=== PATIENT | male | born 1950 | race Caucasian/White ===

== ENCOUNTER 2018-04-11 18:41 | Observation (INO) | payer OTHER ==
[2018-04-11 20:47] LABS: Absolute Lymphocytes (CBC) 1.3 K/uL (0.7-4.9); Absolute Monocytes 0.5 K/uL (0.1-1.3); Absolute Neutrophil 2.6 K/uL (1.8-8.0); Basophils % 1.2 % (0-1.3); Hematocrit 31.6 % (39.6-49.0); Lymphocytes % 27.8 % (15.3-44.8); MCH 18.7 pg (27.0-35.0); MCV 63.8 fL (80-100); MPV 8.6 fL (7.6-11.3); Monocytes % 11.5 % (3.3-12.3); RBC Red Blood Cell Count 4.95 M/uL (4.33-5.43)
[2018-04-11] MEDS ORDERED: cloNIDine HCl 0.1 MG TAB ONE (20:48)
[2018-04-11 20:54] LABS: Protime INR 1.01
[2018-04-11 21:05] LABS: Potassium 4.3 mmol/L (3.5-5.1)
--- NOTE | 2018-04-11 21:12 | RAD REPORT ---
EXAM DESCRIPTION: CT - Ct Stroke Brain Wo Cont - 04/11/2018 8:43 pm CLINICAL HISTORY: Visual disturbance COMPARISON: None. TECHNIQUE: Computed axial tomography of the head was obtained. IV contrast was not requested. All CT scans are performed using dose optimization technique as appropriate and may include automated exposure control or mA/KV adjustment according to patient size. FINDINGS: 3 centimeter low-density area is present within the right occipital lobe consistent with a n infarct. The though 1.5 centimeter low-density area within the right frontal lobe has the appearanc e of an old infarct. Small patchy low-density areas within the cerebellum are noted. An intracranial bleed is not seen . The ventricles are normal in caliber. No extra-axial fluid collection is noted. Fluid within the sinuses/ mastoids is not seen. IMPRESSION: A 3 centimeter low-density area within the right occipital lobe and consistent with an i nfarct. It has more of the appearance of being subacute/old than acute. However, prior exams are not available for comparison. Small old right frontal lobe infarct. Small patchy low-density areas within the cerebellum probably representing small infarcts of indeterm inate age. If the patient continues have symptoms to suggest an acute infarction MRI would be recommended. The exam was discussed with 9 p.m. April 16, 2018
[2018-04-11 21:19] LABS: Urine White Blood Cell Casts OK
[2018-04-11 21:20] LABS: Anisocytosis 2+; Blood Morphology Comment NOTED (NOT SEEN); Elliptocytes 1+; Hypochromasia 2+; Platelet Estimate ADEQ; Polychromasia 1+
[2018-04-11 21:46] LABS: Urine Blood NEGATIVE (NEG); Urine Glucose NEGATIVE (NEG); Urine Protein NEGATIVE (NEG); Urine Specific Gravity 1.015 (1.005-1.030); Urine pH 5.5 (5.0-7.0)
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
[2018-04-11] MEDS ORDERED: MAGNESIUM HYDROXIDE 8% 30 ML PO PRN (22:52)
[2018-04-11] MEDS ORDERED: ACETAMINOPHEN 500 MG TAB PO PRN (22:52)
[2018-04-11] MEDS ORDERED: ONDANSETRON 4 MG/2 ML VIAL IV PRN (22:52)
[2018-04-12] MEDS: NA CHLORIDE 0.9% 1,000 ML IV SCH ×3 (00:28→17:25)
[2018-04-12] MEDS: ASPIRIN EC 81 MG TAB PO SCH ×2 (00:51→09:41)
[2018-04-12 04:16] LABS: Absolute Lymphocytes (CBC) 1.7 K/uL (0.7-4.9); Absolute Monocytes 0.7 K/uL (0.1-1.3); Absolute Neutrophil 2.6 K/uL (1.8-8.0); Eosinophils % 5.5 % (0-4.4); Hematocrit 30.9 % (39.6-49.0); Lymphocytes % 32.4 % (15.3-44.8); MCH 18.7 pg (27.0-35.0); MPV 8.7 fL (7.6-11.3); Monocytes % 12.4 % (3.3-12.3)
[2018-04-12 04:23] LABS: MCV 64.3 fL (80-100)
[2018-04-12 04:33] LABS: Albumin 3.4 g/dL (3.4-5.0); Bilirubin Total 0.2 mg/dL (0.2-1.0); Magnesium 2.3 mg/dL (1.8-2.4); Phosphorus 3.1 mg/dL (2.5-4.9); Potassium 4.2 mmol/L (3.5-5.1); Protein, Total 6.4 g/dL (6.4-8.2)
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
[2018-04-12] MEDS: ENOXAPARIN 40 MG/0.4 ML SQ SCH (09:41)
[2018-04-12] MEDS: CLOPIDOGREL 75 MG TABLET PO SCH (09:42)
--- NOTE | 2018-04-12 12:18 | RAD REPORT ---
EXAM DESCRIPTION: MRI - Stroke Protocol - 04/12/2018 11:52 am CLINICAL HISTORY: Loss of vision COMPARISON: April [address] TECHNIQUE: Axial, sagittal and coronal magnetic resonance images of the brain were obtained. 17 cc M ultiHance was administered. Magnetic resonance angiography of the head and neck was performed. Source images were reviewed and reconstructed at 360 degrees rotation. FINDINGS: Abnormal signal is present within the right occipital lobe, cerebellum bilaterally, left o ccipital lobe, right frontal lobe and posterior left frontal lobe having the appearance of old infarc ts. Diffusion weighted/ADC mapping does not reveal evidence of an acute infarction. No abnormal enhancement within the brain is seen. Fluid within the sinuses/mastoids is not noted. The common, internal and external carotid arteries do not demonstrate a significant stenosis. The basil tebral arteries are unremarkable. The visualized anterior cerebral, middle cerebral, posterior cerebral, basilar and distal internal c arotid arteries do not demonstrate a significant stenosis. 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 An acute infarction is not seen Unremarkable MRA head and neck
--- NOTE | 2018-04-12 12:23 | RAD REPORT ---
EXAM DESCRIPTION: Dwayne Pa And Lat (2 Views)04/12/2018 11:54 am CLINICAL HISTORY: Cough COMPARISON: December 2017 FINDINGS: The right lower lobe opacities have mostly resolved. The right pleural effusion has resolv ed. The left lung appears clear of acute infiltrate. The heart is normal size Several tiny radiopaque densities overlie the right lung
--- NOTE | 2018-04-12 12:30 | RAD REPORT ---
EXAM DESCRIPTION: VASCarotid Artery Bilateral04/12/2018 12:12 pm CLINICAL HISTORY: Vision loss FINDINGS: The velocity of the right internal carotid artery equals 97 cm/sec. The right ICA/CCA rati o 1.3 The velocity of the left internal carotid artery equals 113 cm/sec. The left ICA/CCA ratio 1.7 Minimal plaque is present within the carotid arteries. The vertebral arteries demonstrate antegrade flow IMPRESSION: Minimal plaque within the carotid arteries without evidence of a hemodynamically signifi cant stenosis
--- NOTE | 2018-04-12 15:31 | ECHO ---
HEIGHT: 5 ft 9 in WEIGHT: 178 lb 14.4 oz DATE OF STUDY: 04/12/[address]: Carson Carreno MD 2-DIMENSIONAL: YES M.MODE: YES DOPPLER: YES COLOR FLOW: YES TDS: PORTABLE: DEFINITY: BUBBLE STUDY: DIAGNOSIS: STROKE CARDIAC HISTORY: CATHERIZATION: NO SURGERY: NO PROSTHETIC VALVE: NO PACEMAKER: NO MEASUREMENTS (cm) DIASTOLIC (NORMALS) SYSTOLIC (NORMALS) IVSd 1.1 (0.6-1.2) LA Diam 4.0 (1.9-4.0) LVEF 54% LVIDd 5.5 (3.5-5.7) LVIDs 3.9 (2.0-3.5) %FS 28% LVPWd 1.1 (0.6-1.2) Ao Diam 3.9 (2.0-3.7) 2 DIMENSIONAL ASSESSMENT: RIGHT ATRIUM: NORMAL LEFT ATRIUM: NORMAL RIGHT VENTRICLE: NORMAL LEFT VENTRICLE: NORMAL TRICUSPID VALVE: NORMAL MITRAL VALVE: NORMAL PULMONIC VALVE: NORMAL AORTIC VALVE: NORMAL PERICARDIAL EFFUSION: NONE AORTIC ROOT: NORMAL LEFT VENTRICULAR WALL MOTION: NORMAL DOPPLER/COLOR FLOW: NORMAL COMMENTS: NORMAL TWO DIMENSIONAL ECHOCARDIOGRAM WITH DOPPLER. NO WALL MOTION ABNORMALITY. NO EFFUSION TECHNOLOGIST: CONNER KEMP
--- NOTE | 2018-04-12 15:36 | EKG ---
Test Date: 2018-04-12 Test Time: 07:23:33 [employer] Machine Worker: DAI MEASUREMENT RESULTS: Intervals: Rate: 59 ND: 164 QRSD: 94 QT: 444 QTc: 439 [place]: P: 49 ND: 164 QRS: 6 T: 24 INTERPRETIVE STATEMENTS: Sinus bradycardia Otherwise normal ECG No previous ECG available for comparison Electronically Signed On 04-12-18 15:33:59 CDT by Toño Segovia
[2018-04-12 18:20] LABS: Thyroid Stimulating Hormone 2.55 uIU/mL (0.36-3.74)
[2018-04-12 21:00] LABS: RPR Titer ND
[2018-04-12] MEDS ORDERED: ATORVASTATIN 20 MG TAB PO SCH (21:00)
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
[2018-04-13] MEDS: NA CHLORIDE 0.9% 1,000 ML IV SCH ×2 (01:40→05:54)
[2018-04-13] MEDS: CLOPIDOGREL 75 MG TABLET PO SCH (08:12)
[2018-04-13] MEDS: ENOXAPARIN 40 MG/0.4 ML SQ SCH (08:12)
[2018-04-13] MEDS: ASPIRIN EC 81 MG TAB PO SCH (08:12)
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
[2018-04-13] MEDS ORDERED: LISINOPRIL 10 MG TAB PO ONE (12:06)
[2018-04-13 22:34] LABS: RPR (Rapid Plasma Reagin) NON-REACT (NON-REACT)
== END 2018-04-13 14:45 | disposition home or self-care (01) ==
LOC: ER 18:41 → ERHOLD 22:34 → INTOOBSV 22:34 → 4TH 23:34
PROVIDERS: ADMIT Hospitalist; ATTEND Family Medicine
DX: H53.8 Other visual disturbances (principal); Q25.72 Congenital pulmonary arteriovenous malformation; H46.9 Unspecified optic neuritis; H33.311 Horseshoe tear of retina without detachment, right eye; Z86.73 Personal history of transient ischemic attack (TIA), and cerebral infarction without residual deficits; V89.2XXS Person injured in unspecified motor-vehicle accident, traffic, sequela; Z88.0 Allergy status to penicillin; Z79.82 Long term (current) use of aspirin; Z85.830 Personal history of malignant neoplasm of bone; H54.8 Legal blindness, as defined in USA; R00.1 Bradycardia, unspecified
CPT/HCPCS: 36415; 70450; 70544; 70549; 70553; 71046; 80048; 80053; 80061; 81003; 82607; 82962; 83540; 83735; 84100; 84443; 84466; 85025 ×2; 85610; 85652; 85730; 86140; 86592; 93005; 93306; 93880; 97163; 99285; A9577; G0378 ×2; J1650 ×2; J7030 ×3

== ENCOUNTER 2018-05-22 19:36 | Emergency (ER) | payer OTHER ==
[2018-05-22 21:56] LABS: Absolute Lymphocytes (CBC) 1.7 K/uL (0.7-4.9); Absolute Monocytes 0.7 K/uL (0.1-1.3); Absolute Neutrophil 2.7 K/uL (1.8-8.0); Basophils % 1.1 % (0-1.3); Eosinophils % 3.7 % (0-4.4); Hematocrit 37.1 % (39.6-49.0); Lymphocytes % 31.6 % (15.3-44.8); MCH 21.4 pg (27.0-35.0); MCV 69.4 fL (80-100); Monocytes % 12.6 % (3.3-12.3); RBC Red Blood Cell Count 5.35 M/uL (4.33-5.43)
[2018-05-22 22:11] LABS: Potassium 3.9 mmol/L (3.5-5.1)
[2018-05-22 22:17] LABS: Anisocytosis 1+; Blood Morphology Comment NOTED (NOT SEEN); Hypochromasia 1+; Platelet Estimate ADEQ; Urine White Blood Cell Casts OK
--- NOTE | 2018-05-22 23:39 | EDPHYS ---
Physician Documentation [facility] Name: Solis Argueta Age: 67 yrs Sex: Male : 1950 Arrival Date: 05/22/2018 Time: 19:41 Bed 25 Private MD: Bhanu Barth E ED Physician Edy Kolb HPI: 05/23 00:51 This 67 yrs old Male presents to ER via Ambulatory with complaints of High gs Blood Pressure, Weakness. 00:51 The patient has elevated blood pressure and discovered this at home. Onset: The gs symptoms/episode began/occurred 1 week(s) ago. Associated signs and symptoms: Pertinent negatives: chest pain, dizziness, dyspnea, lightheadedness, weakness. Severity of symptoms: At its worst the blood pressure was moderate, in the emergency department the blood pressure is unchanged. The patient has experienced similar episodes in the past, a few times. Historical: - Allergies: 05/22 20:22 PENICILLINS; aj1 - Home Meds: 20:22 lisinopril [Active]; Centrum Silver oral oral [Active]; Combigan ophthalmic ophthalmic aj1 [Active]; - PMHx: 20:22 CVA; Atrial Fib; bone cancer- in remission; aj1 - PSHx: 20:22 Appendectomy; Hernia repair; aj1 - Immunization history:: Flu vaccine is not up to date. - Social history:: Smoking status: Patient/guardian denies using tobacco. - Ebola Screening: : No symptoms or risks identified at this time. ROS: 05/23 00:51 All other systems are negative. gs Exam: 00:51 Head/Face: Normocephalic, atraumatic. Eyes: Pupils equal round and reactive to light, gs extra-ocular motions intact. Lids and lashes normal. Conjunctiva and sclera are non-icteric and not injected. Cornea within normal limits. Periorbital areas with no swelling, redness, or edema. ENT: Nares patent. No nasal discharge, no septal abnormalities noted. Tympanic membranes are normal and external auditory canals are clear. Oropharynx with no redness, swelling, or masses, exudates, or evidence of obstruction, uvula midline. Mucous membranes moist. Neck: Trachea midline, no thyromegaly or masses palpated, and no cervical lymphadenopathy. Supple, full range of motion without nuchal rigidity, or vertebral point tenderness. No Meningismus. Chest/axilla: Normal chest wall appearance and motion. Nontender with no deformity. No lesions are appreciated. Cardiovascular: Regular rate and rhythm with a normal S1 and S2. No gallops, murmurs, or rubs. Normal PMI, no JVD. No pulse deficits. Respiratory: Lungs have equal breath sounds bilaterally, clear to auscultation and percussion. No rales, rhonchi or wheezes noted. No increased work of breathing, no retractions or nasal flaring. Abdomen/GI: Soft, non-tender, with normal bowel sounds. No distension or tympany. No guarding or rebound. No evidence of tenderness throughout. Back: No spinal tenderness. No costovertebral tenderness. Full range of motion. Skin: Warm, dry with normal turgor. Normal color with no rashes, no lesions, and no evidence of cellulitis. MS/ Extremity: Pulses equal, no cyanosis. Neurovascular intact. Full, normal range of motion. 00:51 Constitutional: The patient appears alert, awake. 00:51 ECG was reviewed by the Attending Physician. 00:51 Neuro: Exam negative for acute changes, Motor: moves all fours, Sensation: no obvious gross deficits. Vital Signs: 05/22 20:22 BP 195 / 95; Pulse 69; Resp 18; Temp 98.4; Pulse Ox 95% on R/A; Weight 77.11 kg (R); aj1 Height 5 ft. 9 in. (175.26 cm) (R); Pain 0/10; 22:49 BP 183 / 83; Pulse 65; Resp 18; Pulse Ox 95% on R/A; kr2 23:59 BP 183 / 90; Pulse 67; Resp 17; Pulse Ox 96% on R/A; kr2 20:22 Body Mass Index 25.10 (77.11 kg, 175.26 cm) aj1 MDM: 21:52 Patient medically screened. 05/23 00:51 Differential diagnosis: hypertensive crisis, Malignant HTN, hypertensive heart disease. Data reviewed: vital signs, nurses notes. Response to treatment: the patient's symptoms have mildly improved after treatment, and as a result, I will discharge patient. ED course: understands needs to follow up for bp control. 05/22 21:29 Order name: Basic Metabolic Panel; Complete Time: 23:37 05/22 21:29 Order name: CBC with Diff; Complete Time: 23:37 05/22 21:29 Order name: Troponin (emerg Dept Use Only); Complete Time: 23:37 05/22 21:29 Order name: XRAY Chest (1 view) 05/22 21:58 Order name: CBC Smear Scan; Complete Time: 23:37 EDVT 08 21:29 Order name: EKG; Complete Time: 21:30 05/22 21:29 Order name: Cardiac monitoring; Complete Time: 21:53 05/22 21:29 Order name: EKG - Nurse/Tech; Complete Time: 22:48 05/22 21:29 Order name: IV Saline Lock; Complete Time: :53 05/22 21:29 Order name: Labs collected and sent; Complete Time: :53 05/22 21:29 Order name: O2 Per Protocol; Complete Time: :53 05/22 21:29 Order name: O2 Sat Monitoring; Complete Time: :53 EC:51 Rate is 63 beats/min. Rhythm is regular. NH interval is normal. QRS interval is normal. gs QT interval is normal. Q waves are Old. Clinical impression: NSR w/ Non-specific ST/T Changes. Interpreted by me. Administered Medications: 05/22 22:13 CANCELLED (wrong patient): GI Cocktail without - (Maalox Suspension 30 ml, kr2 Lidocaine Liquid 2 % 15 ml) PO once Disposition: 05/22/18 23:39 Discharged to Home. Impression: Essential (primary) hypertension, Weakness. - Condition is Stable. - Discharge Instructions: Hypertension, Weakness, Fatigue. - Medication Reconciliation Form, Thank You Letter, Antibiotic Education, Prescription Opioid Use form. - Follow up: Private Physician; When: 2 - 3 days; Reason: Re-evaluation by your physician. Follow up: Crispin Solis MD; When: 2 - 3 days; Reason: Recheck today's complaints, Re-evaluation by your physician. Signatures: Dispatcher [employer] EDSonya Saunders RN RN aj1 Edy Kolb MD MD gs Reaves, Karey, RN RN kr2 Corrections: (The following items were deleted from the chart) 22:13 22:13 GI Cocktail without - (Maalox 30 ml, Lidocaine 15 ml) PO once ordered. kr2 kr2 23:59 21:29 Urine Dipstick-Ancillary ordered. gs kr2 05/23 00:00 05/22 23:39 05/22/2018 23:39 Discharged to Home. Impression: Essential (primary) kr2 hypertension; Weakness. Condition is Stable. Forms are Medication Reconciliation Form, Thank You Letter, Antibiotic Education, Prescription Opioid Use. Follow up: Private Physician; When: 2 - 3 days; Reason: Re-evaluation by your physician. Follow up: Crispin Solis; When: 2 - 3 days; Reason: Recheck today's complaints, Re-evaluation by your physician.
--- NOTE | 2018-05-22 23:39 | ER ---
Nurse's Notes [facility] Name: Solis Argueta Age: 67 yrs Sex: Male : 1950 Arrival Date: 05/22/2018 Time: 19:41 Bed 25 Private MD: Bhanu Barth E Diagnosis: Essential (primary) hypertension;Weakness Presentation: 05/22 20:16 Presenting complaint: Child states: She checked his blood pressure at home and it was aj1 196/101. States that his blood pressure has been consistently elevated for the past couple of days. Reports that he had a stroke one month ago. Patient states that he feel fine at this time. Denies pain. Transition of care: patient was not received from another setting of care. 20:16 Method Of Arrival: Ambulatory aj1 20:19 Onset of symptoms was May 22, 2018. Risk Assessment: Do you want to hurt yourself or aj1 someone else? Patient reports no desire to harm self or others. Initial Sepsis Screen: Does the patient meet any 2 criteria? No. Patient's initial sepsis screen is negative. Does the patient have a suspected source of infection? No. Patient's initial sepsis screen is negative. Care prior to arrival: None. 20:19 Acuity: PEPITO 3 aj1 Triage Assessment: 20:22 General: Appears in no apparent distress. comfortable, Behavior is calm, cooperative, aj1 appropriate for age. Pain: Denies pain. Neuro: Level of Consciousness is awake, alert, obeys commands, Oriented to person, place, time, Moves all extremities. Full function Gait is steady, Speech is normal, Facial symmetry appears normal, Denies weakness numbness headache. Cardiovascular: Patient's skin is warm and dry. Respiratory: Airway is patent Respiratory effort is even, unlabored, Respiratory pattern is regular, symmetrical. Historical: - Allergies: 20:22 PENICILLINS; aj1 - Home Meds: 20:22 lisinopril [Active]; Centrum Silver oral oral [Active]; Combigan ophthalmic ophthalmic aj1 [Active]; - PMHx: 20:22 CVA; Atrial Fib; bone cancer- in remission; aj1 - PSHx: 20:22 Appendectomy; Hernia repair; aj1 - Immunization history:: Flu vaccine is not up to date. - Social history:: Smoking status: Patient/guardian denies using tobacco. - Ebola Screening: : No symptoms or risks identified at this time. Screenin:06 Abuse screen: Denies threats or abuse. Denies injuries from another. Nutritional kr2 screening: No deficits noted. Tuberculosis screening: No symptoms or risk factors identified. Fall Risk None identified. Assessment: 21:56 General: Appears in no apparent distress. comfortable, well groomed, well developed, kr2 well nourished, Behavior is calm, cooperative, appropriate for age. Pain: Denies pain. Neuro: Level of Consciousness is awake, alert, obeys commands, Oriented to person, place, time, situation, Door Serviceman are equal bilaterally Speech is normal, Facial symmetry appears normal. Cardiovascular: Capillary refill < 3 seconds in bilateral fingers Patient's skin is warm and dry. Respiratory: Airway is patent Respiratory effort is even, unlabored, Respiratory pattern is regular, symmetrical. GI: Abdomen is flat, non-distended. : Denies burning with urination. EENT: Oral mucosa is moist. Derm: Skin is intact, is healthy with good turgor, Skin is pink, warm \T\ dry. Musculoskeletal: Circulation, motion, and sensation intact. 22:49 Reassessment: Patient appears in no apparent distress at this time. Patient and/or kr2 family updated on plan of care and expected duration. Pain level reassessed. Patient is alert, oriented x 3, equal unlabored respirations, skin warm/dry/pink. Patient denies pain at this time. 23:59 Reassessment: Patient appears in no apparent distress at this time. Patient and/or kr2 family updated on plan of care and expected duration. Pain level reassessed. Patient is alert, oriented x 3, equal unlabored respirations, skin warm/dry/pink. Patient denies pain at this time. Vital Signs: 20:22 BP 195 / 95; Pulse 69; Resp 18; Temp 98.4; Pulse Ox 95% on R/A; Weight 77.11 kg (R); aj1 Height 5 ft. 9 in. (175.26 cm) (R); Pain 0/10; 22:49 BP 183 / 83; Pulse 65; Resp 18; Pulse Ox 95% on R/A; kr2 23:59 BP 183 / 90; Pulse 67; Resp 17; Pulse Ox 96% on R/A; kr2 20:22 Body Mass Index 25.10 (77.11 kg, 175.26 cm) aj1 ED Course: 19:41 Patient arrived in ED. al2 19:41 Bhanu Barth MD is Private Physician. al2 20:20 Triage completed. aj1 20:22 Arm band placed on Patient placed in waiting room, Patient notified of wait time. aj1 21:28 Edy Kolb MD is Attending Physician. gs 21:40 Inserted saline lock: 18 gauge in left antecubital area, using aseptic technique. Blood kr2 collected. 21:44 Rina Jones, RN is Primary Nurse. kr2 21:56 Patient has correct armband on for positive identification. Bed in low position. Call kr2 light in reach. Side rails up X 1. competitive intelligence analyst on. Pulse ox on. NIBP on. Door closed. Verbal reassurance given. Head of bed elevated. 22:27 XRAY Chest (1 view) In Process Unspecified. EDMS 22:32 X-ray completed. Portable x-ray completed in exam room. Patient tolerated procedure kp1 well. 23:38 Crispin Solis MD is Referral Physician. Administered Medications: 22:13 CANCELLED (wrong patient): GI Cocktail without - (Maalox Suspension 30 ml, kr2 Lidocaine Liquid 2 % 15 ml) PO once Outcome: 23:39 Discharge ordered by . 05/23 00:00 Patient left the ED. kr2 Signatures: Dispatcher [employer] EDMS Sonya Crabtree RN RN aj1 [facility] Edy Kolb MD MD Rina Jones RN RN kr2 Kendra Torres al2 Corrections: (The following items were deleted from the chart) 08 22:14 22:12 Reassessment: Patient appears in no apparent distress at this time. Patient kr2 and/or family updated on plan of care and expected duration. Pain level reassessed. Patient is alert, oriented x 3, equal unlabored respirations, skin warm/dry/pink. Medicated with GI cocktail as ordered for patient complaints of burning in stomach and chest kr2
--- NOTE | 2018-05-23 05:40 | EKG ---
Test Date: 2018-05-22 Test Time: 21:59:58 Store Mgr: LYNDA MEASUREMENT RESULTS: Intervals: Rate: 63 DE: 168 QRSD: 92 QT: 414 QTc: 423 [place]: P: 47 DE: 168 QRS: -23 T: 9 INTERPRETIVE STATEMENTS: Normal sinus rhythm Anterior infarct, age undetermined Abnormal ECG Compared to ECG 04/12/2018 07:23:33 Myocardial infarct finding now present Sinus bradycardia no longer present Electronically Signed On 05-23-18 05:40:07 CDT by Crispin Solis
--- NOTE | 2018-05-23 07:56 | RAD REPORT ---
EXAM DESCRIPTION: Dwayne Single View05/22/2018 10:32 pm CLINICAL HISTORY: Hypertension COMPARISON: April 2018 FINDINGS: The lungs appear clear of acute infiltrate. The heart is mildly enlarged IMPRESSION: No acute abnormalities displayed
== END 2018-05-23 | disposition home or self-care (01) ==
LOC: ER 19:36
DX: I10 Essential (primary) hypertension (principal); I48.91 Unspecified atrial fibrillation; Z88.0 Allergy status to penicillin; Z86.73 Personal history of transient ischemic attack (TIA), and cerebral infarction without residual deficits; Z85.830 Personal history of malignant neoplasm of bone
CPT/HCPCS: 36415; 71045; 80048; 84484; 85025; 93005; 99284

== ENCOUNTER 2020-07-30 22:59 | Emergency (ER) | payer OTHER ==
--- NOTE | 2020-07-31 01:40 | ER ---
Nurse's Notes [facility] Name: Solis Argueta Age: 69 yrs Sex: Male : 1950 Arrival Date: 07/30/2020 Time: 23:05 Bed 13 Private MD: Diagnosis: Edema, unspecified Presentation: 07/30 23:21 Chief complaint: Patient states: Reports he has been having left leg swelling and ea tenderness that comes and goes for the past few months. Family reports tonight pt's toes were "greyish". Coronavirus screen: At this time, the client does not indicate any symptoms associated with coronavirus-19. Ebola Screen: No symptoms or risks identified at this time. Initial Sepsis Screen: Does the patient meet any 2 criteria? No. Patient's initial sepsis screen is negative. Does the patient have a suspected source of infection? No. Patient's initial sepsis screen is negative. Risk Assessment: Do you want to hurt yourself or someone else? Patient reports no desire to harm self or others. Onset of symptoms was July 30, 2020. 23:21 Method Of Arrival: Ambulatory ea 23:21 Acuity: PEPITO 3 ea Triage Assessment: 23:26 General: Appears in no apparent distress. Behavior is appropriate for age. Pain: ea Complains of pain in left leg. Historical: - Allergies: 23:25 PENICILLINS; ea - Home Meds: 23:25 Combigan ophthalmic [Active]; Centrum Silver Oral [Active]; losartan 100 mg oral tab ea [Active]; amlodipine 10 mg tab 1 tab once daily [Active]; - PMHx: 23:25 CVA; bone cancer- in remission; Atrial Fib; ea - PSHx: 23:25 Hernia repair; Appendectomy; ea - Immunization history:: Adult Immunizations up to date. - Social history:: Smoking status: Patient denies any tobacco usage or history of. - Family history:: not pertinent. - Hospitalizations: : No recent hospitalization is reported. Screenin:23 Abuse screen: Denies threats or abuse. Nutritional screening: No deficits noted. ea Tuberculosis screening: No symptoms or risk factors identified. Fall Risk None identified. Assessment: 23:10 General: Appears in no apparent distress. Behavior is calm, cooperative, appropriate fu for age, Denies fever, feeling ill, fatigue, chills. Pain: Denies pain. Neuro: Level of Consciousness is awake, alert, obeys commands, Oriented to person, place, time, situation, Corporate Driver are equal bilaterally Moves all extremities. Gait is steady, Speech is normal, Facial symmetry appears normal. Cardiovascular: Denies chest pain, nausea, palpitations, syncope, vomiting, Capillary refill < 3 seconds. Respiratory: Respiratory effort is even, unlabored, Respiratory pattern is regular. GI: scar to abdomen. : No signs and/or symptoms were reported regarding the genitourinary system. Derm: swelling and discoloration to left leg. Musculoskeletal: Denies. 07/31 01:16 Reassessment: Patient and/or family updated on plan of care and expected duration. Pain ea level reassessed. Patient is alert, oriented x 3, equal unlabored respirations, skin warm/dry/pink. 01:50 Reassessment: Patient and/or family updated on plan of care and expected duration. Pain ea level reassessed. Patient is alert, oriented x 3, equal unlabored respirations, skin warm/dry/pink. Discharge instruction given to patient, verbalized the understanding of instruction. Pt left ED ambulatory tolerating well. Vital Signs: 07/30 23:21 BP 175 / 80; Pulse 62; Resp 18; Temp 98.5; Pulse Ox 95% on R/A; Weight 98.88 kg; Height ea 5 ft. 9 in. (175.26 cm); 07/31 00:00 BP 146 / 71; Pulse 57; Resp 16; Temp 98.3(T); Pulse Ox 91% on R/A; Pain 0/10; fu 01:30 BP 130 / 70; Pulse 60; Resp 18; Pulse Ox 98% ; ea 07/30 23:21 Body Mass Index 32.19 (98.88 kg, 175.26 cm) ea ED Course: 07/30 23:05 Patient arrived in ED. cl3 23:16 Vinay Koenig MD is Attending Physician. rn 23:23 Triage completed. ea 23:24 Patient has correct armband on for positive identification. Placed in gown. Bed in low ea position. Call light in reach. Side rails up X2. Adult w/ patient. Pulse ox on. NIBP on. 23:24 Arm band placed on right wrist. Patient placed in an exam room, on a stretcher, on ea pulse oximetry. 23:38 Quinton Camargo, RN is Primary Nurse. fu 07/31 00:12 No provider procedures requiring assistance completed. fu 01:49 Extremity Venous Uni Ltd US In Process Unspecified. EDMS 01:49 Lower Extremity Artery Uni Ltd US In Process Unspecified. EDMS 01:50 Patient did not have IV access during this emergency room visit. ea Administered Medications: No medications were administered Outcome: 01:39 Discharge ordered by . rn 01:49 Discharged to home ambulatory, with family. ea 01:49 Condition: stable 01:49 Discharge instructions given to patient, Instructed on discharge instructions, follow up and referral plans. Demonstrated understanding of instructions, follow-up care. 01:51 Patient left the ED. ea Signatures: Dispatcher [employer] EDVinay Ardon MD MD rn Antunez, Elena RN RN Quinton Antunez, RN RN Hedy Pardo cl3
--- NOTE | 2020-07-31 01:40 | EDPHYS ---
Physician Documentation [facility] Name: Solis Argueta Age: 69 yrs Sex: Male : 1950 Arrival Date: 07/30/2020 Time: 23:05 Bed 13 Private MD: ED Physician Vinay Koenig HPI: 07/30 23:44 This 69 yrs old Male presents to ER via Ambulatory with complaints of Foot rn and leg Swelling. 23:44 The patient presents with swelling. The complaints affect the left foot. Onset: The rn symptoms/episode began/occurred at an unknown time. Modifying factors: The symptoms are alleviated by nothing, the symptoms are aggravated by nothing. Severity of symptoms: At their worst the symptoms were mild, in the emergency department the symptoms have improved. The patient has experienced similar episodes in the past. family and patient reports months of intermittent left lower leg and foot swelling, no pain, no fever, no trauma. No hx of blood clots. Today daughter saw left foot looked dusky so brought him in for eval. Patient reports feels fine, had just walked the dogs prior to coming in.. Historical: - Allergies: 23:25 PENICILLINS; ea - Home Meds: 23:25 Combigan ophthalmic [Active]; Centrum Silver Oral [Active]; losartan 100 mg oral tab ea [Active]; amlodipine 10 mg tab 1 tab once daily [Active]; - PMHx: 23:25 CVA; bone cancer- in remission; Atrial Fib; ea - PSHx: 23:25 Hernia repair; Appendectomy; ea - Immunization history:: Adult Immunizations up to date. - Social history:: Smoking status: Patient denies any tobacco usage or history of. - Family history:: not pertinent. - Hospitalizations: : No recent hospitalization is reported. ROS: 23:44 Constitutional: Negative for fever, chills, and weight loss, Cardiovascular: Negative rn for chest pain, palpitations Respiratory: Negative for shortness of breath, cough, wheezing, and pleuritic chest pain, Abdomen/GI: Negative for abdominal pain, nausea, vomiting, diarrhea, and constipation, Back: Negative for injury and pain, MS/Extremity: + intermittent swelling LLE Skin: Negative for injury, rash, and discoloration, Neuro: Negative for headache, weakness, numbness, tingling, and seizure. Exam: 23:44 Constitutional: This is a well developed, well nourished patient who is awake, alert, rn and in no acute distress. Cardiovascular: Regular rate and rhythm. No pulse deficits. Respiratory: Speaking full sentences. No increased work of breathing, no retractions or nasal flaring. Skin: Warm, dry, no cyanosis, "dusky" color to foot appears to be dirt/substance and easily rubs off and onto my glove, shown to daughter. MS/ Extremity: Pulses equal, no cyanosis. Neurovascular intact. Full, normal range of motion. Neuro: Awake and alert, GCS 15 Vital Signs: 23:21 BP 175 / 80; Pulse 62; Resp 18; Temp 98.5; Pulse Ox 95% on R/A; Weight 98.88 kg; Height ea 5 ft. 9 in. (175.26 cm); 07/31 00:00 BP 146 / 71; Pulse 57; Resp 16; Temp 98.3(T); Pulse Ox 91% on R/A; Pain 0/10; fu 01:30 BP 130 / 70; Pulse 60; Resp 18; Pulse Ox 98% ; ea 07/30 23:21 Body Mass Index 32.19 (98.88 kg, 175.26 cm) ea MDM: 07/30 23:16 Patient medically screened. rn 23:48 ED course: equipment tech that was here states need to call on-call tech as she is rn going off shift. Called on-call tech, awaiting arrival. . 07/31 01:37 Differential diagnosis: venous insufficiency, claudication, chronic edema, dependent rn edema. Data reviewed: vital signs, nurses notes, radiologic studies, doppler, ultrasound, and as a result, I will discharge patient. Counseling: I had a detailed discussion with the patient and/or guardian regarding: the historical points, exam findings, and any diagnostic results supporting the discharge/admit diagnosis, radiology results, the need for outpatient follow up, to return to the emergency department if symptoms worsen or persist or if there are any questions or concerns that arise at home. Special discussion: I discussed with the patient/guardian in detail that at this point there is no indication for admission to the hospital. It is understood, however, that if the symptoms persist or worsen the patient needs to return immediately for re-evaluation. ED course: No acute findings on venous or arterial ultrasound. . 07/30 23:25 Order name: Extremity Venous Uni Ltd US rn 07/30 23:25 Order name: Lower Extremity Artery Uni Ltd US rn Administered Medications: No medications were administered Disposition: 07/31/20 01:39 Discharged to Home. Impression: Edema, unspecified. - Condition is Stable. - Discharge Instructions: Peripheral Edema. - Medication Reconciliation Form, Thank You Letter, Antibiotic Education, Prescription Opioid Use form. - Follow up: Private Physician; When: As needed; Reason: Recheck today's complaints, Re-evaluation by your physician. - Problem is an ongoing problem. - Symptoms have improved. Signatures: Dispatcher [employer] EDVinay Ardon MD MD rn Antunez, Elena, RN RN ea Corrections: (The following items were deleted from the chart) 01:51 01:39 07/31/2020 01:39 Discharged to Home. Impression: Edema, unspecified. Condition is ea Stable. Forms are Medication Reconciliation Form, Thank You Letter, Antibiotic Education, Prescription Opioid Use. Follow up: Private Physician; When: As needed; Reason: Recheck today's complaints, Re-evaluation by your physician. Problem is an ongoing problem. Symptoms have improved. rn
[2020-07-31 02:00] VITALS: TEMP 98.3
[2020-07-31 02:05] VITALS: BP 130/70; O2SAT 98
--- NOTE | 2020-07-31 06:57 | RAD REPORT ---
EXAM DESCRIPTION: US - Lower Extremity Artery Uni Ltd - 07/31/2020 1:49 am CLINICAL HISTORY: SWELLING COMPARISON: No comparisons TECHNIQUE: Doppler evaluation of the left arterial tree performed. Waveforms and velocity values wer e obtained along with visual inspection. FINDINGS: Triphasic waveform pattern was seen in the left lower extremity. Atherosclerotic changes a re evident in the coello. There is no significant luminal narrowing. No focal flow restricting lesion identified. No suspicious velocity or waveform finding. Preliminary findings were provided at the time of the study. IMPRESSION: Left lower extremity arterial study showing no significant or suspicious finding.
--- NOTE | 2020-07-31 06:58 | RAD REPORT ---
EXAM DESCRIPTION: US - Extremity Venous Uni Ltd - 07/31/2020 1:49 am CLINICAL HISTORY: SWELLING Preliminary findings provided at the time of the study. COMPARISON: None. TECHNIQUE: Real-time sonographic evaluation of the left lower extremity deep venous system was perfo rmed. FINDINGS: Normal compressibility, flow augmentation, phasic flow and spontaneous flow are identified in the left lower extremity common femoral, superficial femoral, popliteal and posterior tibial vein s. No intraluminal filling defects seen. IMPRESSION: No DVT in the left lower extremity.
== END 2020-07-31 01:51 | disposition home or self-care (01) ==
LOC: ER 22:59
DX: R60.9 Edema, unspecified (principal); I48.91 Unspecified atrial fibrillation; Z88.0 Allergy status to penicillin; Z85.830 Personal history of malignant neoplasm of bone; Z86.73 Personal history of transient ischemic attack (TIA), and cerebral infarction without residual deficits
CPT/HCPCS: 93926; 93971; 99283

== ENCOUNTER 2021-06-09 16:51 | Inpatient (IN) | payer OTHER ==
--- NOTE | 2021-06-09 18:42 | RAD REPORT ---
EXAM DESCRIPTION: Dwayne Single View06/09/2021 6:19 pm CLINICAL HISTORY: Chest pain COMPARISON: 2018 FINDINGS: Moderate to marked left and [id number] right pulmonary opacities. Heart mildly enlarged IMPRESSION: Moderate to marked left and [id number] right pulmonary opacities probably pneumon ia
[2021-06-09 19:02] LABS: Absolute Lymphocytes (CBC) 0.8 K/uL (0.7-4.9); Basophils % 0.6 % (0-1.3); Hematocrit 45.5 % (39.6-49.0); Lymphocytes % 14.3 % (15.3-44.8); MPV 8.9 fL (7.6-11.3); RBC Red Blood Cell Count 5.09 M/uL (4.33-5.43)
[2021-06-09 19:17] LABS: Albumin 3.4 g/dL (3.4-5.0); Bilirubin Direct 0.1 mg/dL (0-0.2); Bilirubin Total 0.4 mg/dL (0.2-1.0); Potassium 4.2 mmol/L (3.5-5.1); Protein, Total 7.8 g/dL (6.4-8.2); Troponin (Emerg Dept Use Only) 0.05 ng/mL (0.0-0.045)
[2021-06-09] MEDS ORDERED: METHYLPREDNISOLONE 125 MG INJ ONE (19:50)
[2021-06-09 20:00] LABS: Protime INR 1.11
--- NOTE | 2021-06-09 20:09 | EDPHYS ---
Physician Documentation [facility] Name: Solis Argueta Age: 70 yrs Sex: Male : 1950 Arrival Date: 06/09/2021 Time: 16:56 Bed 27 Private MD: Bhanu Barth E ED Physician Arnold Ignacio HPI: 06/09 18:21 This 70 yrs old Male presents to ER via Ambulatory with complaints of Cough, pm1 Decreased Appetite. 18:21 The patient has shortness of breath at rest. Onset: The symptoms/episode began/occurred pm1 3 day(s) ago. Duration: The symptoms are continuous, and are steadily getting worse. The patient's shortness of breath is alleviated by nothing. Associated signs and symptoms: Pertinent positives: productive cough, fever, Diarrhea, decreased appetite, loss in sense of taste, Pertinent negatives: chest pain, nausea, vomiting. Severity of symptoms: in the emergency department the symptoms are worse. The patient has not experienced similar symptoms in the past. Patient with onset of Covid symptoms 14 days ago. Started with cough, congestion, body aches, decreased appetite. Onset shortness of breath 3 days ago. Historical: - Allergies: 18:04 PENICILLINS; hb - PMHx: 18:04 Atrial Fib; bone cancer- in remission; CVA; hb - Immunization history:: Client reports having NOT received the Covid vaccine. - Social history:: Smoking status: Patient denies any tobacco usage or history of. ROS: 18:21 Eyes: Negative for injury, pain, redness, and discharge. Patient legally blind left pm1 eye, poor eyesight right eye ENT: Negative for injury, pain, and discharge, Cardiovascular: Negative for chest pain, palpitations, and edema. 18:21 Back: Negative for injury and pain, MS/Extremity: Negative for injury and deformity, Skin: Negative for injury, rash, and discoloration. 18:21 Neuro: Negative for headache, weakness, numbness, tingling, and seizure. 18:21 Constitutional: Positive for body aches, fever, poor PO intake. 18:21 Respiratory: Positive for cough, with white sputum, shortness of breath, at rest. 18:21 Abdomen/GI: Positive for diarrhea, Twice daily, Negative for abdominal pain, nausea and vomiting. Exam: 18:21 Constitutional: This is a well developed, well nourished patient who is awake, alert, pm1 and in no acute distress. Head/Face: Normocephalic, atraumatic. 18:21 Eyes: Exam is negative for acute changes, Extraocular movements: intact throughout. 18:21 ENT: Exam is negative for acute changes, Mouth: Lips: normal, moist, Oral mucosa: normal, pink and intact, moist. Vital Signs: 18:02 BP 131 / 60; Pulse 98; Resp 24; Temp 100.3(TE); Pulse Ox 86% on R/A; Weight 90.72 kg; hb Height 5 ft. 9 in. (175.26 cm); Pain 2/10; 19:00 BP 127 / 69; Pulse 102; Resp 20; Pulse Ox 97% on NC; aj2 20:39 BP 111 / 64; Pulse 106; Resp 29; Pulse Ox 95% ; ap3 09 00:31 BP 129 / 62; Pulse 72; Resp 18; Temp 97.9; Pulse Ox 94% on R/A; Pain 0/10; kc4 06/09 18:02 Body Mass Index 29.53 (90.72 kg, 175.26 cm) hb MDM: 06/09 18:20 Patient medically screened. pm1 18:25 Data reviewed: vital signs. pm1 20:06 Counseling: I had a detailed discussion with the patient and/or guardian regarding: the pm1 historical points, exam findings, and any diagnostic results supporting the discharge/admit diagnosis, lab results, radiology results, the need for further work-up and treatment in the hospital. 06/09 18:04 Order name: BMP; Complete Time: 19:20 pm1 06/09 18:04 Order name: Blood Culture Adult (2) pm1 06/09 18:04 Order name: C-Reactive Protein; Complete Time: 19:20 pm1 06/09 18:04 Order name: CBC with Diff; Complete Time: 19:17 pm1 06/09 18:04 Order name: D-Dimer; Complete Time: 20:24 pm1 06/09 18:04 Order name: Ferritin; Complete Time: 19:20 pm1 06/09 18:04 Order name: Flu; Complete Time: 20:02 pm1 06/09 18:04 Order name: LFT's; Complete Time: 19:20 pm1 30 18:04 Order name: Lactate; Complete Time: 19:01 pm06/09 18:04 Order name: Lipase; Complete Time: 19:20 pm06/09 18:04 Order name: PT-INR; Complete Time: 20:24 pm06/09 18:04 Order name: Procalcitonin; Complete Time: 20:02 pm06/09 18:04 Order name: Ptt, Activated; Complete Time: 20:24 pm06/09 18:04 Order name: Strep; Complete Time: 20:02 pm06/09 18:04 Order name: Troponin (emerg Dept Use Only); Complete Time: 19:20 pm06/09 18:04 Order name: Urine Microscopic Only pm 06/09 19:50 Order name: Throat Culture [facility] 06/09 20:52 Order name: SARS-COV-2 RT PCR; Complete Time: 20:54 EDAZ 06/10 03:29 Order name: CBC with Automated Diff EDAZ 06/10 03:33 Order name: D-Dimer [facility] 06/10 03:44 Order name: Comprehensive Metabolic Panel EDA[facility] 06/10 03:44 Order name: Troponin I [facility]DA[facility] 06/10 03:44 Order name: Lipid Profile EDAZ 06/10 03:44 Order name: C-Reactive Protein EDAZ 06/10 03:44 Order name: T4 Free EDAZ 06/10 03:44 Order name: Thyroid Stimulating Hormone [facility] 06/10 03:44 Order name: Ferritin EDAZ 06/10 12:09 Order name: Troponin I [facility] 06/10 17:14 Order name: Troponin I [facility] 06/09 18:04 Order name: CXR XRAY; Complete Time: 18:49 pm06/09 18:04 Order name: EKG; Complete Time: 18:05 pm06/09 18:04 Order name: Cardiac monitoring; Complete Time: 18:45 pm06/09 18:04 Order name: Droplet/Contact Precautions; Complete Time: 18:45 pm06/09 18:04 Order name: EKG - Nurse/Tech; Complete Time: 18:46 pm1 06/09 18:04 Order name: IV Start; Complete Time: 18:46 pm06/09 18:04 Order name: Labs collected and sent; Complete Time: 18:46 pm06/09 18:04 Order name: O2 Per Protocol; Complete Time: 18:46 pm1 06/09 18:04 Order name: O2 Sat Monitoring; Complete Time: 18:46 pm1 06/10 21:27 Order name: Gram Stain--Anaerobic Bottle EDMS 06/10 21:55 Order name: Gram Stain--Aerobic Bottle EDMS 06/10 22:47 Order name: Troponin I EDMS 06/11 02:42 Order name: CBC with Automated Diff EDMS 06/11 02:43 Order name: D-Dimer EDMS 06/11 02:58 Order name: Comprehensive Metabolic Panel EDMS 06/11 02:58 Order name: C-Reactive Protein EDMS 06/11 02:58 Order name: Ferritin EDMS 06/11 03:28 Order name: Manual Differential EDMS 06/11 08:45 Order name: Troponin I EDMS 06/11 15:18 Order name: Troponin I EDMS Administered Medications: 19:44 Drug: SOLU-Medrol (methylPrednisoLONE) 125 mg Route: IVP; Site: right antecubital; aj2 20:22 Follow up: Response: No adverse reaction ap3 Disposition: 06/12 07:19 Co-signature as Attending Physician, Arnold Ignacio MD I agree with the assessment and leobardo plan of care. Disposition Summary: 06/09/21 20:08 Hospitalization Ordered Hospitalization Status: Inpatient Admission pm1 Condition: Stable pm1 Problem: new pm1 Symptoms: have improved pm1 Bed/Room Type: Standard pm1 Provider: Abdi Koenig(06/09/21 20:25) la1 Location: [facility] ER HOLD(06/09/21 20:30) Room Assignment: ERHOLD-(06/09/21 20:30) Diagnosis - Pneumonia due to SARS-associated coronavirus pm1 - Hypoxia pm1 Forms: - Medication Reconciliation Form pm1 - SBAR form pm1 Signatures: Dispatcher [employer] EDAZ Vero Scherer RN RN mw Anderson, Corey, MD MD cha Attema, Lee, FUSION JUNCTURE GRINDER-C FUSION JUNCTURE GRINDER-Cla1 Bala Cunningham NP MASTER YACHT pm1 Elina Garcia RN RN hb Prokisch, Amanda, RN RN ap3 Lamar Viera aj2 Corrections: (The following items were deleted from the chart) 08/30 19:39 18:05 CORONAVIRUS+MR.LAB.BRZ ordered. EDMS EDMS 20:25 20:08 Tervin Moctezuma pm1 la1 20:30 20:08 Telemetry/MedSurg (Inpatient) pm1 mw 20:30 20:08 pm1 mw
--- NOTE | 2021-06-09 20:09 | ER ---
Nurse's Notes [facility] Name: Solis Argueta Age: 70 yrs Sex: Male : 1950 Arrival Date: 06/09/2021 Time: 16:56 Bed 27 Private MD: Bhanu Barth E Diagnosis: Pneumonia due to SARS-associated coronavirus;Hypoxia Presentation: 06/09 18:02 Chief complaint: Household has COVID, pt c/o SOB, N/V/D, difficulty swallowing, body hb aches, and fever x 2 weeks. Coronavirus screen: Client presents with at least one sign or symptom that may indicate coronavirus-19. Ebola Screen: No symptoms or risks identified at this time. Risk Assessment: Do you want to hurt yourself or someone else? Patient reports no desire to harm self or others. Onset of symptoms was May 25, 2021. 18:02 Method Of Arrival: Ambulatory hb 18:02 Acuity: PEPITO 2 hb 20:23 Initial Sepsis Screen: Does the patient meet any 2 criteria? RR > 20 per min. No. ap3 Patient's initial sepsis screen is negative. Does the patient have a suspected source of infection? Yes: Productive cough/pneumonia. Historical: - Allergies: 18:04 PENICILLINS; hb - PMHx: 18:04 Atrial Fib; bone cancer- in remission; CVA; hb - Immunization history:: Client reports having NOT received the Covid vaccine. - Social history:: Smoking status: Patient denies any tobacco usage or history of. Screenin:58 Abuse screen: Denies threats or abuse. Denies injuries from another. Nutritional aj2 screening: No deficits noted. Tuberculosis screening: No symptoms or risk factors identified. Fall Risk None identified. Assessment: 19:00 General: Appears in no apparent distress. comfortable, Behavior is calm, cooperative, aj2 appropriate for age. 20:38 Reassessment: Patient and/or family updated on plan of care and expected duration. Pain ap3 level reassessed. 23:13 Reassessment: patient admitted into [facility]. ap3 Vital Signs: 18:02 BP 131 / 60; Pulse 98; Resp 24; Temp 100.3(TE); Pulse Ox 86% on R/A; Weight 90.72 kg; hb Height 5 ft. 9 in. (175.26 cm); Pain 2/10; 19:00 BP 127 / 69; Pulse 102; Resp 20; Pulse Ox 97% on NC; aj2 20:39 BP 111 / 64; Pulse 106; Resp 29; Pulse Ox 95% ; ap3 09 00:31 BP 129 / 62; Pulse 72; Resp 18; Temp 97.9; Pulse Ox 94% on R/A; Pain 0/10; kc4 06/09 18:02 Body Mass Index 29.53 (90.72 kg, 175.26 cm) hb Vitals: 06/09 18:58 Cardiac Rhythm Assessment Sinus tach. aj2 ED Course: 16:56 Patient arrived in ED. am2 16:56 Bhanu Barth MD is Private Physician. am2 18:04 Triage completed. hb 18:04 Arm band placed on. hb 18:15 Bala Cunningham NP is PHCP. pm1 18:15 Arnold Ignacio MD is Attending Physician. pm1 18:19 CXR XRAY In Process Unspecified. EDMS 18:20 Lamar Viera is Primary Nurse. aj2 18:45 Initial lab(s) drawn, by ak, sent to lab. First set of blood cultures drawn Second set mh5 of blood cultures drawn EKG done, by ED staff, reviewed by Bala Cunningham NP COVID swab sent to lab. Flu and/or RSV swab sent to lab. Strep swab sent to lab. 18:46 BMP Sent. mh5 18:46 Blood Culture Adult (2) Sent. 5 18:46 C-Reactive Protein Sent. mh5 18:46 CBC with Diff Sent. mh5 18:46 D-Dimer Sent. 5 18:46 Ferritin Sent. 5 18:46 Flu Sent. 5 18:46 LFT's Sent. 5 18:46 Lactate Sent. mh5 18:46 Lipase Sent. mh5 18:46 PT-INR Sent. 5 18:46 Procalcitonin Sent. 5 18:47 Ptt, Activated Sent. 5 18:47 Troponin (emerg Dept Use Only) Sent. 5 18:47 Inserted saline lock: 20 gauge in right antecubital area, using aseptic technique. mh5 Blood collected. 18:48 Patient has correct armband on for positive identification. Placed in gown. Bed in low mh5 position. Call light in reach. Side rails up X 1. pvc monitor on. Pulse ox on. NIBP on. 18:58 No apparent distress. Awaiting lab results. aj2 18:58 No provider procedures requiring assistance completed. intact. aj2 19:36 Primary Nurse role handed off by Lamar Viera mw2 20:04 Pily Doherty, RN is Primary Nurse. ap3 20:07 Trevin Moctezuma FNP-C is Hospitalizing Provider. pm1 20:25 Abdi Koenig MD is Hospitalizing Provider. la1 22:12 Diet tray given. PO fluids given. ap3 Administered Medications: 19:44 Drug: SOLU-Medrol (methylPrednisoLONE) 125 mg Route: IVP; Site: right antecubital; aj2 20:22 Follow up: Response: No adverse reaction ap3 Outcome: 20:08 Decision to Hospitalize by Provider. pm1 09 18:53 Patient left the ED. Signatures: Dispatcher [employer] EDNY Rafaela Gutierres RN RN Trevin Moctezuma FNP-C FN[facility] Bala Cunningham, CLIENT OPERATIONS MANAGER CLIENT OPERATIONS MANAGER pm1 Elina Garcia, RN RN Kala Mata 5 Pily Shaw am2 Pily Doherty RN RN ap3 Tracie Ca mw2 Lamar Viera aj2 [address]ha [address] kc4 Corrections: (The following items were deleted from the chart) 06/09 19:39 18:45 CORONAVIRUS+MRDAISHA drawn and sent. 5 EDMS 19:42 19:39 SOLU-Medrol (methylPrednisoLONE) 125 mg IVP in right antecubital ap3 ap3
[2021-06-09] MEDS ORDERED: ONDANSETRON 4 MG/2 ML VIAL IV PRN (22:57)
[2021-06-09] MEDS ORDERED: ACETAMINOPHEN 500 MG TAB PO PRN (22:57)
[2021-06-09] MEDS ORDERED: BENZONATATE 100 MG CAP PO PRN (22:57)
[2021-06-09] MEDS: NA CHLORIDE 0.9% 1,000 ML IV SCH (23:00)
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
[2021-06-09 23:07] VITALS: BMI 29.5
[2021-06-09] MEDS ORDERED: NA CHLORIDE 0.9% 1,000 ML ONE (23:42)
[2021-06-10 03:28] LABS: Absolute Lymphocytes (CBC) 0.5 K/uL (0.7-4.9); Basophils % 0.3 % (0-1.3); Hematocrit 42.6 % (39.6-49.0); MPV 9.4 fL (7.6-11.3); RBC Red Blood Cell Count 4.73 M/uL (4.33-5.43)
[2021-06-10 03:43] LABS: Bilirubin Total 0.3 mg/dL (0.2-1.0); C-Reactive Protein 91.5 mg/L (<3.00); Ferritin 664.6 ng/mL (26-388); Potassium 5.1 mmol/L (3.5-5.1); Thyroid Stimulating Hormone 0.435 uIU/mL (0.360-3.740); Troponin I 0.25 ng/mL (0.0-0.045)
[2021-06-10] MEDS ORDERED: ASPIRIN EC 81 MG TAB PO SCH (09:00)
[2021-06-10] MEDS ORDERED: ZINC SULFATE 220 MG CAP PO SCH (09:00)
[2021-06-10] MEDS ORDERED: VITAMIN D 1000 UNIT TAB PO SCH (09:00)
[2021-06-10] MEDS ORDERED: THIAMINE HCL 100 MG TABLET PO SCH (09:00)
[2021-06-10] MEDS ORDERED: BARICITINIB 2 MG TABLET PO SCH (09:00)
[2021-06-10] MEDS ORDERED: ENOXAPARIN 40 MG/0.4 ML SQ SCH (09:00)
[2021-06-10] MEDS ORDERED: NA CHLORIDE 0.9% 1,000 ML ONE ×2 (11:43→23:24)
[2021-06-10] MEDS ORDERED: METHYLPREDNISOLONE 40 MG INJ ONE (11:46)
[2021-06-10] MEDS ORDERED: ASPIRIN EC 81 MG TAB PO ONE (11:46)
[2021-06-10] MEDS ORDERED: ASCORBIC ACID 500 MG TABLET ONE ×2 (11:46→23:24)
[2021-06-10] MEDS ORDERED: ENOXAPARIN 40 MG/0.4 ML SQ ONE (11:47)
[2021-06-10] MEDS ORDERED: ZINC SULFATE 220 MG CAP ONE (12:11)
[2021-06-10] MEDS ORDERED: VITAMIN D 1000 UNIT TAB ONE (12:12)
[2021-06-10] MEDS ORDERED: THIAMINE HCL 100 MG TABLET ONE (12:13)
--- NOTE | 2021-06-10 13:33 | P.PN ---
Subjective Date of Service: 06/10/21 Chief Complaint: COVID-19 pneumonia Subjective: Improving (feels slightly better today, still requiring O2 supplementation, no new complaints trop elevated, renal function slightly improved) Review of Systems 10-point ROS is otherwise unremarkable Physical Examination - Vital Signs Temperature: 98 F Blood Pressure: 98/61 Pulse: 55 Respirations: 22 Pulse Ox (%): 95 - Studies Laboratory Data (last 24 hrs) 06/09/21 18:30: PT 12.8 H, INR 1.11, APTT 25.4 06/09/21 18:30: WBC 5.50, Hgb 15.1, Hct 45.5, Plt Count 231 06/09/21 18:30: Sodium 132 L, Potassium 4.2, BUN 35 H, Creatinine 1.78 H, Glucose 103, Total Bilirubin 0.4, AST 26, ALT 36, Alkaline Phosphatase 49, Lipase 818 H Microbiology Data (last 24 hrs): 06/09/21 19:00 Throat Group A Streptococcus Rapid Screen - Final 06/09/21 19:00 Nasopharnyx Influenza Type A Antigen Screen - Final 06/09/21 19:00 Nasopharnyx Influenza Type B Antigen Screen - Final Assessment & Plan Physician Review Additional Text: Physical Exam General: AAOx3, NAD HEENT: normal conjunctiva, sclera anicteric Respiratory: mildly labored respirations on 7L NC Cardiovascular: Regular rate/rhythm, Normal S1 S2 Gastrointestinal: soft. nontender, nondistended Integumentary: No rashes Neurological: Normal speech, normal affect Problem List Acute hypoxic respiratory failure secondary to COVID-19 pneumonia Acute kidney injury Hypertension Continue with IV steroids, oral supplements, pulmonology consult, supplemental oxygen as needed, daily room air saturations, room air saturations for home oxygen. Pharmacy consulted for initiation of baricitinib therapy suspect BALA is pre-renal / dehydration, pt with poor PO intake over last few days, mild improvement overnight with IVF, will consult nephrology Pt reported slight chest discomfort, trop increasing, consult cardiology, likely more demand ischemia in setting of hypoxia wean O2 as tolerated continue lovenox Code: full Dispo: home in ~2-3 days Time Spent Managing Pts Care (In Minutes): 35
--- NOTE | 2021-06-10 16:13 | EKG ---
Test Date: 2021-06-09 Test Time: 18:38:14 Loom Stop Checker: MILAGRO MEASUREMENT RESULTS: Intervals: Rate: 99 NM: 158 QRSD: 96 QT: 332 QTc: 426 [place]: P: 50 NM: 158 QRS: -20 T: 17 INTERPRETIVE STATEMENTS: Sinus rhythm with premature atrial complexes Inferior infarct, age undetermined Cannot rule out Anterior infarct, age undetermined Abnormal ECG Compared to ECG 05/22/2018 21:59:58 Atrial premature complex(es) now present Myocardial infarct finding still present Electronically Signed On 06-10-21 16:11:43 CDT by Toño Segovia
[2021-06-10] MEDS: ASCORBIC ACID 500 MG TABLET PO SCH (23:24)
[2021-06-10] MEDS ORDERED: METHYLPREDNISOLONE 125 MG INJ ONE (23:24)
[2021-06-10] MEDS: METHYLPREDNISOLONE 40 MG INJ IV SCH (23:25)
[2021-06-11] MEDS: NA CHLORIDE 0.9% 1,000 ML IV SCH (01:40)
[2021-06-11 02:39] LABS: Absolute Lymphocytes (CBC) 0.5 K/uL (0.7-4.9); Basophils % 0.1 % (0-1.3); Hematocrit 39.7 % (39.6-49.0); Lymphocytes % 6.4 % (15.3-44.8); MPV 9.1 fL (7.6-11.3); RBC Red Blood Cell Count 4.45 M/uL (4.33-5.43)
[2021-06-11 02:57] LABS: Albumin 2.8 g/dL (3.4-5.0); Bilirubin Total 0.3 mg/dL (0.2-1.0); C-Reactive Protein 47.2 mg/L (<3.00); Ferritin 740.3 ng/mL (26-388); Potassium 4.4 mmol/L (3.5-5.1); Protein, Total 6.7 g/dL (6.4-8.2)
[2021-06-11 03:28] LABS: Blood Morphology Comment NOT SEEN (NOT SEEN); Platelet Estimate ADEQ
[2021-06-11] MEDS: ASCORBIC ACID 500 MG TABLET PO SCH ×2 (09:00→13:00)
[2021-06-11] MEDS: METHYLPREDNISOLONE 40 MG INJ IV SCH (09:00)
[2021-06-11 09:10] VITALS: BP 123/70; TEMP 97.1
[2021-06-11] MEDS ORDERED: ASPIRIN EC 81 MG TAB PO ONE (09:43)
[2021-06-11] MEDS ORDERED: THIAMINE HCL 100 MG TABLET ONE ×2 (09:43→10:10)
[2021-06-11] MEDS ORDERED: ASCORBIC ACID 500 MG TABLET ONE ×2 (09:43→14:33)
[2021-06-11] MEDS ORDERED: VITAMIN D 1000 UNIT TAB ONE ×2 (09:44→14:55)
[2021-06-11] MEDS ORDERED: ZINC SULFATE 220 MG CAP ONE (09:44)
[2021-06-11] MEDS ORDERED: ENOXAPARIN 40 MG/0.4 ML SQ ONE (09:44)
[2021-06-11] MEDS ORDERED: METHYLPREDNISOLONE 125 MG INJ ONE (09:49)
[2021-06-11 09:56] VITALS: O2SAT 91
--- NOTE | 2021-06-11 13:23 | ECHO ---
HEIGHT: 5 ft 9 in WEIGHT: 200 lb 0 oz DATE OF STUDY: 06/11/[address]: Abdi Koenig MD 2-DIMENSIONAL: YES M.MODE: YES DOPPLER: YES COLOR FLOW: YES TDS: PORTABLE: DEFINITY: BUBBLE STUDY: DIAGNOSIS: CHEST PAIN CARDIAC HISTORY: CATHERIZATION: SURGERY: PROSTHETIC VALVE: PACEMAKER: MEASUREMENTS (cm) DIASTOLIC (NORMALS) SYSTOLIC (NORMALS) IVSd 1.1 (0.6-1.2) LA Diam 3.4 (1.9-4.0) LVEF 76% LVIDd 5.6 (3.5-5.7) LVIDs 3.0 (2.0-3.5) %FS 46% LVPWd 1.0 (0.6-1.2) Ao Diam 3.4 (2.0-3.7) 2 DIMENSIONAL ASSESSMENT: RIGHT ATRIUM: LEFT ATRIUM: RIGHT VENTRICLE: LEFT VENTRICLE: TRICUSPID VALVE: MITRAL VALVE: PULMONIC VALVE: AORTIC VALVE: PERICARDIAL EFFUSION: AORTIC ROOT: LEFT VENTRICULAR WALL MOTION: DOPPLER/COLOR FLOW: COMMENTS: NORMAL 2-DIMENSIONAL ECHOCARDIOGRAM WITH DOPPLER. NO WALL MOTION ABNORMALITY. NO EFFUSION. TECHNOLOGIST: [employer]
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
[2021-06-11] MEDS ORDERED: METHYLPREDNISOLONE 125 MG INJ IV SCH (14:00)
[2021-06-11] MEDS ORDERED: METHYLPREDNISOLONE 40 MG INJ ONE (14:33)
--- NOTE | 2021-06-11 19:55 | P.DS ---
Admission Date: 06/09/21 Discharge Date: 06/11/21 Disposition: ROUTINE DISCHARGE Discharge Condition: GOOD Reason for Admission: COVID-19 pneumonia Consultations: Pulmonology - Dr. Grimaldo Cardiology - Dr. Segovia Nephrology - Dr. De Leon Procedures: CXR (06/09): IMPRESSION: Moderate to marked left and [id number] right pulmonary opacities probably pneumonia TTE (06/11): normal 2d echo with doppler, no wall motion abnormality. no effusion. EF: 76% Problem List Acute hypoxic respiratory failure secondary to COVID-19 pneumonia Acute kidney injury, pre-renal Hypertension Brief History of Present Illness: 70-year-old male with history of hypertension presents the emergency department for shortness of breath. Patient reports that he had family over his test positive for Covid approximately 2 weeks ago, has had mild symptoms over the course of last 1 week. Patient reports feeling weakness, shortness of breath, malaise, fatigue at home today and was brought in to the emergency department for evaluation. Patient found to be hypoxic on room air satting in the mid to high 60s. Patient was evaluated the emergency department labs were significant for D-dimer 865 sodium 132 creatinine 1.78 GFR 38 BUN 35 ferritin 621 troponin 0 0.05 C-reactive protein 102 procalcitonin 0.15 Covid swab positive chest x-ray with moderate to marked bilateral pneumonia. Patient tolerating nasal cannula at 5 L at this time with saturations in the low 90s, ED provider wishes to admit for further evaluation and management. Hospital Course: Patient improved with treatment using steroids, vitamin supplements, and oxygen supplementation. He was stable on 3L NC for 2 days and discharged home with oxygen. He did report 1 brief episode of chest pain and had mildly elevated troponin. No ekg changes. Cardiology was consulted, felt this was secondary to demand ischemia or possibly from COVID-19. An echocardiogram was obtained and WNL. BALA - secondary to dehydration, improved with IVF. Nephrology was consulted and recommended holding his ARB until follow up with them in 2-3 weeks. Follow up with Dr. Grimaldo in 1 week. Vital Signs/Physical Exam: Physical Exam General: AAOx3, NAD HEENT: normal conjunctiva, sclera anicteric Respiratory: non-labored respirations on 3L NC Cardiovascular: Regular rate/rhythm, Normal S1 S2 Gastrointestinal: soft. nontender, nondistended Integumentary: No rashes Neurological: Normal speech, normal affect Temp Pulse Resp BP Pulse Ox 97.1 F 56 20 123/70 93 06/11/21 11:44 06/11/21 04:00 06/11/21 04:00 06/11/21 08:00 06/11/21 11:44 Laboratory Data at Discharge: WBC 7.20 K/uL (4.3-10.9) D 06/11/21 02:03 Hgb 13.5 g/dL (13.6-17.9) L 06/11/21 02:03 Hct 39.7 % (39.6-49.0) 06/11/21 02:03 Plt Count 246 K/uL (152-406) 06/11/21 02:03 PT 12.8 SECONDS (9.5-12.5) H 06/09/21 18:30 INR 1.11 06/09/21 18:30 APTT 25.4 SECONDS (24.3-36.9) 06/09/21 18:30 Sodium 135 mmol/L (136-145) L 06/11/21 02:03 Potassium 4.4 mmol/L (3.5-5.1) 06/11/21 02:03 BUN 32 mg/dL (7-18) H 06/11/21 02:03 Creatinine 1.08 mg/dL (0.55-1.3) 06/11/21 02:03 Glucose 145 mg/dL (74-106) H 06/11/21 02:03 Total Bilirubin 0.3 mg/dL (0.2-1.0) 06/11/21 02:03 AST 22 U/L (15-37) 06/11/21 02:03 ALT 34 U/L (12-78) 06/11/21 02:03 Alkaline Phosphatase 41 U/L (45-117) L 06/11/21 02:03 Troponin I 0.37 ng/mL (0.0-0.045) H 06/11/21 14:45 Triglycerides 94 mg/dL (<150) 06/10/21 02:29 Cholesterol 112 mg/dL (<200) 06/10/21 02:29 HDL Cholesterol 22 mg/dL (40-60) L 06/10/21 02:29 Cholesterol/HDL Ratio 5.09 06/10/21 02:29 Lipase 818 U/L (73-393) H 06/09/21 18:30 Home Medications: Aspirin [Aspirin EC 81 MG] 81 mg PO DAILY #30 tablet. 04/13/18 Atorvastatin Calcium [Lipitor*] 40 mg PO BEDTIME #30 tab 04/13/18 predniSONE [Prednisone*] 20 mg PO SEECOM 14 Days #21 tab 06/11/21 New Medications: predniSONE [Prednisone*] 20 mg PO SEECOM 14 Days #21 tab Physician Discharge Instructions: You were found to have COVID-19 pneumonia. You had improvement with steroids, vitamin supplementation, and oxygen supplementation. You are discharged home to continue with this treatment. Recommend taking 81mg aspirin daily for 30 days. Follow up with Dr. Grimaldo (Software Development Coordinator) in ~1 week. Call his office to schedule the appointment. You were also found to be dehydrated. Your kidney function improved with IV fluids. You were evaluated by nephrology, they recommended holding your losartan on discharge. Follow-up with them in 2-3 weeks - Dr. De Leon. You are also noted to have a mild elevation in your cardiac enzyme, troponin. You were evaluated by EKG, echocardiogram, heart monitoring, and cardiology. There were no signs of heart ischemia / heart attack. This was felt likely due to COVID-19 infection. Recommend follow up with Cardiology in ~ 1 month. Ok to continue Vitamin D as previously taking. Diet: Regular Activity: Ad mary Followup: Roman Shetty PA [Primary Care Provider] - Time spent managing pt's care (in minutes): 40
--- NOTE | 2021-06-12 12:05 | CON ---
Date of Consultation: 06/11/2021 Reason For Consultation: Atypical chest pain, elevated troponin in the setting of COVID pneumonia. History Of Present Illness: Mr. Argueta is 70, who was admitted on 06/09/2021 with cough, decreased a ppetite. Has had a history of bone cancer in remission, CVA, atrial fibrillation in the past. He di d not have any chest pain when I saw him. Denied any nausea, vomiting, diaphoresis. Denied any PND, orthopnea, pedal edema. He has had a cough, fever, diarrhea, and decreased appetite. His troponin was positive of course as it always is just about in most of the maxwell cases and I was consulted for further evaluation and treatment. He came in with no cardiac complaint Per se, except for the short ness of breath from the COVID. Past Medical History: As stated above. Allergies: HE IS ALLERGIC TO PENICILLIN. Review of Systems: Negative. Social History: Negative. Family History: Noncontributory. Medications: At home include aspirin, Lipitor, and prednisone. Physical Examination: Vital Signs: Stable, afebrile, sinus rhythm. HEENT: Negative. Neck: Supple with no bruit. Chest: Clear to auscultation and percussion. Cardiac: Revealed a regular rhythm and rate. No murmurs, gallops, or rubs. Abdomen: Benign. Extremities: Revealed no clubbing, cyanosis, or edema. Diagnostic Data: Creatinine is 1.63. D-dimer is 817. Troponin was 0.25 and 0.69 and 0.37. His armen e T4 was 1.67 with a normal TSH. EKG showed possible old inferior and an anterior infarction. Chest x-ray showed what looks like COVID pneumonia. Echocardiogram which was ordered based on the symptom s revealed perfectly normal normal ejection fraction without any wall motion abnormalities . Impression And Plan: COVID pneumonia with elevated troponin secondary to COVID. EKG is fairly unrem arkable. Echocardiogram is normal without any wall motion abnormalities. No effusion. I think Mr. Argueta deserves a cardiac workup as an outpatient in about a month after he gets his COVID treated. He should have an MPI and we will see him later. No plan for catheterization right now. PRASHANT/ALEXIS Voice ID: [id number] Report ID: [id number]
== END 2021-06-11 18:45 | disposition home or self-care (01) | DRG 177 ==
LOC: ER 16:51 → ERHOLD 22:54
PROVIDERS: ADMIT Hospitalist; ATTEND Hospitalist
DX: U07.1 COVID-19 (principal); J12.82 Pneumonia due to coronavirus disease 2019; J96.01 Acute respiratory failure with hypoxia; N17.9 Acute kidney failure, unspecified; E87.1 Hypo-osmolality and hyponatremia; I10 Essential (primary) hypertension; E86.0 Dehydration; R77.8 Other specified abnormalities of plasma proteins; Z88.0 Allergy status to penicillin; Z85.830 Personal history of malignant neoplasm of bone; Z86.73 Personal history of transient ischemic attack (TIA), and cerebral infarction without residual deficits
CPT/HCPCS: 36415; 71045; 80048; 80053; 80061; 80076; 82728; 83605; 83690; 84145; 84439; 84443; 84484; 85025; 85379; 85610; 85730; 86140; 87040; 87070; 87081; 87205; 87804; 93005; 93306; 94760; 96374; 99284; J1650; J2920; J2930; J7030; U0003

== ENCOUNTER 2023-05-06 20:16 | Emergency (ER) | payer OTHER ==
--- OUTSIDE RECORDS SUMMARY | 2023-05-06 20:25 | XMS REPORT | Continuity of Care Document ---
:1950 Author Organization [facility] t Address [address] [place] [address] Care Team Providers Name Role Phone TAMELA SCHNEIDER Primary Care Physician Unavailable MIRTA KEENE Attending Clinician Unavailable SAMMY DUBOIS Attending Clinician Unavailable 2, Adc Lab Attending Clinician Unavailable Sammy Dubois MD Attending Clinician Doctor Unassigned, [place] Attending Clinician Unavailable Pob, Adc Lab Main Attending Clinician Unavailable Daylin Hatch MD Attending Clinician DAYLIN HATCH Attending Clinician Unavailable Stephany-Mbayo_A_AH Attending Clinician Unavailable Stephany-Mbayo_A_AH Admitting Clinician Unavailable Payers Payer Name Policy Type Policy Number Effective Date Expiration Date [employer] [id number] 2022spring 00:00:00 [facility] [id number] [facility] 00:[facility]:00 (MEDICARE REPLACEMENT/ADVANT AGE - HMO) Problems This patient has no known problems. Allergies, Adverse Reactions, Alerts Allergy Allergy Status Severity Reaction(s) Onset Inactive Treating Comm ents Source Name Type Date Date Clinician PENICILL Drug Active SOB Univers INS Class 4-26 ity of 00:00: [place] [address] Medical Branch Penicill Propensi Active Swelling Univ ers ins ty to 4-26 ity of adverse 00:00: [place] reaction Medical s [place] NO KNOWN Drug Active Univers ALLERGIE Class ity of S [facility] Social History Social Habit Start Date Stop Date Quantity Comments Source Exposure to 2023-01-24 2023-02-03 Not sure [facility] SARS-CoV-2 (event) 00:00:00 12:12:00 Lina De Sex Assigned At [birth year] [facility] 00:00:00 00:00:00 Medical Branch Smoking Status Start Date Stop Date Source Tobacco smoking consumption [facility] Medical unknown Branch Medications Ordered Filled Start Stop Current Ordering Indication Dosage Frequency Signature Comments Components Source Medication Medication Date Date Medication? Clinician (SIG) Name Name losartan 3-0 Yes 100mg Take 1 Univer s 100 mg 4-26 tablet by ity of tablet 12:26: mouth in [place] [address] the Medical morning. Branch amLODIPine 3-0 Yes 10mg Take 1 Unive rs 10 mg 4-26 tablet by ity of tablet 12:26: mouth in [place] [address] the Medical morning. Branch losartan 2023-0 Yes 100mg Take 1 Univer s 100 mg 4-26 tablet by ity of tablet 12:26: mouth in [place] [address] the Medical morning. Branch amLODIPine 2023-0 Yes 10mg Take 1 Unive rs 10 mg 4-26 tablet by ity of tablet 12:26: mouth in [place] [address] the Medical morning. Branch losartan 2023-0 Yes 100mg Take 1 Univer s 100 mg 4-26 tablet by ity of tablet 12:26: mouth in [place] [address] the Medical morning. Branch amLODIPine 3-0 Yes 10mg Take 1 Unive rs 10 mg 4-26 tablet by ity of tablet 12:26: mouth in [place] [address] the Medical morning. Branch losartan 2023-0 Yes 100mg Take 1 Univer s 100 mg 4-26 tablet by ity of tablet 12:26: mouth in [place] [address] the Medical morning. Branch amLODIPine 2023-0 Yes 10mg Take 1 Unive rs 10 mg 4-26 tablet by ity of tablet 12:26: mouth in [place] [address] the Medical morning. Branch losartan 2023-0 Yes 100mg Take 1 Univer s 100 mg 4-26 tablet by ity of tablet 12:26: mouth in [place] [address] the Medical morning. Branch amLODIPine 2023-0 Yes 10mg Take 1 Unive rs 10 mg 4-26 tablet by ity of tablet 12:26: mouth in [place] [address] the Medical morning. Branch tadalafiL 2023-0 Yes [id number] 20mg Take 1 U nivers (CIALIS) 20 4-26 tablet by ity of mg tablet 00:00: [place] needed for Medical Erectile Branch dysfunctio n (2 hrs prior to sexual activity, 2-3 times/ week). tadalafiL 2023-0 Yes [id number] 20mg Take 1 U nivers (CIALIS) 20 4-26 tablet by ity of mg tablet 00:00: [place] needed for Medical Erectile Branch dysfunctio n (2 hrs prior to sexual activity, 2-3 times/ week). tadalafiL 2023-0 Yes [id number] 20mg Take 1 U nivers (CIALIS) 20 4-26 tablet by ity of mg tablet 00:00: [place] needed for Medical Erectile Branch dysfunctio n (2 hrs prior to sexual activity, 2-3 times/ week). tadalafiL 2023-0 Yes [id number] 20mg Take 1 U nivers (CIALIS) 20 4-26 tablet by ity of mg tablet 00:00: [place] needed for Medical Erectile Branch dysfunctio n (2 hrs prior to sexual activity, 2-3 times/ week). tadalafiL 2023-0 Yes [id number] 20mg Take 1 U nivers (CIALIS) 20 4-26 tablet by ity of mg tablet 00:00: [place] needed for Medical Erectile Branch dysfunctio n (2 hrs prior to sexual activity, 2-3 times/ week). tamsulosin 3-0 2023- No [id number] .4mg Take 1 Univers (FLOMAX) 4- 07- capsule by ity of 0.4 mg 24 00:00: 04:59 mouth in [place] as hr capsule 00 :00 the Medical morning Branch for 90 days. tamsulosin 2023-0 2023- No [id number] .4mg Take 1 Univers (FLOMAX) 4-26 - capsule by ity of 0.4 mg 24 00:00: 04:59 mouth in [place] hr capsule 00 :00 the Medical morning Branch for 90 days. tamsulosin 3-0 3- No [id number] .4mg Take 1 Univers (FLOMAX) 4-05 05-26 capsule by ity of 0.4 mg 24 00:00: 04:59 mouth in [place] hr capsule 00 :00 the Medical morning Branch for 90 days. tamsulosin 2022- No [id number] .4mg Take 1 Univers (FLOMAX) 02-03 capsule by ity of 0.4 mg 24 00:00: 04:59 mouth in [place] hr capsule 00 :00 the Medical morning Branch for 90 days. tamsulosin 2022- No [id number] .4mg Take 1 Univers (FLOMAX) 02-03 capsule by ity of 0.4 mg 24 00:00: 04:59 mouth in [place] hr capsule 00 :00 the Medical morning Branch for 90 days. Vital Signs Vital Name Observation Time Observation Value Comments Source Systolic blood 2023-02-03 17:28:00 134 mm[Hg] Univer [facility] Diastolic blood 2023-02-03 17:28:00 85 mm[Hg] Unive [facility] Heart rate 2023-02-03 17:27:00 93 /min [facility] Respiratory rate 2023-02-03 17:27:00 18 /min [facility] Body height 2023-02-03 17:27:00 175.3 cm [facility] Body weight 2023-02-03 17:27:00 97.705 kg [facility] BMI 2023-02-03 17:27:00 31.81 kg/m2 [facility] Oxygen saturation in 2023-02-03 17:27:00 95 /min [facility] Arterial blood by [facility] Pulse oximetry Branch Procedures Procedure Date / Time Performed Performing Clinician Sourc e POCT URINALYSIS AUTO 2023-02-03 20:41:00 Sammy Dubois [facility] REFERRAL- 2023-01-29 05:01:00 Doctor Unassigned, No Univer [facility] REQUEST/RESPONSE Name [facility] Branch Encounters Start End Encounter Admission Attending Care Care Encounter Source Date/Time Date/Time Type Type Clinicians Facility Department ID 2023-08-09 2023-08-09 Outpatient Saad KEENE [facility] [id number] [facility] 09:15:00 09:15:00 MIRTA mcmahonjovani o f [facility] 2023-02-10 2023-02-10 Outpatient R MARIAN [facility] [id number] Univers 13:15:00 13:15:00 SAMMY ity [facility] 2023-02-04 2023-02-04 [id number] Univers 11:00:00 11:00:00 SAMMY ity [facility] 2023-02-03 2023-02-03 Commercial Driver'S License Driver 2, Adc Lab [facility] [id number] Univers 13:45:00 14:00:00 Visit Sammy Dubois [id number] ity of [place] [id number] Sd dical [facility] 2023-02-03 2023-02-03 [facility] [id number] Univers 11:30:00 13:40:24 [facility] 2023-02-03 2023-02-03 [facility] [id number] Univers 11:30:00 13:40:24 Visit Sammy EPSTEIN [id number] i ty [facility] 4[place] [phone] Sd dical NAL 204 [facility] 2023-01-29 2023-01-29 Orders Doctor [place] [id number] Univers 00:00:00 00:00:00 Only Unassigned, LD 350.1.13.10 ity of [place] [facility] 4.2.7.2.686 Mike as [id number] [address] 2023-01-01 2023-01-01 Commercial Driver'S License Driver Chas, Adc Lab Main [facility] 1.2.8 [id number] Univers 10:00:00 10:15:00 Visit Daylin Hatch [id number] [place]y of [place] [id number] Sd dical [address] 2023-01-01 2023-01-01 Outpatient Saad HATCH, [facility] [id number] Univers 10:00:00 10:00:00 DAYLIN hernández [facility] 2021-02-24 2021-02-24 Outpatient Stephany-Dareno [facility] [id number] [facility] 02:57:00 02:57:00 _A_AH [id number] Family Practic e 2019-12-21 2019-12-21 Outpatient Stephany-Dareno [facility] [id number] 06:49:00 06:49:00 _A_AH [id number] Family Practic e 2019-11-29 2019-11-29 Outpatient Stephany-Dareno [facility] [id number] 07:19:00 07:19:00 _A_AH [id number] Family Practic e Results Test Description Test Time Test Comments Results Result Comments Source POCT URINALYSIS, INSTRUMENT 2023-02-03 20:42:00 Test Item Value Reference Range Interpretation Comme nts POCT U SP GRAV (test code = 3255) 1.015 mg/dl 1.005-1.025 POCT PH U (test code = 3254) 7.0 mg/dl 5-8 POCT U LEUK EST (test code = 3263) Negative Negative - Negative POCT U NIT (test code = 3262) Negative Negative - Negative POCT U PROT (test code = 3259) Negative Negative - Negative POCT U GLU (test code = 3256) Negative Negative - Negative POCT U KETONE (test code = 3258) Negative Negative - Negative POCT U UROBILI (test code = 3260) 0.2 mg/dl 0.2-1 POCT U BILI (test code = 3261) Negative Negative - Negative POCT U BLD (test code = 3257) Negative Negative - Negative POCT U COLOR (test code = 3266) Yellow POCT U APPEAR (test code = 3267) [facility]
[2023-05-06] MEDS ORDERED: HYDROCODONE/APAP 5/325 MG TAB ONE (20:30)
--- NOTE | 2023-05-06 21:28 | ER ---
Nurse's Notes [facility] Name: Solis Argueta Age: 72 yrs Sex: Male : 1950 Arrival Date: 05/06/2023 Time: 20:16 Bed DIS3 Private MD: Diagnosis: Disorder of teeth and supporting structures, unspecified Presentation: 05/06 20:39 Chief complaint: Patient states: he was having pain to the last tooth on the top left cm10 side. Pt states that the pain has resolved but he is worried that he may have an abscess now. No fevers. Coronavirus screen: Vaccine status: Patient reports being unvaccinated. Ebola Screen: No symptoms or risks identified at this time. Initial Sepsis Screen: Does the patient meet any 2 criteria? No. Patient's initial sepsis screen is negative. Does the patient have a suspected source of infection? No. Patient's initial sepsis screen is negative. Risk Assessment: Do you want to hurt yourself or someone else? Patient reports no desire to harm self or others. Onset of symptoms was May 06, 2023. 20:39 Method Of Arrival: Ambulatory 10 20:39 Acuity: PEPITO 4 cm10 Triage Assessment: 21:39 General: Appears in no apparent distress. Behavior is calm, cooperative. Historical: - Allergies: 20:45 PENICILLINS; cm10 - PMHx: 20:45 Atrial Fib; bone cancer- in remission; CVA; cm10 - Immunization history:: Adult Immunizations unknown. - Social history:: Smoking status: Patient/guardian denies using tobacco. Screenin:38 [facility] ED Fall Risk Assessment (Adult) History of falling in the last 3 months, including since admission No falls in past 3 months (0 pts) Confusion or Disorientation No (0 pts). Abuse screen: Denies threats or abuse. Nutritional screening: No deficits noted. Tuberculosis screening: No symptoms or risk factors identified. Assessment: 21:37 Pain: Denies pain. EENT: Reports resolved tooth pain. Vital Signs: 20:39 BP 152 / 90; Pulse 77; Resp 16; Temp 98.9(O); Pulse Ox 96% on R/A; Weight 98.88 kg; cm10 Height 5 ft. 9 in. ; Pain 0/10; 20:39 Body Mass Index 32.19 (98.88 kg, 175.26 cm) cm10 20:39 Pain Scale: Adult cm10 ED Course: 20:23 Patient arrived in ED. es 20:45 Triage completed. cm10 20:45 Arm band placed on Patient placed in waiting room. cm10 21:14 Arnold Fung PA is PHCP. cp 21:14 Huang Main MD is Attending Physician. cp 21:38 No provider procedures requiring assistance completed. Patient did not have IV access kl during this emergency room visit. Administered Medications: 21:33 Drug: Clindamycin PO 300 mg Route: PO; kl 21:37 Follow up: Response: No adverse reaction kl 21:33 Drug: Acetaminophen PO 1000 mg Route: PO; kl 21:37 Follow up: Response: No adverse reaction Outcome: 21:28 Discharge ordered by . cp 21:38 Discharged to home ambulatory. kl 21:38 Condition: stable 21:38 Discharge instructions given to patient, Instructed on discharge instructions, follow up and referral plans. Demonstrated understanding of instructions, follow-up care, medications, Prescriptions given X 2. 21:40 Patient left the ED. kl Signatures: Thalia Florentino, RN RN Amelia Webb Corey, PA PA cp Martinez, Clarissa RN RN cm10
--- NOTE | 2023-05-06 21:28 | EDPHYS ---
Physician Documentation [facility] Name: Solis Argueta Age: 72 yrs Sex: Male : 1950 Arrival Date: 05/06/2023 Time: 20:16 Bed DIS3 Private MD: ED Physician Huang Main HPI: 05/06 21:26 This 72 yrs old Male presents to ER via Ambulatory with complaints of Toothache. cp 21:26 The patient presents with pain. The problem is located in the right upper jaw. Onset: cp The symptoms/episode began/occurred 2 day(s) ago. Duration: The symptoms are continuous. Associated signs and symptoms: Pertinent negatives: anorexia, dysphagia, fever. Historical: - Allergies: 20:45 PENICILLINS; cm10 - PMHx: 20:45 Atrial Fib; bone cancer- in remission; CVA; cm10 - Immunization history:: Adult Immunizations unknown. - Social history:: Smoking status: Patient/guardian denies using tobacco. ROS: 21:26 Constitutional: Negative for body aches, chills, fever, poor PO intake. cp 21:26 ENT: Positive for dental pain, Negative for sore throat, difficulty swallowing, cp difficulty handling secretions. 21:26 Neck: Negative for pain with movement, pain at rest, stiffness. 21:26 Respiratory: Negative for cough, shortness of breath, wheezing. 21:26 Abdomen/GI: Negative for abdominal pain, nausea, vomiting, and diarrhea. 21:26 Neuro: Negative for altered mental status, dizziness, headache, weakness. 21:26 All other systems are negative. Exam: 21:26 Constitutional: The patient appears in no acute distress, alert, awake, non-toxic, well cp developed, well nourished. 21:26 Head/Face: Normocephalic, atraumatic. cp 21:26 Eyes: Periorbital structures: appear normal, Conjunctiva: normal, no exudate, no injection, Sclera: no appreciated abnormality, Lids and lashes: appear normal, bilaterally. 21:26 ENT: External ear(s): are unremarkable, Ear canal(s): are normal, clear, TM's: are normal, no evidence of bulging, no erythema, Nose: is normal, Mouth: is normal, Posterior pharynx: is normal, airway is patent, no erythema, no exudate, Dental exam: abscess, is not appreciated, dental caries, diffusely, gum swelling, not appreciated, pain, left upper jaw. 21:26 Neck: ROM/movement: is normal, Lymph nodes: no appreciated lymphadenopathy. 21:26 Chest/axilla: Inspection: normal. 21:26 Cardiovascular: Rate: normal, Rhythm: regular. 21:26 Respiratory: the patient does not display signs of respiratory distress, Respirations: normal, no use of accessory muscles, no retractions, labored breathing, is not present, Breath sounds: are clear throughout, no decreased breath sounds, no stridor, no wheezing. 21:26 Abdomen/GI: Exam negative for discomfort, distension, guarding, Inspection: abdomen appears normal. 21:26 Skin: cellulitis, is not appreciated, no rash present. Vital Signs: 20:39 BP 152 / 90; Pulse 77; Resp 16; Temp 98.9(O); Pulse Ox 96% on R/A; Weight 98.88 kg; cm10 Height 5 ft. 9 in. ; Pain 0/10; 20:39 Body Mass Index 32.19 (98.88 kg, 175.26 cm) cm10 20:39 Pain Scale: Adult cm10 MDM: 21:14 Patient medically screened. cp 21:28 Data reviewed: vital signs, nurses notes. cp 21:28 I considered the following discharge prescriptions or medication management in the cp emergency department Medications were administered in the Emergency Department. See MAR. Counseling: I had a detailed discussion with the patient and/or guardian regarding: the historical points, exam findings, and any diagnostic results supporting the discharge/admit diagnosis, the need for outpatient follow up, a dentist, to return to the emergency department if symptoms worsen or persist or if there are any questions or concerns that arise at home. Administered Medications: 21:33 Drug: Clindamycin PO 300 mg Route: PO; kl 21:37 Follow up: Response: No adverse reaction kl 21:33 Drug: Acetaminophen PO 1000 mg Route: PO; kl 21:37 Follow up: Response: No adverse reaction kl Disposition: 05/07 03:57 Co-signature as Attending Physician, Huang Main MD I reviewed the patient's care rt provided by the Advanced Practice Provider and agree with the diagnosis and treatment plan. Disposition Summary: 05/06/23 21:28 Discharge Ordered Location: Home cp Problem: new cp Symptoms: have improved cp Condition: Stable cp Diagnosis - Disorder of teeth and supporting structures, unspecified cp Followup: cp - With: Private Physician - When: 1 week - Reason: Recheck today's complaints Discharge Instructions: - Discharge Summary Sheet cp Forms: - Medication Reconciliation Form cp - Thank You Letter cp - Antibiotic Education cp - Prescription Opioid Use cp - Patient Portal Instructions cp Prescriptions: - Clindamycin HCl 300 mg Oral Capsule - take 1 capsule by ORAL route every 6 hours for 10 days; 40 capsule; Refills: 0, cp Product Selection Permitted - Ibuprofen 800 mg Oral Tablet - take 1 tablet by ORAL route every 8 hours As needed take with food; 30 tablet; cp Refills: 0, Product Selection Permitted Signatures: Thalia Florentino, RN RN Arnold Paz PA PA cp Huang Main MD MD rt Sherly Mchugh RN RN cm10
[2023-05-06] MEDS ORDERED: ACETAMINOPHEN 500 MG TAB ONE (21:41)
[2023-05-06 22:11] VITALS: BP 152/90; TEMP 98.9; O2SAT 96
[2023-05-06] MEDS ORDERED: MORPHINE 4 MG/ML SYR ONE (23:02)
== END 2023-05-06 21:40 | disposition home or self-care (01) ==
LOC: ER 20:16
DX: K08.89 Other specified disorders of teeth and supporting structures (principal); Z88.0 Allergy status to penicillin; Z85.830 Personal history of malignant neoplasm of bone
CPT/HCPCS: 99283

== ENCOUNTER 2025-02-15 09:57 | Emergency (ER) | payer OTHER ==
--- OUTSIDE RECORDS SUMMARY | 2025-02-15 10:17 | XMS REPORT | Continuity of Care Document ---
Author Name Unknown Address [address] [place] [address] [facility] Address [address] [place] [address] Care Team Providers Care Casing Soaker Name Role Phone MARILYN PLEITEZ Primary Care Physician CHRISTEL Suresh Attending Clinician Unavailable CHRISTEL TORRES Attending Clinician Unavailable Teresa PATROL MOTHER, Christel Hua Attending Clinician [phone] ANURADHA JACQUES Attending Clinician Unavailable ANURADHA JACQUES Attending Clinician Unavailable Doctor Unassigned, Sedillo Attending Clinician U Elisa Moyer RN Attending Clinician [phone] Joya Casas RN Attending Clinician Unava Norma Parker MD Attending Clinician [phone] Andi Esposito DO Attending Clinician [phone] Americo Lai MD Attending Clinician [phone] NORMA DOTSON Attending Clinician Unavailable Cait Crabtree RN Attending Clinician Unavail able MELITON ALLRED Attending Clinician Unavailable Svitlana Baez DO Attending Clinician [phone] Kashif Stanton MD Attending Clinician [phone] Meliton Allred MD Attending Clinici an Guerita Solis RN Attending Clinician Unavailrobyn GRACE VIC MACIEL Attending Clinician Unavailab tamara Grace MD, Vic Maciel Attending Clinician [phone] Александр GRAY, Leonardo Attending Clinician [phone] Hector GRAY, Campos Attending Clinician [phone] Hyun Hanson DO Attending Clinician [phone] Neda GRAY, Jesús Attending Clinician [phone] Richard GRAY, Yusef Escobar Attending Clinician [phone] Radha GRAY, Dilan Attending Clinician [phone] Selena Campos CRNA Attending Clinician [phone] Shahzad GRAY, Meliton Attending Clinician [phone] Waylon DOCKERY, Courtney Attending Clinician [phone] Dylon GRAY, Zac Hua Attending Clinician + [phone] Ehsan GRAY, Brock Attending Clinician [phone] Nii GRAY, Chvaa Gutierrez Attending Clinician + CHAVA MAZARIEGOS Attending Clinician Unav kc Keenan MD, Jignesh Prado Attending Clinician [phone] Audi Cruz DO Attending Clinician [phone] Ayde Bragg CRNA Attending Clinician + [phone] Carola Stanton MD Attending Clinician [phone] MIRTA KEENE Attending Clinician Unavaila ARNOL Harden Attending Clinician Unavailable 2, [facility] Attending Clinician Unavailable Arnol Fonseca MD Attending Clinician [phone] Doctor Unassigned, Sedillo Attending Clinician U vicenta Doherty, [facility] Main Attending Clinician Unavailrobyn Alcantar MD, Daylin Attending Clinician + [phone] DAYLIN ALCANTAR Attending Clinician Unavailrboyn Armstrongay-Mbayo_A_AH Attending Clinician Unavailable CHRISTEL TORRES Admitting Clinician Unavailable ANURADHA JACQUES Admitting Clinician Unavailable Norma Dotson MD Admitting Clinician [phone] NILA NORMA Admitting Clinician Unavailable KASHIF STANTON Admitting Clinician Unavailable Kashif Stanton MD Admitting Clinician [phone] HYUN HANSON Admitting Clinician Unavailable Hyun Hanson DO Admitting Clinician [phone] Zac Osborne MD Admitting Clinician [phone] ZAC OSBORNE Admitting Clinician Unavailsophie Armstrongay-Mbayo_A_AH Admitting Clinician Unavailable Payers Payer Name Policy Type Policy Number Effective Date Expirati on Date Source [employer] HMO [id number] 2020 00:00:00 [employer] (MEDICARE REPLACEMENT/ADVANT AGE - HMO) [id number] 2019 00:00:00 Problems Condition Name Condition Details Condition Category Status Onset Date Resolution Date Last Treatment Date Treating Clinician Comments Source Hypotensio n Hypotensio n Disease Active 10-17 00:00: 00 [facility] 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 Disease Active 10-17 00:00: 00 [facility] Chronic atrial fibrillati on Chronic atrial fibrillati on Disease Active 10-17 00:00: 00 [facility] BALA (acute kidney injury) BALA (acute kidney injury) Disease Active 10-17 00:00: 00 [facility] PFO (patent foramen ovale) PFO (patent foramen ovale) Disease Active 10-17 00:00: 00 [facility] Pulmonary hypertensi on Pulmonary hypertensi on Disease Active 10-17 00:00: 00 [facility] Weakness Weakness Disease Active 2023-10 00:00: 00 [facility] Elevated troponin Elevated troponin Disease Active 2023-10 00:00: 00 [facility] Acute right MCA stroke Acute right MCA stroke Disease Active 2023-10 00:00: 00 [facility] Upper GI bleed Upper GI bleed Disease Active 2023-10 016 00:00: 00 [facility] Melena Melena Disease Active 2023-10 016 00:00: 00 [facility] Anemia, unspecifie d type Anemia, unspecifie d type Disease Active 2023-10 016 00:00: 00 [facility] Generalize d abdominal tenderness without rebound tenderness Generalize d abdominal tenderness without rebound tenderness Disease Active 2023-10 016 00:00: 00 [facility] Shortness of breath Shortness of breath Disease Active 2023-1016 00:00: 00 [facility] Anemia due to acute blood loss Anemia due to acute blood loss Disease Active 2023-10 00:00: 00 [facility] Allergies, Adverse Reactions, Alerts Allergy Name Allergy Type Status Severity Reaction(s) Onset Date Inactive Date Treating Clinician Comments Source Penicill ins Propensi ty to adverse reaction s Active Swelling 02-03 00:00: 00 [facility] PENICILL INS Drug Class Active SOB 02-03 00:00: 00 [facility] Penicill ins Propensi ty to adverse reaction s Active Swelling 02-03 00:00: 00 [facility] NO KNOWN ALLERGIE S Drug Class Active [facility] Social History Social Habit Start Date Stop Date Quantity Comments Source History of tobacco use Passive smoker [facility] use and exposure 2024-10-17 00:00:00 2024-10-17 00:00:00 Smokeless tobacco non-user [facility] Tobacco Comment 2024-09-25 00:00:00 2024-09-25 00:00:[address] [facility] History of Social function 2024-09-25 00:00:00 2024-09-25 00:00:00 [facility] Exposure to SARS-CoV-2 (event) 2023-01-24 00:00:00 2023-02-03 12:12:[address] [facility] Sex assigned at 1950 00:00:00 1950 00:00:00 [facility] Smoking Status Start Date Stop Date Source Ex-smoker 2024-10-17 00:00:00 2024-10-17 00:00:00 [facility] Never smoked tobacco [facility] Tobacco smoking consumption unknown [facility] Medications Ordered Medication Name Filled Medication Name Start Date Stop Date Current Medication? Ordering Clinician Indication Dosage Frequency Signature (SIG) Comments Components Source cloNIDine (CATAPRES) tablet 0.2 mg 02-08 06:00: 00 02-08 06:01 :00 No .2mg 0.2 mg, Oral, ONCE, 1 dose, On Wed02/08/25 at 0100, STAT [facility] aspirin 81 mg EC tablet 02-08 02:57: 40 Yes 81mg Take 1 tablet by mouth in the morning. [facility] losartan 50 mg tablet 02-08 02:57: 40 Yes 50mg Take 1 tablet by mouth in the morning. [facility] furosemide 20 mg tablet 12-26 00:00: 00 Yes [id number] 20mg Take 1 tablet by mouth every morning. [facility] ferrous sulfate 325 mg (65 mg iron) tablet 10-20 00:00: 00 11-20 05:59 :00 No [id number] 325mg Take 1 tablet by mouth in the morning and 1 tablet in the evening. Take with meals. Do all this for 30 days. [facility] metoprolol succinate XL (TOPROL XL) tablet 12.5 mg 10-19 15:00: 00 Yes 12.5mg 12.5 mg, Oral, DAILY, First dose on Wed10/19/24 at 0900, Until Discontinu ed, Routine [facility] atorvastati n (LIPITOR) tablet 40 mg 10-19 03:00: 00 10-19 20:00 :44 No 40mg 40 mg, Oral, QHS, First dose on Wed10/18/24 at 2100, Until Discontinu ed, Routine [facility] metoprolol succinate XL 25 mg 24 hr tablet 10-19 00:00: 00 11-19 05:59 :00 No [id number] 25mg Take 1 tablet by mouth in the morning and 1 tablet in the evening. Do all this for 30 days. [facility] NaCl 0.9% (NS) IV infusion 1,000 mL 10-18 04:45: 00 10-18 19:00 :00 No 1000mL at 100 mL/hr, IV Infusion, ONCE, 1 dose, On Wed10/17/24 at 2245, Routine [facility] midodrine (PROAMATINE ) tablet 5 mg 10-18 03:00: 00 10-18 18:08 :42 No 5mg 5 mg, Oral, Q8H ABX, First dose (after last modificati on) on Wed10/17/24 at 2100, Until Discontinu ed, Routine [facility] midodrine (PROAMATINE ) tablet 10 mg 10-17 19:00: 00 10-17 21:28 :55 No 10mg 10 mg, Oral, Q8H ABX, First dose (after last modificati on) on Wed10/17/24 at 1300, Until Discontinu ed, Routine [facility] apixaban (ELIQUIS) tablet 5 mg 10-17 14:00: 00 10-19 20:00 :44 No 5mg 5 mg, Oral, BID, First dose (after last reorder) on Wed10/17/24 at 0800, Until Discontinu ed, Routine, Indication s: Non-Valvul ar Atrial Fibrillati on [facility] NaCl 0.9% (NS) IV infusion 500 mL 10-17 12:00: 00 10-17 11:57 :14 No 500mL at 999 mL/hr, IV Infusion, ONCE, 1 dose, On Wed10/17/24 at 0600, Routine [facility] midodrine (PROAMATINE ) tablet 10 mg 10-17 11:00: 00 10-17 14:33 :11 No 10mg 10 mg, Oral, TID, First dose on Wed10/17/24 at 0500, Until Discontinu ed, Routine [facility] apixaban (ELIQUIS) tablet 5 mg 2023-10 02:00: 00 10-10 21:12 :44 No 5mg 5 mg, Oral, BID, First dose on Wed10/09/24 at 2000, Until Discontinu ed, Routine, Indication s: Non-Valvul ar Atrial Fibrillati on [facility] apixaban (ELIQUIS) 5 mg tablet apixaban (ELIQUIS) 5 mg tablet 2023-10 00:00: 00 Yes 5mg Take 1 tablet by mouth in the morning and 1 tablet in the evening. Indication s: Atrial Fibrillati on [facility] losartan 50 mg tablet 2023-10 00:00: 00 10-19 00:00 :00 No [id number] 50mg Take 1 tablet by mouth in the morning and 1 tablet in the evening. [facility] metoprolol succinate XL 100 mg 24 hr tablet 2023-10 00:00: 00 10-19 00:00 :00 No [id number] 100mg Take 1 tablet by mouth in the morning and 1 tablet in the evening. [facility] dapaglifloz in propanediol 10 mg tablet 2023-10 00:00: 00 10-19 00:00 :00 No [id number] 10mg Take 1 tablet by mouth in the morning. [facility] furosemide 40 mg tablet 2023-10 00:00: 00 10-19 00:00 :00 No [id number] 40mg Take 1 tablet by mouth every morning and evening. [facility] spironolact one 25 mg tablet 2023-10 00:00: 00 10-19 00:00 :00 No [id number] 25mg Take 1 tablet by mouth every morning. [facility] furosemide (LASIX) tablet 40 mg 2023-10 23:00: 00 Yes 40mg 40 mg, Oral, QAM+PM, First dose (after last modificati on) on Wed10/09/24 at 1700, Until Discontinu ed, Routine [facility] dapaglifloz in propanediol (FARXIGA) tablet 10 mg 2023-10 16:45: 00 Yes 10mg 10 mg, Oral, DAILY, First dose on Wed10/09/24 at 1045, Until Discontinu ed, Routine, Please provide rationale if you wish to continue with this order; if patient has diabetes, consult endocrinol ogy. [facility] spironolact one (ALDACTONE) tablet 25 mg 2023-10 15:00: 00 Yes 25mg 25 mg, Oral, QAM, First dose on Wed10/09/24 at 0900, Until Discontinu ed, Routine [facility] Potassium Bicarb-Citr ic Acid (EFFER-K) effervescen t tablet 40 mEq 2023-10 11:30: 00 10-09 10:52 :00 No 40meq 40 mEq, Oral, ONCE, 1 dose, On Wed10/09/24 at 0530, Routine [facility] losartan (COZAAR) tablet 50 mg 2023-10 02:00: 00 Yes 50mg 50 mg, Oral, BID, First dose (after last modificati on) on Wed10/08/24 at 2000, Until Discontinu ed, Routine [facility] losartan (COZAAR) tablet 50 mg 2023-10 15:00: 00 10-08 17:51 :14 No 50mg 50 mg, Oral, DAILY, First dose (after last modificati on) on Wed10/08/24 at 0900, Until Discontinu ed, Routine [facility] magnesium sulfate in water 2 gram/50 mL (4 %) infusion 2 g 2023-10 13:45: 00 10-08 15:58 :00 No 2g 2 g, IV Piggyback, Administer over 60 Minutes, ONCE, 1 dose, On Wed10/08/24 at 0745, Routine [facility] metoprolol succinate XL (TOPROL XL) tablet 100 mg 2023-10 02:00: 00 Yes 100mg 100 mg, Oral, BID, First dose (after last modificati on) on Wed10/07/24 at 2000, Until Discontinu ed, Routine [facility] losartan (COZAAR) tablet 25 mg 2023-10 18:35: 00 10-07 19:19 :00 No 25mg 25 mg, Oral, ONCE, 1 dose, On 10/07/24 at 1245, Routine [facility] metoprolol succinate XL (TOPROL XL) tablet 50 mg 2023-10 17:43: 00 10-07 19:19 :00 No 50mg 50 mg, Oral, ONCE, 1 dose, On 10/07/24 at 1145, Routine [facility] Potassium Bicarb-Citr ic Acid (EFFER-K) effervescen t tablet 40 mEq 2023-10 14:15: 00 10-07 14:43 :00 No 40meq 40 mEq, Oral, ONCE, 1 dose, On 10/07/24 at 0815, Routine [facility] iron dextran (INFED) 1,000 mg in NaCl 0.9% (NS) 500 mL IV infusion 2023-10 22:15: 00 10-06 23:54 :00 No 1000mg 1,000 mg, IV Infusion, ONCE, 1 dose, On Wed10/06/24 at 1615, Administer over 1 Hours, 500 mL [facility] iron dextran (INFED) 25 mg in NaCl 0.9% (NS) 100 mL IV piggyback 2023-10 22:15: 00 10-06 22:47 :00 No 25mg 25 mg, IV Piggyback, ONCE, 1 dose, On Wed10/06/24 at 1615, Administer over 15 Minutes, 100 mL [facility] heparin 25,000 Units/250 mL (Premixed Bag) in 0.45 % NS 2023-10 21:30: 00 10-09 22:16 :14 No 0U/h 0-2,400 Units/hr (0-24 mL/hr), IV Infusion, CONTINUOUS , Starting on Wed10/06/24 at 1530, Initiate infusion at 1,000 Units/hr (calculate d at 12 units/kg/h r, rounded to the closest 50 units) DO NOT Exceed the MAXIMUM 1,000 units/hr for initiation of heparin infusion. CAUTION - If LMWH given in ER, AVOID bolus and start next dose/drip 12 hrs after ER dosage. Must program rate using programmab le infusion pump. Check with the ordering provider first prior to any administra tion should the patient be on existing/a dditional anticoagul ant therapy. Range, Dosing and Testing - aPTT < 40: Bolus 3000 units, increase rate 100 units/hr. - aPTT 40-49: Increase rate 50 units/hr. - aPTT 50-70: NO CHANGE. - aPTT 71-85: Decrease rate 50 units/hr. - aPTT 86-100: Hold 30 minutes, decrease rate 100 units/hr. - aPTT 101-150: Hold 60 minutes, decrease rate 150 units/hr. - aPTT > 150: Hold 60 minutes, decrease rate 300 units/hr. Check aPTT 6 hours after initiation , then Q6H after every change, aPTT Q12H once therapeuti c levels are reached. DO NOT ADJUST INITIAL BOLUS OR INITIAL INFUSION RATE. [facility] HEPARIN SODIUM (PORCINE) 1,000 UNIT/ML BOLUS ACS ORDER SET 2023-10 21:30: 00 10-06 22:08 :00 No 4000U 4,000 Units, IV Push, ONCE, 1 dose, On Wed10/06/24 at 1530, PENG [facility] heparin (1,000 unit/mL, 10 mL vial) for Rebolusing 2023-10 21:22: 53 10-09 22:16 :23 No 3000U FOR REBOLUSING , Starting on Wed10/06/24 at 1522, Until Wed10/09/24 at 1616, Routine, Dosing based on aPTT testing parameters (refer to continuous heparin drip order). [facility] iopamidol (ISOVUE 370-500 mL) injection 100 mL 2023-10 19:27: 00 10-06 19:27 :00 No [id number] 100mL 100 mL, Intravenou s, ONCE, 1 dose, On Wed10/06/24 at 1345, Routine [facility] perflutren lipid microsphere s (DEFINITY) injection 2 mL 2023-10 17:00: 00 10-06 17:00 :00 No [id number] 2mL 2 mL, IV Push, ONCE, 1 dose, On Wed10/06/24 at 1100, Routine [facility] furosemide (LASIX) injection 40 mg 2023-10 15:30: 00 10-09 16:32 :14 No 40mg 40 mg, Slow IV Push, Q12H, First dose on Wed10/06/24 at 0930, Until Discontinu ed, Routine [facility] pantoprazol e (PROTONIX) EC tablet 40 mg 2023-10 15:00: 00 10-10 21:12 :44 No 40mg 40 mg, Oral, DAILY, First dose on Wed10/06/24 at 0900, Until Discontinu ed, Routine [facility] aspirin chewable tablet 81 mg 2023-10 15:00: 00 10-09 19:51 :39 No 81mg 81 mg, Oral, DAILY, First dose on Wed10/06/24 at 0900, Until Discontinu ed, Routine [facility] losartan (COZAAR) tablet 25 mg 2023-10 15:00: 00 10-07 18:35 :52 No 25mg 25 mg, Oral, DAILY, First dose on Wed10/06/24 at 0900, Until Discontinu ed, Routine [facility] nystatin (MYCOSTATIN ) ointment 2023-10 14:00: 00 10-10 21:12 :44 No Topical, BID, First dose on Wed10/06/24 at 0800, Until Discontinu ed, Routine [facility] magnesium sulfate in water 4 gram/50 mL (8 %) IV Piggyback 4 g 2023-10 14:00: 00 10-06 15:56 :00 No 4g 4 g, IV Piggyback, at 25 mL/hr Administer over 120 Minutes, ONCE, 1 dose, On Wed10/06/24 at 0800, Routine [facility] KCL (KLOR-CON M20) tablet 20 mEq 2023-10 13:15: 00 10-06 14:37 :00 No 20meq 20 mEq, Oral, Q2H, 2 doses, First dose on Wed10/06/24 at 0715, Last dose on Wed10/06/24 at 0800, Routine [facility] HYDROcodone -acetaminop hen (NORCO 5) tablet 1 tablet 2023-10 11:30: 00 10-06 10:42 :00 No 1{tbl} 1 tablet, Oral, ONCE, 1 dose, On Wed10/06/24 at 0530, Routine [facility] atorvastati n (LIPITOR) tablet 40 mg 2023-10 06:00: 00 10-10 21:12 :44 No 40mg 40 mg, Oral, QHS, First dose on Wed10/06/24 at 0000, Until Discontinu ed, Routine [facility] metoprolol succinate XL (TOPROL XL) tablet 50 mg 2023-10 06:00: 00 10-07 17:43 :54 No 50mg 50 mg, Oral, BID, First dose on Wed10/06/24 at 0000, Until Discontinu ed, Routine [facility] heparin 25,000 Units/250 mL (Premixed Bag) in D5W 2023-10 05:15: 00 10-06 12:55 :50 No 0U/h 0-2,400 Units/hr (0-24 mL/hr), IV Infusion, CONTINUOUS , Starting on Wed10/05/24 at 2315, Initiate infusion at 1,000 Units/hr (calculate d at 12 units/kg/h r, rounded to the closest 50 units) DO NOT Exceed the MAXIMUM 1,000 units/hr for initiation of heparin infusion. CAUTION - If LMWH given in ER, AVOID bolus and start next dose/drip 12 hrs after ER dosage. Must program rate using programmab le infusion pump. Check with the ordering provider first prior to any administra tion should the patient be on existing/a dditional anticoagul ant therapy. Range, Dosing and Testing - aPTT < 40: Bolus 3000 units, increase rate 100 units/hr. - aPTT 40-49: Increase rate 50 units/hr. - aPTT 50-70: NO CHANGE. - aPTT 71-85: Decrease rate 50 units/hr. - aPTT 86-100: Hold 30 minutes, decrease rate 100 units/hr. - aPTT 101-150: Hold 60 minutes, decrease rate 150 units/hr. - aPTT > 150: Hold 60 minutes, decrease rate 300 units/hr. Check aPTT 6 hours after initiation , then Q6H after every change, aPTT Q12H once therapeuti c levels are reached. DO NOT ADJUST INITIAL BOLUS OR INITIAL INFUSION RATE. [facility] HEPARIN SODIUM (PORCINE) 1,000 UNIT/ML BOLUS ACS ORDER SET 2023-10 05:15: 00 10-06 06:24 :00 No 4000U 4,000 Units, IV Push, ONCE, 1 dose, On Mera 10/05/24 at 2315, [facility] acetaminoph en (TYLENOL) tablet 650 mg 2023-10 04:33: 58 10-10 21:12 :44 No 650mg [facility] furosemide (LASIX) injection 40 mg 2023-10 01:00: 00 10-06 01:02 :00 No 40mg 40 mg, IV Push, ONCE, 1 dose, [facility] Wed10/05/24 at 1900[facility]-10 00:00: 00 10-19 00:00 :00 No [id number] 5mg Take 1 tablet by mouth in the morning and 1 tablet in the evening. Do all this for 90 days. Indication s: prevention of thromboemb olism in paroxysmal atrial fibrillati on [facility] metoprolol succinate XL (TOPROL XL) tablet 50 mg 2023-10 02:00: 00 Yes 50mg 50 mg, Oral, BID, First dose on Wed10/03/24 at 2000, Until Discontinu ed, Routine [facility] aspirin 81 mg chewable tablet 2023-10 00:00: 00 10-10 00:00 :00 No [id number] 81mg Take 1 tablet by mouth in the morning for 90 days. [facility] pantoprazol e (PROTONIX) EC tablet 40 mg 2023-10 15:00: 00 10-03 23:30 :40 No 40mg 40 mg, Oral, DAILY, First dose (after last modificati on) on Wed10/03/24 at 0900, Until Discontinu ed, Routine [facility] metoprolol tartrate (LOPRESSOR) tablet 50 mg 2023-10 02:00: 00 10-03 18:35 :47 No 50mg 50 mg, Oral, BID, First dose on Wed10/02/24 at 2000, Until Discontinu ed, Routine [facility] atorvastati n 40 mg tablet 2023-10 00:00: 00 01-02 04:59 :00 No [id number] 40mg Take 1 tablet by mouth at bedtime. [facility] metoprolol succinate XL 50 mg 24 hr tablet 2023-10 00:00: 00 10-10 00:00 :00 No [id number] 50mg Take 1 tablet by mouth in the morning and 1 tablet in the evening. Do all this for 90 days. [facility] metoprolol tartrate (LOPRESSOR) tablet 25 mg 2023-10 21:15: 00 10-02 22:24 :00 No 25mg 25 mg, Oral, ONCE NOW, 1 dose, On Wed10/02/24 at 1515, Routine [facility] losartan (COZAAR) tablet 25 mg 2023-10 16:45: 00 10-03 23:30 :40 No 25mg 25 mg, Oral, DAILY, First dose on Wed10/02/24 at 1045, Until Discontinu ed, Routine [facility] oxymetazoli ne (OXYMETAZOL INE HCL) 0.05 % nasal spray 1 Gail 2023-10 19:30: 11 10-03 23:30 :40 No 1{spray } 1 Gail, Nasal, Q5MIN PRN, Starting on Wed10/01/24 at 1330, Until 10/03/24 at 1730, Routine, Nosebleed [facility] multivitami n tablet 2023-10 16:30: 00 10-03 23:30 :40 No 1{tbl} 1 tablet, Oral, DAILY, First dose on 10/01/24 at 1030, Until Discontinu ed, Routine [facility] ketorolac (TORADOL) injection 15 mg 2023-10 12:15: 00 10-01 11:32 :00 No 15mg 15 mg, Slow IV Push, ONCE, 1 dose, On 10/01/24 at 0615, Routine [facility] Lidocaine (LIDOCARE) 4 % patch 1 Patch 2023-10 12:15: 00 10-01 23:31 :00 No 1{patch } 1 Patch, Topical, Administer over 12 Hours, ONCE, 1 dose, On 10/01/24 at 0615, Routine [facility] metoprolol tartrate (LOPRESSOR) tablet 25 mg 2023-10 02:00: 00 10-02 20:27 :41 No 25mg 25 mg, Oral, BID, First dose (after last modificati on) on 09/30/24 at 2000, Until Discontinu ed, Routine [facility] aspirin chewable tablet 81 mg 2023-10 15:00: 00 Yes 81mg 81 mg, Oral, DAILY, First dose on 09/30/24 at 0900, Until Discontinu ed, Routine [facility] sennosides- docusate sodium (SENOKOT-S) 8.6-50 mg per tablet 1 tablet 2023-10 15:00: 00 10-03 23:30 :40 No 1{tbl} 1 tablet, Oral, DAILY, First dose (after last modificati on) on 09/30/24 at 0900, Until Discontinu ed, Routine [facility] ketorolac (TORADOL) injection 15 mg 2023-10 07:45: 00 09-30 07:34 :00 No 15mg 15 mg, Slow IV Push, ONCE, 1 dose, On 09/30/24 at 0145, Routine [facility] atorvastati n (LIPITOR) tablet 40 mg 2023-10 03:00: 00 Yes 40mg 40 mg, Oral, QHS, First dose (after last modificati on) on Wed09/29/24 at 2100, Until Discontinu ed, Routine [facility] metoprolol tartrate (LOPRESSOR) tablet 12.5 mg 2023-10 02:00: 00 09-30 16:02 :30 No 12.5mg 12.5 mg, Oral, BID, First dose (after last modificati on) on Wed09/29/24 at 2000, Until Discontinu ed, Routine [facility] enoxaparin (LOVENOX) injection 40 mg 2023-10 23:30: 00 10-03 23:30 :40 No 40mg 40 mg, Subcutaneo us, QPM, First dose on Wed09/29/24 at 1730, Until Discontinu ed, Routine [facility] fentanyl PF (SUBLIMAZE (PF)) injection 12.5 mcg 2023-10 21:45: 00 09-29 21:46 :00 No 12.5ug 12.5 mcg, Slow IV Push, ONCE, 1 dose, On Wed09/29/24 at 1545, PENG [facility] gabapentin (NEURONTIN) capsule 300 mg 2023-10 20:00: 00 10-03 23:30 :40 No 300mg 300 mg, Oral, TID, First dose on Wed09/29/24 at 1400, Until Discontinu ed, Routine [facility] Saline Bubble Study 2023-10 17:55: 03 09-29 23:20 :01 No [id number] 6mL 6 mL, Injection, SEE-INSTRU CTIONS, Starting on Wed09/29/24 at 1155, Until Wed09/29/24 at 1720, Routine [facility] polyethylen e glycol 3350 powder 17 g 2023-10 16:46: 17 10-03 23:30 :40 No 17g 17 g, Oral, QDAILYPRN, Starting on Wed09/29/24 at 1046, Until Wed10/03/24 at 1730, Routine, Constipati on, if no BMs for more than 1 day [facility] glucagon HCL injection 1 mg 2023-10 16:43: 46 10-03 23:30 :40 No 1mg 1 mg, Intramuscu lar, PRN, Starting on Wed09/29/24 at 1043, Until Wed10/03/24 at 1730, PENG, Low blood sugar, Blood Glucose < or = 70 mg/dL and patient is NPO, unable to swallow or has mental changes. [facility] HYDROcodone -acetaminop hen (NORCO 5) tablet 1 tablet 2023-10 15:12: 49 09-29 16:56 :44 No 1{tbl} 1 tablet, Oral, Q6HPRN, Starting on Wed09/29/24 at 0912, Until Wed09/29/24 at 1056, Routine, Pain (scale 7-10) [facility] atorvastati n (LIPITOR) tablet 40 mg 2023-10 03:00: 00 09-29 13:53 :18 No 40mg 40 mg, Oral, QHS, First dose on Wed09/28/24 at 2100, Until Discontinu ed, Routine [facility] metoprolol tartrate (LOPRESSOR) tablet 25 mg 2023-10 02:00: 00 Yes 25mg 25 mg, Oral, BID, First dose (after last modificati on) on Wed09/28/24 at 2000, Until Discontinu ed, Routine [facility] pantoprazol e (PROTONIX) injection 40 mg 2023-10 02:00: 00 10-02 17:04 :19 No 40mg 40 mg, Slow IV Push, Q12H, First dose on Wed09/28/24 at 2000, Until Discontinu ed [facility] NaCl 0.9% (NS) bolus infusion 300 mL 2023-10 01:45: 00 09-29 02:18 :00 No 300mL at 999 mL/hr, 300 mL, IV Piggyback, ONCE, 1 dose, On Wed09/28/24 at 1945, STAT [facility] oxyCODONE CR (oxyCONTIN CR) 12 hr tablet 10 mg 2023-10 01:30: 00 09-29 02:04 :00 No 10mg 10 mg, Oral, ONCE, 1 dose, On Wed09/28/24 at 1930, Routine, restaurant 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 approving Restricted medication : CAMPOS YOUNG [facility] NaCl 0.9% (NS) IV infusion 1,000 mL 2023-10 01:00: 00 09-29 15:05 :11 No 1000mL at 100 mL/hr, IV Infusion, CONTINUOUS , Starting on Wed09/28/24 at 1900, Until Wed09/29/24 at 0905, Routine [facility] ketorolac (TORADOL) injection 15 mg 2023-10 00:15: 00 09-28 23:27 :00 No 15mg 15 mg, Slow IV Push, ONCE, 1 dose, On Wed09/28/24 at 1815, Routine [facility] NaCl 0.9% (NS) 1000 mL + KCL 20 mEq 2023-10 23:15: 00 09-29 02:10 :37 No IV Infusion, at 75 mL/hr, CONTINUOUS , Starting on Wed09/28/24 at 1715, Until Wed09/28/24 at 2010, Routine [facility] enoxaparin (LOVENOX) injection 40 mg 2023-10 23:15: 00 09-28 23:44 :39 No 40mg 40 mg, Subcutaneo us, DAILY, First dose on Wed09/28/24 at 1715, Until Discontinu ed, Routine [facility] acetaminoph en (TYLENOL) tablet 650 mg 2023-10 22:59: 22 10-03 23:30 :40 No 650mg 650 mg, Oral, Q6HPRN, Starting on Wed09/28/24 at 1659, Until Wed10/03/24 at 1730, Routine, Pain (scale 1-3), Pain (scale 4-6), Temp > 37.5 C [facility] iopamidol (ISOVUE 300-100 mL) injection 300 mL 2023-10 22:30: 00 09-28 22:30 :00 No [id number] 300mL 300 mL, Intravenou s, ONCE, 1 dose, On Wed09/28/24 at 1630, Routine [facility] NaCl 0.9% (NS) IV infusion 1,000 mL 2023-10 20:30: 00 09-29 00:59 :41 No 1000mL at 50 mL/hr, IV Infusion, CONTINUOUS , Starting on Wed09/28/24 at 1430, Until Wed09/28/24 at 1859, Routine [facility] iopamidol (ISOVUE 370-500 mL) injection 70 mL 2023-10 19:00: 00 09-28 18:09 :00 No [id number] 70mL 70 mL, Intravenou s, ONCE, 1 dose, On Wed09/28/24 at 1300, Routine [facility] NaCl 0.9% (NS) injection 5 mL 2023-10 17:41: 03 10-03 23:30 :40 No 5mL 5 mL, Slow IV Push, PRN - SEE INSTRUCTIO NS, Starting on Wed09/28/24 at 1141, Until Wed10/03/24 at 1730, 10 mL [facility] pantoprazol e (PROTONIX) EC tablet 40 mg 2023-10 15:00: 00 09-29 00:59 :41 No 40mg 40 mg, Oral, DAILY, First dose (after last modificati on) on Wed09/28/24 at 0900, Until Discontinu ed, Routine [facility] losartan (COZAAR) tablet 25 mg 2023-10 15:00: 00 09-28 23:02 :18 No 25mg 25 mg, Oral, DAILY, First dose on Wed09/28/24 at 0900, Until Discontinu ed, Routine [facility] apixaban (ELIQUIS) tablet 5 mg 2023-10 14:45: 00 09-28 17:40 :54 No 5mg 5 mg, Oral, BID, First dose on Wed09/28/24 at 0845, Until Discontinu ed, Routine, Indication s: Non-Valvul ar Atrial Fibrillati on [facility] simethicone (GAS RELIEF (SIMETHICON E)) 40 mg/0.6 mL drops 2023-10 20:23: 00 09-27 21:51 :45 No PRN, Starting on Wed09/27/24 at 1423, Until Wed09/27/24 at 1551, Routine, Intra-op [facility] bisacodyL (DULCOLAX) tablet 10 mg 2023-10 22:30: 00 09-26 23:32 :00 No 10mg 10 mg, Oral, PRE-PROCED URE ONCE, 1 dose, Starting on Wed09/26/24 at 1630, Until Wed09/26/24 at 1732, Routine, Bowel Prep, Colonoscop y [facility] ondansetron (ZOFRAN (PF)) injection 4 mg 2023-10 21:49: 34 10-03 23:30 :40 No 4mg 4 mg, Slow IV Push, Q6HPRN, Starting on Wed09/26/24 at 1549, Until Wed10/03/24 at 1730, Administer over 2-5 Minutes, 2 mL [facility] peg-electro lyte soln (GOLYTELY) 236-22.74-6 .74 -5.86 gram solution 4,000 mL 2023-10 21:49: 34 09-29 16:46 :28 No 4000mL 4,000 mL, Oral, PRN - SEE INSTRUCTIO NS, Starting on Wed09/26/24 at 1549, Until Wed09/29/24 at 1046, Routine, Bowel Prep, colonoscop y [facility] bisacodyL (DULCOLAX) tablet 10 mg 2023-10 21:49: 34 09-27 02:53 :00 No 10mg 10 mg, Oral, PRE-PROCED URE ONCE, 1 dose, Starting on Wed09/26/24 at 1549, Until Wed09/26/24 at 2053, Routine, Bowel Prep, Colonoscop y [facility] sennosides- docusate sodium (SENOKOT-S) 8.6-50 mg per tablet 1 tablet 2023-10 15:00: 00 09-29 13:53 :18 No 1{tbl} 1 tablet, Oral, DAILY, First dose on Wed09/26/24 at 0900, Until Discontinu ed, Routine [facility] metoprolol tartrate (LOPRESSOR) tablet 12.5 mg 2023-10 14:00: 00 09-28 18:17 :17 No 12.5mg 12.5 mg, Oral, BID, First dose on Wed09/26/24 at 0800, Until Discontinu ed, Routine [facility] pantoprazol e (PROTONIX) EC tablet 40 mg 2023-10 14:00: 00 09-27 21:56 :21 No 40mg 40 mg, Oral, BID, First dose on Wed09/26/24 at 0800, Until Discontinu ed, Routine [facility] acetaminoph en (TYLENOL) tablet 650 mg 2023-10 03:57: 34 09-29 12:55 :31 No 650mg 650 mg, Oral, Q6HPRN, Starting on Wed09/25/24 at 2157, Until Wed09/29/24 at 0655, Routine, Pain (scale 1-3) [facility] pantoprazol e (PROTONIX) injection 40 mg 2023-10 21:30: 00 09-25 21:48 :00 No 40mg 40 mg, Slow IV Push, ONCE, 1 dose, On Wed09/25/24 at 1530 [facility] metoprolol tartrate (LOPRESSOR) tablet 12.5 mg 2024-1 0-22 01:00: 00 Yes 12.5mg 12.5 mg, Oral, BID, First dose on Wed07/31/24 at 2000, Until Discontinu ed, Routine [facility] apixaban (ELIQUIS) tablet 5 mg 2023-10 01:00: 00 Yes 5mg 5 mg, Oral, BID, First dose on Wed07/31/24 at 2000, Until Discontinu ed, Routine, Indication s: Non-Valvul ar Atrial Fibrillati on [facility] losartan 25 mg tablet 2023-10 00:00: 00 10-10 00:00 :00 No [id number] 25mg Take 1 tablet by mouth in the morning. [facility] pantoprazol e 40 mg EC tablet 2023-10 00:00: 00 10-10 00:00 :00 No [id number] 40mg Take 1 tablet by mouth in the morning. [facility] metoprolol tartrate 25 mg tablet 2023-10 00:00: 00 10-03 00:00 :00 No [id number] 12.5mg Take 0.5 tablets by mouth in the morning and 0.5 tablets in the evening. [facility] apixaban 5 mg tablet 2023-10 00:00: 00 10-03 00:00 :00 No 5mg Take 1 tablet by mouth in the morning and 1 tablet in the evening. [facility] simethicone (GAS RELIEF (SIMETHICON E)) 40 mg/0.6 mL drops 2023-10 16:09: 00 07-31 17:09 :51 No PRN, Starting on Wed07/31/24 at 1109, Until Wed07/31/24 at 1209, Routine, Intra-op [facility] peg-electro lyte soln (GOLYTELY) 236-22.74-6 .74 -5.86 gram solution 2,000 mL 2023-10 09:00: 00 07-31 09:00 :00 No 2000mL 2,000 mL, Oral, ONCE, 1 dose, On Wed07/31/24 at 0400, Routine [facility] peg-electro lyte soln (GOLYTELY) 236-22.74-6 .74 -5.86 gram solution 2,000 mL 2023-10 23:30: 00 07-30 23:45 :00 No 2000mL 2,000 mL, Oral, ONCE, 1 dose, On Wed07/30/24 at 1845, Routine [facility] bisacodyL (DULCOLAX) tablet 10 mg 2023-10 21:30: 00 08-01 21:35 :48 No 10mg 10 mg, Oral, PRE-PROCED URE ONCE, 1 dose, Starting on Wed07/30/24 at 1630, Until Wed08/01/24 at 1635, Routine, Bowel Prep, Colonoscop y [facility] polyethylen e glycol 3350 powder 34 g 2023-10 18:30: 00 07-30 19:57 :00 No 34g 34 g, Oral, ONCE, 1 dose, On Wed07/30/24 at 1330, Routine [facility] bisacodyL (DULCOLAX) tablet 10 mg 2023-10 18:00: 00 08-01 21:35 :48 No 10mg 10 mg, Oral, PRE-PROCED URE ONCE, 1 dose, Starting on Wed07/30/24 at 1300, Until Wed08/01/24 at 1635, Routine, Bowel Prep, Colonoscop y [facility] peg-electro lyte soln (GOLYTELY) 236-22.74-6 .74 -5.86 gram solution 4,000 mL 2023-10 17:32: 10 Yes 4000mL 4,000 mL, Oral, PRN - SEE INSTRUCTIO NS, Starting on Wed07/30/24 at 1232, Until Discontinu ed, Routine, Bowel Prep, colonoscop y [facility] ondansetron (ZOFRAN (PF)) injection 4 mg 2023-10 17:32: 10 08-01 21:35 :48 No 4mg 4 mg, Slow IV Push, Q6HPRN, Starting on Wed07/30/24 at 1232, Until Tu08/01/24 at 1635, Routine, Nausea and Vomiting (N/V) [facility] pantoprazol e (PROTONIX) EC tablet 40 mg 2023-10 01:00: 00 Yes 40mg 40 mg, Oral, BID, First dose (after last modificati on) on 07/29/24 at 2000, Until Discontinu ed, Routine [facility] pantoprazol e (PROTONIX) EC tablet 40 mg 2023-10 14:00: 00 07-29 18:40 :46 No 40mg 40 mg, Oral, DAILY, First dose on 07/29/24 at 0900, Until Discontinu ed, Routine [facility] KCL (KLOR-CON M20) tablet 40 mEq 2023-10 13:45: 00 07-29 13:15 :00 No 40meq 40 mEq, Oral, ONCE, 1 dose, On 07/29/24 at 0845, Routine [facility] calcium gluconate 2 g in NaCl 100 mL (ISO-OSM) RTU IV infusion 2 g 2023-10 17:30: 00 07-27 17:53 :00 No 2g 2 g, IV Infusion, at 200 mL/hr Administer over 30 Minutes, ONCE, 1 dose, On Mera 07/27/24 at 1230, Routine [facility] perflutren protein-A microsphr (OPTISON) injection 3 mL 2023-10 14:45: 00 07-27 14:45 :00 No [id number] 3mL 3 mL, IV Push, ONCE, 1 dose, On Mera 07/27/24 at 0945, Routine [facility] pantoprazol e (PROTONIX) injection 40 mg 2023-10 13:00: 00 07-28 14:57 :44 No 40mg 40 mg, Slow IV Push, Q12H, First dose on Mera 07/27/24 at 0800, Until Discontinu ed, Routine [facility] NaCl 0.9% (NS) IV Line Priming and Flushing Fluid Only 250 mL 2023-10 12:15: 00 07-27 12:43 :00 No 250mL 250 mL, IV Infusion, ONCE, 1 dose, On Wed07/27/24 at 0715, 250 mL [facility] pantoprazol e (PROTONIX) 80 mg in NaCl 0.9%(NS) 500 mL IV infusion (CNR) 2023-10 05:30: 00 07-27 05:34 :24 No 8mg/h 8 mg/hr (50 mL/hr), IV Infusion, CONTINUOUS , Starting on Mera 07/27/24 at 0030, For 20 hours [facility] pantoprazol e (PROTONIX) injection 80 mg 2023-10 02:15: 00 07-27 01:30 :00 No 80mg 80 mg, Slow IV Push, ONCE, 1 dose, On Wed07/26/24 at 2115, Routine [facility] iopamidol (ISOVUE 370-500 mL) injection 89 mL 2023-10 00:52: 00 07-27 01:15 :00 No [id number] 89mL 89 mL, Intravenou s, ONCE, 1 dose, On Wed07/26/24 at 2015, Routine [facility] amLODIPine 10 mg tablet 2023-10 23:21: 57 10-05 00:00 :00 No 10mg Take 1 tablet by mouth in the morning. [facility] losartan 100 mg tablet 2023-10 23:21: 57 08-01 00:00 :00 No 100mg Take 1 tablet by mouth in the morning. [facility] metoprolol succinate XL 50 mg 24 hr tablet 06-01 00:00: 00 Yes 50mg Take 1 tablet by mouth in the morning. [facility] losartan 100 mg tablet 02-03 12:26: 49 Yes 100mg Take 1 tablet by mouth in the morning. [facility] amLODIPine 10 mg tablet 02-03 12:26: 49 Yes 10mg Take 1 tablet by mouth in the morning. [facility] tadalafiL (CIALIS) 20 mg tablet 02-03 00:00: 00 08-01 00:00 :00 No [id number] 20mg Take 1 tablet by mouth as needed for Erectile dysfunctio n (2 hrs prior to sexual activity, 2-3 times/ week). [facility] tamsulosin (FLOMAX) 0.4 mg 24 hr capsule 02-03 00:00: 00 05-05 04:59 :00 No [id number] .4mg Take 1 capsule by mouth in the morning for 90 days. [facility] Vital Signs Vital Name Observation Time Observation Value Comments S ource Systolic blood pressure 2025-02-08 07:00:00 146 mm[Hg] [facility] Diastolic blood pressure 2025-02-08 07:00:00 80 mm[Hg] [facility] Heart rate 2025-02-08 07:00:00 63 /min [facility] Body temperature 2025-02-08 07:00:[address] [facility] Respiratory rate 2025-02-08 07:00:00 16 /min [facility] Oxygen saturation in Arterial blood by Pulse oximetry 2025-02-08 07:00:00 94 /min [facility] Body height 2025-02-08 05:38:00 175.3 cm [facility] Body weight 2025-02-08 05:38:00 84.369 kg [facility] BMI 2025-02-08 05:38:00 27.47 kg/m2 [facility] Systolic blood pressure 2024-10-19 17:32:00 116 mm[Hg] [facility] Diastolic blood pressure 2024-10-19 17:32:00 76 mm[Hg] [facility] Heart rate 2024-10-19 17:32:00 96 /min [facility] Body temperature 2024-10-19 17:32:[address] [facility] Respiratory rate 2024-10-19 17:32:00 20 /min [facility] Oxygen saturation in Arterial blood by Pulse oximetry 2024-10-19 17:32:00 93 /min [facility] Body weight 2024-10-19 10:00:00 80.468 kg [facility] BMI 2024-10-19 10:00:00 26.20 kg/m2 [facility] Body height 2024-10-17 10:29:00 175.3 cm [facility] Systolic blood pressure 2024-10-10 17:56:00 111 mm[Hg] [facility] Diastolic blood pressure 2024-10-10 17:56:00 61 mm[Hg] [facility] Heart rate 2024-10-10 17:56:00 94 /min [facility] Body temperature 2024-10-10 17:56:[address] [facility] Respiratory rate 2024-10-10 17:56:00 17 /min [facility] Oxygen saturation in Arterial blood by Pulse oximetry 2024-10-10 17:56:00 94 /min [facility] Body weight 2024-10-10 10:00:00 79.334 kg [facility] BMI 2024-10-10 10:00:00 25.83 kg/m2 [facility] Body height 2024-10-05 22:08:00 175.3 cm [facility] Systolic blood pressure 2024-10-03 17:28:00 139 mm[Hg] [facility] Diastolic blood pressure 2024-10-03 17:28:00 86 mm[Hg] [facility] Heart rate 2024-10-03 17:28:00 101 /min [facility] Body temperature 2024-10-03 17:28:[address] [facility] Respiratory rate 2024-10-03 17:28:00 18 /min [facility] Oxygen saturation in Arterial blood by Pulse oximetry 2024-10-03 17:28:00 93 /min [facility] Body weight 2024-10-02 10:00:00 89.994 kg [facility] BMI 2024-10-02 10:00:00 29.30 kg/m2 [facility] Body height 2024-09-25 18:57:00 175.3 cm [facility] Systolic blood pressure 2024-09-27 19:25:00 135 mm[Hg] [facility] Diastolic blood pressure 2024-09-27 19:25:00 8 mm[Hg] [facility] Heart rate 2024-09-27 19:25:00 100 /min [facility] Body temperature 2024-09-27 19:25:[address] [facility] Respiratory rate 2024-09-27 19:25:00 15 /min [facility] Oxygen saturation in Arterial blood by Pulse oximetry 2024-09-27 19:25:00 95 /min [facility] Body height 2024-09-25 18:57:00 175.3 cm [facility] Body weight 2024-09-25 18:57:00 92.08 kg [facility] BMI 2024-09-25 18:57:00 29.98 kg/m2 [facility] Systolic blood pressure 2024-08-01 16:15:00 144 mm[Hg] [facility] Diastolic blood pressure 2024-08-01 16:15:00 79 mm[Hg] [facility] Heart rate 2024-08-01 16:15:00 88 /min [facility] Body temperature 2024-08-01 16:15:[address] [facility] Respiratory rate 2024-08-01 16:15:00 16 /min [facility] Oxygen saturation in Arterial blood by Pulse oximetry 2024-08-01 16:15:00 92 /min [facility] Body height 2024-07-27 21:55:00 175.3 cm [facility] Body weight 2024-07-27 21:55:00 88.451 kg [facility] BMI 2024-07-27 21:55:00 28.80 kg/m2 [facility] Systolic blood pressure 2024-07-31 09:46:00 142 mm[Hg] [facility] Diastolic blood pressure 2024-07-31 09:46:00 88 mm[Hg] [facility] Heart rate 2024-07-31 09:46:00 105 /min [facility] Body temperature 2024-07-31 09:46:[address] [facility] Respiratory rate 2024-07-31 09:46:00 18 /min [facility] Oxygen saturation in Arterial blood by Pulse oximetry 2024-07-31 09:46:00 93 /min [facility] Body height 2024-07-27 21:55:00 175.3 cm [facility] Body weight 2024-07-27 21:55:00 88.451 kg [facility] BMI 2024-07-27 21:55:00 28.80 kg/m2 [facility] Systolic blood pressure 2024-07-28 18:05:00 142 mm[Hg] [facility] Diastolic blood pressure 2024-07-28 18:05:00 90 mm[Hg] [facility] Heart rate 2024-07-28 18:05:00 101 /min [facility] Respiratory rate 2024-07-28 18:05:00 18 /min [facility] Oxygen saturation in Arterial blood by Pulse oximetry 2024-07-28 18:05:00 95 /min [facility] Body temperature 2024-07-28 17:00:[address] [facility] Body height 2024-07-27 21:55:00 175.3 cm [facility] Body weight 2024-07-27 21:55:00 88.451 kg [facility] BMI 2024-07-27 21:55:00 28.80 kg/m2 [facility] Heart rate 2024-07-27 21:00:00 96 /min [facility] Respiratory rate 2024-07-27 21:00:00 23 /min [facility] Oxygen saturation in Arterial blood by Pulse oximetry 2024-07-27 21:00:00 98 /min [facility] Systolic blood pressure 2024-07-27 21:00:00 118 mm[Hg] [facility] Diastolic blood pressure 2024-07-27 21:00:00 75 mm[Hg] [facility] Body temperature 2024-07-27 20:00:[address] [facility] Body height 2024-07-27 05:37:00 175.3 cm [facility] Body weight 2024-07-27 05:37:00 88.7 kg [facility] BMI 2024-07-27 05:37:00 28.80 kg/m2 [facility] Systolic blood pressure 2023-02-03 17:28:00 134 mm[Hg] [facility] Diastolic blood pressure 2023-02-03 17:28:00 85 mm[Hg] [facility] Heart rate 2023-02-03 17:27:00 93 /min [facility] Respiratory rate 2023-02-03 17:27:00 18 /min [facility] Body height 2023-02-03 17:27:00 175.3 cm [facility] Body weight 2023-02-03 17:27:00 97.705 kg [facility] BMI 2023-02-03 17:27:00 31.81 kg/m2 [facility] Oxygen saturation in Arterial blood by Pulse oximetry 2023-02-03 17:27:00 95 /min [facility] Systolic blood pressure 2024-09-30 16:00:00 112 mm[Hg] [facility] Diastolic blood pressure 2024-09-30 16:00:00 70 mm[Hg] [facility] Heart rate 2024-09-30 16:00:00 99 /min [facility] Respiratory rate 2024-09-30 16:00:00 22 /min [facility] Oxygen saturation in Arterial blood by Pulse oximetry 2024-09-30 16:00:00 94 /min [facility] Body temperature 2024-09-30 14:00:[address] [facility] Body height 2024-09-25 18:57:00 175.3 cm [facility] Body weight 2024-09-25 18:57:00 92.08 kg [facility] BMI 2024-09-25 18:57:00 29.98 kg/m2 [facility] Procedures Procedure Date / Time Performed Performing Clinician Source TROPONIN I 2025-02-08 06:07:[address] [facility] COMP. METABOLIC PANEL (05961) 2025-02-08 06:07:[address] [facility] CBC WITH DIFF 2025-02-08 06:07:[address] [facility] N-TERMINAL PRO-BNP 2025-02-08 06:07:[address] [facility] PHOSPHORUS 2024-10-19 10:40:00 Joelle [facility] MAGNESIUM 2024-10-19 10:40:00 Joelle [facility] BASIC METABOLIC PANEL (NA, K , CL, CO2, GLUCOSE, BUN, CREATININE, CA) 2024-10-19 10:40:00 Joelle [facility] CBC WITHOUT DIFF 2024-10-19 10:40:00 Joelle [facility] N-TERMINAL PRO-BNP 2024-10-19 10:40:00 Joelle [facility] URINALYSIS 2024-10-18 11:49:00 Nila [facility] BASIC METABOLIC PANEL (NA, K , CL, CO2, GLUCOSE, BUN, CREATININE, CA) 2024-10-18 10:16:00 Nila [facility] CBC WITH DIFF 2024-10-18 10:16:00 Nila [facility] THYROID STIMULATING HORMONE 2024-10-17 16:43:[address] [facility] MRSA / MSSA SCREEN BY PCRDEDE 2024-10 11:45:00 Nila [facility] MAGNESIUM 2024-10-10 09:51:[address] [facility] BASIC METABOLIC PANEL (NA, K , CL, CO2, GLUCOSE, BUN, CREATININE, CA) 2024-10-10 09:51:[facility] 2024-10-10 09:51[facility] [facility] 2024-10-09 21:16:32 [facility] VICTORINO 2024-09-12 0 17:29:00 Lynsey [facility] MAGNESIUM 2024-10-09 09:17:00 Meggan [facility] BASIC METABOLIC PANEL (NA, K , CL, CO2, GLUCOSE, BUN, CREATININE, CA) 2024-10-09 09:17:00 [facility]FF 2024-10-09 09:17:00 Meggan [facility] N-TERMINAL PRO-BNP 2024-10-09 09:17:[address] [facility] ACTIVATED PARTIAL THRMPLAS VICTORINO 2024-09-12 0 04:43:00 Lynsey [facility] DUPLEX VENOUS LEGS BILATERAL - BY VASCULAR LAB 2024-10-08 19:41:23 Meggan [facility] ACTIVATED PARTIAL THRMPLAS VICTORINO 2024-09-11 9 16:39:00 Lynsey [facility] MAGNESIUM 2024-10-08 11:33:00 Meggan [facility] BASIC METABOLIC PANEL (NA, K , CL, CO2, GLUCOSE, BUN, CREATININE, CA) 2024-10-08 11:33:00 [facility]FF 2024-10-08 11:33:[facility] THRMPLAS VICTORINO 2024-09-11 9 02:44:00 Lynsey [facility] ACTIVATED PARTIAL THRMPLAS VICTORINO 2024-09-11 8 19:22:00 Lynsey [facility] MAGNESIUM 2024-10-07 11:32:00 Meggan [facility] BASIC METABOLIC PANEL (NA, K , CL, CO2, GLUCOSE, BUN, CREATININE, [place]) 2024-10-07 11:32:[address] [facility] CBC WITHOUT DIFF 2024-10-07 11:32:00 Lynsey, [facility] ACTIVATED PARTIAL THRMPLAS VICTORINO 2024-09-11 8 11:32:00 Lynsey, [facility] CBC WITH DIFF 2024-10-07 04:56:00 Lynsey [facility] ACTIVATED PARTIAL THRMPLAS VICTORINO 2024-09-11 8 04:56:00 Lynsey, [facility] CBC WITHOUT DIFF 2024-10-06 22:25:00 Ravi [facility] PROTHROMBIN TIME / INR 2024-10-06 22:25:00 Ravi [facility] ACTIVATED PARTIAL THRMPLAS VICTORINO 2024-09-11 7 22:25:00 Ravi [facility] URINE DRUG (IMMUNOASSAY) - COMPREHENSIVE DRUG SCREEN 2024-10-06 20:27:00 Ravi [facility] CT ANGIOGRAM ABDOMEN/PELVIS 2024-10-06 19:36:44 Ravi [facility] TRANSTHORACIC ECHO (TTE) HICKS ITED W/ DOPPLER, COLOR AND CONTRAST 2024-10-06 16:49:[address] [facility] LACTIC ACID WHOLE BLOOD 2024-10-06 16:03:00 Ravi [facility] TROPONIN I 2024-10-06 16:02:00 Lynsey [facility] CBC WITHOUT DIFF 2024-10-06 14:04:00 Ravi [facility] US LOWER LEG RIGHT 2024-10-06 12:46:56 Lynsey [facility] MAGNESIUM 2024-10-06 10:35:00 Lynsey [facility] TROPONIN I 2024-10-06 10:35:00 Lynsey [facility] BASIC METABOLIC PANEL (NA, K , CL, CO2, GLUCOSE, BUN, CREATININE, CA) 2024-10-06 10:35:00 Lynsey [facility] CBC WITH DIFF 2024-10-06 10:35:00 Lynsey [facility] TROPONIN I 2024-10-06 06:34:00 Lynsey [facility] CBC WITHOUT DIFF 2024-10-06 06:34:00 Jeybaljit [facility] PROTHROMBIN TIME / INR 2024-10-06 06:34:00 Lynsey [facility] ACTIVATED PARTIAL THRMPLAS VICTORINO 2024-09-11 7 06:34:00 Lynsey [facility] MAGNESIUM 2024-10-05 22:41:[address] [facility] TROPONIN I 2024-10-05 22:41:[address] [facility] COMP. METABOLIC PANEL (87349) 2024-10-05 22:41:[address] [facility] CBC WITH DIFF 2024-10-05 22:41:[address] [facility] INFLUENZA A/B RSV COVID NAAT 2024-10-05 22:41:[address] [facility] N-TERMINAL PRO-BNP 2024-10-05 22:41:[address] [facility] LAB ONLY COVID INTERPRETATION 2024-10-05 22:41:[address] [facility] XR CHEST 1 VW 2024-10-05 22:35:[address] [facility] HB ECG ROUTINE & RHYTHM STRIP 2024-10-05 22:24:[address] [facility] MAGNESIUM 2024-10-03 11:43:[address] [facility] BASIC METABOLIC PANEL (NA, K , CL, CO2, GLUCOSE, BUN, CREATININE, CA) 2024-10-03 11:43:[address] [facility] CBC WITH DIFF 2024-10-03 11:43:00 [facility] MAGNESIUM 2024-10-02 11:37:[address] [facility] BASIC METABOLIC PANEL (NA, K , CL, CO2, GLUCOSE, BUN, CREATININE, CA) 2024-10-02 11:37:00 Alannah [facility] CBC WITH DIFF 2024-10-02 11:37:00 Alannah [facility] XR CHEST 1 VW 2024-10-01 10:21:00 Malcom [facility] MAGNESIUM 2024-10-01 10:09:00 Malcom [facility] BASIC METABOLIC PANEL (NA, K , CL, CO2, GLUCOSE, BUN, CREATININE, CA) 2024-10-01 10:09:00 Malcom [facility] CBC WITHOUT DIFF 2024-10-01 10:09:00 Malcom [facility] MR BRAIN WO CONTRAST 2024-09-30 17:04:[address] [facility] CBC WITH DIFF 2024-09-30 11:03:00 Homer Morrell [facility] BASIC METABOLIC PANEL (NA, K , CL, CO2, GLUCOSE, BUN, CREATININE, CA) 2024-09-30 11:03:00 Homer Morrell [facility] BASIC METABOLIC PANEL (NA, K , CL, CO2, GLUCOSE, BUN, CREATININE, CA) 2024-09-30 11:03:00 Homer Morrell [facility] CBC WITH DIFF 2024-09-30 11:03:00 Homer Morrell [facility] US LOWER EXTREMITY VEIN WITH COMPRESSION BILATERAL (ONLY FOR RULE OUT DVT) 2024-09-30 02:57:[address] [facility] US LOWER EXTREMITY VEIN WITH COMPRESSION BILATERAL (ONLY FOR RULE OUT DVT) 2024-09-30 02:57:[address] [facility] SODIUM 2024-09-29 20:10:00 Homer Morrell [facility] CBC WITH DIFF 2024-09-29 20:10:00 Homer Morrell [facility] SODIUM 2024-09-29 20:10:00 Homer Morrell [facility] CBC WITH DIFF 2024-09-29 20:10:00 Homer Morrell [facility] TRANSTHORACIC ECHO (TTE) COMPLETE 2023-10 17:36:[address] [facility] TRANSTHORACIC ECHO (TTE) COMPLETE 2023-10 17:36:[address] [facility] CT HEAD WO CONTRAST 2024-09-29 14:59:58 Homer Morrell [facility] CT HEAD WO CONTRAST 2024-09-29 14:59:58 Homer Morrell [facility] XR CHEST 1 VW 2024-09-29 14:34:00 Homer Morrell [facility] XR CHEST 1 VW 2024-09-29 14:34:00 Homer Morrell [facility] MAGNESIUM 2024-09-29 10:23:00 Irwin Arias [facility] CBC WITH DIFF 2024-09-29 10:23:00 Irwin Arias [facility] BASIC METABOLIC PANEL (NA, K , CL, CO2, GLUCOSE, BUN, CREATININE, CA) 2024-09-29 10:23:00 Irwin Arias [facility] PROTHROMBIN TIME / INR 2024-09-29 10:23:00 Homer Morrell [facility] MAGNESIUM 2024-09-29 10:23:00 Irwin Arias [facility] BASIC METABOLIC PANEL (NA, K , CL, CO2, GLUCOSE, BUN, CREATININE, CA) 2024-09-29 10:23:00 Irwin Arias [facility] CBC WITH DIFF 2024-09-29 10:23:00 Irwin Arias [facility] PROTHROMBIN TIME / INR 2024-09-29 10:23:00 Homer Morrell [facility] CBC WITH DIFF 2024-09-29 05:34:00 [facility] 2024-09-29 05:34:00 [facility] RBC 2024-09-29 02:45:00 Mal[facility] 2024-09-29 02:45:00 [facility] RBC 2024-09-29 02:32:28 Malinda Romero [facility] PREPARE PACKED RBC 2024-09-29 02:32:28 Malinda Romero [facility] XR ABDOMEN 2 2024-09-29 01:03:04 [address]ian Enciso [facility] XR ABDOMEN 2 2024-09-29 01:03:[address] [facility] HB ABO GROUPING 2024-09-29 00:53:00 [facility] HB ABO GROUPING 2024-09-29 00:53:00 [facility] CBC WITHOUT DIFF 2024-09-29 00:12:00 Coronel Petros [facility] CBC WITHOUT DIFF 2024-09-29 00:12:00 Homer Morrell [facility] MRSA / MSSA SCREEN BY PCR, [facility] 2024-09 23:42:00 Homer Morrell [facility] MRSA / MSSA SCREEN BY PCR, [facility] 2024-09 23:42:00 Homer Morrell [facility] XR STROKE CHEST 1 2024-09-28 23:13:38 Coronel Petros [facility] XR STROKE CHEST 1 2024-09-28 23:13:38 Homer Morrell [facility] CBC WITHOUT DIFF 2024-09-28 23:10:00 [facility] CBC WITHOUT DIFF 2024-09-28 23:10:[address] [facility] IR STROKE - MAIN 2024-09-28 21:38:[address] [facility] IR STROKE - MAIN 2024-09-28 21:38:[address] [facility] POCT ACT LOW RANGE 2024-09-28 21:04:00 Vic Grace [facility] POCT ACT LOW RANGE 2024-09-28 21:04:00 Vic Grace [facility] POCT ACT LOW RANGE 2024-09-28 21:04:00 Vic Grace [facility] ARTERIAL LINE 2024-09-28 20:32:[address] [facility] POCT ACT LOW RANGE 2024-09-28 20:22:00 Vic Grace [facility] POCT ACT LOW RANGE 2024-09-28 20:22:00 Vic Grace [facility] POCT ACT LOW RANGE 2024-09-28 20:22:00 Vic Grace [facility] INTUBATION 2024-09-28 20:13:[address] [facility] CT STROKE ANGIOGRAM HEAD 2024-09-28 18:12:17 Kirby [facility] CT STROKE ANGIOGRAM NECK 2024-09-28 18:12:17 Kirby [facility] CT STROKE ANGIOGRAM HEAD 2024-09-28 18:12:17 Kirby [facility] CT STROKE ANGIOGRAM NECK 2024-09-28 18:12:17 Kirby [facility] CT STROKE ANGIOGRAM HEAD 2024-09-28 18:12:17 Kirby [facility] CT STROKE ANGIOGRAM NECK 2024-09-28 18:12:17 Kirby [facility] CT STROKE HEAD WO CONTRAST 2024-09-28 18:05:52 Kirby [facility] CT STROKE HEAD WO CONTRAST 2024-09-28 18:05:52 Kirby [facility] CT STROKE HEAD WO CONTRAST 2024-09-28 18:05:52 Kirby [facility] TROPONIN I 2024-09-28 17:51:00 Kirby [facility] BASIC METABOLIC PANEL (NA, K , CL, CO2, GLUCOSE, BUN, CREATININE, CA) 2024-09-28 17:51:00 Kirby [facility] CBC WITHOUT DIFF 2024-09-28 17:51:00 Kirby, [facility] PROTHROMBIN TIME / INR 2024-09-28 17:51:00 Said, [facility] ACTIVATED PARTIAL THRMPLAS VICTORINO 2024-09-10 9 17:51:00 Said, [facility] PROTHROMBIN TIME / INR 2024-09-28 17:51:00 Said, [facility] ACTIVATED PARTIAL THRMPLAS VICTORINO 2024-09-10 9 17:51:00 Kirby, [facility] CBC WITHOUT DIFF 2024-09-28 17:51:00 Kirby [facility] TROPONIN I 2024-09-28 17:51:00 Kirby [facility] BASIC METABOLIC PANEL (NA, K , CL, CO2, GLUCOSE, BUN, CREATININE, CA) 2024-09-28 17:51:00 Kirby [facility] LIPID PANEL ([id number])(TOTAL CHOLESTEROL, TRIGLYCERIDES, HDL) 2024-09-28 17:51:00 Homer Morrell [facility] GLYCOSYLATED HEMOGLOBIN (A1C) 2024-09-28 17:51:00 Homer Morrell [facility] THYROID STIMULATING HORMONE 2024-09-28 17:51:00 Homer Morrell [facility] TROPONIN I 2024-09-28 17:51:00 Kirby [facility] THYROID STIMULATING HORMONE 2024-09-28 17:51:00 Homer Morrell [facility] BASIC METABOLIC PANEL (NA, K , CL, CO2, GLUCOSE, BUN, CREATININE, CA) 2024-09-28 17:51:00 Kirby [facility] LIPID PANEL ([id number])(TOTAL CHOLESTEROL, TRIGLYCERIDES, HDL) 2024-09-28 17:51:00 Homer Morrell [facility] CBC WITHOUT DIFF 2024-09-28 17:51:00 Kirby [facility] GLYCOSYLATED HEMOGLOBIN (A1C) 2024-09-28 17:51:[address] [facility] PROTHROMBIN TIME / INR 2024-09-28 17:51:00 Kirby [facility] ACTIVATED PARTIAL THRMPLAS VICTORINO 2024-09-10 9 17:51:00 Kirby [facility] AC PANEL 21 + LACTIC ACID 2024-09-28 17:50:00 Kirby, [facility] AC PANEL 21 + LACTIC ACID 2024-09-28 17:50:00 Said, [facility] AC PANEL 21 + LACTIC ACID 2024-09-28 17:50:00 Kirby [facility] POCT GLUCOSE (AUTOMATED) 2024-09-28 17:47:[address] [facility] POCT GLUCOSE (AUTOMATED) 2024-09-28 17:47:[address] [facility] POCT GLUCOSE (AUTOMATED) 2024-09-28 17:47:[address] [facility] MOTILITY REPORTS EPIC 2024-09-28 13:09:38 Doctor Unassigned, [place] [facility] MOTILITY REPORTS EPIC 2024-09-28 13:09:38 Doctor Unassigned, [place] [facility] MAGNESIUM 2024-09-28 12:45:[address] [facility] BASIC METABOLIC PANEL (NA, K , CL, CO2, GLUCOSE, BUN, CREATININE, CA) 2024-09-28 12:45:[address] [facility] CBC WITH DIFF 2024-09-28 12:45:[address] [facility] MAGNESIUM 2024-09-28 12:45:[address] [facility] CBC WITH DIFF 2024-09-28 12:45:[address] [facility] BASIC METABOLIC PANEL (NA, K , CL, CO2, GLUCOSE, BUN, CREATININE, CA) 2024-09-28 12:45:[address] [facility] MAGNESIUM 2024-09-28 12:45:[address] [facility] BASIC METABOLIC PANEL (NA, K , CL, CO2, GLUCOSE, BUN, CREATININE, CA) 2024-09-28 12:45:[address] [facility] CBC WITH DIFF 2024-09-28 12:45:[address] [facility] EGD (ENDO) 2024-09-27 21:03:[address] [facility] EGD (ENDO) 2024-09-27 21:03:[address] [facility] EGD (ENDO) 2024-09-27 21:03:[address] [facility] COLONOSCOPY (ENDO) 2024-09-27 21:01:[address] [facility] COLONOSCOPY (ENDO) 2024-09-27 21:01:[address] [facility] COLONOSCOPY (ENDO) 2024-09-27 21:01:[address] [facility] PUSH ENDOSCOPY 2024-09-27 19:38:00 Shahzad [facility] COLONOSCOPY 2024-09-27 19:38:00 Shahzad [facility] PUSH ENDOSCOPY 2024-09-27 19:38:00 Shahzad [facility] COLONOSCOPY 2024-09-27 19:38:00 Shhazad [facility] PUSH ENDOSCOPY 2024-09-27 19:38:00 Shahzad [facility] COLONOSCOPY 2024-09-27 19:38:00 Shahzad [facility] MAGNESIUM 2024-09-27 14:37:[address] [facility] BASIC METABOLIC PANEL (NA, K , CL, CO2, GLUCOSE, BUN, CREATININE, CA) 2024-09-27 14:37:[address] [facility] CBC WITH DIFF 2024-09-27 14:37:[address] [facility] MAGNESIUM 2024-09-27 14:37:[address] [facility] CBC WITH DIFF 2024-09-27 14:37:00 Irwin Arias [facility] BASIC METABOLIC PANEL (NA, K , CL, CO2, GLUCOSE, BUN, CREATININE, CA) 2024-09-27 14:37:00 Irwin Arias [facility] MAGNESIUM 2024-09-27 14:37:00 Irwin Arias [facility] BASIC METABOLIC PANEL (NA, K , CL, CO2, GLUCOSE, BUN, CREATININE, CA) 2024-09-27 14:37:00 Irwin Arias [facility] CBC WITH DIFF 2024-09-27 14:37:00 Juana Irwin [facility] CBC WITHOUT DIFF 2024-09-27 03:06:00 Irwin Arias [facility] CBC WITHOUT DIFF 2024-09-27 03:06:00 Irwin Arias [facility] CBC WITHOUT DIFF 2024-09-27 03:06:00 Irwin Arias [facility] TRANSFUSE PACKED RBC 2024-09-26 16:38:00 Irwin Arias [facility] TRANSFUSE PACKED RBC 2024-09-26 16:38:00 Irwin Arias [facility] PREPARE PACKED RBC 2024-09-26 16:21:50 Irwin Arias [facility] PREPARE PACKED RBC 2024-09-26 16:21:50 Irwin Arias [facility] PREPARE PACKED RBC 2024-09-26 16:21:50 Irwin Arias [facility] PHOSPHORUS 2024-09-26 11:56:00 Mando [facility] MAGNESIUM 2024-09-26 11:56:00 Mando [facility] CBC WITH DIFF 2024-09-26 11:56:00 Mando [facility] CBC WITH DIFF 2024-09-26 11:56:00 Mando [facility] MAGNESIUM 2024-09-26 11:56:00 Gilmore, [facility] PHOSPHORUS 2024-09-26 11:56:00 Gilmore, [facility] PHOSPHORUS 2024-09-26 11:56:00 Gilmore, [facility] MAGNESIUM 2024-09-26 11:56:00 Gilomre, [facility] CBC WITH DIFF 2024-09-26 11:56:00 Gilmore, [facility] LACTATE DEHYDROGENASE 2024-09-26 05:08:00 Gilmore, [facility] FERRITIN SERUM 2024-09-26 05:08:00 Gilmore, [facility] HAPTOGLOBIN, SERUM 2024-09-26 05:08:00 Gilmore, [facility] IRON PANEL 2024-09-26 05:08:00 Gilmore, [facility] CBC WITH DIFF 2024-09-26 05:08:00 Gilmore, [facility] HB ABO GROUPING 2024-09-26 05:08:00 Gilmore, [facility] RETICULOCYTES AUTOMATED 2024-09-26 05:08:00 Gilmore, [facility] CBC WITH DIFF 2024-09-26 05:08:00 Gilmore, [facility] LACTATE DEHYDROGENASE 2024-09-26 05:08:00 Gilmore, [facility] HAPTOGLOBIN, SERUM 2024-09-26 05:08:00 Gilmore, [facility] RETICULOCYTES AUTOMATED 2024-09-26 05:08:00 Gilmore, [facility] HB ABO GROUPING 2024-09-26 05:08:00 Gilmore, [facility] FERRITIN SERUM 2024-09-26 05:08:00 Gilmore, [facility] IRON PANEL 2024-09-26 05:08:00 Gilmore, [facility] LACTATE DEHYDROGENASE 2024-09-26 05:08:00 Gilmore, [facility] FERRITIN SERUM 2024-09-26 05:08:00 Gilmore, [facility] HAPTOGLOBIN, SERUM 2024-09-26 05:08:00 Gilmore, [facility] IRON PANEL 2024-09-26 05:08:00 Mando [facility] CBC WITH DIFF 2024-09-26 05:08:00 Mando [facility] HB ABO GROUPING 2024-09-26 05:08:00 Mando [facility] RETICULOCYTES AUTOMATED 2024-09-26 05:08:00 Mando [facility] HB ECG ROUTINE & RHYTHM STRIP 2024-09-26 04:57:28 Mando [facility] HB ECG ROUTINE & RHYTHM STRIP 2024-09-26 04:57:28 Mando [facility] HB ECG ROUTINE & RHYTHM STRIP 2024-09-26 04:57:28 Mando [facility] TRANSFUSE PACKED RBC 2024-09-25 23:31:[address] [facility] TRANSFUSE PACKED RBC 2024-09-25 23:31:[address] [facility] PREPARE PACKED RBC 2024-09-25 23:22:[address] [facility] PREPARE PACKED RBC 2024-09-25 23:22:[address] [facility] PREPARE PACKED RBC 2024-09-25 23:22:[address] [facility] TRANSFUSE PACKED RBC 2024-09-25 20:45:[address] [facility] TRANSFUSE PACKED RBC 2024-09-25 20:45:[address] [facility] TRANSFUSE PACKED RBC 2024-09-25 20:45:[address] [facility] HEPATIC FUNCTION PANEL (8007 [id number]) (ALB,T.PRO,BILI T,BU/BC,ALT,AST,ALK PHOS) 2024-09-25 19:16:00 Mando [facility] BASIC METABOLIC PANEL (NA, K , CL, CO2, GLUCOSE, BUN, CREATININE, CA) 2024-09-25 19:16:[address] [facility] CBC WITH DIFF 2024-09-25 19:16:[address] [facility] PROTHROMBIN TIME / INR 2024-09-25 19:16:[address] [facility] ACTIVATED PARTIAL THRMPLAS VICTORINO 2024-09-10 6 19:16:[address] [facility] HB ABO GROUPING 2024-09-25 19:16:[address] [facility] CBC WITH DIFF 2024-09-25 19:16:[address] [facility] BASIC METABOLIC PANEL (NA, K , CL, CO2, GLUCOSE, BUN, CREATININE, CA) 2024-09-25 19:16:[address] [facility] HB ABO GROUPING 2024-09-25 19:16:[address] [facility] PROTHROMBIN TIME / INR 2024-09-25 19:16:[address] [facility] ACTIVATED PARTIAL THRMPLAS VICTORINO 2024-09-10 6 19:16:[address] [facility] HEPATIC FUNCTION PANEL (8007 [id number]) (ALB,T.PRO,BILI T,BU/BC,ALT,AST,ALK PHOS) 2024-09-25 19:16:[address] [facility] HEPATIC FUNCTION PANEL (8007 [id number]) (ALB,T.PRO,BILI T,BU/BC,ALT,AST,ALK PHOS) 2024-09-25 19:16:[address] [facility] BASIC METABOLIC PANEL (NA, K , CL, CO2, GLUCOSE, BUN, CREATININE, CA) 2024-09-25 19:16:[address] [facility] CBC WITH DIFF 2024-09-25 19:16:[address] [facility] PROTHROMBIN TIME / INR 2024-09-25 19:16:[address] [facility] ACTIVATED PARTIAL THRMPLAS VICTORINO 2024-09-10 6 19:16:[address] [facility] HB ABO GROUPING 2024-09-25 19:16:[address] [facility] SMALL BOWEL ENDOSCOPY (ENDO) 2024-08-04 13:47:[address] [facility] ENDOSCOPY PROCEDURE DOCUMENTATION 2023-10 0- 14:09:38 Doctor Unassigned, [place] [facility] ENDOSCOPY PROCEDURE DOCUMENTATION 2023-10 14:09:38 Doctor Unassigned, [place] [facility] MAGNESIUM 2024-08-01 10:15:00 Oh, Jean Paul [facility]inas [facility] BASIC METABOLIC PANEL (NA, K , CL, CO2, GLUCOSE, BUN, CREATININE, CA) 2024-08-01 10:15:00 Oh, Jean Paul [facility]inas [facility] CBC WITH DIFF 2024-08-01 10:15:00 Oh, Jean Paul [facility] MAGNESIUM 2024-08-01 10:15:00 Oh, Jean Paul [facility]inas [facility] BASIC METABOLIC PANEL (NA, K , CL, CO2, GLUCOSE, BUN, CREATININE, CA) 2024-08-01 10:15:00 Oh, Jean Paul [facility] CBC WITH DIFF 2024-08-01 10:15:00 Oh, Jean Paul [facility] CBC WITH DIFF 2024-08-01 10:15:00 Oh, Jean Paul [facility]inas [facility] MAGNESIUM 2024-08-01 10:15:00 Oh, Jean Paul Salnias [facility] BASIC METABOLIC PANEL (NA, K , CL, CO2, GLUCOSE, BUN, CREATININE, CA) 2024-08-01 10:15:00 Oh, Jean Paul [facility]inas [facility] COLONOSCOPY (ENDO) 2024-07-31 21:22:[address] [facility] COLONOSCOPY (ENDO) 2024-07-31 21:22:[address] [facility] COLONOSCOPY (ENDO) 2024-07-31 21:22:[address] [facility] ENDOSCOPY PROCEDURE DOCUMENTATION 2023-10 16:19:10 Doctor Unassigned, [place] [facility] ENDOSCOPY PROCEDURE DOCUMENTATION 2023-10 16:19:10 Doctor Unassigned, [place] [facility] ENDOSCOPY PROCEDURE DOCUMENTATION 2023-10 16:18:26 Doctor Unassigned, [place] [facility] ENDOSCOPY PROCEDURE DOCUMENTATION 2023-10 16:18:26 Doctor Unassigned, [place] [facility] COLONOSCOPY 2024-07-31 15:29:[address] [facility] COLONOSCOPY 2024-07-31 15:29:[address] [facility] COLONOSCOPY 2024-07-31 15:29:[address] [facility] HB ECG ROUTINE & RHYTHM STRIP 2024-07-31 14:39:[address] [facility] HB ECG ROUTINE & RHYTHM STRIP 2024-07-31 14:39:[address] [facility] HB ECG ROUTINE & RHYTHM STRIP 2024-07-31 14:39:[address] [facility] MAGNESIUM 2024-07-31 09:43:00 Anshul, [facility] BASIC METABOLIC PANEL (NA, K , CL, CO2, GLUCOSE, BUN, CREATININE, CA) 2024-07-31 09:43:00 Anshul, [facility] CBC WITH DIFF 2024-07-31 09:43:00 Anshul, [facility] MAGNESIUM 2024-07-31 09:43:00 Anshul, [facility] BASIC METABOLIC PANEL (NA, K , CL, CO2, GLUCOSE, BUN, CREATININE, CA) 2024-07-31 09:43:00 Anshul, [facility] CBC WITH DIFF 2024-07-31 09:43:00 Anshul, [facility] MAGNESIUM 2024-07-31 09:43:00 Anshul [facility] BASIC METABOLIC PANEL (NA, K , CL, CO2, GLUCOSE, BUN, CREATININE, CA) 2024-07-31 09:43:00 Anshul [facility] CBC WITH DIFF 2024-07-31 09:43:00 Anshul, [facility] CBC WITH DIFF 2024-07-31 09:43:00 Anshul [facility] BASIC METABOLIC PANEL (NA, K , CL, CO2, GLUCOSE, BUN, CREATININE, CA) 2024-07-31 09:43:00 Anshul, [facility] MAGNESIUM 2024-07-31 09:43:00 Anshul [facility] PROTHROMBIN TIME / INR 2024-07-30 18:36:00 Ali, [facility] PROTHROMBIN TIME / INR 2024-07-30 18:36:00 Elvira [facility] PROTHROMBIN TIME / INR 2024-07-30 18:36:00 Elvira [facility] PROTHROMBIN TIME / INR 2024-07-30 18:36:00 Elvira [facility] POCT GLUCOSE (AUTOMATED) 2024-07-30 13:23:[facility] POCT GLUCOSE (AUTOMATED) 2024-07-30 13:23:[address] [facility] POCT GLUCOSE (AUTOMATED) 2024-07-30 13:23:[address] [facility] POCT GLUCOSE (AUTOMATED) 2024-07-30 13:23:[address] [facility] POCT GLUCOSE (AUTOMATED) 2024-07-30 13:23:[address] [facility] IRON PANEL 2024-07-30 10:44:00 Khoot, [facility] IRON PANEL 2024-07-30 10:44:00 Khoot, [facility] IRON PANEL 2024-07-30 10:44:00 Khoot, [facility] IRON PANEL 2024-07-30 10:44:00 Khoot, [facility] IRON PANEL 2024-07-30 10:44:00 Khoot, [facility] MAGNESIUM 2024-07-30 09:41:00 Anshul [facility] BASIC METABOLIC PANEL (NA, K , CL, CO2, GLUCOSE, BUN, CREATININE, CA) 2024-07-30 09:41:00 Anshul [facility] CBC WITH DIFF 2024-07-30 09:41:00 Anshul [facility] MAGNESIUM 2024-07-30 09:41:00 Anshul [facility] BASIC METABOLIC PANEL (NA, K , CL, CO2, GLUCOSE, BUN, CREATININE, CA) 2024-07-30 09:41:00 Anshul [facility] CBC WITH DIFF 2024-07-30 09:41:00 Anshul, [facility] MAGNESIUM 2024-07-30 09:41:00 Anshul, [facility] BASIC METABOLIC PANEL (NA, K , CL, CO2, GLUCOSE, BUN, CREATININE, CA) 2024-07-30 09:41:00 Anshul, [facility] CBC WITH DIFF 2024-07-30 09:41:00 Anshul, [facility] MAGNESIUM 2024-07-30 09:41:00 Anshul, [facility] BASIC METABOLIC PANEL (NA, K , CL, CO2, GLUCOSE, BUN, CREATININE, CA) 2024-07-30 09:41:00 Anshul, [facility] CBC WITH DIFF 2024-07-30 09:41:00 Anshul, [facility] CBC WITH DIFF 2024-07-30 09:41:00 Anshul, [facility] BASIC METABOLIC PANEL (NA, K , CL, CO2, GLUCOSE, BUN, CREATININE, CA) 2024-07-30 09:41:00 Anshul, [facility] MAGNESIUM 2024-07-30 09:41:00 Anshul, [facility] CBC WITHOUT DIFF 2024-07-29 21:07:00 Khoot, [facility] CBC WITHOUT DIFF 2024-07-29 21:07:00 Khoot, [facility] CBC WITHOUT DIFF 2024-07-29 21:07:00 Khoot, [facility] CBC WITHOUT DIFF 2024-07-29 21:07:00 Khoot, [facility] CBC WITHOUT DIFF 2024-07-29 21:07:00 Khoot, [facility] MAGNESIUM 2024-07-29 08:51:00 Khoot, [facility] FERRITIN SERUM 2024-07-29 08:51:00 Khoot [facility] BASIC METABOLIC PANEL (NA, K , CL, CO2, GLUCOSE, BUN, CREATININE, CA) 2024-07-29 08:51:00 Khoot, [facility] CBC WITHOUT DIFF 2024-07-29 08:51:00 Khoot, [facility] MAGNESIUM 2024-07-29 08:51:00 Khoot, [facility] FERRITIN SERUM 2024-07-29 08:51:00 Khoot, [facility] BASIC METABOLIC PANEL (NA, K , CL, CO2, GLUCOSE, BUN, CREATININE, CA) 2024-07-29 08:51:00 Khoot, [facility] CBC WITHOUT DIFF 2024-07-29 08:51:00 Khoot, [facility] MAGNESIUM 2024-07-29 08:51:00 Khoot, [facility] FERRITIN SERUM 2024-07-29 08:51:00 Khoot, [facility] BASIC METABOLIC PANEL (NA, K , CL, CO2, GLUCOSE, BUN, CREATININE, CA) 2024-07-29 08:51:00 Khoot, [facility] CBC WITHOUT DIFF 2024-07-29 08:51:00 Khoot, [facility] MAGNESIUM 2024-07-29 08:51:00 Khoot, [facility] FERRITIN SERUM 2024-07-29 08:51:00 Khoot, [facility] BASIC METABOLIC PANEL (NA, K , CL, CO2, GLUCOSE, BUN, CREATININE, CA) 2024-07-29 08:51:00 Khoot, [facility] CBC WITHOUT DIFF 2024-07-29 08:51:00 Khoot, [facility] CBC WITHOUT DIFF 2024-07-29 08:51:00 Khoot, [facility] MAGNESIUM 2024-07-29 08:51:00 Khoot, [facility] BASIC METABOLIC PANEL (NA, K , CL, CO2, GLUCOSE, BUN, CREATININE, CA) 2024-07-29 08:51:00 Khoot, [facility] FERRITIN SERUM 2024-07-29 08:51:00 Khoot, [facility] CBC WITHOUT DIFF 2024-07-28 21:12:00 Khoot, [facility] CBC WITHOUT DIFF 2024-07-28 21:12:00 Bridgetteoot, [facility] CBC WITHOUT DIFF 2024-07-28 21:12:00 Oliviat, [facility] CBC WITHOUT DIFF 2024-07-28 21:12:00 Khoot, [facility] CBC WITHOUT DIFF 2024-07-28 21:12:00 Em [facility] PUSH ENDOSCOPY 2024-07-28 18:15:00 Wai [facility] PUSH ENDOSCOPY 2024-07-28 18:15:00 Wai [facility] PUSH ENDOSCOPY 2024-07-28 18:15:00 Wai [facility] PREPARE PACKED RBC 2024-07-28 16:09:21 [facility] PREPARE PACKED RBC 2024-07-28 16:09:21 Rosana [facility] PREPARE PACKED RBC 2024-07-28 16:09:21 [facility] RBC 2024-07-28 16:09:[address] [facility] PREPARE PACKED RBC 2024-07-28 16:09:21 [facility] MAGNESIUM 2024-07-28 09:04:00 Em [facility] BASIC METABOLIC PANEL (NA, K , CL, CO2, GLUCOSE, BUN, CREATININE, CA) 2024-07-28 09:04:00 Em [facility] CBC WITH DIFF 2024-07-28 09:04:00 Oliviat [facility] MAGNESIUM 2024-07-28 09:04:00 Em [facility] BASIC METABOLIC PANEL (NA, K , CL, CO2, GLUCOSE, BUN, CREATININE, CA) 2024-07-28 09:04:00 Khoot, [facility] CBC WITH DIFF 2024-07-28 09:04:00 Oliviat [facility] MAGNESIUM 2024-07-28 09:04:00 Khoot, [facility] BASIC METABOLIC PANEL (NA, K , CL, CO2, GLUCOSE, BUN, CREATININE, CA) 2024-07-28 09:04:00 Khoot, [facility] CBC WITH DIFF 2024-07-28 09:04:00 Khoot, [facility] MAGNESIUM 2024-07-28 09:04:00 Khoot, [facility] BASIC METABOLIC PANEL (NA, K , CL, CO2, GLUCOSE, BUN, CREATININE, CA) 2024-07-28 09:04:00 Khoot, [facility] CBC WITH DIFF 2024-07-28 09:04:00 Khoot, [facility] CBC WITH DIFF 2024-07-28 09:04:00 Khoot, [facility] MAGNESIUM 2024-07-28 09:04:00 Khoot, [facility] BASIC METABOLIC PANEL (NA, K , CL, CO2, GLUCOSE, BUN, CREATININE, CA) 2024-07-28 09:04:00 Bridgetteoot, [facility] CBC WITHOUT DIFF 2024-07-28 05:21:00 [facility] CBC WITHOUT DIFF 2024-07-28 05:21:00 [facility] CBC WITHOUT DIFF 2024-07-28 05:21:00 [facility] CBC WITHOUT DIFF 2024-07-28 05:21:00 [facility] CBC WITHOUT DIFF 2024-07-28 05:21:00 [facility] CBC WITHOUT DIFF 2024-07-27 23:19:00 [facility] CBC WITHOUT DIFF 2024-07-27 23:19:00 [facility] CBC WITHOUT DIFF 2024-07-27 23:19:00 [facility] CBC WITHOUT DIFF 2024-07-27 23:19:[address] [facility] CBC WITHOUT DIFF 2024-07-27 23:19:[address] [facility] EGD (ENDO) 2024-07-27 22:48:[address] [facility] EGD (ENDO) 2024-07-27 22:48:[address] [facility] EGD (ENDO) 2024-07-27 22:48:[address] [facility] EGD (ENDO) 2024-07-27 22:48:[address] [facility] EGD (ENDO) 2024-07-27 22:48:[address] [facility] ESOPHAGOGASTRODUODENOSCOPY 2024-07-27 22:03:00 Wai [facility] ESOPHAGOGASTRODUODENOSCOPY 2024-07-27 22:03:00 Wai [facility] ESOPHAGOGASTRODUODENOSCOPY 2024-07-27 22:03:00 [facility]-07-27 17:25:00 [facility] CBC WITHOUT DIFF 2024-07-27 17:25:00 [facility] CBC WITHOUT DIFF 2024-07-27 17:25:00 [facility] CBC WITHOUT DIFF 2024-07-27 17:25:00 [facility]24-07-27 17:25:00 [facility] ALPHA FETOPROTEIN 2024-07-27 15:04:00 Em [facility] CBC WITHOUT DIFF 2024-07-27 15:04:00 Em [facility] ALPHA FETOPROTEIN 2024-07-27 15:04:00 Em [facility] CBC WITHOUT DIFF 2024-07-27 15:04:00 Khoot, [facility] ALPHA FETOPROTEIN 2024-07-27 15:04:00 Khoot, [facility] CBC WITHOUT DIFF 2024-07-27 15:04:00 Khoot, [facility] ALPHA FETOPROTEIN 2024-07-27 15:04:00 Khoot, [facility] CBC WITHOUT DIFF 2024-07-27 15:04:00 Khoot, [facility] CBC WITHOUT DIFF 2024-07-27 15:04:00 Khoot, [facility] ALPHA FETOPROTEIN 2024-07-27 15:04:00 Khoot, [facility] TRANSFUSE PACKED RBC 2024-07-27 14:55:00 Khoot, [facility] TRANSFUSE PACKED RBC 2024-07-27 14:55:00 Khoot, [facility] TRANSFUSE PACKED RBC 2024-07-27 14:55:00 Khoot, [facility] TRANSFUSE PACKED RBC 2024-07-27 14:55:00 Khoot, [facility] TRANSFUSE PACKED RBC 2024-07-27 14:55:00 Khoot, [facility] PREPARE PACKED RBC 2024-07-27 14:39:52 Khoot, [facility] PREPARE PACKED RBC 2024-07-27 14:39:52 Khoot, [facility] PREPARE PACKED RBC 2024-07-27 14:39:52 Khoot, [facility] PREPARE PACKED RBC 2024-07-27 14:39:52 Khoot, [facility] PREPARE PACKED RBC 2024-07-27 14:39:52 Bridgetteoot [facility] TRANSTHORACIC ECHO (TTE) COM PLETE W/ CONTRAST 2024-07-27 14:35:00 Khoot [facility] TRANSTHORACIC ECHO (TTE) COM PLETE W/ CONTRAST 2024-07-27 14:35:00 Khoot [facility] TRANSTHORACIC ECHO (TTE) COM PLETE W/ CONTRAST 2024-07-27 14:35:00 Khoot, [facility] TRANSTHORACIC ECHO (TTE) COM PLETE W/ CONTRAST 2024-07-27 14:35:00 Khoot, [facility] TRANSTHORACIC ECHO (TTE) COM PLETE W/ CONTRAST 2024-07-27 14:35:00 Khoot, [facility] TRANSFUSE PACKED RBC 2024-07-27 12:50:00 Khoot, [facility] TRANSFUSE PACKED RBC 2024-07-27 12:50:00 Khoot, [facility] TRANSFUSE PACKED RBC 2024-07-27 12:50:00 Khoot, [facility] TRANSFUSE PACKED RBC 2024-07-27 12:50:00 Khoot, [facility] TRANSFUSE PACKED RBC 2024-07-27 12:50:00 Khoot, [facility] BASIC METABOLIC PANEL (NA, K , CL, CO2, GLUCOSE, BUN, CREATININE, CA) 2024-07-27 10:43:[address] [facility] CBC WITHOUT DIFF 2024-07-27 10:43:[address] [facility] BASIC METABOLIC PANEL (NA, K , CL, CO2, GLUCOSE, BUN, CREATININE, CA) 2024-07-27 10:43:[address] [facility] CBC WITHOUT DIFF 2024-07-27 10:43:[address] [facility] BASIC METABOLIC PANEL (NA, K , CL, CO2, GLUCOSE, BUN, CREATININE, CA) 2024-07-27 10:43:[address] [facility] CBC WITHOUT DIFF 2024-07-27 10:43:[address] [facility] BASIC METABOLIC PANEL (NA, K , CL, CO2, GLUCOSE, BUN, CREATININE, CA) 2024-07-27 10:43:[address] [facility] CBC WITHOUT DIFF 2024-07-27 10:43:00 João [address] [place] [facility] CBC WITHOUT DIFF 2024-07-27 10:43:00 [facility] BASIC METABOLIC PANEL (NA, K , CL, CO2, GLUCOSE, BUN, CREATININE, CA) 2024-07-27 10:43:[address] [facility] TRANSFUSE PACKED RBC 2024-07-27 08:15:00 Rodrigues, [facility] TRANSFUSE PACKED RBC 2024-07-27 08:15:00 Rodrigues, [facility] TRANSFUSE PACKED RBC 2024-07-27 08:15:00 Rodrigues, [facility] TRANSFUSE PACKED RBC 2024-07-27 08:15:00 Rodrigues, [facility] TRANSFUSE PACKED RBC 2024-07-27 08:15:00 Ravi [facility] PREPARE PACKED RBC 2024-07-27 07:52:58 Rodrigues, [facility] PREPARE PACKED RBC 2024-07-27 07:52:58 Rodrigues, [facility] PREPARE PACKED RBC 2024-07-27 07:52:58 Ravi [facility] PREPARE PACKED RBC 2024-07-27 07:52:58 Rodrigues, [facility] PREPARE PACKED RBC 2024-07-27 07:52:58 Ravi [facility] TRANSFUSE PACKED RBC 2024-07-27 06:40:00 Rodrigues, [facility] TRANSFUSE PACKED RBC 2024-07-27 06:40:00 Rodrigues, [facility] TRANSFUSE PACKED RBC 2024-07-27 06:40:00 Rodrigues, [facility] TRANSFUSE PACKED RBC 2024-07-27 06:40:00 Rodrigues, [facility] TRANSFUSE PACKED RBC 2024-07-27 06:40:00 Rodrigues, [facility] AC PANEL 21 + LACTIC ACID 2024-07-27 05:28:00 Rodrigues, [facility] AC PANEL 21 + LACTIC ACID 2024-07-27 05:28:00 Rodrigues, [facility] AC PANEL 21 + LACTIC ACID 2024-07-27 05:28: Rodrigues, [facility] AC PANEL 21 + LACTIC ACID 2024-07-27 05:28: Rodrigues, [facility] AC PANEL 21 + LACTIC ACID 2024-07-27 05:28:00 Rodrigues, [facility] COMP. METABOLIC PANEL ([id number]) 2024-07-27 05:22:00 Rodrigues, [facility] CBC WITH DIFF 2024-07-27 05:22:00 Rodrigues, [facility] PROTHROMBIN TIME / INR 2024-07-27 05:22:00 Rodrigues, [facility] ACTIVATED PARTIAL THRMPLAS VICTORINO 2024-07-11 7 05:22: Rodrigues, [facility] FIBRINOGEN 2024-07-27 05:22:00 Rodrigues, [facility] HB ABO GROUPING 2024-07-27 05:22:00 Rodrigues [facility] COMP. METABOLIC PANEL ([id number]) 2024-07-27 05:22:00 Rodrigues, [facility] CBC WITH DIFF 2024-07-27 05:22: Rodrigues, [facility] PROTHROMBIN TIME / INR 2024-07-27 05:22:00 Rodrigues, [facility] ACTIVATED PARTIAL THRMPLAS VICTORINO 2024-07-11 7 05:22:00 Rodrigues, [facility] FIBRINOGEN 2024-07-27 05:22:00 Rodrigues, [facility] HB ABO GROUPING 2024-07-27 05:22:00 Rodrigues, [facility] COMP. METABOLIC PANEL ([id number]) 2024-07-27 05:22:00 Rodrigues, [facility] CBC WITH DIFF 2024-07-27 05:22:00 Rodrigues, [facility] PROTHROMBIN TIME / INR 2024-07-27 05:22:00 Rodrigues, [facility] ACTIVATED PARTIAL THRMPLAS VICTORINO 2024-07-11 7 05:22:00 Rodrigues, [facility] FIBRINOGEN 2024-07-27 05:22:00 Rodrigues, [facility] HB ABO GROUPING 2024-07-27 05:22:00 Rodrigues, [facility] COMP. METABOLIC PANEL ([id number]) 2024-07-27 05:22:00 Rodrigues, [facility] CBC WITH DIFF 2024-07-27 05:22:00 Rodrigues, [facility] PROTHROMBIN TIME / INR 2024-07-27 05:22:00 Rodrigues, [facility] ACTIVATED PARTIAL THRMPLAS VICTORINO 2024-07-11 7 05:22:00 Rodrigues, [facility] FIBRINOGEN 2024-07-27 05:22:00 Rodrigues, [facility] HB ABO GROUPING 2024-07-27 05:22:00 Rodrigues, [facility] CBC WITH DIFF 2024-07-27 05:22:00 Rodrigues, [facility] COMP. METABOLIC PANEL ([id number]) 2024-07-27 05:22:00 Rodrigues, [facility] PROTHROMBIN TIME / INR 2024-07-27 05:22:00 Rodrigues, [facility] ACTIVATED PARTIAL THRMPLAS VICTORINO 2024-07-11 7 05:22:00 Rodrigues, [facility] FIBRINOGEN 2024-07-27 05:22:00 Rodrigues, [facility] HB ABO GROUPING 2024-07-27 05:22:00 Rodrigues, [facility] MRSA / MSSA SCREEN BY PCR, DEDE 2024-07 05:21:00 Rodrigues, [facility] MRSA / MSSA SCREEN BY PCR, NARABEL 2024-07 05:21:00 Rodrigues, [facility] MRSA / MSSA SCREEN BY PCR, [facility] 2024-07 05:21:00 Ravi [facility] MRSA / MSSA SCREEN BY PCR, [facility] 2024-07 05:21:00 Ravi [facility] MRSA / MSSA SCREEN BY PCR, [facility] 2024-07 05:21:00 Ravi [facility] TRANSFUSE PACKED RBC 2024-07-27 01:25:00 [facility] TRANSFUSE PACKED RBC 2024-07-27 01:25:00 [facility] TRANSFUSE PACKED RBC 2024-07-27 01:25:00 [facility] TRANSFUSE PACKED RBC 2024-07-27 01:25:00 [facility] TRANSFUSE PACKED RBC 2024-07-27 01:25:[address] [facility] CT ABDOMEN PELVIS W CONTRAST 2024-07-27 01:01:25 [facility] [address] ABDOMEN PELVIS W CONTRAST 2024-07-27 01:01:25 [facility] CT ABDOMEN PELVIS W CONTRAST 2024-07-27 01:01:25 [facility] CT ABDOMEN PELVIS W CONTRAST 2024-07-27 01:01:25 [facility] CT ABDOMEN PELVIS W CONTRAST 2024-07-27 01:01:25 [facility] XR CHEST 1 2024-07-27 00:35:36 [facility] XR CHEST 1 2024-07-27 00:35:36 [facility] XR CHEST 1 2024-07-27 00:35:36 [facility] XR CHEST 1 VW 2024-07-27 00:35:36 [facility] 2024-07-27 00:35:36 [facility]24-07-27 00:12:00 [facility] 2024-07-27 00:12:00 [facility] 2024-07-27 00:12:00 [facility] CBC WITH DIFF 2024-07-27 00:12:00 [facility] CBC WITH DIFF 2024-07-27 00:12:00 [facility] ABORH CONFIRMATION (LAB ONLY) 2024-07-27 00:09:00 [facility] ABORH CONFIRMATION (LAB ONLY) 2024-07-27 00:09:00 [facility] ABORH CONFIRMATION (LAB ONLY) 2024-07-27 00:09:00 [facility] ABORH CONFIRMATION (LAB ONLY) 2024-07-27 00:09:00 [facility] ABORH CONFIRMATION (LAB ONLY) 2024-07-27 00:09:00 [facility] COVID NAAT 2024-07-26 22:52:00 [facility] LAB ONLY COVID INTERPRETATION 2024-07-26 22:52:00 [facility] INFLUENZA A/B RSV COVID NAAT 2024-07-26 22:52:00 [facility] LAB ONLY COVID INTERPRETATION 2024-07-26 22:52:00 [facility] INFLUENZA A/B RSV COVID NAAT 2024-07-26 22:52:00 [facility] 2024-07-26 22:52:00 [facility] INFLUENZA A/B RSV COVID NAAT 2024-07-26 22:52:00 [facility] LAB ONLY COVID INTERPRETATION 2024-07-26 22:52:00 [facility] INFLUENZA A/B RSV COVID NAAT 2024-07-26 22:52:00 [facility] LAB ONLY COVID INTERPRETATION 2024-07-26 22:52:00 [facility] HB ABO GROUPING 2024-07-26 22:50:00 [facility] HB ABO GROUPING 2024-07-26 22:50:00 [facility] HB ABO GROUPING 2024-07-26 22:50:00 [facility] HB ABO GROUPING 2024-07-26 22:50:00 [facility] HB ABO GROUPING 2024-07-26 22:50:00 [facility] TROPONIN I 2024-07-26 22:46:00 [facility] COMP. METABOLIC PANEL ([id number]) 2024-07-26 22:46:00 [facility] D-DIMER 2024-07-26 22:46:00 [facility] N-TERMINAL PRO-BNP 2024-07-26 22:46:00 [facility] ([id number]) 2024-07-26 22:46:00 [facility] D-DIMER 2024-07-26 22:46:00 [facility] N-TERMINAL PRO-BNP 2024-07-26 22:46:00 [facility] TROPONIN I 2024-07-26 22:46:00 [facility] COMP. METABOLIC PANEL ([id number]) 2024-07-26 22:46:00 [facility] D-DIMER 2024-07-26 22:46:00 [facility]AL [facility]-BNP 2024-07-26 22:46:00 [facility] TROPONIN I 2024-07-26 22:46:00 [facility] COMP. METABOLIC PANEL ([id number]) 2024-07-26 22:46:00 [facility] D-DIMER 2024-07-26 22:46:00 [facility] N-TERMINAL PRO-BNP 2024-07-26 22:46:00 [facility] COMP. METABOLIC PANEL ([id number]) 2024-07-26 22:46:00 [facility] 2024-07-26 22:46:00 [facility] N-TERMINAL PRO-BNP 2024-07-26 22:46:00 [facility] D-DIMER 2024-07-26 22:46:00 [facility] HB ECG ROUTINE & RHYTHM STRIP 2024-07-26 22:41:11 [facility] & RHYTHM STRIP 2024-07-26 22:41:11 [facility]OUTINE & RHYTHM STRIP 2024-07-26 22:41:11 [facility] HB ECG ROUTINE & RHYTHM STRIP 2024-07-26 22:41:[address] [facility] HB ECG ROUTINE & RHYTHM STRIP 2024-07-26 22:41:[address] [facility] POCT URINALYSIS AUTO 2023-02-03 20:41:[address] [facility] REFERRAL- REQUEST/RESPONSE 2023-01-29 05:01:00 Doctor Unassigned, Sedillo [facility] Encounters Start Date/Time End Date/Time Encounter Type Admission Type Attending [facility] Facility Care Department Encounter ID Source 2025-02-08 00:43:00 2025-02-08 02:40:00 Emergency X CHRISTEL TORRES PAMALA [facility] [id number] [facility] 2025-02-08 00:43:00 2025-02-08 02:40:00 Emergency Christel Torres [facility] 1.2840.114 350.1.13.10 4.2.7.2.686 [id number] [facility] 2024-12-26 00:07:00 2024-12-26 03:37:00 Emergency X ANURADHA JACQUES DONNELL [facility] [id number] [facility] 2024-07-31 00:00:00 2024-11-25 06:46:13 Orders Only Doctor Unassigned, Sedillo Doctor Unassigned, Sedillo [facility] [place] 1.2840.114 350.1.13.10 4.2.7.2.686 [id number] [facility] 2024-07-31 00:00:00 2024-11-25 06:46:12 Orders Only Doctor Unassigned, Sedillo Doctor Unassigned, Sedillo [facility] [place] [facility] 1.2840.114 350.1.13.10 4.2.7.2.686 [id number] [facility] 2024-08-02 00:00:00 2024-11-25 06:45:44 Orders Only Doctor Unassigned, Sedillo Doctor Unassigned, Sedillo [facility] [place] [facility] 1.2.840.114 350.1.13.10 4.2.7.2.686 [id number] [facility] 2024-09-28 00:00:00 2024-11-25 06:26:53 Orders Only Doctor Unassigned, Sedillo Doctor Unassigned, Sedillo [facility] [place] 1.2.840.114 350.1.13.10 4.2.7.2.686 [id number] [facility] 2024-11-01 00:00:00 2024-11-01 12:50:34 Patient Outreach Nevin, Elisabetty Rooney, Elisa [facility] 1.2.840.114 350.1.13.10 4.2.7.2.686 [id number] [facility] 2024-10-20 00:00:00 2024-10-20 15:46:58 Transition of Care Joya Casas Christine [facility] [place] 1.2.840.114 350.1.13.10 4.2.7.2.686 [id number] [facility] 2024-10-17 04:22:00 2024-10-19 14:00:00 Hospital Encounter Norma Dotson David [place]ville, Jelani [facility] 1.2.840.114 350.1.13.10 4.2.7.2.686 [id number] [facility] 2024-10-17 09:00:00 2024-10-17 09:00:00 Outpatient R NORMA [facility] [id number] [facility] 2024-10-12 00:00:00 2024-10-12 15:12:55 Transition of Care Cait Crabtree Miatha R SHEARN [facility]IN [facility] 1.20.114 350.1.13.10 4.2.7.2.686 [id number] [facility] 2024-10-05 16:15:00 2024-10-10 14:00:00 Inpatient X MELITON GALDAMEZ [facility] [id number] [facility] 2024-10-05 16:15:00 2024-10-10 14:00:00 Hospital Encounter Svitlana Baez Fatima A Iturrizaga- [place], Jose C [facility] ([place] 1.20.114 350.1.13.10 4.2.7.2.686 [id number] [facility] 2024-10-06 00:00:00 2024-10-06 13:47:15 Patient Outreach Elisa Rooney Stacy [facility] ([facility] 1.20.114 350.1.13.10 4.2.7.2.686 [id number] [facility] 2024-10-05 00:00:00 2024-10-05 14:56:38 Nurse Triage Guerita Solis Nina R [facility] ([place] 1.20.114 350.1.13.10 4.2.7.2.686 [id number] [facility] 2024-09-25 12:57:00 2024-10-03 17:00:00 Inpatient U [facility] [id number] [facility] 2024-09-25 12:57:00 2024-10-03 17:00:00 Hospital Encounter Svitlana Baez Erin Leigh Shaltoni, Leonardo Young, Hyun Aleman [facility] ([place] 1.20.114 350.1.13.10 4.2.7.2.686 [id number] [facility] 2024-09-29 00:00:00 2024-09-29 09:09:31 Telephone Jesús Red 1.2.840.1 93893.1.1 3.104.2.7 .3.732867 .8 [id number] [facility] 2024-09-28 13:57:00 2024-09-28 15:58:00 Anesthesia Event Yusef Ramos 1.2.840.1 81377.1.1 3.104.2.7 .3.688256 .8 [id number] [facility] 2024-09-28 00:00:00 2024-09-28 00:00:00 Travel 1.2.840.1 80210.1.1 3.104.2.7 .3.821740 .8 1.2.840.114 350.1.13.10 4.2.7.3.698 084.8 [id number] [facility] 2024-09-27 13:50:00 2024-09-27 14:54:00 Anesthesia Event Dilan Garcia Thuy 1.2.840.1 41619.1.1 3.104.2.7 .3.199058 .8 [id number] [facility] 2024-09-27 12:55:00 2024-09-27 14:21:00 Surgery Meliton Pike 1.2.840.1 04326.1.1 3.104.2.7 .3.653835 .8 [id number] [facility] 2024-09-25 00:00:00 2024-09-25 00:00:00 Travel 1.2.840.1 22106.1.1 3.104.2.7 .3.204993 .8 1.2.840.114 350.1.13.10 4.2.7.3.698 084.8 [id number] [facility] 2024-07-26 17:38:00 2024-08-01 16:10:00 Hospital Encounter Rosanajim, Courtney Osborne, Zac Hua Flormorales, Brock NiiChava 1.2.840.1 68171.1.1 3.104.2.7 .3.663521 .8 [id number] [facility] 2024-07-26 17:38:00 2024-08-01 16:10:00 Inpatient X CHAVA [facility]ZARIEGOS [facility] [id number] [facility] 2024-07-31 10:40:00 2024-07-31 11:10:00 Anesthesia Event Dilan Garcia Colton Michael 1.2.840.1 32800.1.1 3.104.2.7 .3.503500 .8 [id number] [facility] 2024-07-31 07:30:00 2024-07-31 08:17:00 Surgery Audi Cruz 1.2.840.1 20413.1.1 3.104.2.7 .3.394223 .8 [id number] [facility] 2024-07-28 13:25:00 2024-07-28 14:39:00 Anesthesia Event Dilan Garcia Lesley C 1.2.840.1 80082.1.1 3.104.2.7 .3.668935 .8 [id number] [facility] 2024-07-28 12:10:00 2024-07-28 13:44:00 Surgery Carola Stanton 1.2.840.1 98484.1.1 3.104.2.7 .3.280204 .8 [id number] [facility] 2024-07-27 17:16:00 2024-07-27 18:17:00 Anesthesia Event Dilan Garcia Lesley C 1.2.840.1 03993.1.1 3.104.2.7 .3.572002 .8 [id number] [facility] 2024-07-27 15:33:00 2024-07-27 16:14:00 Surgery Carola Stanton 1.2.840.1 92043.1.1 3.104.2.7 .3.916041 .8 [id number] [facility] 2024-07-26 00:00:00 2024-07-26 00:00:00 Travel 1.2.840.1 80505.1.1 3.104.2.7 .3.266060 .8 1.2.840.114 350.1.13.10 4.2.7.3.698 084.8 [id number] [facility] 2023-08-09 09:15:00 2023-08-09 09:15:00 Outpatient R [facility] [id number] [facility] 2023-02-10 13:15:00 2023-02-10 13:15:00 Outpatient R SHERLY [facility] [id number] [facility] 2023-02-04 11:00:00 2023-02-04 11:00:00 Outpatient R SHERLY [facility] [id number] [facility] 2023-02-03 13:45:00 2023-02-03 14:00:00 [employer] Commissioner Visit 2, [facility] 1.2.840.114 350.1.13.10 4.2.7.2.686 [id number] [facility] 2023-02-03 11:30:00 2023-02-03 13:40:24 Outpatient R SHERLY [facility] [id number] [facility] 2023-02-03 11:30:00 2023-02-03 13:40:24 [facility]zweri[facility] 1..840.114 350.1.13.10 4.2.7.2.686 [id number] [facility] 2023-01-29 00:00:00 2023-01-29 00:00:00 Orders Only Doctor Unassigned, Sedillo [facility] 1.840.114 350.1.13.10 4.2.7.2.686 [id number] [facility] 2023-01-01 10:00:00 2023-01-01 10:15:00 [employer] Commissioner Visit Chas, Briseida Lab Main KatharineDaylin [facility] 1..840.114 350.1.13.10 4.2.7.2.686 [id number] [facility] 2023-01-01 10:00:00 2023-01-01 10:00:00 Outpatient DAYLIN CHIANG [facility] [id number] [facility] 2021-02-24 02:57:00 2021-02-24 02:57:00 Outpatient Stephany-Mbayo _A_AH VFP VFP [id number] 2019-12-21 06:49:00 2019-12-21 06:49:00 Outpatient Stephany-Mbayo _A_AH VFP VFP [id number] [facility] 2019-11-29 07:19:00 2019-11-29 07:19:00 Outpatient Stephany-Mbayo _A_AH VFP VFP [phone] [id number] [facility] Results Test Description Test Time Test Comments Results Result Co mments Source [facility] [id number] 06:52:17* Test Item Value Reference Range Interpretation Comme nts NT-proBNP (test code = 23906-0) 1760 pg/mL <=125 H ARMIDA (test code = ARMIDA) Positive: Heart Failure Likely Lab Interpretation (test code = 16706-8) Abnormal [facility] (13539)2025-02-08 06:43:57* Test Item Value Reference Range Interpretation Comme nts NA (test code = 8855610273) 139 mmol/L 135-145 K (test code = 9787819844) 3.8 mmol/L 3.5-5.0 CL (test code = 0664675053) 106 mmol/L 98-108 CO2 TOTAL (test code = 3227952405) 27 mmol/L 23-31 AGAP (test code = 7652394976) 6 2-16 BUN (test code = 8756211772) 20 mg/dL 7-23 GLUCOSE (test code = 7119938452) 107 mg/dL 70-110 CREATININE (test code = 2160-0) 0.88 mg/dL 0.60-1.25 TOTAL BILI (test code = 2914931099) 0.4 mg/dL 0.1-1.1 CALCIUM (test code = 9012107497) 8.6 mg/dL 8.6-10.6 T PROTEIN (test code = 0935388546) 6.8 g/dL 6.3-8.2 ALBUMIN (test code = 1211472096) 4.1 g/dL 3.5-5.0 ALK PHOS (test code = 7262951039) 73 U/L 34-122 ALTv (test code = 1742-6) 18 U/L 5-50 AST(SGOT) (test code = 5872092814) 19 U/L 13-40 eGFR (test code = 94559-6) 91.4 mL/min/1.73m2 CKD-EPI eGFR (20 21). Assuming creatinine has been stable day-to-day for at least three months, the eGFR indicates Category G1 (>= 90 mL/min/1.73 m2) [facility] [id number] 06:31:56* Test Item Value Reference Range Interpretation Comme nts WBC (test code = 6690-2) 5.05 4.20-10.70 RBC (test code = 789-8) 4.3 4.26-5.52 HGB (test code = 718-7) 11.1 g/dL 12.2-16.4 L HCT (test code = 4544-3) 38 % 38.4-49.3 L MCV (test code = 787-2) 88.4 fL 81.7-95.6 MCH (test code = 785-6) 25.8 pg 26.1-32.7 L MCHC (test code = 786-4) 29.2 g/dL 31.2-35.0 L RDW-SD (test code = 43891-8) 57 fL 38.5-51.6 H RDW-CV (test code = 788-0) 17.6 % 12.1-15.4 H PLT (test code = 777-3) 247 150-328 MPV (test code = 49392-3) 10.3 fL 9.8-13.0 NRBC/100 WBC (test code = 6574140189) 0 0.0-10.0 NRBC x10^3 (test code = 4208094828) See_Comment [Automated messa ge] The system which generated this result transmitted reference range: 10*3/?L. The reference range was not used to interpret this result as normal/abnormal. GRAN MAT (NEUT) % (test code = 770-8) 62.3 % IMM GRAN % (test code = 3643981421) 0.2 % LYMPH % (test code = 736-9) 23.6 % MONO % (test code = 5905-5) 9.3 % EOS % (test code = 713-8) 3.8 % BASO % (test code = 706-2) 0.8 % GRAN MAT x10^3(ANC) (test code = 4774335903) 3.15 10*3/uL 1.99-6.95 IMM GRAN x10^3 (test code = 1734206221) 0.00-0.06 LYMPH x10^3 (test code = 731-0) 1.19 10*3/uL 1.09-3.23 MONO x10^3 (test code = 742-7) 0.47 10*3/uL 0.36-1.02 EOS x10^3 (test code = 711-2) 0.19 10*3/uL 0.06-0.53 BASO x10^3 (test code = 704-7) 0.04 10*3/uL 0.01-0.09 Lab Interpretation (test code = 80839-3) [facility]normal [facility] wo [id number] 21:45:09EXAM: CT HEAD WO CONTRAST HISTORY: 73 years-old Male; Provided indication: Transient ischemic attack(TIA) . TECHNIQUE: Axial CT of the head was performed and reconstructed at 5 mmintervals. Coronal and sagittal reformatted images were generated. 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 Smallintraparenchymal hematoma measuring approximately 1.1 x 0.4 cm in theregion of infarct at the right temporal lobe posteriorly, similar to priorMRI when considering differences in modality. Additional petechialhemorrhageson prior MRI has resolved. Effacement of sulci in the region ofinfarcts, however, no significant mass effect. No midline shift. No hydrocephalus. No pathological extra-axial fluid collection is present.The basal cisterns are unremarkable. Right middle frontal gyrus and right occipital lobe chronic infarcts areagain noted. Chronic lacunar infarct at the right basal ganglia, leftthalamus and bilateral cerebellar hemisphere are redemonstrated. No newloss of farmer-white differentiation. The mastoid air cells and paranasal air sinuses are clear. The calvariumand central skull base are unremarkable.[facility] Aej-[id number] 09:58:51* Test Item Value Reference Range Interpretation Comme nts NT-proBNP (test code = 37466-7) 993 pg/mL <=125 H ARMIDA (test code = ARMIDA) Positive: Heart Failure Likely Lab Interpretation (test code = 16790-7) [facility]normal [facility] (NA, K, CL, CO2, GLUCOSE, BUN, CREATININE, CA)2024-10-09 09:48:12* Test Item Value Reference Range Interpretation Comme nts NA (test code = 8551500728) 140 mmol/L 135-145 K (test code = 2037089574) 3.7 mmol/L 3.5-5.0 CL (test code = 5268794876) 102 mmol/L 98-108 CO2 TOTAL (test code = 2551425799) 30 mmol/L 23-31 AGAP (test code = 2455852407) 8 2-16 BUN (test code = 1971347250) 17 mg/dL 7-23 GLUCOSE (test code = 8726753447) 88 mg/dL 70-110 CREATININE (test code = 2160-0) 1.03 mg/dL 0.60-1.25 CALCIUM (test code = 7456764177) 8.4 mg/dL 8.6-10.6 L eGFR (test code = 45423-9) 77.7 mL/min/1.73m2 CKD-EPI eGFR (2020). Assuming creatinine has been stable day-to-day for at least three months, the eGFR indicates Category G2 (60 - 89 mL/min/1.73 m2) Lab Interpretation (test code = 23287-6) [facility]normal [facility] Hospital[facility]esium2024-12-30 09:48:12* Test Item Value Reference Range Interpretation Comme nts MAGNESIUM (test code = 6032451077) 2.2 mg/dL 1.7-2.4 Lab Interpretation (test cod e = 14869-4) Normal [facility] HospitalCb without [id number] 09:25:27* Test Item Value Reference Range Interpretation Comme nts WBC (test code = 6690-2) 6.22 4.20-10.70 RBC (test code = 789-8) 4.33 4.26-5.52 HGB (test code = 718-7) 9.3 g/dL 12.2-16.4 L HCT (test code = 4544-3) 32.9 % 38.4-49.3 L MCH (test code = 785-6) 21.5 pg 26.1-32.7 L MCV (test code = 787-2) 76.0 fL 81.7-95.6 L MCHC (test code = 786-4) 28.3 g/dL 31.2-35.0 L PLT (test code = 777-3) 422 150-328 H MPV (test code = 28772-1) 9.9 fL 9.8-13.0 RDW-CV (test code = 788-0) 22.4 % 12.1-15.4 H RDW-SD (test code = 21977-5) 60.7 fL 38.5-51.6 H NRBC x10^3 (test code = 3435100583) 0.06 See_Comment [Automated messa ge] The system which generated this result transmitted reference range: 10*3/?L. The reference range was not used to interpret this result as normal/abnormal. NRBC/100 WBC (test code = 5059683390) 1.0 0.0-10.0 IPF % (test code = 2646249718) Lab Interpretation (test code = 80456-6) Abnormal [facility]for use with Heparin Infusion)2024-10-09 04:57:56* Test Item Value Reference Range Interpretation Comme [facility] APTT Patient (test code = 3173-2) 64 26-36 H Lab Interpretation (test cod e = 15927-1) Abnormal [facility] use with Heparin Infusion)2024-10-08 17:09:00* Test Item Value Reference Range Interpretation Comme [facility] APTT Patient (test code = 3173-2) 56 26-36 H Lab Interpretation (test cod e = 84984-9) Abnormal [facility] Metabolic Panel (NA, K, CL, CO2, GLUCOSE, BUN, CREATININE, CA)2024-10-08 12:46:29* Test Item Value Reference Range Interpretation Comme [facility] NA (test code = 3602392182) 138 mmol/L 135-145 K (test code = 6973397158) 3.2 mmol/L 3.5-5.0 L CL (test code = 3556624608) 103 mmol/L 98-108 CO2 TOTAL (test code = 7859862687) 29 mmol/L 23-31 AGAP (test code = 2277760202) 6 2-16 BUN (test code = 2366709832) 14 mg/dL 7-23 GLUCOSE (test code = 1899139901) 81 mg/dL 70-110 CREATININE (test code = 2160-0) 0.84 mg/dL 0.60-1.25 CALCIUM (test code = 9329600087) 8.1 mg/dL 8.6-10.6 L eGFR (test code = 43484-1) 93.2 mL/min/1.73m2 CKD-EPI eGFR (2020). Assuming creatinine has been stable day-to-day for at least three months, the eGFR indicates Category G1 (>= 90 mL/min/1.73 m2) Lab Interpretation (test code = 51070-3) [facility]normal [facility]esium2024-12-29 12:46:29* Test Item Value Reference Range Interpretation Comme nts MAGNESIUM (test code = 5488773007) 1.9 mg/dL 1.7-2.4 Lab Interpretation (test cod e = 47641-0) Normal [facility] HospitalCbc without [id number] 12:25:43* Test Item Value Reference Range Interpretation Comme nts WBC (test code = 6690-2) 5.87 4.20-10.70 RBC (test code = 789-8) 4.10 4.26-5.52 L HGB (test code = 718-7) 9.1 g/dL 12.2-16.4 L HCT (test code = 4544-3) 31.5 % 38.4-49.3 L MCH (test code = 785-6) 22.2 pg 26.1-32.7 L MCV (test code = 787-2) 76.8 fL 81.7-95.6 L MCHC (test code = 786-4) 28.9 g/dL 31.2-35.0 L PLT (test code = 777-3) 358 150-328 H MPV (test code = 11949-9) 11.1 fL 9.8-13.0 RDW-CV (test code = 788-0) 21.8 % 12.1-15.4 H RDW-SD (test code = 42996-6) 60.8 fL 38.5-51.6 H NRBC x10^3 (test code = 6709663570) See_Comment [Automated [employer] ge] The system which generated this result transmitted reference range: 10*3/?L. The reference range was not used to interpret this result as normal/abnormal. NRBC/100 WBC (test code = 2449099795) 0.0 0.0-10.0 IPF % (test code = 2542959487) Lab Interpretation (test code = 79221-3) Abnormal [facility] use with [facility]arin Infusion)2024-10-08 03:01:53* Test Item Value Reference Range Interpretation Comme nts APTT Patient (test code = 3173-2) 52 26-36 H Lab Interpretation (test cod e = 16438-7) Abnormal [facility] use with [facility]arin Infusion)2024-10-07 20:08:33* Test Item Value Reference Range Interpretation Comme [facility] APTT Patient (test code = 3173-2) 42 26-36 H Lab Interpretation (test cod e = 12794-4) Abnormal [facility]2024-12-28 12:59:15* Test Item Value Reference Range Interpretation Comme nts MAGNESIUM (test code = 3128108065) 2.2 mg/dL 1.7-2.4 Lab Interpretation (test cod e = 61155-7) Normal [facility] (NA, K, CL, CO2, GLUCOSE, BUN, CREATININE, CA)2024-10-07 12:59:14* Test Item Value Reference Range Interpretation Comme nts NA (test code = 7306091509) 138 mmol/L 135-145 K (test code = 2793473781) 3.7 mmol/L 3.5-5.0 CL (test code = 9193865478) 104 mmol/L 98-108 CO2 TOTAL (test code = 5094308656) 26 mmol/L 23-31 AGAP (test code = 2493352379) 8 2-16 BUN (test code = 6848817770) 14 mg/dL 7-23 GLUCOSE (test code = 6838246829) 67 mg/dL 70-110 L CREATININE (test code = 2160-0) 0.80 mg/dL 0.60-1.25 CALCIUM (test code = 5132851083) 7.9 mg/dL 8.6-10.6 L eGFR (test code = 71770-1) 94.6 mL/min/1.73m2 CKD-EPI eGFR (2020). Assuming creatinine has been stable day-to-day for at least three months, the eGFR indicates Category G1 (>= 90 mL/min/1.73 m2) Lab Interpretation (test code = 00414-9) Abnormal [facility] use with Heparin Infusion)2024-10-07 12:26:52* Test Item Value Reference Range Interpretation Comme [facility] APTT Patient (test code = 3173-2) 40 26-36 H Lab Interpretation (test cod e = 63003-8) Abnormal [facility] Without [id number] 12:20:54* Test Item Value Reference Range Interpretation Comme nts WBC (test code = 6690-2) 5.75 4.20-10.70 RBC (test code = 789-8) 3.83 4.26-5.52 L HGB (test code = 718-7) 8.6 g/dL 12.2-16.4 L HCT (test code = 4544-3) 29.8 % 38.4-49.3 L MCH (test code = 785-6) 22.5 pg 26.1-32.7 L MCV (test code = 787-2) 77.8 fL 81.7-95.6 L MCHC (test code = 786-4) 28.9 g/dL 31.2-35.0 L PLT (test code = 777-3) 285 150-328 MPV (test code = 63284-2) 11.2 fL 9.8-13.0 RDW-CV (test code = 788-0) 22.0 % 12.1-15.4 H RDW-SD (test code = 67178-1) 61.5 fL 38.5-51.6 H NRBC x10^3 (test code = 9755261057) 0.02 See_Comment [Automated [employer] ge] The system which generated this result transmitted reference range: 10*3/?L. The reference range was not used to interpret this result as normal/abnormal. NRBC/100 WBC (test code = 6912476718) 0.3 0.0-10.0 IPF % (test code = 0297272296) Lab Interpretation (test code = 99006-0) Abnormal [facility] use with [facility]arin Infusion)2024-10-07 05:18:54* Test Item Value Reference Range Interpretation Comme nts APTT Patient (test code = 3173-2) 35 -36 Lab Interpretation (test cod e = 29286-0) Normal [facility] with Pnvu7802-93-00 05:12:36* Test Item Value Reference Range Interpretation Comme nts WBC (test code = 6690-2) 4.99 4.20-10.70 RBC (test code = 789-8) 4.07 4.26-5.52 L HGB (test code = 718-7) 9.0 g/dL 12.2-16.4 L HCT (test code = 4544-3) 31.1 % 38.4-49.3 L MCV (test code = 787-2) 76.4 fL 81.7-95.6 L MCH (test code = 785-6) 22.1 pg 26.1-32.7 L MCHC (test code = 786-4) 28.9 g/dL 31.2-35.0 L RDW-SD (test code = 20672-1) 60.7 fL 38.5-51.6 H RDW-CV (test code = 788-0) 22.2 % 12.1-15.4 H PLT (test code = 777-3) 318 150-328 MPV (test code = 34856-6) 10.9 fL 9.8-13.0 NRBC/100 WBC (test code = 5662959599) 0.0 0.0-10.0 NRBC x10^3 (test code = 0488731842) See_Comment [Automated messa ge] The system which generated this result transmitted reference range: 10*3/?L. The reference range was not used to interpret this result as normal/abnormal. GRAN MAT (NEUT) % (test code = 770-8) 70.6 % IMM GRAN % (test code = 6602371885) 0.40 % LYMPH % (test code = 736-9) 16.8 % MONO % (test code = 5905-5) 9.6 % EOS % (test code = 713-8) 1.8 % BASO % (test code = 706-2) 0.8 % GRAN MAT x10^3(ANC) (test code = 1193933996) 3.52 10*3/uL 1.99-6.95 IMM GRAN x10^3 (test code = 6256230119) 0.00-0.06 LYMPH x10^3 (test code = 731-0) 0.84 10*3/uL 1.09-3.23 L MONO x10^3 (test code = 742-7) 0.48 10*3/uL 0.36-1.02 EOS x10^3 (test code = 711-2) 0.09 10*3/uL 0.06-0.53 BASO x10^3 (test code = 704-7) 0.04 10*3/uL 0.01-0.09 Lab Interpretation (test code = 88463-7) [facility] [id number] 22:29:01EXAM: US LOWER LEG RIGHT HISTORY: 73 years-old Male; Provided indication: right inguinal hematomaand past procedure site . TECHNIQUE: Dedicated sonographic imaging and cine clips using grayscale andcolor Doppler of the right inguinal region was performed. COMPARISON: CT abdomen pelvis obtained on 07/26/2024 FINDINGS: Ultrasonography of the area of interest at the right frontal regiondemonstrate no solid mass or suspicious lymphadenopathy. A few prominentlymph nodes are probably reactive. The imaged common femoral artery ispatent.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 COMPARISON: 07/26/2024. TECHNIQUE AND FINDINGS: Contiguous axial imaging from the level of the lungbases to the iliac crests was performed before and after the uncomplicatedadministration of 150 mL of intravenous Omnipaque contrast. Coronal andsagittal reconstructions were obtained. Auto mA and/or iterativereconstruction were used to reduce radiation dose. FINDINGS: LOWER THORAX: Small right pleural effusion with adjacent lung atelectasis.Mild cardiomegaly. Coronary vascular calcifications. LIVER: Bilobar multifocal hypoattenuating fluid density foci representcysts and unchanged compared to CT from 07/26/2024. ?No biliary ductaldilation. GALLBLADDER AND BILIARY TREE: No biliary ductal dilation. ?No gallbladderwall thickening. Multiple radiopaque stones are visualized within thegallbladder. SPLEEN:No splenomegaly. PANCREAS: No ductal dilation or masses. ADRENAL GLANDS: No adrenal nodules. KIDNEYS: No hydronephrosis or stones. Bilateral atrophic kidneys withmultifocal scarring. Redemonstration of multiple right renal hypodensitieslikely represent cysts. PERITONEUM AND RETROPERITONEUM: No freeair or fluid. LYMPH NODES: No lymphadenopathy. GI TRACT: No dilation or wall thickening of the partially visualized bowel.A metallic clip is present in the junction of second/third segment ofduodenum. Colonic diverticulosis. VESSELS: There is minimal irregularity of the anterior aspect of the rightcommon femoral artery without contrast pooling, probably secondary torecent intervention (302:280). No active extravasation or pseudoaneurysm isvisualized in the region of the right groin hematoma. Mild aortobiiliacvascular calcifications are present. BONES AND SOFT TISSUES: There is a small complexfluid collectionvisualized in the right groin soft tissue adjacent to the right externaliliac artery which measures 3.7 x 2.9 x 3.9 cm, consistent with hematoma.No suspicious lytic or sclerotic bony l esions. Multiple small ventralabdominal wall hernias containing fat are unchanged from prior.[facility] Hospital[facility]ansthoracic echo (TTE) [id number] 19:59:06* Test Item Value Reference Range Interpretation Comme nts Height (test code = 9383685981) 69 in Weight (test code = 1740175655) 193 lbs Systolic BP (test code = 2764438057) 152 mmHg Diastolic BP (test code = 3461779347) 84 mmHg Heart Rate (test code = 7359958065) 95 bpm BSA (test code = 6499131404) 2.03 m2 MV Peak A Jaclyn (test code = 0787868646) 33.0 cm/s E wave decelartion time (test code = 1567753055) 0.16 s MV Peak E Jaclyn (test code = 0433283669) 115.8 cm/s E/A ratio (test code = 8893211200) 3.50 ratio MV Prop V (test code = 7613193662) 44.40 cm/s MV E/e' septal (test code = 4475161182) 10.1 cm/s Tapse (test code = 4614988658) 2.20 cm TASV (test code = 2223703449) 9.6 cm/s TR Peak Jaclyn (test code = 8819419894) 295.2 cm/s Triscuspid Valve Regurgitation Peak Gradient (test code = 3841288063) 34.8 mmHg LVIDD (test code = 4529138814) 5.80 cm Left Ventricular End Diastolic Volume by Teichholz Method (test code = 4757874) 165.2 mL IVS (test code = 0144797785) 1.30 cm Interventricular Septum Diastolic Thickness by 2D (test code = 6397253) 1.30 cm LVPWD (test code = 7915753443) 1.04 cm PW (test code = 5937700378) 1.04 cm 0.6-1.1 EF(Teich) (test code = 2821849794) 36.30 % LVIDS (test code = 9574347834) 4.80 cm Left Ventricular End Systolic Volume by Teichholz Method (test code = 6043723) 105.2 mL FS (test code = 1626244350) 18 % EF - 2D (test code = 97216089) 36.30 % LAV(MOD-sp4) (test code = 6375943696) 70.10 mL LA Volume Index (BP) (test code = 9582482691) 35.8 mL/m2 LA volume (BP) (test code = 8623168774) 72.9 mL LAV(MOD-sp2) (test code = 9129089215) 72.70 mL A4C EF (test code = 0244258213) 41.20 % EF(sp4-el) (test code = 6317186883) 41.20 % SV(MOD-sp4) (test code = 3840957854) 73.10 mL SV(sp4-el) (test code = 3226354593) 74.00 mL LV Diastolic Volume (BP) (test code = 6396372404) 221.0 mL A2C EF (test code = 5404508050) 32.30 % EF(MOD-bp) (test code = 2991303190) 38.20 % EF(sp2-el) (test code = 9277310055) 32.80 % LV Systolic Volume (BP) (test code = 1655581922) 136.6 mL SV(MOD-bp) (test code = 1618539264) 84.40 mL SV(MOD-sp2) (test code = 3541793680) 86.40 mL EF (test code = 6632430869) 38 Left Ventricular Stroke Volume by 2-D Biplane-MOD (test code = 8836972) 84.4 mL LV Diastolic Volume Index (BP) (test code = 3916567528) 106.9 mL/m2 LV Systolic Volume Index (BP) (test code = 2122796407) 63.0 mL/m2 Radiology Study observation (narrative) (test code = 83379-0) ARMIDA (test code = ARMIDA) ?Left?Ventricle: Left ventricle is mildly dilated. Dilated by LV volume index calculation. ?There is concentric hypertrophy. Mild global hypokinesis present. Moderately reduced systolic function with a visually estimated EF of 35 - 40%. EF by 2D Whiting biplane is 38%. Diastolic dysfunction. ?Right?Ventricle: Right ventricle is moderately dilated. Normal systolic function. ?Left?Atrium: Left atrium is mildly dilated. Left atrium volume index is 35.8 mL/m2. ?Tricuspid?Valve: Moderate transvalvular regurgitation. Right ventricular systolic pressure is 45-50 mmHg. ?IVC/SVC: IVC diameter is less than or equal to 21 mm and decreases less than 50% during inspiration; therefore the estimated right atrial pressure is intermediate (~8 mmHg). ?Pericardium: No pericardial effusion. Left VentricleLeft ventricle is mildly dilated. Dilated by LV volume index calculation. There is concentric hypertrophy. Mild global hypokinesis present. Moderately reduced systolic function with a visually estimated EF of 35 - 40%. EF by 2D Whiting biplane is 38%. Diastolic dysfunction.Right VentricleRight ventricle is moderately dilated. Normal systolic function.Left AtriumLeft atrium is mildly dilated. Left atrium volume index is 35.8 mL/m2.Right AtriumRight atrium is dilated.IVC/SVCIVC diameter is less than or equal to 21 mm and decreases less than 50% during inspiration; therefore the estimated right atrial pressure is intermediate (~8 mmHg).Mitral ValveMitral valve structure is normal. Mild transvalvular regurgitation. No stenosis.Tricuspid ValveTricuspid valve structure is normal. Moderate transvalvular regurgitation. Right ventricular systolic pressure is 45-50 mmHg.Aortic ValveTricuspid. Normal excursion of the aortic valve leaflets. No transvalvular regurgitation. No hemodynamically significant .Pulmonic ValveValve structure is normal.Ascending AortaNormal sized aortic root.PericardiumEvide nce of epicardial fat. No pericardial effusion.Study DetailsStudy quality was adequate. A limited echocardiogram was performed using 2D, color flow Doppler and spectral Doppler. 2 mL of Definity ultrasound enhancing agent used. Patient exhibited sinus rhythm. [facility] HospitalLactic Acid Whole [id number] 16:18:26* Test Item Value Reference Range Interpretation Comme nts LACTIC ACID (test code = 0934315430) 1.26 mmol/L 0.50-2.20 Lab Interpretation (test cod e = 41804-7) Normal [facility] HospitalTroponin [id number] 12:10:08* Test Item Value Reference Range Interpretation Comme nts TROPONIN I (test code = 0282342054) 0.233 ng/mL <=0.034 H ARMIDA (test code = ARMIDA) Reference (Normal) Range (defined by the 99th percentile reference limit): <= 0.034 ng/mL Note: Cardiac troponin begins to rise 3-4 hours after the onset of ischemia. Repeat in 4-6 hours if the sample was drawn within 3-4 hours of the onset of the symptom and found normal. Diagnosis of myocardial injury is made with acute changes in cTn concentrations with at least one serial sample above the 99th percentile upper reference limit (URL), taken together with the patient's clinical presentation. Biotin has been reported to cause a negative bias, interpret results relative to patient's use of biotin. Lab Interpretation (test code = 51431-0) Abnormal [facility] (NA, K, CL, CO2, GLUCOSE, BUN, CREATININE, CA)2024-10-06 12:03:04* Test Item Value Reference Range Interpretation Comme nts NA (test code = 4770057497) 138 mmol/L 135-145 K (test code = 8241827242) 3.6 mmol/L 3.5-5.0 CL (test code = 3838889304) 106 mmol/L 98-108 CO2 TOTAL (test code = 0059038007) 24 mmol/L 23-31 AGAP (test code = 8777151540) 8 2-16 BUN (test code = 2418990591) 15 mg/dL 7-23 GLUCOSE (test code = 2582172285) 87 mg/dL 70-110 CREATININE (test code = 2160-0) 0.77 mg/dL 0.60-1.25 CALCIUM (test code = 7675728231) 7.9 mg/dL 8.6-10.6 L eGFR (test code = 29928-0) 95.7 mL/min/1.73m2 CKD-EPI eGFR (2020). Assuming creatinine has been stable day-to-day for at least three months, the eGFR indicates Category G1 (>= 90 mL/min/1.73 m2) Lab Interpretation (test code = 48137-0) Abnormal [facility] HospitalMagnesium2024-12-27 12:03:04* Test Item Value Reference Range Interpretation Comme nts MAGNESIUM (test code = 6356444923) 1.7 mg/dL 1.7-2.4 Lab Interpretation (test cod e = 64133-6) Normal [facility] with [id number] 11:59:48* Test Item Value Reference Range Interpretation Comme nts WBC (test code = 6690-2) 5.69 4.20-10.70 RBC (test code = 789-8) 3.51 4.26-5.52 L HGB (test code = 718-7) 7.6 g/dL 12.2-16.4 L HCT (test code = 4544-3) 27.2 % 38.4-49.3 L MCV (test code = 787-2) 77.5 fL 81.7-95.6 L MCH (test code = 785-6) 21.7 pg 26.1-32.7 L MCHC (test code = 786-4) 27.9 g/dL 31.2-35.0 L RDW-SD (test code = 52809-1) 61.0 fL 38.5-51.6 H RDW-CV (test code = 788-0) 22.1 % 12.1-15.4 H PLT (test code = 777-3) 243 150-328 MPV (test code = 12175-6) 10.8 fL 9.8-13.0 NRBC/100 WBC (test code = 9486736842) 0.0 0.0-10.0 NRBC x10^3 (test code = 5047223071) See_Comment [Automated [employer] ge] The system which generated this result transmitted reference range: 10*3/?L. The reference range was not used to interpret this result as normal/abnormal. GRAN MAT (NEUT) % (test code = 770-8) 70.7 % IMM GRAN % (test code = 3365204348) 0.50 % LYMPH % (test code = 736-9) 17.4 % MONO % (test code = 5905-5) 7.9 % EOS % (test code = 713-8) 2.8 % BASO % (test code = 706-2) 0.7 % GRAN MAT x10^3(ANC) (test code = 7275463144) 4.02 10*3/uL 1.99-6.95 IMM GRAN x10^3 (test code = 9595060833) 0.03 10*3/uL 0.00-0.06 LYMPH x10^3 (test code = 731-0) 0.99 10*3/uL 1.09-3.23 L MONO x10^3 (test code = 742-7) 0.45 10*3/uL 0.36-1.02 EOS x10^3 (test code = 711-2) 0.16 10*3/uL 0.06-0.53 BASO x10^3 (test code = 704-7) 0.04 10*3/uL 0.01-0.09 Lab Interpretation (test code = 97885-0) Abnormal [facility] HospitalTrcici [id number] 08:03:28* Test Item Value Reference Range Interpretation Comme nts TROPONIN I (test code = 6269796235) 0.202 ng/mL <=0.034 H ARMIDA (test code = ARMIDA) Reference (Normal) Range (defined by the 99th percentile reference limit): <= 0.034 ng/mL Note: Cardiac troponin begins to rise 3-4 hours after the onset of ischemia. Repeat in 4-6 hours if the sample was drawn within 3-4 hours of the onset of the symptom and found normal. Diagnosis of myocardial injury is made with acute changes in cTn concentrations with at least one serial sample above the 99th percentile upper reference limit (URL), taken together with the patient's clinical presentation. Biotin has been reported to cause a negative bias, interpret results relative to patient's use of biotin. Lab Interpretation (test code = 61575-2) Abnormal [facility] HospitalProthrombin Time / [id number] 06:59:20* Test Item Value Reference Range Interpretation Comme [facility] PROTIME PATIENT (test code = 5964-2) 16.1 10.1-12.6 H INR (test code = 6301-6) 1.5 Normal INR <1.1; Warfarin Therapeutic range 2.0 to 3.0 or 2.5 to 3.5, depending upon the indications. Lab Interpretation (test code = 91505-7) Abnormal [facility] HospitalaPTT2024-12-27 06:59:20* Test Item Value Reference Range Interpretation Comme [facility] APTT Patient (test code = 3173-2) 31 -36 Lab Interpretation (test cod e = 20556-5) Normal [facility] HospitalCBC Without [id number] 06:50:44* Test Item Value Reference Range Interpretation Comme [facility] WBC (test code = 6690-2) 5.43 4.20-10.70 RBC (test code = 789-8) 3.61 4.26-5.52 L HGB (test code = 718-7) 7.9 g/dL 12.2-16.4 L HCT (test code = 4544-3) 27.9 % 38.4-49.3 L MCH (test code = 785-6) 21.9 pg 26.1-32.7 L MCV (test code = 787-2) 77.3 fL 81.7-95.6 L MCHC (test code = 786-4) 28.3 g/dL 31.2-35.0 L PLT (test code = 777-3) 246 150-328 MPV (test code = 42414-3) 10.2 fL 9.8-13.0 RDW-CV (test code = 788-0) 21.7 % 12.1-15.4 H RDW-SD (test code = 07882-6) 60.5 fL 38.5-51.6 H NRBC x10^3 (test code = 2775049812) 0.02 See_Comment [Automated messa ge] The system which generated this result transmitted reference range: 10*3/?L. The reference range was not used to interpret this result as normal/abnormal. NRBC/100 WBC (test code = 0347056580) 0.4 0.0-10.0 IPF % (test code = 5448097405) Lab Interpretation (test code = 72147-7) Abnormal [facility] HospitalXR CHEST 1 [id number] 22:56:07EXAM: XR CHEST 1 VW HISTORY: 73 years-old Male with cough . TECHNIQUE: Single frontal view of the chest. COMPARISON: Chest radiograph from October 01, 2024 FINDINGS: Lines, tubes and devices: Right lower lung zone pulmonary vascular stent. Lungs and pleura: The lungs are adequately expanded. Slight improvement ininterstitial prominence. Slight improvement in aeration of the right lowerlung zone.Trace pleural effusions also appear improved with probableminimal residual. Heart/Mediastinum: The cardiac silhouette appears normal accounting fortechnique and degree of inspiration. Bones and soft tissues: No acute fracture, aggressive osseous lesion, ordislocation. No soft tissue abnormality.[facility] HospitalMR Brain wo [id number] 15:35:00MR BRAIN WO CONTRAST HISTORY: Male 73 years Neuro deficit, acute, stroke suspected COMPARISON: CT he ad dated 09/29/2024 TECHNIQUE: Planar multi weighted imaging of the brain was obtained withoutIV contrast FINDINGS: The ventricles and cerebral sulci are normal in caliber and configuration.No hydrocephalus, midline shift or pathological extra-axial fluidcollection is present. The basal cisterns are unremarkable. Diffusion restriction is noted throughout the right posterior MCA territorycorresponding to the hypoattenuation noted on recent CT. Gyriformsusceptibility signal loss is noted within the infarcted territory withoutovert hematoma formation present. A small, remote right frontal cortical infarct is also noted. Numerousremote lacunar infarcts are seen within the cerebellar hemispheresas wellas within the left thalamus. A few scattered small foci of deep whitematter hyperintense T2/FLAIR signal are nonspecific and likely representischemic small vessel change. No additional focus of abnormal parenchymalsusceptibility signal loss is present. No abnormal fluid signal is present in the mastoid air cells and paranasalair sinuses.[facility] HospitalXR Chest 1 [id number] 14:30:35Indication: screening ? Comparison: Chest radiograph 09/30/2024 RL: [id number] ORDERING PHYSICIAN: ?CAMPOS?DABI TECHNIQUE: Single view of the chest. FINDINGS: Stable small bilateral pleural effusions and pulmonary edema.Cardiac silhouette is stable. ?No pneumothorax. Osseous structures arestable.[facility] Metabolic Panel (NA, K, CL, CO2, GLUCOSE, BUN, CREATININE, CA)2024-10-01 10:43:43* Test Item Value Reference Range Interpretation Comme nts NA (test code = 6704959624) 138 mmol/L 135-145 K (test code = 0339662333) 3.8 mmol/L 3.5-5.0 CL (test code = 4596926824) 110 mmol/L 98-108 H CO2 TOTAL (test code = 8141822261) 20 mmol/L 23-31 L AGAP (test code = 7084807422) 8 2-16 BUN (test code = 6171318482) 16 mg/dL 7-23 GLUCOSE (test code = 8448342515) 119 mg/dL 70-110 H CREATININE (test code = 2160-0) 0.76 mg/dL 0.60-1.25 CALCIUM (test code = 2411644146) 7.5 mg/dL 8.6-10.6 L eGFR (test code = 13640-8) 96.1 mL/min/1.73m2 CKD-EPI eGFR (2020). Assuming creatinine has been stable day-to-day for at least three months, the eGFR indicates Category G1 (>= 90 mL/min/1.73 m2) Lab Interpretation (test code = 18912-8) Abnormal [facility] HospitalMagnesium2024-12-22 10:43:43* Test Item Value Reference Range Interpretation Comme nts MAGNESIUM (test code = 6742509000) 1.9 mg/dL 1.7-2.4 Lab Interpretation (test cod e = 91846-3) Normal [facility] without [id number] 10:20:02* Test Item Value Reference Range Interpretation Comme nts WBC (test code = 6690-2) 6.80 4.20-10.70 RBC (test code = 789-8) 3.41 4.26-5.52 L HGB (test code = 718-7) 7.6 g/dL 12.2-16.4 L HCT (test code = 4544-3) 27.0 % 38.4-49.3 L MCH (test code = 785-6) 22.3 pg 26.1-32.7 L MCV (test code = 787-2) 79.2 fL 81.7-95.6 L MCHC (test code = 786-4) 28.1 g/dL 31.2-35.0 L PLT (test code = 777-3) 212 150-328 MPV (test code = 41676-0) 10.3 fL 9.8-13.0 RDW-CV (test code = 788-0) 21.7 % 12.1-15.4 H RDW-SD (test code = 87164-7) 62.9 fL 38.5-51.6 H NRBC x10^3 (test code = 5324854764) See_Comment [Automated messa ge] The system which generated this result transmitted reference range: 10*3/?L. The reference range was not used to interpret this result as normal/abnormal. NRBC/100 WBC (test code = 1250105178) 0.0 0.0-10.0 IPF % (test code = 6014639475) Lab Interpretation (test code = 41068-0) Abnormal [facility] Metabolic Panel (NA, K, CL, CO2, GLUCOSE, BUN, CREATININE, CA)2024-09-30 11:45:36* Test Item Value Reference Range Interpretation Comme nts NA (test code = 6592234089) 137 mmol/L 135-145 K (test code = 4201816693) 4.2 mmol/L 3.5-5.0 CL (test code = 8481762553) 110 mmol/L 98-108 H CO2 TOTAL (test code = 0769339892) 25 mmol/L 23-31 AGAP (test code = 5102604793) 2 2-16 BUN (test code = 2564146960) 17 mg/dL 7-23 GLUCOSE (test code = 8870374865) 93 mg/dL 70-110 CREATININE (test code = 2160-0) 0.80 mg/dL 0.60-1.25 CALCIUM (test code = 6604282125) 7.6 mg/dL 8.6-10.6 L eGFR (test code = 35779-5) 94.6 mL/min/1.73m2 CKD-EPI eGFR (2020). Assuming creatinine has been stable day-to-day for at least three months, the eGFR indicates Category G1 (>= 90 mL/min/1.73 m2) Lab Interpretation (test code = 57203-4) Abnormal [facility] with [id number] 11:35:50* Test Item Value Reference Range Interpretation Comme nts WBC (test code = 6690-2) 7.70 4.20-10.70 RBC (test code = 789-8) 3.22 4.26-5.52 L HGB (test code = 718-7) 7.2 g/dL 12.2-16.4 L HCT (test code = 4544-3) 25.5 % 38.4-49.3 L MCV (test code = 787-2) 79.2 fL 81.7-95.6 L MCH (test code = 785-6) 22.4 pg 26.1-32.7 L MCHC (test code = 786-4) 28.2 g/dL 31.2-35.0 L RDW-SD (test code = 80624-9) 62.0 fL 38.5-51.6 H RDW-CV (test code = 788-0) 21.7 % 12.1-15.4 H PLT (test code = 777-3) 203 150-328 MPV (test code = 74107-7) 10.0 fL 9.8-13.0 NRBC/100 WBC (test code = 5237280101) 0.0 0.0-10.0 NRBC x10^3 (test code = 6441419677) See_Comment [Automated [employer] ge] The system which generated this result transmitted reference range: 10*3/?L. The reference range was not used to interpret this result as normal/abnormal. GRAN MAT (NEUT) % (test code = 770-8) 78.6 % IMM GRAN % (test code = 6088786372) 0.50 % LYMPH % (test code = 736-9) 11.3 % MONO % (test code = 5905-5) 8.1 % EOS % (test code = 713-8) 1.0 % BASO % (test code = 706-2) 0.5 % GRAN MAT x10^3(ANC) (test code = 2788285318) 6.05 10*3/uL 1.99-6.95 IMM GRAN x10^3 (test code = 3445948350) 0.04 10*3/uL 0.00-0.06 LYMPH x10^3 (test code = 731-0) 0.87 10*3/uL 1.09-3.23 L MONO x10^3 (test code = 742-7) 0.62 10*3/uL 0.36-1.02 EOS x10^3 (test code = 711-2) 0.08 10*3/uL 0.06-0.53 BASO x10^3 (test code = 704-7) 0.04 10*3/uL 0.01-0.09 Lab Interpretation (test code = 82881-0) Abnormal [facility] HospitalUS Lower extremity vein with compression bilateral (only for rule out dvt)2024-09-30 04:00:09EXAM: US LOWER EXTREMITY VEIN WITH COMPRESSION BILATERAL (ONLY FOR RULE OUTDVT) HISTORY: 73 years -old Male with PFO and stroke TECHNIQUE: Survey ultrasound imaging of the deep venous system of bilaterallower extremities was performed including color and spectral Dopplerevaluation with asset protection representative images obtained. Segmental venouscompression and calf vein augmentation were performed. COMPARISON: None FINDINGS: Right Lower Extremity: Common femoral vein: Patent without thrombus. Normal phasicity is indirectevidence of central patency.Cephalad greater saphenous vein: Patent without thrombus.Cephalad profunda femoral vein: Patent without thrombus.Superficial femoral vein: Patent without thrombus.Popliteal vein: Patent without thrombus. Normal response to augmentation.The visualized tibialand peroneal veins are patent. Left Lower Extremity: Common femoral vein: Patent without thrombus. Normal phasicity is indirectevidence of central patency.Cephalad greater saphenous vein: Patent without thrombus.Cephalad profunda femoral vein: Patent without thrombus.Superficial femoral vein: Patent without thrombus.Popliteal vein: Patent without thrombus. Normal response to augmentation.The visualized tibial and peroneal veins are patent. Other: None. [facility] 1 [id number] 22:09:19EXAM: XR CHEST 1 09/29/2024 8:29 AM HISTORY: 73 years old Male with SOB TECHNIQUE: Single AP view of the chest. COMPARISON: None FINDINGS: Lines/tubes and devices: Vascular stent projects over the right hilum. Lungs and pleura: Redemonstration of diffuse prominent interstitialmarkings. Intervaldevelopment of hazy opacification of chan extends alongbronchovascular bundles which may represent p ulmonary edema. Nopneumothorax or pleural effusion is seen. Cardiomediastinal: The cardiomediastinal silhouette is moderately enlarged Musculoskeletal: No acute osseous abnormality.[facility] HospitalSodium2024-12-20 20:57:21* Test Item Value Reference Range Interpretation Comme nts NA (test code = 6754220476) 136 mmol/L 135-145 Lab Interpretation (test cod e = 38381-1) Normal [facility] HospitalIR Stroke - [id number] 20:29:43 EXAMINATION: Cerebral angiogram. CLINICAL HISTORY: ?73-year-old man with sudden onset right MCA syndrome,NIH stroke scale 9 with associated nonocclusive thrombus within the rightmiddle cerebral artery. Cerebral arteriogram with possible traumatic wasrequested. COMPARISON: ?CTA head and neck from the same day. LABORER WHARF: Dr. Александр M.D. OPERATOR ELECTRONIC WARFARE: ?Dr. Savannah Conway ACCESS SITE: ?Ultrasound-guided right common femoral artery/closuredevice/manual compression. ANESTHESIA: ?General anesthesia. ESTIMATED BLOOD LOSS: ?Total of 5- 8 cc. PROCEDURE: The procedure along with its indications, risks, benefits and alternativeswere discussed with the patient and his family. They were made aware of therisks including but not limited to worsening stroke, intracranialhemorrhage, systemic bleeding, renal failure, x-ray hazards, allergicreaction, arterial damage and . His daughter agreed to proceed withthe procedure and subsequently informed consent was obtained. In the angiographic suite, under general anesthesia and strict steriletechniques, utilizing a micropuncture set with ultrasound and fluoroscopicguidance, 8-F sheath was inserted into the right common femoral artery.Through the sheath, following procedure was performed: 1. Selective right common carotid arteriogram with biplane filming over thecommon carotid bifurcation. 2. Selective right internal carotid arteriogram with biplane filming andoblique views over the intracranial carotid circulation. 3. Selective right internal carotid arteriogram with three-dimensionalrotational views. The three-dimensional images were obtained to betterdelineate the underlying vascular abnormality. The rotational images werereconstructed on a dedicated workstation. 4. Selective left common carotid arteriogram with biplane filming over thecommon carotid bifurcation. 5. Selective left internal carotid arteriogram with biplanefilming andoblique views over the intracranial carotid circulation. 6. Selective left vertebral arteriogram with biplane filming over thevertebrobasilar circulation. 7. ?Selective right common femoral arteriogram with single plane filming. 8. ?Technically successful achievement of hemostasis at theright commonfemoral arteriotomy site using MynxGrip closure device and manualcompression. FINDINGS:? The selective right common carotid arteriogram, obtained with biplanefilming over the cervical region, demonstrates none significantextracranial atherosclerotic disease. The selective right internal carotid arteriogram, obtained with biplanefilming and three-dimensional rotational views, demonstra aaliyah intervalresolution of the none occlusive thrombus noted on CTA study withinproximal inferior trunk of the right middle cerebral artery. There areocclusive changes within distal cortical branches of the inferior trunktrunk. Otherwise, there is no major branch occlusion, severe arterialstenosis, arterial aneurysm or arteriovenous malformation within the rightintracranial carotid circulation. Deep cerebral veins and major venoussinuses are patent. The selective left common carotid arteriogram,obtained with biplanefilming over the cervical region, demonstrates no significant extracranialatherosclerotic disease. The selective left internal carotid arteriogram, obtained with biplanefilming over the intracranial carotid circulation, demonstrates mildatherosclerotic changes involving carotidsiphon, left anterior cerebraland middle cerebral arteries without major branch occlusion, severearterial stenosis, arterial aneurysm or arteriovenous malformation. Thedeep cerebral veins and major venous sinuses are patent. The selective left vertebral arteriogram, obtained with biplane filmingover the vertebrobasilar circulation, demonstrates no major branchocclusion, severe arterial stenosis, arterial aneurysm or arteriovenousmalformation within the posterior fossa. The selective right common femoral arteriogram, obtained in single planeview, shows suitable artery for closure device. Hemostasis of the right femoral puncture site was achieved using Angio-Sealclosure device. Patient tolerated the procedure well which was brief anduneventful. The attending physician was informed of the res ults at the end ofprocedure.[facility] with Diff 2024-09-29 20:29:15* Test Item Value Reference Range Interpretation Comme nts WBC (test code = 6690-2) 7.00 4.20-10.70 RBC (test code = 789-8) 3.49 4.26-5.52 L HGB (test code = 718-7) 8.0 g/dL 12.2-16.4 L HCT (test code = 4544-3) 27.4 % 38.4-49.3 L MCV (test code = 787-2) 78.5 fL 81.7-95.6 L MCH (test code = 785-6) 22.9 pg 26.1-32.7 L MCHC (test code = 786-4) 29.2 g/dL 31.2-35.0 L RDW-SD (test code = 05595-5) 60.2 fL 38.5-51.6 H RDW-CV (test code = 788-0) 21.4 % 12.1-15.4 H PLT (test code = 777-3) 205 150-328 MPV (test code = 18765-5) 10.5 fL 9.8-13.0 NRBC/100 WBC (test code = 0704248724) 0.4 0.0-10.0 NRBC x10^3 (test code = 2022563312) 0.03 See_Comment [Automated messa ge] The system which generated this result transmitted reference range: 10*3/?L. The reference range was not used to interpret this result as normal/abnormal. GRAN MAT (NEUT) % (test code = 770-8) 80.1 % IMM GRAN % (test code = 7000258563) 0.30 % LYMPH % (test code = 736-9) 10.1 % MONO % (test code = 5905-5) 7.4 % EOS % (test code = 713-8) 1.7 % BASO % (test code = 706-2) 0.4 % GRAN MAT x10^3(ANC) (test code = 9921030794) 5.60 10*3/uL 1.99-6.95 IMM GRAN x10^3 (test code = 5422523262) 0.00-0.06 LYMPH x10^3 (test code = 731-0) 0.71 10*3/uL 1.09-3.23 L MONO x10^3 (test code = 742-7) 0.52 10*3/uL 0.36-1.02 EOS x10^3 (test code = 711-2) 0.12 10*3/uL 0.06-0.53 BASO x10^3 (test code = 704-7) 0.03 10*3/uL 0.01-0.09 Lab Interpretation (test code = 78293-7) Abnormal [facility] 1 [id number] 20:21:29EXAM: XR STROKE CHEST 1 09/28/2024 5:07 PM HISTORY: 73 years old Male with stroke TECHNIQUE: Single AP view of the chest. COMPARISON: None FINDINGS: Lines/tubes and devices: Vascular embolization device projects over theright hilum, probably secondary to prior embolization, given history ofpulmonary AVM. Lungs and pleura: Vascular congestion and diffuse prominent interstitialmarkings may represent pulmonary edema, exaggerated secondary to techniqueand moderately expanded lungs. No focal consolidation, pneumothorax, orpleural effusion is seen. Cardiomediastinal: The cardiomediastinal silhouette is enlarged. Musculoskeletal: No acute osseous abnormality.[facility] Transthoracic echo (TTE) [id number] 18:58:05* Test Item Value Reference Range Interpretation Comme nts Height (test code = 7595840504) 69 in Weight (test code = 3893227864) 203 lbs Systolic BP (test code = 0510234984) 151 mmHg Diastolic BP (test code = 9686738232) 81 mmHg Heart Rate (test code = 9323063059) 112 bpm BSA (test code = 5969062055) 2.08 m2 LVIDD (test code = 3703361317) 5.40 cm Left Ventricular End Diastolic Volume by Teichholz Method (test code = 0155535) 139.9 mL IVS (test code = 1565137000) 1.24 cm Interventricular Septum Diastolic Thickness by 2D (test code = 9549553) 1.24 cm LVPWD (test code = 6136774434) 1.16 cm PW (test code = 3641903589) 1.16 cm 0.6-1.1 EF(Teich) (test code = 9528663959) 45.90 % LVIDS (test code = 3915890511) 4.10 cm Left Ventricular End Systolic Volume by Teichholz Method (test code = 8609776) 75.7 mL FS (test code = 4626551709) 23 % EF - 2D (test code = 03145025) 45.90 % LVOT diameter (test code = 9192303181) 2.6 cm LVOT area (test code = 6953218174) 5.50 cm2 Ao root diam (test code = 2166022697) 3.80 cm Aortic root (test code = 8580972981) 3.8 cm Ao root annulus (test code = 4159585006) 3.8 cm LA size (test code = 1629134174) 4.5 cm TR Peak Jaclyn (test code = 1221248410) 263.3 cm/s Triscuspid Valve Regurgitation Peak Gradient (test code = 6996141153) 28.2 mmHg LAV(MOD-sp4) (test code = 8828158605) 73.80 mL MV Prop V (test code = 2155951712) 23.20 cm/s MV Peak E Jaclyn (test code = 9250498782) 131.8 cm/s E wave decelartion time (test code = 3620205078) 0.17 s MV valve area p 1/2 method (test code = 5482861121) 4.70 cm2 MV dec slope (test code = 5690110693) 828.30 cm/s2 MV P1/2t max jaclyn (test code = 1116659905) 133.10 cm/s MV E/e' septal (test code = 5256042506) 14.5 cm/s TASV (test code = 8302891363) 9.5 cm/s Tapse (test code = 7387498211) 2.34 cm LVOT stroke volume (test code = 5783604220) 100.90 cm3 LVOT peak jaclyn (test code = 0340977275) 91.2 cm/s LVOT mn grad (test code = 5322950211) 1.5 mmHg AV LVOT peak gradient (test code = 0301557913) 3.3 mmHg LVOT peak VTI (test code = 2531845879) 18.3 cm LV V1 mean (test code = 5158763212) 55.10 cm/s Aortic valve mean velocity (test code = 9824385562) 97.3 cm/s Ao peak jaclyn (test code = 6014264590) 145.4 cm/s Ao VTI (test code = 5455188441) 29.3 cm AV area by cont VTI (test code = 6720918659) 3.4 cm2 AV area peak jaclyn (test code = 9438935409) 3.5 cm2 Ao max PG (test code = 1270831395) 8.50 mm[Hg] AV peak gradient (test code = 4959331395) 8.5 mmHg AV valve area (test code = 0794019473) 3.40 cm2 AV mean gradient (test code = 1783268240) 4.4 mmHg LA Volume Index (BP) (test code = 8055774524) 48.1 mL/m2 LA volume (BP) (test code = 4163435809) 99.9 mL LAV(MOD-sp2) (test code = 5313974102) 137.20 mL A2C EF (test code = 3372104825) 39.20 % EF(sp2-el) (test code = 8465090336) 40.30 % SV(MOD-sp2) (test code = 2748956053) 63.40 mL LV Diastolic Volume (BP) (test code = 6051499480) 172.9 mL A4C EF (test code = 4895575711) 42.00 % EF(MOD-bp) (test code = 2386139281) 40.90 % EF(sp4-el) (test code = 1870957259) 44.00 % LV Systolic Volume (BP) (test code = 1443118607) 102.2 mL SV(MOD-bp) (test code = 8971187720) 70.70 mL SV(MOD-sp4) (test code = 7458214152) 75.40 mL SV(sp4-el) (test code = 1736016613) 83.30 mL EF (test code = 8039361780) 41 Left Ventricular Stroke Volume by 2-D Biplane-MOD (test code = 3409491) 70.7 mL LV Diastolic Volume Index (BP) (test code = 4673007330) 76.9 mL/m2 LV Systolic Volume Index (BP) (test code = 9196408806) 44.2 mL/m2 Radiology Study observation (narrative) (test code = 66681-9) ARMIDA (test code = ARMIDA) ?Left?Ventricle: Left ventricle is mildly dilated. Dilated by LV volume index calculation. ?Mildly increased wall thickness. Mildly increased ventricular mass. There is mild concentric hypertrophy. Moderate global hypokinesis present. Mildly reduced systolic function with a visually estimated EF of 40 - 45%. EF by 2D Whiting biplane is 41%. Diastolic dysfunction. Unable to grade due to atrial fibrillation. ?Right?Ventricle: Right ventricle size is normal. Normal systolic function. ?Left?Atrium: Left atrium is severely dilated. Left atrium volume index is 48.1 mL/m2. Evidence of large intracardiac shunt (significant amount of bubbles seen in the left-sided chambers). ?Tricuspid?Valve: Moderate transvalvular regurgitation. Right ventricular systolic pressure is 40-45 mmHg. ?IVC/SVC: IVC diameter is greater than 21 mm and decreases less than 50% during inspiration; therefore the estimated right atrial pressure is elevated (~15 mmHg). ?Pericardium: No pericardial effusion. Left VentricleLeft ventricle is mildly dilated. Dilated by LV volume index calculation. Mildly increased wall thickness. Mildly increased ventricular mass. There is mild concentric hypertrophy. Moderate global hypokinesis present. Mildly reduced systolic function with a visually estimated EF of 40 - 45%. EF by 2D Whiting biplane is 41%. Diastolic dysfunction. Unable to grade due to atrial fibrillation.Right VentricleRight ventricle size is normal. Normal systolic function.Left AtriumLeft atrium is severely dilated. Left atrium volume index is 48.1 mL/m2. Evidence of large intracardiac shunt (significant amount of bubbles seen in the left-sided chambers).Right AtriumRight atrium size is normal.IVC/SVCIVC diameter is greater than 21 mm and decreases less than 50% during inspiration; therefore the estimated right atrial pressure is elevated (~15 mmHg).Mitral ValveMitral valve structure is normal. Mild transvalvular regurgitation. No stenosis.Tricuspid ValveTricuspid valve structure is normal. Moderate transvalvular regurgitation. Right ventricular systolic pressure is 40-45 mmHg. No stenosis.Aortic ValveTricuspid. Normal excursion of the aortic valve leaflets. No transvalvular regurgitation. No hemodynamically significant .Pulmonic ValveValve structure is normal. No transvalvular regurgitation. No stenosis.Ascending AortaNormal sized aortic root.PericardiumNo pericardial effusion.Study DetailsA complete echocardiogram was performed using 2D, color flow Doppler and spectral Doppler. 6 mL of Saline contrast was performed. [facility] 2 [id number] 17:40:13EXAM: XR ABDOMEN 2 VW HISTORY: 73 years-old Male; Provided indication: mri encounter Need abdomen1 view from above diaphragm to symphysis pubis looking for clip for MRIclearance. TECHNIQUE: Frontal view of the abdomen and pelvis COMPARISON: CT abdomen pelvis dated 07/26/2024 FINDINGS: A linear opacity compatible with a surgical clip is seen projecting overthe right lower abdomen. Additional linear opacity at the level of thecostochondral junction at left lower thorax is likely a costochondralcalcification. Moderate to large colonic stool burden without obstructive bowel gaspattern. Remote bilateral lower rib deformities.[facility] wo [id number] 16:18:55CT HEAD WO CONTRAST HISTORY:73 years old Male with Stroke, follow up COMPARISON: CT stroke head without contrast 09/28/2024 TECHNIQUE: Noncontrast axial images of the head, with coronal and sagittalreformats. FINDINGS: Transcortical hypoattenuation in the right posterior MCA territoryincreased in conspicuity since comparison exam in keeping with evolvinginfarct. Mass effect in the form of regional sulcal effacement andnarrowing of the posterior horn right lateral ventricle. No hemorrhagewithin the infarct bed. The ventricles are otherwise normal in caliber and configuration. Nohydrocephalus, midline shift or pathological extra-axial fluid collectionis present. The basal cisterns are unremarkable. Multiple prior chronic infarcts are again noted in the right frontal lobe,occipitotemporal shay ction, as well as right cerebellar hemisphere,unchanged. The mastoid air cells and paranasal air sinuses are clear. The calvariumand central skull base are unremarkable.[facility] Packed RBC (in units), 1 [id number] 02:32:28* Test Item Value Reference Range Interpretation Comme nts Cross Match Result (test code = 4409) Compatible ISBT Blood Type Code (test code = 549145) 600 Unit Blood Type (test code = 4410) A Neg Unit Number (test code = 4411) [id number] Blood Expiration Date & Time (test code = 109222) [id number] Status Information (test code = 4412) Issued Product Identification (test code = 4413) Red Blood Cells Product Code (test code = 4414) [id number] Performed at [facility] Laboratory Services [facility] Blood [address] [address]Hpaq Free: [phone] No. [id number] [facility] ACT Low [id number] 21:41:06* Test Item Value Reference Range Interpretation Comme nts ACTLR (test code = 0655600307) 152 89-169 Lab Interpretation (test cod e = 73886-2) Normal [facility] ACT Low [id number] 21:41:06* Test Item Value Reference Range Interpretation Comme nts ACTLR (test code = 7737170087) 152 89-169 Lab Interpretation (test cod e = 01929-8) Normal [facility] ACT Low [id number] 21:41:06* Test Item Value Reference Range Interpretation Comme nts ACTLR (test code = 5799828045) 169 89-169 Lab Interpretation (test cod e = 87559-6) Normal [facility] ACT Low [id number] 21:41:06* Test Item Value Reference Range Interpretation Comme nts ACTLR (test code = 2663282202) 169 89-169 Lab Interpretation (test cod e = 38182-5) Normal [facility]ial [id number] 20:32:00SuYusef salter MD ? ? 09/28/2024 ?4:29 PM Arterial Line Date/Time: 09/28/2024 2:32 PM Performed by: Yusef Ramos MDArterial Line Placement: ?Ultrasound- Guided: ultrasound guided ? ?Patient location: IR. ?Indication: continuous blood pressure monitoring and blood sampling needed ?Staff: ?Supervising Anesthesiologist: ?Yusef Ramos MD ?Anesthesiologist: ?Yusef Ramos MDProcedure Detail: ?Catheter Size: ?4 Swedish ?Other:: ?Micropuncture catheter, 4F ?Seldinger Technique?: Yes ? ?Laterality: ?Left ?Site: ?Radial artery ?Line Secured: ?Tegaderm and tape ?Preparation: ?Guidewire removed intactEvents: ?Events: ?All wires accounted for and patient tolerated procedure well with no complications [facility]Intubation2024-12-19 20:13:00SuYusef salter MD ? ? 09/28/2024 ?2:51 PMIntubationDate/Time: 09/28/2024 2:13 PMUrgency: elective Airway not difficult General Information and Staff Patient location during procedure: ORPerformed: resident/DAT INSTRUCTOR Performed by: Yusef Ramos MDAuthorized by: Yusef Ramos MD ? Indications and Patient ConditionIndications for airway management: anesthesiaSpontaneous ventilation: presentSedation level: deepPreoxygenated: yesPatient position: sniffingMILS maintained throughoutMaskdifficulty assessment: 0 - not attempted Final Airway DetailsFinal airway type: endotracheal airwaySuccessful airway: ETTCuffed: yes Successful intubation technique: direct laryngoscopyFacilitating d evices/methods: intubating styletEndotracheal tube insertion site: oralBlade: MacintoshBlade size: #3ETT size (mm): 7.5Cormack-Lehane Classification: grade I - full view of glottisPlacement verified by: chest auscultation and capnometry Measured from: gumsETT to gums (cm): 23Number of attempts at approach: 1Ventilation between attempts: noneNumber of other approaches attempted: 0 Additional CommentsSmooth, atraumatic, dentition and lips unchanged from pre-op. [facility] [id number] 18:36:00CT STROKE ANGIOGRAM HEAD, CT STROKE ANGIOGRAM NECK HISTORY: Male 73 years Neuro deficit, acute, stroke suspected COMPARISON: None TECHNIQUE: Routine CTA head and neck were obtained following administrationof IV Isovue FINDINGS: CTA head: The PICA origin is visualized bilaterally. A prominent left AICA- PICAvariant is also present. The basilar artery is normal in caliber. Thesuperior cerebellar arteries are patent. The posterior cerebral arteriesare patent. No sizable posterior communicating arteries are present. The distal cervical, petrous, cavernous and supraclinoid internal carotidartery segments are widely patent. There is a filling defect in the proximal aspect of a right M2 branchresulting in severe stenosis (series 3 endocervix, image 114; series 603,image 51). The anterior and middle cerebral arteries are otherwise patent. The dural venous sinuses are patent. CTA NECK: Classic 3 vessel aortic arch branching anatomy is noted. The arch and archvessel origins are patent. Mild calcified and noncalcified plaque is seenin the origin of the left subclavian artery. The innominate andsubclavianarteries are widely patent. The common carotid arteries, carotid bulbs and cervical internal carotidarteries are widely patent. Minimal atherosclerotic plaque is seen in theleft carotid bulb. The vertebral arteries are patent from their subclavian origins through thevertebrobasilar junction. Incidentally noted lobular ground glass opacity in the posterior aspect ofthe right upper lung.[facility] [id number] 18:36:00CT STROKE ANGIOGRAM HEAD, CT STROKE ANGIOGRAM NECK HISTORY: Male 73 years Neuro deficit, acute, stroke suspected COMPARISON: None TECHNIQUE: Routine CTA head and neck were obtained following administrationof IV Isovue FINDINGS: CTA head: The PICA origin is visualized bilaterally. A prominent left AICA-PICAvariant is also present. The basilar artery is normal in caliber. Thesuperior cerebellar arteries are patent. The posterior cerebral arteriesare patent. No sizable posterior communicating arteries are present. The distal cervical, petrous, cavernous and supraclinoid internal carotidartery segments are widely patent. There is a filling defect in the proximal aspect of a right M2 branchresulting in severe stenosis (series 3 endocervix, image 114; series 603,image 51). The anterior and middle cerebral arteries are otherwise patent. The dural venous sinuses are patent. CTA NECK: Classic 3 vessel aortic arch branching anatomy is noted. The arch and archvessel origins are patent. Mild calcified and noncalcified plaque is seenin the origin of the left subclavian artery. The innominate andsubclavianarteries are widely patent. The common carotid arteries, carotid bulbs and cervical internal carotidarteries are widely patent. Minimal atherosclerotic plaque is seen in theleft carotid bulb. The vertebral arteries are patent from their subclavian origins through thevertebrobasilar junction. Incidentally noted lobular ground glass opacity in the posterior aspect ofthe right upper lung.[facility] ACUTE STROKE ANGIOGRAM [id number] 18:36:00CT STROKE ANGIOGRAM HEAD, CT STROKE ANGIOGRAM NECK HISTORY: Male 73 years Neuro deficit, acute, stroke suspected COMPARISON: None TECHNIQUE: Routine CTA head and neck were obtained following administrationof IV Isovue FINDINGS: CTA head: The PICA origin is visualized bilaterally. A prominent left AICA-PICAvariant is also present. The basilar artery is normal in caliber. Thesuperior cerebellar maude holly are patent. The posterior cerebral arteriesare patent. No sizable posterior communicating arteries are present. The distal cervical, petrous, cavernous and supraclinoid internal carotidartery segments are widely patent. There is a filling defect in the proximal aspect of a right M2 branchresulting in severe stenosis (series 3 endocervix, image 114; series 603,image 51). The anterior and middle cerebral arteries are otherwise patent. The dural venous sinuses are patent. CTA NECK: Classic 3 vessel aortic arch branching anatomy is noted. The arch and archvessel origins are patent. Mild calcified and noncalcified plaque is seenin the origin of the left subclavian artery. The innominate and subclavianarteries are widely patent. The common carotid arteries, carotid bulbs and cervical internal carotidarteries are widely patent. Minimal atherosclerotic plaque is seen in theleft carotid bulb. The vertebral arteries are patent from their subclavian origins through thevertebrobasilar junction. Incidentally noted lobular ground glass opacity in the posterior aspect ofthe right upper lung.[facility] ACUTE STROKE ANGIOGRAM [id number] 18:36:00CT STROKE ANGIOGRAM HEAD, CT STROKE ANGIOGRAM NECK HISTORY: Male 73 years Neuro deficit, acute, stroke suspected COMPARISON: None TECHNIQUE: Routine CTA head and neck were obtained following administrationof IV Isovue FINDINGS: CTA head: The PICA origin is visualized bilaterally. A prominent left AICA-PICAvariant is also present. The basilar artery is normal in caliber. Thesuperior cerebellar arteries are patent. The posterior cerebral arteriesare patent. No sizable posterior communicating arteries are present. The distal cervical, petrous, cavernous and supraclinoid internal carotidartery seg ments are widely patent. There is a filling defect in the proximal aspect of a right M2 branchresulting in severe stenosis (series 3 endocervix, image 114; series 603,image 51). The anterior and middle cerebral arteries are otherwise patent. The dural venous sinuses are patent. CTA NECK: Classic 3 vessel aortic arch branching anatomy is noted. The arch and archvessel origins are patent. Mild calcified and noncalcified plaque is seenin the origin of the left subclavian artery. The innominate andsubclavianarteries are widely patent. The common carotid arteries, carotid bulbs and cervical internal carotidarteries are widely patent. Minimal atherosclerotic plaque is seen in theleft carotid bulb. The vertebral arteries are patent from their subclavian origins through thevertebrobasilar junction. Incidentally noted lobular ground glass opacity in the posterior aspect ofthe right upper lung.[facility] ACUTE STROKE HEAD WO [id number] 18:21:14CT STROKE HEAD WO CONTRAST HISTORY: Neuro deficit, acute, stroke suspected TECHNIQUE: Axial CT of the head was performed and reconstructed at 5 mmintervals. Coronal and sagittal reformatted images were generated. COMPARISON: ?None. FINDINGS: No intracranial abnormality such as hemorrhage, edema, mass-effect, midlineshift, or extra axial fluid collection is appreciated. The farmer-whitematter differentiation is preserved. Right frontal lobe, parietotemporal region and posterior temporal lobesmall chronic infarcts. Right occipital lobe moderate size chronic infarct.Additional chronic lacunar infarcts at the bilateral cerebellar hemisphereand left thalamus. No hydrocephalus. The basal cisterns are patent. The calvarium and skull base are intact. ?The paranasal sinuses and mastoidair cells are clear.[facility] ACUTE STROKE HEAD WO [id number] 18:21:14CT STROKE HEAD WO CONTRAST HISTORY: Neuro deficit, acute, stroke suspected TECHNIQUE: Axial CT of the head was performed and reconstructed at 5 mmintervals. Coronal and sagittal reformatted images were generated. COMPARISON: ?None. FINDINGS: No intracranial abnormality such as hemorrhage, edema, mass-effect, midlineshift, or extra axial fluid collection is appreciated. The farmer-whitematter differentiation is preserved. Right frontal lobe, parietotemporal region and posterior temporal lobesmall chronic infarcts. Right occipital lobe moderate size chronic infarct.Additional chronic lacunar infarcts at the bilateral cerebellar hemisphereand left thalamus. No hydrocephalus. The basal cisterns are patent. The calvarium and skull base are intact. ?The paranasal sinuses and mastoidair cells are clear.[facility] 21 + Lactic [id number] 18:03:06* Test Item Value Reference Range Interpretation Comme nts PH (test code = 4398383876) 7.41 7.32-7.42 PCO2 LASHAWN (test code = 4936666314) 37 41-51 L PO2 LASHAWN (test code = 4666820740) 40 25-40 HCO3 LASHAWN (test code = 3909987347) 23 24-28 L AC VBE(BEAKER) (test code = 0410730065) -1.2 mEq/L THB LASHAWN (test code = 1995345849) 8.5 g/dL 13.5-18.0 L %O2HB LASHAWN (test code = 3506007483) 70.8 % 52.0-63.0 H %COHB LASHAWN (test code = 5485346844) 0.6 % 0.0-1.5 %METHB LASHAWN (test code = 0323585105) 0.2 % 0.4-1.5 L VOL%O2 LASHAWN (test code = 7089900443) 8.5 % 6.0-12.0 NA (test code = 3418906039) 139 mmol/L 135-145 K+ (test code = 3246641997) 4.1 mmol/L 3.5-5.0 AC CA IONZ (test code = 6893040419) 4.50 mg/dL 4.50-5.30 GLUCOSE (test code = 4721469350) 125 mg/dL 70-110 H LACTIC ACID (test code = 1684943779) 1.70 mmol/L 0.50-2.20 QUES Lab Interpretation (test cod e = 63958-0) Abnormal [facility] 21 + Lactic [id number] 18:03:06* Test Item Value Reference Range Interpretation Comme nts PH (test code = 4612036627) 7.41 7.32-7.42 PCO2 LASHAWN (test code = 2714691577) 37 41-51 L PO2 LASHAWN (test code = 1046282359) 40 25-40 HCO3 LASHAWN (test code = 1378047537) 23 24-28 L AC VBE(BEAKER) (test code = 4966263035) -1.2 mEq/L THB LASHAWN (test code = 3499394933) 8.5 g/dL 13.5-18.0 L %O2HB LASHAWN (test code = 3951572417) 70.8 % 52.0-63.0 H %COHB LASHAWN (test code = 1505415914) 0.6 % 0.0-1.5 %METHB LASHAWN (test code = 9074524503) 0.2 % 0.4-1.5 L VOL%O2 LASHAWN (test code = 6311757986) 8.5 % 6.0-12.0 NA (test code = 4989167724) 139 mmol/L 135-145 K+ (test code = 7529248117) 4.1 mmol/L 3.5-5.0 AC CA IONZ (test code = 4021016158) 4.50 mg/dL 4.50-5.30 GLUCOSE (test code = 1377126343) 125 mg/dL 70-110 H LACTIC ACID (test code = 7695761644) 1.70 mmol/L 0.50-2.20 QUES Lab Interpretation (test cod e = 65784-4) Abnormal [facility] GLUCOSE (AUTOMATED)2024-09-28 17:47:42* Test Item Value Reference Range Interpretation Comme nts POCT GLU (test code = 0926928232) 156 mg/dL 70-110 H Lab Interpretation (test cod e = 13838-5) Abnormal [facility] GLUCOSE (AUTOMATED)2024-09-28 17:47:42* Test Item Value Reference Range Interpretation Comme nts POCT GLU (test code = 7246424785) 156 mg/dL 70-110 H Lab Interpretation (test cod e = 65231-9) [facility]normal [facility] [id number] 13:09:38 Ordered by an unspecified provider[facility] 2024-09-27 15:06:17* Test Item Value Reference Range Interpretation Comme nts MAGNESIUM (test code = 4393658502) 2.0 mg/dL 1.7-2.4 Lab Interpretation (test cod e = 99313-9) Normal [facility] Metabolic Panel (NA, K, CL, CO2, GLUCOSE, BUN, CREATININE, CA)2024-09-27 15:06:17* Test Item Value Reference Range Interpretation Comme nts NA (test code = 2928496109) 136 mmol/L 135-145 K (test code = 2240530509) 4.2 mmol/L 3.5-5.0 CL (test code = 5371985746) 108 mmol/L 98-108 CO2 TOTAL (test code = 1843098014) 25 mmol/L 23-31 AGAP (test code = 2298038949) 3 2-16 BUN (test code = 5940653583) 10 mg/dL 7-23 GLUCOSE (test code = 2067698334) 94 mg/dL 70-110 CREATININE (test code = 2160-0) 0.87 mg/dL 0.60-1.25 CALCIUM (test code = 9800355623) 8.3 mg/dL 8.6-10.6 L eGFR (test code = 57525-2) 92.2 mL/min/1.73m2 CKD-EPI eGFR (2020). Assuming creatinine has been stable day-to-day for at least three months, the eGFR indicates Category G1 (>= 90 mL/min/1.73 m2) Lab Interpretation (test code = 93331-5) [facility]* Test Item Value Reference Range Interpretation Comme nts MAGNESIUM (test code = 8018996394) 2.0 mg/dL 1.7-2.4 Lab Interpretation (test cod e = 89383-7) Normal [facility] Metabolic Panel (NA, K, CL, CO2, GLUCOSE, BUN, CREATININE, CA)2024-09-27 15:06:17* Test Item Value Reference Range Interpretation Comme nts NA (test code = 3636467621) 136 mmol/L 135-145 K (test code = 7657690933) 4.2 mmol/L 3.5-5.0 CL (test code = 0413915499) 108 mmol/L 98-108 CO2 TOTAL (test code = 0465654672) 25 mmol/L 23-31 AGAP (test code = 7369009722) 3 2-16 BUN (test code = 1067205367) 10 mg/dL 7-23 GLUCOSE (test code = 1280688895) 94 mg/dL 70-110 CREATININE (test code = 2160-0) 0.87 mg/dL 0.60-1.25 CALCIUM (test code = 4676994919) 8.3 mg/dL 8.6-10.6 L eGFR (test code = 31882-0) 92.2 mL/min/1.73m2 CKD-EPI eGFR (2020). Assuming creatinine has been stable day-to-day for at least three months, the eGFR indicates Category G1 (>= 90 mL/min/1.73 m2) Lab Interpretation (test code = 70117-5) [facility]normal [facility] with Ofox8764-10-03 14:55:36* Test Item Value Reference Range Interpretation Comme nts WBC (test code = 6690-2) 5.34 4.20-10.70 RBC (test code = 789-8) 3.26 4.26-5.52 L HGB (test code = 718-7) 7.1 g/dL 12.2-16.4 L HCT (test code = 4544-3) 24.3 % 38.4-49.3 L MCV (test code = 787-2) 74.5 fL 81.7-95.6 L MCH (test code = 785-6) 21.8 pg 26.1-32.7 L MCHC (test code = 786-4) 29.2 g/dL 31.2-35.0 L RDW-SD (test code = 00035-7) 57.3 fL 38.5-51.6 H RDW-CV (test code = 788-0) 21.2 % 12.1-15.4 H PLT (test code = 777-3) 225 150-328 MPV (test code = 73104-7) 9.9 fL 9.8-13.0 NRBC/100 WBC (test code = 3879849910) 0.6 0.0-10.0 NRBC x10^3 (test code = 3253960974) 0.03 See_Comment [Automated messa ge] The system which generated this result transmitted reference range: 10*3/?L. The reference range was not used to interpret this result as normal/abnormal. GRAN MAT (NEUT) % (test code = 770-8) 73.1 % IMM GRAN % (test code = 6693845860) 0.60 % LYMPH % (test code = 736-9) 14.4 % MONO % (test code = 5905-5) 8.8 % EOS % (test code = 713-8) 2.4 % BASO % (test code = 706-2) 0.7 % GRAN MAT x10^3(ANC) (test code = 5504977146) 3.90 10*3/uL 1.99-6.95 IMM GRAN x10^3 (test code = 5162570372) 0.03 10*3/uL 0.00-0.06 LYMPH x10^3 (test code = 731-0) 0.77 10*3/uL 1.09-3.23 L MONO x10^3 (test code = 742-7) 0.47 10*3/uL 0.36-1.02 EOS x10^3 (test code = 711-2) 0.13 10*3/uL 0.06-0.53 BASO x10^3 (test code = 704-7) 0.04 10*3/uL 0.01-0.09 Lab Interpretation (test code = 52912-6) Abnormal [facility] with [id number] 14:55:36* Test Item Value Reference Range Interpretation Comme nts WBC (test code = 6690-2) 5.34 4.20-10.70 RBC (test code = 789-8) 3.26 4.26-5.52 L HGB (test code = 718-7) 7.1 g/dL 12.2-16.4 L HCT (test code = 4544-3) 24.3 % 38.4-49.3 L MCV (test code = 787-2) 74.5 fL 81.7-95.6 L MCH (test code = 785-6) 21.8 pg 26.1-32.7 L MCHC (test code = 786-4) 29.2 g/dL 31.2-35.0 L RDW-SD (test code = 10868-4) 57.3 fL 38.5-51.6 H RDW-CV (test code = 788-0) 21.2 % 12.1-15.4 H PLT (test code = 777-3) 225 150-328 MPV (test code = 99656-2) 9.9 fL 9.8-13.0 NRBC/100 WBC (test code = 8601359757) 0.6 0.0-10.0 NRBC x10^3 (test code = 2636080985) 0.03 See_Comment [Automated messa ge] The system which generated this result transmitted reference range: 10*3/?L. The reference range was not used to interpret this result as normal/abnormal. GRAN MAT (NEUT) % (test code = 770-8) 73.1 % IMM GRAN % (test code = 7177172653) 0.60 % LYMPH % (test code = 736-9) 14.4 % MONO % (test code = 5905-5) 8.8 % EOS % (test code = 713-8) 2.4 % BASO % (test code = 706-2) 0.7 % GRAN MAT x10^3(ANC) (test code = 1895959245) 3.90 10*3/uL 1.99-6.95 IMM GRAN x10^3 (test code = 2308148688) 0.03 10*3/uL 0.00-0.06 LYMPH x10^3 (test code = 731-0) 0.77 10*3/uL 1.09-3.23 L MONO x10^3 (test code = 742-7) 0.47 10*3/uL 0.36-1.02 EOS x10^3 (test code = 711-2) 0.13 10*3/uL 0.06-0.53 BASO x10^3 (test code = 704-7) 0.04 10*3/uL 0.01-0.09 Lab Interpretation (test code = 93615-9) Abnormal [facility] Packed RBC (in units), 1 Units 2024-09-26 16:21:50* Test Item Value Reference Range Interpretation Comme nts Cross Match Result (test code = 4409) Compatible ISBT Blood Type Code (test code = 696632) 6200 Unit Blood Type (test code = 4410) A Pos Unit Number (test code = 4411) [id number] Blood Expiration Date & Time (test code = 817289) [id number] Status Information (test code = 4412) Issued Product Identification (test code = 4413) Red Blood Cells Product Code (test code = 4414) [id number] Performed at [facility] Laboratory [facility] Blood [address] [address]Fegq Free: [phone] No. [id number] [facility] Packed RBC (in units), 1 Units 2024-09-26 16:21:50* Test Item Value Reference Range Interpretation Comme nts Cross Match Result (test code = 4409) Compatible ISBT Blood Type Code (test code = 215289) 6200 Unit Blood Type (test code = 4410) A Pos Unit Number (test code = 4411) [id number] Blood Expiration Date & Time (test code = 004801) 562934630196 Status Information (test code = 4412) Issued Product Identification (test code = 4413) Red Blood Cells Product Code (test code = 4414) [id number] Performed at [facility] Blood [address] [address]Gkqc Free: [phone] No. [id number] [facility] Packed RBC (in units), 2 Units 2024-09-25 23:22:34* Test Item Value Reference Range Interpretation Comme nts Cross Match Result (test code = 4409) Compatible ISBT Blood Type Code (test code = 944680) 6200 Unit Blood Type (test code = 4410) A Pos Unit Number (test code = 4411) [id number] Blood Expiration Date & Time (test code = 646515) 206487965869 Status Information (test code = 4412) Issued Product Identification (test code = 4413) Red Blood Cells Product Code (test code = 4414) [id number] Performed at [facility] Blood [address] [place] [address] Free: [phone] No. [id number] [facility] Packed RBC (in units), 2 Units 2024-09-25 23:22:34* Test Item Value Reference Range Interpretation Comme nts Cross Match Result (test code = 4409) Compatible ISBT Blood Type Code (test code = 282659) 6200 Unit Blood Type (test code = 4410) A Pos Unit Number (test code = 4411) [id number] Blood Expiration Date & Time (test code = 503902) 017623430927 Status Information (test code = 4412) Issued Product Identification (test code = 4413) Red Blood Cells Product Code (test code = 4414) [id number] Performed at [facility] Blood [place] [address]Toll Free: [phone] No. [id number] [facility] PROCEDURE QCSSOWCWQKWYC2359-92-42 14:09:38Ordered by an unspecified provider.[facility] ENDOSCOPY PROCEDURE [id number] 16:19:10Ordered by an unspecified provider.[facility] PROCEDURE DOCUMENTATION 2024-07-31 16:18:26Ordered by an unspecified provider.[facility] (NA, K, CL, CO2, GLUCOSE, BUN, CREATININE, CA)2024-07-31 11:18:43* Test Item Value Reference Range Interpretation Comme nts NA (test code = 8443303371) 140 mmol/L 135-145 K (test code = 5995139761) 4.0 mmol/L 3.5-5.0 CL (test code = 2265773472) 109 mmol/L 98-108 H CO2 TOTAL (test code = 1918704850) 23 mmol/L 23-31 AGAP (test code = 3817487383) 8 2-16 BUN (test code = 3062704128) 9 mg/dL 7-23 GLUCOSE (test code = 2028613264) 84 mg/dL 70-110 CREATININE (test code = 2160-0) 0.90 mg/dL 0.60-1.25 CALCIUM (test code = 1181508732) 7.8 mg/dL 8.6-10.6 L eGFR (test code = 68945-0) 91.3 mL/min/1.73m2 CKD-EPI eGFR (2020). Assuming creatinine has been stable day-to-day for at least three months, the eGFR indicates Category G1 (>= 90 mL/min/1.73 m2) Lab Interpretation (test code = 95855-3) [facility]normal [facility]2024-10-21 11:18:43* Test Item Value Reference Range Interpretation Comme nts MAGNESIUM (test code = 9309713734) 2.2 mg/dL 1.7-2.4 Lab Interpretation (test cod e = 74014-2) Normal [facility] (NA, K, CL, CO2, GLUCOSE, BUN, CREATININE, CA)2024-07-31 11:18:43* Test Item Value Reference Range Interpretation Comme nts NA (test code = 5863389958) 140 mmol/L 135-145 K (test code = 7351956546) 4.0 mmol/L 3.5-5.0 CL (test code = 5422747721) 109 mmol/L 98-108 H CO2 TOTAL (test code = 3819910435) 23 mmol/L 23-31 AGAP (test code = 0270972919) 8 2-16 BUN (test code = 2630990097) 9 mg/dL 7-23 GLUCOSE (test code = 2378417708) 84 mg/dL 70-110 CREATININE (test code = 2160-0) 0.90 mg/dL 0.60-1.25 CALCIUM (test code = 6557758615) 7.8 mg/dL 8.6-10.6 L eGFR (test code = 65167-3) 91.3 mL/min/1.73m2 CKD-EPI eGFR (2020). Assuming creatinine has been stable day-to-day for at least three months, the eGFR indicates Category G1 (>= 90 mL/min/1.73 m2) Lab Interpretation (test code = 57421-8) [facility] 11:18:43* Test Item Value Reference Range Interpretation Comme nts MAGNESIUM (test code = 5121365557) 2.2 mg/dL 1.7-2.4 Lab Interpretation (test cod e = 51128-7) Normal [facility] Metabolic Panel (NA, K, CL, CO2, GLUCOSE, BUN, CREATININE, CA)2024-07-31 11:18:43* Test Item Value Reference Range Interpretation Comme nts NA (test code = 3978701503) 140 mmol/L 135-145 K (test code = 1919193636) 4.0 mmol/L 3.5-5.0 CL (test code = 3393060227) 109 mmol/L 98-108 H CO2 TOTAL (test code = 6562484587) 23 mmol/L 23-31 AGAP (test code = 6754186058) 8 2-16 BUN (test code = 2149653391) 9 mg/dL 7-23 GLUCOSE (test code = 8855006720) 84 mg/dL 70-110 CREATININE (test code = 2160-0) 0.90 mg/dL 0.60-1.25 CALCIUM (test code = 5253733829) 7.8 mg/dL 8.6-10.6 L eGFR (test code = 96689-3) 91.3 mL/min/1.73m2 CKD-EPI eGFR (2020). Assuming creatinine has been stable day-to-day for at least three months, the eGFR indicates Category G1 (>= 90 mL/min/1.73 m2) Lab Interpretation (test code = 26703-5) [facility] 11:18:43* Test Item Value Reference Range Interpretation Comme nts MAGNESIUM (test code = 9268438167) 2.2 mg/dL 1.7-2.4 Lab Interpretation (test cod e = 06789-8) Normal [facility] with Grqb8830-17-88 10:49:39* Test Item Value Reference Range Interpretation Comme nts WBC (test code = 6690-2) 3.99 4.20-10.70 L RBC (test code = 789-8) 3.27 4.26-5.52 L HGB (test code = 718-7) 8.1 g/dL 12.2-16.4 L HCT (test code = 4544-3) 26.6 % 38.4-49.3 L MCV (test code = 787-2) 81.3 fL 81.7-95.6 L MCH (test code = 785-6) 24.8 pg 26.1-32.7 L MCHC (test code = 786-4) 30.5 g/dL 31.2-35.0 L RDW-SD (test code = 52140-0) 62.9 fL 38.5-51.6 H RDW-CV (test code = 788-0) 21.6 % 12.1-15.4 H PLT (test code = 777-3) 258 150-328 MPV (test code = 91305-8) 10.5 fL 9.8-13.0 NRBC/100 WBC (test code = 2325663088) 1.0 0.0-10.0 NRBC x10^3 (test code = 8099651596) 0.04 See_Comment [Automated messa ge] The system which generated this result transmitted reference range: 10*3/?L. The reference range was not used to interpret this result as normal/abnormal. GRAN MAT (NEUT) % (test code = 770-8) 64.8 % IMM GRAN % (test code = 7458603500) 0.50 % LYMPH % (test code = 736-9) 22.1 % MONO % (test code = 5905-5) 8.3 % EOS % (test code = 713-8) 3.8 % BASO % (test code = 706-2) 0.5 % GRAN MAT x10^3(ANC) (test code = 0063292356) 2.59 10*3/uL 1.99-6.95 IMM GRAN x10^3 (test code = 3111402306) 0.00-0.06 LYMPH x10^3 (test code = 731-0) 0.88 10*3/uL 1.09-3.23 L MONO x10^3 (test code = 742-7) 0.33 10*3/uL 0.36-1.02 L EOS x10^3 (test code = 711-2) 0.15 10*3/uL 0.06-0.53 BASO x10^3 (test code = 704-7) 0.01-0.09 Lab Interpretation (test code = 43024-4) Abnormal [facility] with Cbhp4359-56-55 10:49:39* Test Item Value Reference Range Interpretation Comme nts WBC (test code = 6690-2) 3.99 4.20-10.70 L RBC (test code = 789-8) 3.27 4.26-5.52 L HGB (test code = 718-7) 8.1 g/dL 12.2-16.4 L HCT (test code = 4544-3) 26.6 % 38.4-49.3 L MCV (test code = 787-2) 81.3 fL 81.7-95.6 L MCH (test code = 785-6) 24.8 pg 26.1-32.7 L MCHC (test code = 786-4) 30.5 g/dL 31.2-35.0 L RDW-SD (test code = 12603-6) 62.9 fL 38.5-51.6 H RDW-CV (test code = 788-0) 21.6 % 12.1-15.4 H PLT (test code = 777-3) 258 150-328 MPV (test code = 41940-1) 10.5 fL 9.8-13.0 NRBC/100 WBC (test code = 9834419404) 1.0 0.0-10.0 NRBC x10^3 (test code = 0571884020) 0.04 See_Comment [Automated messa ge] The system which generated this result transmitted reference range: 10*3/?L. The reference range was not used to interpret this result as normal/abnormal. GRAN MAT (NEUT) % (test code = 770-8) 64.8 % IMM GRAN % (test code = 9160603989) 0.50 % LYMPH % (test code = 736-9) 22.1 % MONO % (test code = 5905-5) 8.3 % EOS % (test code = 713-8) 3.8 % BASO % (test code = 706-2) 0.5 % GRAN MAT x10^3(ANC) (test code = 1946169706) 2.59 10*3/uL 1.99-6.95 IMM GRAN x10^3 (test code = 7878361650) 0.00-0.06 LYMPH x10^3 (test code = 731-0) 0.88 10*3/uL 1.09-3.23 L MONO x10^3 (test code = 742-7) 0.33 10*3/uL 0.36-1.02 L EOS x10^3 (test code = 711-2) 0.15 10*3/uL 0.06-0.53 BASO x10^3 (test code = 704-7) 0.01-0.09 Lab Interpretation (test code = 00919-3) Abnormal [facility] with [id number] 10:49:39* Test Item Value Reference Range Interpretation Comme nts WBC (test code = 6690-2) 3.99 4.20-10.70 L RBC (test code = 789-8) 3.27 4.26-5.52 L HGB (test code = 718-7) 8.1 g/dL 12.2-16.4 L HCT (test code = 4544-3) 26.6 % 38.4-49.3 L MCV (test code = 787-2) 81.3 fL 81.7-95.6 L MCH (test code = 785-6) 24.8 pg 26.1-32.7 L MCHC (test code = 786-4) 30.5 g/dL 31.2-35.0 L RDW-SD (test code = 45214-7) 62.9 fL 38.5-51.6 H RDW-CV (test code = 788-0) 21.6 % 12.1-15.4 H PLT (test code = 777-3) 258 150-328 MPV (test code = 31466-5) 10.5 fL 9.8-13.0 NRBC/100 WBC (test code = 1651186740) 1.0 0.0-10.0 NRBC x10^3 (test code = 5010266965) 0.04 See_Comment [Automated messa ge] The system which generated this result transmitted reference range: 10*3/?L. The reference range was not used to interpret this result as normal/abnormal. GRAN MAT (NEUT) % (test code = 770-8) 64.8 % IMM GRAN % (test code = 7798293101) 0.50 % LYMPH % (test code = 736-9) 22.1 % MONO % (test code = 5905-5) 8.3 % EOS % (test code = 713-8) 3.8 % BASO % (test code = 706-2) 0.5 % GRAN MAT x10^3(ANC) (test code = 9746728201) 2.59 10*3/uL 1.99-6.95 IMM GRAN x10^3 (test code = 7817022388) 0.00-0.06 LYMPH x10^3 (test code = 731-0) 0.88 10*3/uL 1.09-3.23 L MONO x10^3 (test code = 742-7) 0.33 10*3/uL 0.36-1.02 L EOS x10^3 (test code = 711-2) 0.15 10*3/uL 0.06-0.53 BASO x10^3 (test code = 704-7) 0.01-0.09 Lab Interpretation (test code = 22491-0) [facility]normal [facility] / [id number] 19:00:08* Test Item Value Reference Range Interpretation Comme nts PROTIME PATIENT (test code = 5964-2) 13.5 10.1-12.6 H INR (test code = 6301-6) 1.2 Normal INR <1.1; Warfarin Therapeutic range 2.0 to 3.0 or 2.5 to 3.5, depending upon the indications. Lab Interpretation (test code = 10129-2) Abnormal [facility] / [id number] 19:00:08* Test Item Value Reference Range Interpretation Comme nts PROTIME PATIENT (test code = 5964-2) 13.5 10.1-12.6 H INR (test code = 6301-6) 1.2 Normal INR <1.1; Warfarin Therapeutic range 2.0 to 3.0 or 2.5 to 3.5, depending upon the indications. Lab Interpretation (test code = 14809-6) [facility]normal [facility] / [id number] 19:00:08* Test Item Value Reference Range Interpretation Comme nts PROTIME PATIENT (test code = 5964-2) 13.5 10.1-12.6 H INR (test code = 6301-6) 1.2 Normal INR <1.1; Warfarin Therapeutic range 2.0 to 3.0 or 2.5 to 3.5, depending upon the indications. Lab Interpretation (test code = 55431-6) Abnormal [facility] GLUCOSE (AUTOMATED)2024-07-30 13:25:25* Test Item Value Reference Range Interpretation Comme nts POCT GLU (test code = 9874194418) 99 mg/dL 70-110 Lab Interpretation (test cod e = 16162-2) Normal [facility] GLUCOSE (AUTOMATED)2024-07-30 13:25:25* Test Item Value Reference Range Interpretation Comme nts POCT GLU (test code = 4178779431) 99 mg/dL 70-110 Lab Interpretation (test cod e = 87935-4) Normal [facility] GLUCOSE (AUTOMATED)2024-07-30 13:25:25* Test Item Value Reference Range Interpretation Comme nts POCT GLU (test code = 5287253572) 99 mg/dL 70-110 Lab Interpretation (test cod e = 13234-0) Normal [facility] GLUCOSE (AUTOMATED)2024-07-30 13:25:25* Test Item Value Reference Range Interpretation Comme nts POCT GLU (test code = 6156013923) 99 mg/dL 70-110 Lab Interpretation (test cod e = 25192-8) Normal [facility] Serun8322-47-08 06:11:23* Test Item Value Reference Range Interpretation Comme nts FERRITIN (test code = 7664759170) 12.8 ng/mL 18.0-464.0 L ARMIDA (test code = ARMIDA) Biotin has been reported to cause a negative bias, interpret results relative to patient's use of biotin. Lab Interpretation (test code = 44619-0) Abnormal [facility] Hospital[facility] Bwjcf8146-47-57 06:11:23* Test Item Value Reference Range Interpretation Comme nts FERRITIN (test code = 4627933633) 12.8 ng/mL 18.0-464.0 L ARMIDA (test code = ARMIDA) Biotin has been reported to cause a negative bias, interpret results relative to patient's use of biotin. Lab Interpretation (test code = 35814-1) Abnormal [facility] [id number] 06:11:23* Test Item Value Reference Range Interpretation Comme nts FERRITIN (test code = 8839465413) 12.8 ng/mL 18.0-464.0 L ARMIDA (test code = ARMIDA) Biotin has been reported to cause a negative bias, interpret results relative to patient's use of biotin. Lab Interpretation (test code = 10640-0) Abnormal [facility] [id number] 06:11:23* Test Item Value Reference Range Interpretation Comme nts FERRITIN (test code = 0226455665) 12.8 ng/mL 18.0-464.0 L ARMIDA (test code = ARMIDA) Biotin has been reported to cause a negative bias, interpret results relative to patient's use of biotin. Lab Interpretation (test code = 93780-5) [facility]normal [facility]esium2024-10-19 09:42:37* Test Item Value Reference Range Interpretation Comme nts MAGNESIUM (test code = 7999273242) 2.4 mg/dL 1.7-2.4 Lab Interpretation (test cod e = 01691-2) Normal [facility] Met[facility] Panel (NA, K, CL, CO2, GLUCOSE, BUN, CREATININE, CA)2024-07-29 09:42:37* Test Item Value Reference Range Interpretation Comme nts NA (test code = 1819617200) 140 mmol/L 135-145 K (test code = 6830833015) 3.7 mmol/L 3.5-5.0 CL (test code = 5396308189) 108 mmol/L 98-108 CO2 TOTAL (test code = 4853251607) 20 mmol/L 23-31 L AGAP (test code = 0404336067) 12 2-16 BUN (test code = 3712177886) 19 mg/dL 7-23 GLUCOSE (test code = 1156022123) 78 mg/dL 70-110 CREATININE (test code = 2160-0) 0.86 mg/dL 0.60-1.25 CALCIUM (test code = 3290938126) 7.5 mg/dL 8.6-10.6 L eGFR (test code = 97575-9) 92.6 mL/min/1.73m2 CKD-EPI eGFR (2020). Assuming creatinine has been stable day-to-day for at least three months, the eGFR indicates Category G1 (>= 90 mL/min/1.73 m2) Lab Interpretation (test code = 27688-7) [facility] Test Item Value Reference Range Interpretation Comme nts MAGNESIUM (test code = 5335435080) 2.4 mg/dL 1.7-2.4 Lab Interpretation (test cod e = 82286-6) Normal [facility] Metabolic Panel (NA, K, CL, CO2, GLUCOSE, BUN, CREATININE, CA)2024-07-29 09:42:37* Test Item Value Reference Range Interpretation Comme nts NA (test code = 1298387631) 140 mmol/L 135-145 K (test code = 9660117786) 3.7 mmol/L 3.5-5.0 CL (test code = 2830419465) 108 mmol/L 98-108 CO2 TOTAL (test code = 0361835499) 20 mmol/L 23-31 L AGAP (test code = 5519617244) 12 2-16 BUN (test code = 6447071020) 19 mg/dL 7-23 GLUCOSE (test code = 0825204965) 78 mg/dL 70-110 CREATININE (test code = 2160-0) 0.86 mg/dL 0.60-1.25 CALCIUM (test code = 2731386271) 7.5 mg/dL 8.6-10.6 L eGFR (test code = 95685-9) 92.6 mL/min/1.73m2 CKD-EPI eGFR (2020). Assuming creatinine has been stable day-to-day for at least three months, the eGFR indicates Category G1 (>= 90 mL/min/1.73 m2) Lab Interpretation (test code = 48065-8) [facility] Test Item Value Reference Range Interpretation Comme nts MAGNESIUM (test code = 1751345665) 2.4 mg/dL 1.7-2.4 Lab Interpretation (test cod e = 94453-1) Normal [facility] Metabolic Panel (NA, K, CL, CO2, GLUCOSE, BUN, CREATININE, CA)2024-07-29 09:42:37* Test Item Value Reference Range Interpretation Comme nts NA (test code = 2843450865) 140 mmol/L 135-145 K (test code = 5293755843) 3.7 mmol/L 3.5-5.0 CL (test code = 1481513533) 108 mmol/L 98-108 CO2 TOTAL (test code = 3920764723) 20 mmol/L 23-31 L AGAP (test code = 9640795951) 12 2-16 BUN (test code = 7142525580) 19 mg/dL 7-23 GLUCOSE (test code = 4497466987) 78 mg/dL 70-110 CREATININE (test code = 2160-0) 0.86 mg/dL 0.60-1.25 CALCIUM (test code = 4583022884) 7.5 mg/dL 8.6-10.6 L eGFR (test code = 81505-1) 92.6 mL/min/1.73m2 CKD-EPI eGFR (2020). Assuming creatinine has been stable day-to-day for at least three months, the eGFR indicates Category G1 (>= 90 mL/min/1.73 m2) Lab Interpretation (test code = 52778-2) [facility] Test Item Value Reference Range Interpretation Comme nts MAGNESIUM (test code = 4145057770) 2.4 mg/dL 1.7-2.4 Lab Interpretation (test cod e = 12237-4) Normal [facility] Metabolic Panel (NA, K, CL, CO2, GLUCOSE, BUN, CREATININE, CA)2024-07-29 09:42:37* Test Item Value Reference Range Interpretation Comme nts NA (test code = 9934161464) 140 mmol/L 135-145 K (test code = 3463826073) 3.7 mmol/L 3.5-5.0 CL (test code = 4454159028) 108 mmol/L 98-108 CO2 TOTAL (test code = 5598796263) 20 mmol/L 23-31 L AGAP (test code = 0436605397) 12 2-16 BUN (test code = 8082566813) 19 mg/dL 7-23 GLUCOSE (test code = 7167902369) 78 mg/dL 70-110 CREATININE (test code = 2160-0) 0.86 mg/dL 0.60-1.25 CALCIUM (test code = 6075266846) 7.5 mg/dL 8.6-10.6 L eGFR (test code = 23471-3) 92.6 mL/min/1.73m2 CKD-EPI eGFR (2020). Assuming creatinine has been stable day-to-day for at least three months, the eGFR indicates Category G1 (>= 90 mL/min/1.73 m2) Lab Interpretation (test code = 85847-5) [facility] [id number]:10:53* Test Item Value Reference Range Interpretation Comme nts WBC (test code = 6690-2) 5.90 4.20-10.70 RBC (test code = 789-8) 2.89 4.26-5.52 L HGB (test code = 718-7) 7.3 g/dL 12.2-16.4 L HCT (test code = 4544-3) 23.6 % 38.4-49.3 L MCH (test code = 785-6) 25.3 pg 26.1-32.7 L MCV (test code = 787-2) 81.7 fL 81.7-95.6 MCHC (test code = 786-4) 30.9 g/dL 31.2-35.0 L PLT (test code = 777-3) 242 150-328 MPV (test code = 26915-7) 10.3 fL 9.8-13.0 RDW-CV (test code = 788-0) 20.6 % 12.1-15.4 H RDW-SD (test code = 16985-1) 61.1 fL 38.5-51.6 H NRBC x10^3 (test code = 5667808560) 0.06 See_Comment [[employer] ge] The system which generated this result transmitted reference range: 10*3/?L. The reference range was not used to interpret this result as normal/abnormal. NRBC/100 WBC (test code = 8811820705) 1.0 0.0-10.0 IPF % (test code = 1171160703) Lab Interpretation (test code = 46842-6) Abnormal [facility] without [id number] 09:10:53* Test Item Value Reference Range Interpretation Comme nts WBC (test code = 6690-2) 5.90 4.20-10.70 RBC (test code = 789-8) 2.89 4.26-5.52 L HGB (test code = 718-7) 7.3 g/dL 12.2-16.4 L HCT (test code = 4544-3) 23.6 % 38.4-49.3 L MCH (test code = 785-6) 25.3 pg 26.1-32.7 L MCV (test code = 787-2) 81.7 fL 81.7-95.6 MCHC (test code = 786-4) 30.9 g/dL 31.2-35.0 L PLT (test code = 777-3) 242 150-328 MPV (test code = 66125-9) 10.3 fL 9.8-13.0 RDW-CV (test code = 788-0) 20.6 % 12.1-15.4 H RDW-SD (test code = 26726-6) 61.1 fL 38.5-51.6 H NRBC x10^3 (test code = 1591728490) 0.06 See_Comment [[employer] ge] The system which generated this result transmitted reference range: 10*3/?L. The reference range was not used to interpret this result as normal/abnormal. NRBC/100 WBC (test code = 3719301391) 1.0 0.0-10.0 IPF % (test code = 1912276538) Lab Interpretation (test code = 40751-8) Abnormal [facility] without [id number] 09:10:53* Test Item Value Reference Range Interpretation Comme nts WBC (test code = 6690-2) 5.90 4.20-10.70 RBC (test code = 789-8) 2.89 4.26-5.52 L HGB (test code = 718-7) 7.3 g/dL 12.2-16.4 L HCT (test code = 4544-3) 23.6 % 38.4-49.3 L MCH (test code = 785-6) 25.3 pg 26.1-32.7 L MCV (test code = 787-2) 81.7 fL 81.7-95.6 MCHC (test code = 786-4) 30.9 g/dL 31.2-35.0 L PLT (test code = 777-3) 242 150-328 MPV (test code = 84501-5) 10.3 fL 9.8-13.0 RDW-CV (test code = 788-0) 20.6 % 12.1-15.4 H RDW-SD (test code = 72222-2) 61.1 fL 38.5-51.6 H NRBC x10^3 (test code = 4349995269) 0.06 See_Comment [Automated messa ge] The system which generated this result transmitted reference range: 10*3/?L. The reference range was not used to interpret this result as normal/abnormal. NRBC/100 WBC (test code = 9867230278) 1.0 0.0-10.0 IPF % (test code = 1418481068) Lab Interpretation (test code = 63740-5) Abnormal [facility] without Otxz5379-64-24 09:10:53* Test Item Value Reference Range Interpretation Comme nts WBC (test code = 6690-2) 5.90 4.20-10.70 RBC (test code = 789-8) 2.89 4.26-5.52 L HGB (test code = 718-7) 7.3 g/dL 12.2-16.4 L HCT (test code = 4544-3) 23.6 % 38.4-49.3 L MCH (test code = 785-6) 25.3 pg 26.1-32.7 L MCV (test code = 787-2) 81.7 fL 81.7-95.6 MCHC (test code = 786-4) 30.9 g/dL 31.2-35.0 L PLT (test code = 777-3) 242 150-328 MPV (test code = 52703-0) 10.3 fL 9.8-13.0 RDW-CV (test code = 788-0) 20.6 % 12.1-15.4 H RDW-SD (test code = 47637-3) 61.1 fL 38.5-51.6 H NRBC x10^3 (test code = 7060684167) 0.06 See_Comment [[employer] ge] The system which generated this result transmitted reference range: 10*3/?L. The reference range was not used to interpret this result as normal/abnormal. NRBC/100 WBC (test code = 3386611644) 1.0 0.0-10.0 IPF % (test code = 4497541258) Lab Interpretation (test code = 76728-7) Abnormal [facility] without [id number] 21:23:05* Test Item Value Reference Range Interpretation Comme nts WBC (test code = 6690-2) 5.64 4.20-10.70 RBC (test code = 789-8) 2.97 4.26-5.52 L HGB (test code = 718-7) 7.5 g/dL 12.2-16.4 L HCT (test code = 4544-3) 24.0 % 38.4-49.3 L MCH (test code = 785-6) 25.3 pg 26.1-32.7 L MCV (test code = 787-2) 80.8 fL 81.7-95.6 L MCHC (test code = 786-4) 31.3 g/dL 31.2-35.0 PLT (test code = 777-3) 254 150-328 MPV (test code = 98655-4) 9.8 fL 9.8-13.0 RDW-CV (test code = 788-0) 20.0 % 12.1-15.4 H RDW-SD (test code = 94282-4) 59.4 fL 38.5-51.6 H NRBC x10^3 (test code = 9949114831) 0.09 See_Comment [[employer] ge] The system which generated this result transmitted reference range: 10*3/?L. The reference range was not used to interpret this result as normal/abnormal. NRBC/100 WBC (test code = 5948685282) 1.6 0.0-10.0 IPF % (test code = 1824237640) Lab Interpretation (test code = 63250-6) Abnormal [facility] without [id number] 21:23:05* Test Item Value Reference Range Interpretation Comme nts WBC (test code = 6690-2) 5.64 4.20-10.70 RBC (test code = 789-8) 2.97 4.26-5.52 L HGB (test code = 718-7) 7.5 g/dL 12.2-16.4 L HCT (test code = 4544-3) 24.0 % 38.4-49.3 L MCH (test code = 785-6) 25.3 pg 26.1-32.7 L MCV (test code = 787-2) 80.8 fL 81.7-95.6 L MCHC (test code = 786-4) 31.3 g/dL 31.2-35.0 PLT (test code = 777-3) 254 150-328 MPV (test code = 75088-3) 9.8 fL 9.8-13.0 RDW-CV (test code = 788-0) 20.0 % 12.1-15.4 H RDW-SD (test code = 35838-5) 59.4 fL 38.5-51.6 H NRBC x10^3 (test code = 8974391991) 0.09 See_Comment [[employer] ge] The system which generated this result transmitted reference range: 10*3/?L. The reference range was not used to interpret this result as normal/abnormal. NRBC/100 WBC (test code = 7977592830) 1.6 0.0-10.0 IPF % (test code = 9391577857) Lab Interpretation (test code = 38096-6) Abnormal [facility] without [id number] 21:23:05* Test Item Value Reference Range Interpretation Comme nts WBC (test code = 6690-2) 5.64 4.20-10.70 RBC (test code = 789-8) 2.97 4.26-5.52 L HGB (test code = 718-7) 7.5 g/dL 12.2-16.4 L HCT (test code = 4544-3) 24.0 % 38.4-49.3 L MCH (test code = 785-6) 25.3 pg 26.1-32.7 L MCV (test code = 787-2) 80.8 fL 81.7-95.6 L MCHC (test code = 786-4) 31.3 g/dL 31.2-35.0 PLT (test code = 777-3) 254 150-328 MPV (test code = 08146-7) 9.8 fL 9.8-13.0 RDW-CV (test code = 788-0) 20.0 % 12.1-15.4 H RDW-SD (test code = 77622-1) 59.4 fL 38.5-51.6 H NRBC x10^3 (test code = 0388324460) 0.09 See_Comment [Automated messa ge] The system which generated this result transmitted reference range: 10*3/?L. The reference range was not used to interpret this result as normal/abnormal. NRBC/100 WBC (test code = 8820979853) 1.6 0.0-10.0 IPF % (test code = 8312695283) Lab Interpretation (test code = 83338-8) Abnormal [facility] without [id number] 21:23:05* Test Item Value Reference Range Interpretation Comme nts WBC (test code = 6690-2) 5.64 4.20-10.70 RBC (test code = 789-8) 2.97 4.26-5.52 L HGB (test code = 718-7) 7.5 g/dL 12.2-16.4 L HCT (test code = 4544-3) 24.0 % 38.4-49.3 L MCH (test code = 785-6) 25.3 pg 26.1-32.7 L MCV (test code = 787-2) 80.8 fL 81.7-95.6 L MCHC (test code = 786-4) 31.3 g/dL 31.2-35.0 PLT (test code = 777-3) 254 150-328 MPV (test code = 68658-2) 9.8 fL 9.8-13.0 RDW-CV (test code = 788-0) 20.0 % 12.1-15.4 H RDW-SD (test code = 16052-7) 59.4 fL 38.5-51.6 H NRBC x10^3 (test code = 2956424168) 0.09 See_Comment [Automated messa ge] The system which generated this result transmitted reference range: 10*3/?L. The reference range was not used to interpret this result as normal/abnormal. NRBC/100 WBC (test code = 9404982572) 1.6 0.0-10.0 IPF % (test code = 1239799119) Lab Interpretation (test code = 23945-2) Abnormal [facility] Packed RBC (in units)2024-07-28 16:09:21* Test Item Value Reference Range Interpretation Comme nts Cross Match Result (test code = 4409) Compatible ISBT Blood Type Code (test code = 347611) 6200 Unit Blood Type (test code = 4410) A Pos Unit Number (test code = 4411) [id number] Blood Expiration Date & Time (test code = 936671) 465877646574 Status Information (test code = 4412) Issued Product Identification (test code = 4413) Red Blood Cells Product Code (test code = 4414) [id number] Performed at [facility] B Laboratory Services - [facility] Blood [address] [place] [id number] Free: [phone] No. [id number] [facility] Packed RBC (in units)2024-07-28 16:09:21* Test Item Value Reference Range Interpretation Comme nts Cross Match Result (test code = 4409) Compatible ISBT Blood Type Code (test code = 168700) 6200 Unit Blood Type (test code = 4410) A Pos Unit Number (test code = 4411) [id number] Blood Expiration Date & Time (test code = 540627) 284001065014 Status Information (test code = 4412) Issued Product Identification (test code = 4413) Red Blood Cells Product Code (test code = 4414) [id number] Performed at [facility] Blood [address] Free: [phone] No. [id number] [facility] Packed RBC (in units)2024-07-28 16:09:21* Test Item Value Reference Range Interpretation Comme nts Cross Match Result (test code = 4409) Compatible ISBT Blood Type Code (test code = 381356) 6200 Unit Blood Type (test code = 4410) A Pos Unit Number (test code = 4411) [id number] Blood Expiration Date & Time (test code = 374039) 656461834471 Status Information (test code = 4412) Issued Product Identification (test code = 4413) Red Blood Cells Product Code (test code = 4414) [id number] Performed at [facility] [address] Free: [phone] No. [id number] [facility] Packed RBC (in units)2024-07-28 16:09:21* Test Item Value Reference Range Interpretation Comme nts Cross Match Result (test code = 4409) Compatible ISBT Blood Type Code (test code = 836986) 6200 Unit Blood Type (test code = 4410) A Pos Unit Number (test code = 4411) [id number] Blood Expiration Date & Time (test code = 445420) 186954720478 Status Information (test code = 4412) Issued Product Identification (test code = 4413) Red Blood Cells Product Code (test code = 4414) [id number] Performed at [facility] Blood [place] [address]Toll Free: [phone] No. [id number] [facility] without Puxj8580-58-15 23:38:19* Test Item Value Reference Range Interpretation Comme nts WBC (test code = 6690-2) 5.68 4.20-10.70 RBC (test code = 789-8) 3.04 4.26-5.52 L HGB (test code = 718-7) 7.6 g/dL 12.2-16.4 L HCT (test code = 4544-3) 24.1 % 38.4-49.3 L MCH (test code = 785-6) 25.0 pg 26.1-32.7 L MCV (test code = 787-2) 79.3 fL 81.7-95.6 L MCHC (test code = 786-4) 31.5 g/dL 31.2-35.0 PLT (test code = 777-3) 282 150-328 MPV (test code = 59923-2) 10.1 fL 9.8-13.0 RDW-CV (test code = 788-0) 19.2 % 12.1-15.4 H RDW-SD (test code = 32209-6) 55.3 fL 38.5-51.6 H NRBC x10^3 (test code = 9153098492) 0.15 See_Comment [[employer] ge] The system which generated this result transmitted reference range: 10*3/?L. The reference range was not used to interpret this result as normal/abnormal. NRBC/100 WBC (test code = 5840611021) 2.6 0.0-10.0 IPF % (test code = 1297906635) Lab Interpretation (test code = 14557-3) Abnormal [facility] without Khpk7743-98-61 23:38:19* Test Item Value Reference Range Interpretation Comme nts WBC (test code = 6690-2) 5.68 4.20-10.70 RBC (test code = 789-8) 3.04 4.26-5.52 L HGB (test code = 718-7) 7.6 g/dL 12.2-16.4 L HCT (test code = 4544-3) 24.1 % 38.4-49.3 L MCH (test code = 785-6) 25.0 pg 26.1-32.7 L MCV (test code = 787-2) 79.3 fL 81.7-95.6 L MCHC (test code = 786-4) 31.5 g/dL 31.2-35.0 PLT (test code = 777-3) 282 150-328 MPV (test code = 97072-8) 10.1 fL 9.8-13.0 RDW-CV (test code = 788-0) 19.2 % 12.1-15.4 H RDW-SD (test code = 15852-5) 55.3 fL 38.5-51.6 H NRBC x10^3 (test code = 3475235985) 0.15 See_Comment [[employer] ge] The system which generated this result transmitted reference range: 10*3/?L. The reference range was not used to interpret this result as normal/abnormal. NRBC/100 WBC (test code = 5909363750) 2.6 0.0-10.0 IPF % (test code = 8633038139) Lab Interpretation (test code = 27117-0) Abnormal [facility] without [id number] 23:38:19* Test Item Value Reference Range Interpretation Comme nts WBC (test code = 6690-2) 5.68 4.20-10.70 RBC (test code = 789-8) 3.04 4.26-5.52 L HGB (test code = 718-7) 7.6 g/dL 12.2-16.4 L HCT (test code = 4544-3) 24.1 % 38.4-49.3 L MCH (test code = 785-6) 25.0 pg 26.1-32.7 L MCV (test code = 787-2) 79.3 fL 81.7-95.6 L MCHC (test code = 786-4) 31.5 g/dL 31.2-35.0 PLT (test code = 777-3) 282 150-328 MPV (test code = 48051-1) 10.1 fL 9.8-13.0 RDW-CV (test code = 788-0) 19.2 % 12.1-15.4 H RDW-SD (test code = 70311-8) 55.3 fL 38.5-51.6 H NRBC x10^3 (test code = 3164650124) 0.15 See_Comment [[employer]ounce] The system which generated this result transmitted reference range: 10*3/?L. The reference range was not used to interpret this result as normal/abnormal. NRBC/100 WBC (test code = 7682006815) 2.6 0.0-10.0 IPF % (test code = 4898010928) Lab Interpretation (test code = 50437-5) Abnormal [facility] without [id number] 23:38:19* Test Item Value Reference Range Interpretation Comme nts WBC (test code = 6690-2) 5.68 4.20-10.70 RBC (test code = 789-8) 3.04 4.26-5.52 L HGB (test code = 718-7) 7.6 g/dL 12.2-16.4 L HCT (test code = 4544-3) 24.1 % 38.4-49.3 L MCH (test code = 785-6) 25.0 pg 26.1-32.7 L MCV (test code = 787-2) 79.3 fL 81.7-95.6 L MCHC (test code = 786-4) 31.5 g/dL 31.2-35.0 PLT (test code = 777-3) 282 150-328 MPV (test code = 01241-5) 10.1 fL 9.8-13.0 RDW-CV (test code = 788-0) 19.2 % 12.1-15.4 H RDW-SD (test code = 37067-9) 55.3 fL 38.5-51.6 H NRBC x10^3 (test code = 8345652487) 0.15 See_Comment [[employer]ounce] The system which generated this result transmitted reference range: 10*3/?L. The reference range was not used to interpret this result as normal/abnormal. NRBC/100 WBC (test code = 8192068484) 2.6 0.0-10.0 IPF % (test code = 6053571343) Lab Interpretation (test code = 78653-3) Abnormal [facility] without Hgky1708-18-27 17:42:37* Test Item Value Reference Range Interpretation Comme nts WBC (test code = 6690-2) 5.18 4.20-10.70 RBC (test code = 789-8) 2.93 4.26-5.52 L HGB (test code = 718-7) 7.5 g/dL 12.2-16.4 L HCT (test code = 4544-3) 23.1 % 38.4-49.3 L MCH (test code = 785-6) 25.6 pg 26.1-32.7 L MCV (test code = 787-2) 78.8 fL 81.7-95.6 L MCHC (test code = 786-4) 32.5 g/dL 31.2-35.0 PLT (test code = 777-3) 256 150-328 MPV (test code = 72921-6) 9.8 fL 9.8-13.0 RDW-CV (test code = 788-0) 19.2 % 12.1-15.4 H RDW-SD (test code = 09404-1) 54.8 fL 38.5-51.6 H NRBC x10^3 (test code = 0940303479) 0.14 See_Comment [[employer] ge] The system which generated this result transmitted reference range: 10*3/?L. The reference range was not used to interpret this result as normal/abnormal. NRBC/100 WBC (test code = 3531649480) 2.7 0.0-10.0 IPF % (test code = 8790940178) Lab Interpretation (test code = 46227-6) Abnormal [facility] without Bhzz0233-61-12 17:42:37* Test Item Value Reference Range Interpretation Comme nts WBC (test code = 6690-2) 5.18 4.20-10.70 RBC (test code = 789-8) 2.93 4.26-5.52 L HGB (test code = 718-7) 7.5 g/dL 12.2-16.4 L HCT (test code = 4544-3) 23.1 % 38.4-49.3 L MCH (test code = 785-6) 25.6 pg 26.1-32.7 L MCV (test code = 787-2) 78.8 fL 81.7-95.6 L MCHC (test code = 786-4) 32.5 g/dL 31.2-35.0 PLT (test code = 777-3) 256 150-328 MPV (test code = 19453-3) 9.8 fL 9.8-13.0 RDW-CV (test code = 788-0) 19.2 % 12.1-15.4 H RDW-SD (test code = 36322-2) 54.8 fL 38.5-51.6 H NRBC x10^3 (test code = 4166719071) 0.14 See_Comment [[employer]] The system which generated this result transmitted reference range: 10*3/?L. The reference range was not used to interpret this result as normal/abnormal. NRBC/100 WBC (test code = 5495985172) 2.7 0.0-10.0 IPF % (test code = 9544404600) Lab Interpretation (test code = 32470-7) Abnormal [facility] without Jeds7311-71-22 17:42:37* Test Item Value Reference Range Interpretation Comme nts WBC (test code = 6690-2) 5.18 4.20-10.70 RBC (test code = 789-8) 2.93 4.26-5.52 L HGB (test code = 718-7) 7.5 g/dL 12.2-16.4 L HCT (test code = 4544-3) 23.1 % 38.4-49.3 L MCH (test code = 785-6) 25.6 pg 26.1-32.7 L MCV (test code = 787-2) 78.8 fL 81.7-95.6 L MCHC (test code = 786-4) 32.5 g/dL 31.2-35.0 PLT (test code = 777-3) 256 150-328 MPV (test code = 89480-3) 9.8 fL 9.8-13.0 RDW-CV (test code = 788-0) 19.2 % 12.1-15.4 H RDW-SD (test code = 54727-7) 54.8 fL 38.5-51.6 H NRBC x10^3 (test code = 0541416092) 0.14 See_Comment [[employer] Pounce] The system which generated this result transmitted reference range: 10*3/?L. The reference range was not used to interpret this result as normal/abnormal. NRBC/100 WBC (test code = 0629570649) 2.7 0.0-10.0 IPF % (test code = 8018161832) Lab Interpretation (test code = 57875-9) Abnormal [facility] without Syzp9042-06-53 17:42:37* Test Item Value Reference Range Interpretation Comme nts WBC (test code = 6690-2) 5.18 4.20-10.70 RBC (test code = 789-8) 2.93 4.26-5.52 L HGB (test code = 718-7) 7.5 g/dL 12.2-16.4 L HCT (test code = 4544-3) 23.1 % 38.4-49.3 L MCH (test code = 785-6) 25.6 pg 26.1-32.7 L MCV (test code = 787-2) 78.8 fL 81.7-95.6 L MCHC (test code = 786-4) 32.5 g/dL 31.2-35.0 PLT (test code = 777-3) 256 150-328 MPV (test code = 87692-8) 9.8 fL 9.8-13.0 RDW-CV (test code = 788-0) 19.2 % 12.1-15.4 H RDW-SD (test code = 16208-9) 54.8 fL 38.5-51.6 H NRBC x10^3 (test code = 0803654369) 0.14 See_Comment [[employer] Pounce] The system which generated this result transmitted reference range: 10*3/?L. The reference range was not used to interpret this result as normal/abnormal. NRBC/100 WBC (test code = 1011275094) 2.7 0.0-10.0 IPF % (test code = 9575731704) Lab Interpretation (test code = 53526-7) [facility] Hpfgmio9152-91-67 17:26:19* Test Item Value Reference Range Interpretation Comme nts Height (test code = 9992997323) 69 in Weight (test code = 6511751045) 195 lbs Systolic BP (test code = 9495038921) 115 mmHg Diastolic BP (test code = 0724318379) 65 mmHg Heart Rate (test code = 2114234660) 89 bpm BSA (test code = 1862153323) 2.04 m2 LVIDD (test code = 3418812670) 5.00 cm Left Ventricular End Diastolic Volume by Teichholz Method (test code = 3097881) 120.1 mL IVS (test code = 1402118578) 1.21 cm Interventricular Septum Diastolic Thickness by 2D (test code = 0809955) 1.21 cm LVPWD (test code = 7345182060) 1.60 cm PW (test code = 6912910945) 1.60 cm 0.6-1.1 EF(Teich) (test code = 1113116989) 43.00 % LVIDS (test code = 9546254757) 4.00 cm Left Ventricular End Systolic Volume by Teichholz Method (test code = 4574502) 68.4 mL FS (test code = 7222620339) 21 % EF - 2D (test code = 96474393) 43.00 % LVOT diameter (test code = 5507154502) 2.30 cm LVOT area (test code = 0313206597) 4.10 cm2 Ao root diam (test code = 4932129932) 3.30 cm Aortic root (test code = 8052472594) 3.3 cm Ao root annulus (test code = 2696759726) 3.3 cm LA size (test code = 5824290343) 4.0 cm TR Peak Jaclyn (test code = 1063196617) 274.2 cm/s Triscuspid Valve Regurgitation Peak Gradient (test code = 1163989062) 31.3 mmHg MV Prop V (test code = 7667091398) 56.10 cm/s MV Peak E Jaclyn (test code = 7629674586) 118.1 cm/s E wave decelartion time (test code = 6725883754) 0.18 s MV Peak A Jaclyn (test code = 0335121049) 34.7 cm/s E/A ratio (test code = 9282022354) 3.40 ratio MR max PG (test code = 9987667908) 89.80 mm[Hg] MR max jaclyn (test code = 5344279555) 473.80 cm/s Mr max jaclyn (test code = 5478989577) 473.8 m/s MV E/e' septal (test code = 3863729887) 11.0 cm/s TASV (test code = 1038679975) 13.9 cm/s Tapse (test code = 5130815791) 1.78 cm LVOT stroke volume (test code = 7115482827) 69.10 cm3 LVOT peak jaclyn (test code = 2923835919) 87.1 cm/s LVOT mn grad (test code = 2032609276) 1.4 mmHg AV LVOT peak gradient (test code = 0092271648) 3.1 mmHg LVOT peak VTI (test code = 0259089076) 16.7 cm LV V1 mean (test code = 6389060621) 52.20 cm/s Aortic valve mean velocity (test code = 2716794320) 82.6 cm/s Ao peak jaclyn (test code = 2442836663) 114.0 cm/s Ao VTI (test code = 3468979793) 22.4 cm AV area by cont VTI (test code = 0445087105) 3.1 cm2 AV area peak jaclyn (test code = 6322821383) 3.2 cm2 Ao max PG (test code = 5789688020) 5.20 mm[Hg] AV peak gradient (test code = 6627675768) 5.2 mmHg AV valve area (test code = 4349283408) 3.10 cm2 AV mean gradient (test code = 4640757331) 3.0 mmHg LAV(MOD-sp4) (test code = 5056272523) 120.40 mL LA Volume Index (BP) (test code = 6486006276) 63.1 mL/m2 LA volume (BP) (test code = 5221054950) 128.9 mL LAV(MOD-sp2) (test code = 9448984523) 127.60 mL IVC Diam Exp(MM) (test code = 6013452240) 2.34 cm IVC Diam Ins(MM) (test code = 2670211051) 3.20 cm A2C EF (test code = 8747022916) 44.30 % EF(sp2-el) (test code = 6953123493) 44.00 % SV(MOD-sp2) (test code = 0805626220) 68.80 mL LV Systolic Volume (BP) (test code = 4424305041) 97.5 mL A4C EF (test code = 0732951230) 38.60 % EF(MOD-bp) (test code = 4964259768) 39.90 % EF(sp4-el) (test code = 4205890096) 36.40 % LV Diastolic Volume (BP) (test code = 5683398954) 162.2 mL SV(MOD-bp) (test code = 7924113398) 64.80 mL SV(MOD-sp4) (test code = 2264910321) 62.80 mL SV(sp4-el) (test code = 0548354914) 60.80 mL EF (test code = 5592424999) 40 Left Ventricular Stroke Volume by 2-D Biplane-MOD (test code = 1145253) 64.8 mL LV Diastolic Volume Index (BP) (test code = 6933634155) 79.5 mL/m2 LV Systolic Volume Index (BP) (test code = 3234876829) 50.1 mL/m2 Radiology Study observation (narrative) (test code = 88103-2) ARMIDA (test code = ARMIDA) ?Left?Ventricle: Left ventricle size is normal. Moderately increased wall thickness. Moderately increased ventricular mass, LVMI 143 g/m2, RWT 0.64 Global hypokinesis present. Mildly reduced systolic function with a visually estimated EF of 40 - 45%. EF by 2D [place] biplane is 40%. There is grade 2 diastolic dysfunction. Elevated left ventricular filling pressure. ?Left?Atrium: Left atrium is severely dilated. Left atrium volume index is 63.1 mL/m2. ?Right?Ventricle: Right ventricle size is normal. Normal systolic function. TAPSE is 1.78 cm. TDI-derived tricuspid annular systolic velocity (TDI S') is 13.9 cm/s. ?Aortic?Valve: Aortic valve opens well. Trace transvalvular regurgitation. No hemodynamically significant . ?Tricuspid?Valve: Not well visualized. Moderate transvalvular regurgitation with an eccentrically directed jet. Right ventricular systolic pressure is 45-50 mmHg. ?No systolic flow reversal seen in the hepatic veins. ?Mitral?Valve: Mild transvalvular regurgitation with an eccentrically directed jet, no Pulmonary veins Systolic flow reversal observed, no availabe Vena Contracta to appropriatly estimate MR Jet. ?IVC/SVC: IVC diameter is greater than 21 mm and decreases less than 50% during inspiration; therefore the estimated right atrial pressure is elevated (~15 mmHg). ?Pericardium: Small pericardial effusion present. No indication of cardiac tamponade. Left VentricleLeft ventricle size is normal. Moderately increased wall thickness. Moderately increased ventricular mass, LVMI 143 g/m2, RWT 0.64 Global hypokinesis present. Mildly reduced systolic function with a visually estimated EF of 40 - 45%. EF by 2D Whiting biplane is 40%. There is grade 2 diastolic dysfunction. Elevated left ventricular filling pressure.Right VentricleRight ventricle size is normal. Normal systolic function. TAPSE is 1.78 cm. TDI-derived tricuspid annular systolic velocity (TDI S') is 13.9 cm/s.Left AtriumLeft atrium is severely dilated. Left atrium volume index is 63.1 mL/m2.Right AtriumRight atrium is dilated.IVC/SVCIVC diameter is greater than 21 mm and decreases less than 50% during inspiration; therefore the estimated right atrial pressure is elevated (~15 mmHg).Mitral ValveMild transvalvular regurgitation with an eccentrically directed jet, no Pulmonary veins Systolic flow reversal observed, no availabe Vena Contracta to appropriatly estimate MR Jet.Tricuspid ValveNot well visualized. Moderate transvalvular regurgitation with an eccentrically directed jet. Right ventricular systolic pressure is 45-50 mmHg. No systolic flow reversal seen in the hepatic veins. No stenosis.Aortic ValveAortic valve opens well. Trace transvalvular regurgitation. No hemodynamically significant .Pulmonic ValveNot well visualized. Trace transvalvular regurgitation.Ascendin g AortaNormal sized sinus of Valsalva and aortic root.PericardiumSmall pericardial effusion present. No indication of cardiac tamponade.Study DetailsStudy quality was adequate. A complete echocardiogram was performed using 2D, color flow Doppler and spectral Doppler. 2 mL of Definity ultrasound enhancing agent used.Wall Scoring BaselineScore Index: 2.00The left ventricular wall motion is globally hypokinetic. [facility] [id number] 17:26:19* Test Item Value Reference Range Interpretation Comme nts Height (test code = 5769743612) 69 in Weight (test code = 1108270375) 195 lbs Systolic BP (test code = 9457737505) 115 mmHg Diastolic BP (test code = 6986985965) 65 mmHg Heart Rate (test code = 2956470910) 89 bpm BSA (test code = 0508646368) 2.04 m2 LVIDD (test code = 5629228685) 5.00 cm Left Ventricular End Diastolic Volume by Teichholz Method (test code = 9494046) 120.1 mL IVS (test code = 1317564581) 1.21 cm Interventricular Septum Diastolic Thickness by 2D (test code = 4602939) 1.21 cm LVPWD (test code = 4032338437) 1.60 cm PW (test code = 6945680814) 1.60 cm 0.6-1.1 EF(Teich) (test code = 5664461686) 43.00 % LVIDS (test code = 1788775496) 4.00 cm Left Ventricular End Systolic Volume by Teichholz Method (test code = 6457536) 68.4 mL FS (test code = 6258852010) 21 % EF - 2D (test code = 17871534) 43.00 % LVOT diameter (test code = 4078471317) 2.30 cm LVOT area (test code = 2871791795) 4.10 cm2 Ao root diam (test code = 0914185268) 3.30 cm Aortic root (test code = 7849888432) 3.3 cm Ao root annulus (test code = 2867268955) 3.3 cm LA size (test code = 8080348606) 4.0 cm TR Peak Jaclyn (test code = 6703868312) 274.2 cm/s Triscuspid Valve Regurgitation Peak Gradient (test code = 5218482779) 31.3 mmHg MV Prop V (test code = 3932220615) 56.10 cm/s MV Peak E Jaclyn (test code = 9151872907) 118.1 cm/s E wave decelartion time (test code = 1931724916) 0.18 s MV Peak A Jaclyn (test code = 4749661180) 34.7 cm/s E/A ratio (test code = 5404066126) 3.40 ratio MR max PG (test code = 9738138777) 89.80 mm[Hg] MR max jaclyn (test code = 2651985829) 473.80 cm/s Mr max jaclyn (test code = 7966668553) 473.8 m/s MV E/e' septal (test code = 0662922169) 11.0 cm/s TASV (test code = 2801026524) 13.9 cm/s Tapse (test code = 1965416337) 1.78 cm LVOT stroke volume (test code = 4084130058) 69.10 cm3 LVOT peak jaclyn (test code = 6206168281) 87.1 cm/s LVOT mn grad (test code = 9887300107) 1.4 mmHg AV LVOT peak gradient (test code = 2790404118) 3.1 mmHg LVOT peak VTI (test code = 6923504743) 16.7 cm LV V1 mean (test code = 8447400629) 52.20 cm/s Aortic valve mean velocity (test code = 0932252280) 82.6 cm/s Ao peak jaclyn (test code = 8582567623) 114.0 cm/s Ao VTI (test code = 2691407875) 22.4 cm AV area by cont VTI (test code = 8433231134) 3.1 cm2 AV area peak jaclyn (test code = 7507246672) 3.2 cm2 Ao max PG (test code = 7512697666) 5.20 mm[Hg] AV peak gradient (test code = 9635825540) 5.2 mmHg AV valve area (test code = 9117470654) 3.10 cm2 AV mean gradient (test code = 1470782732) 3.0 mmHg LAV(MOD-sp4) (test code = 1036709451) 120.40 mL LA Volume Index (BP) (test code = 4103721627) 63.1 mL/m2 LA volume (BP) (test code = 1485289219) 128.9 mL LAV(MOD-sp2) (test code = 1375353450) 127.60 mL IVC Diam Exp(MM) (test code = 8080533743) 2.34 cm IVC Diam Ins(MM) (test code = 7933126414) 3.20 cm A2C EF (test code = 5609754866) 44.30 % EF(sp2-el) (test code = 0018350434) 44.00 % SV(MOD-sp2) (test code = 3968623119) 68.80 mL LV Systolic Volume (BP) (test code = 4137654229) 97.5 mL A4C EF (test code = 3929583858) 38.60 % EF(MOD-bp) (test code = 5428287688) 39.90 % EF(sp4-el) (test code = 5340229482) 36.40 % LV Diastolic Volume (BP) (test code = 6084595822) 162.2 mL SV(MOD-bp) (test code = 1616896051) 64.80 mL SV(MOD-sp4) (test code = 2376993048) 62.80 mL SV(sp4-el) (test code = 0788227639) 60.80 mL EF (test code = 6121670489) 40 Left Ventricular Stroke Volume by 2-D Biplane-MOD (test code = 2876253) 64.8 mL LV Diastolic Volume Index (BP) (test code = 8724079076) 79.5 mL/m2 LV Systolic Volume Index (BP) (test code = 8840476034) 50.1 mL/m2 Radiology Study observation (narrative) (test code = 96205-3) ARMIDA (test code = ARMIDA) ?Left?Ventricle: Left ventricle size is normal. Moderately increased wall thickness. Moderately increased ventricular mass, LVMI 143 g/m2, RWT 0.64 Global hypokinesis present. Mildly reduced systolic function with a visually estimated EF of 40 - 45%. EF by 2D Whiting biplane is 40%. There is grade 2 diastolic dysfunction. Elevated left ventricular filling pressure. ?Left?Atrium: Left atrium is severely dilated. Left atrium volume index is 63.1 mL/m2. ?Right?Ventricle: Right ventricle size is normal. Normal systolic function. TAPSE is 1.78 cm. TDI-derived tricuspid annular systolic velocity (TDI S') is 13.9 cm/s. ?Aortic?Valve: Aortic valve opens well. Trace transvalvular regurgitation. No hemodynamically significant . ?Tricuspid?Valve: Not well visualized. Moderate transvalvular regurgitation with an eccentrically directed jet. Right ventricular systolic pressure is 45-50 mmHg. ?No systolic flow reversal seen in the hepatic veins. ?Mitral?Valve: Mild transvalvular regurgitation with an eccentrically directed jet, no Pulmonary veins Systolic flow reversal observed, no availabe Vena Contracta to appropriatly estimate MR Jet. ?IVC/SVC: IVC diameter is greater than 21 mm and decreases less than 50% during inspiration; therefore the estimated right atrial pressure is elevated (~15 mmHg). ?Pericardium: Small pericardial effusion present. No indication of cardiac tamponade. Left VentricleLeft ventricle size is normal. Moderately increased wall thickness. Moderately increased ventricular mass, LVMI 143 g/m2, RWT 0.64 Global hypokinesis present. Mildly reduced systolic function with a visually estimated EF of 40 - 45%. EF by 2D Whiting biplane is 40%. There is grade 2 diastolic dysfunction. Elevated left ventricular filling pressure.Right VentricleRight ventricle size is normal. Normal systolic function. TAPSE is 1.78 cm. TDI-derived tricuspid annular systolic velocity (TDI S') is 13.9 cm/s.Left AtriumLeft atrium is severely dilated. Left atrium volume index is 63.1 mL/m2.Right AtriumRight atrium is dilated.IVC/SVCIVC diameter is greater than 21 mm and decreases less than 50% during inspiration; therefore the estimated right atrial pressure is elevated (~15 mmHg).Mitral ValveMild transvalvular regurgitation with an eccentrically directed jet, no Pulmonary veins Systolic flow reversal observed, no availabe Vena Contracta to appropriatly estimate MR Jet.Tricuspid ValveNot well visualized. Moderate transvalvular regurgitation with an eccentrically directed jet. Right ventricular systolic pressure is 45-50 mmHg. No systolic flow reversal seen in the hepatic veins. No stenosis.Aortic ValveAortic valve opens well. Trace transvalvular regurgitation. No hemodynamically significant .Pulmonic ValveNot well visualized. Trace transvalvular regurgitation.Ascendin g AortaNormal sized sinus of Valsalva and aortic root.PericardiumSmall pericardial effusion present. No indication of cardiac tamponade.Study DetailsStudy quality was adequate. A complete echocardiogram was performed using 2D, color flow Doppler and spectral Doppler. 2 mL of Definity ultrasound enhancing agent used.Wall Scoring BaselineScore Index: 2.00The left ventricular wall motion is globally hypokinetic. [facility] [id number] 17:26:19* Test Item Value Reference Range Interpretation Comme nts Height (test code = 6555725999) 69 in Weight (test code = 7951219598) 195 lbs Systolic BP (test code = 1040005143) 115 mmHg Diastolic BP (test code = 5144310062) 65 mmHg Heart Rate (test code = 3778140162) 89 bpm BSA (test code = 3032312352) 2.04 m2 LVIDD (test code = 4369772108) 5.00 cm Left Ventricular End Diastolic Volume by Teichholz Method (test code = 5168919) 120.1 mL IVS (test code = 2489950948) 1.21 cm Interventricular Septum Diastolic Thickness by 2D (test code = 3391683) 1.21 cm LVPWD (test code = 3355821509) 1.60 cm PW (test code = 5537221036) 1.60 cm 0.6-1.1 EF(Teich) (test code = 0824248922) 43.00 % LVIDS (test code = 5436696607) 4.00 cm Left Ventricular End Systolic Volume by Teichholz Method (test code = 9058648) 68.4 mL FS (test code = 8245465046) 21 % EF - 2D (test code = 28891987) 43.00 % LVOT diameter (test code = 1080543186) 2.30 cm LVOT area (test code = 1507380770) 4.10 cm2 Ao root diam (test code = 3940619212) 3.30 cm Aortic root (test code = 4711091654) 3.3 cm Ao root annulus (test code = 3027867891) 3.3 cm LA size (test code = 4745082244) 4.0 cm TR Peak Jaclyn (test code = 4284824659) 274.2 cm/s Triscuspid Valve Regurgitation Peak Gradient (test code = 1940367648) 31.3 mmHg MV Prop V (test code = 9257947614) 56.10 cm/s MV Peak E Jaclyn (test code = 3802834620) 118.1 cm/s E wave decelartion time (test code = 3799710204) 0.18 s MV Peak A Jaclyn (test code = 8370653504) 34.7 cm/s E/A ratio (test code = 9073057172) 3.40 ratio MR max PG (test code = 3108945808) 89.80 mm[Hg] MR max jaclyn (test code = 5134660464) 473.80 cm/s Mr max jaclyn (test code = 8953609913) 473.8 m/s MV E/e' septal (test code = 0113700398) 11.0 cm/s TASV (test code = 6526267615) 13.9 cm/s Tapse (test code = 3492799367) 1.78 cm LVOT stroke volume (test code = 7653692035) 69.10 cm3 LVOT peak jaclyn (test code = 9313065680) 87.1 cm/s LVOT mn grad (test code = 0332395658) 1.4 mmHg AV LVOT peak gradient (test code = 4762781676) 3.1 mmHg LVOT peak VTI (test code = 0640450858) 16.7 cm LV V1 mean (test code = 7207900275) 52.20 cm/s Aortic valve mean velocity (test code = 7822679833) 82.6 cm/s Ao peak jaclyn (test code = 1276342777) 114.0 cm/s Ao VTI (test code = 6327705349) 22.4 cm AV area by cont VTI (test code = 0380480222) 3.1 cm2 AV area peak jaclyn (test code = 5700586197) 3.2 cm2 Ao max PG (test code = 1784929267) 5.20 mm[Hg] AV peak gradient (test code = 4693484416) 5.2 mmHg AV valve area (test code = 7352527505) 3.10 cm2 AV mean gradient (test code = 0763160467) 3.0 mmHg LAV(MOD-sp4) (test code = 2800335962) 120.40 mL LA Volume Index (BP) (test code = 2801518762) 63.1 mL/m2 LA volume (BP) (test code = 5862479320) 128.9 mL LAV(MOD-sp2) (test code = 9991402999) 127.60 mL IVC Diam Exp(MM) (test code = 3070720529) 2.34 cm IVC Diam Ins(MM) (test code = 1809376552) 3.20 cm A2C EF (test code = 2431597107) 44.30 % EF(sp2-el) (test code = 2101043492) 44.00 % SV(MOD-sp2) (test code = 6471558981) 68.80 mL LV Systolic Volume (BP) (test code = 5001778285) 97.5 mL A4C EF (test code = 2211723700) 38.60 % EF(MOD-bp) (test code = 9636142740) 39.90 % EF(sp4-el) (test code = 2205733621) 36.40 % LV Diastolic Volume (BP) (test code = 5845999100) 162.2 mL SV(MOD-bp) (test code = 0065282477) 64.80 mL SV(MOD-sp4) (test code = 0967862186) 62.80 mL SV(sp4-el) (test code = 5405329591) 60.80 mL EF (test code = 7118758958) 40 Left Ventricular Stroke Volume by 2-D Biplane-MOD (test code = 3877149) 64.8 mL LV Diastolic Volume Index (BP) (test code = 9931987752) 79.5 mL/m2 LV Systolic Volume Index (BP) (test code = 9330970080) 50.1 mL/m2 Radiology Study observation (narrative) (test code = 12301-7) ARMIDA (test code = ARMIDA) ?Left?Ventricle: Left ventricle size is normal. Moderately increased wall thickness. Moderately increased ventricular mass, LVMI 143 g/m2, RWT 0.64 Global hypokinesis present. Mildly reduced systolic function with a visually estimated EF of 40 - 45%. EF by 2D Whiting biplane is 40%. There is grade 2 diastolic dysfunction. Elevated left ventricular filling pressure. ?Left?Atrium: Left atrium is severely dilated. Left atrium volume index is 63.1 mL/m2. ?Right?Ventricle: Right ventricle size is normal. Normal systolic function. TAPSE is 1.78 cm. TDI-derived tricuspid annular systolic velocity (TDI S') is 13.9 cm/s. ?Aortic?Valve: Aortic valve opens well. Trace transvalvular regurgitation. No hemodynamically significant . ?Tricuspid?Valve: Not well visualized. Moderate transvalvular regurgitation with an eccentrically directed jet. Right ventricular systolic pressure is 45-50 mmHg. ?No systolic flow reversal seen in the hepatic veins. ?Mitral?Valve: Mild transvalvular regurgitation with an eccentrically directed jet, no Pulmonary veins Systolic flow reversal observed, no availabe Vena Contracta to appropriatly estimate MR Jet. ?IVC/SVC: IVC diameter is greater than 21 mm and decreases less than 50% during inspiration; therefore the estimated right atrial pressure is elevated (~15 mmHg). ?Pericardium: Small pericardial effusion present. No indication of cardiac tamponade. Left VentricleLeft ventricle size is normal. Moderately increased wall thickness. Moderately increased ventricular mass, LVMI 143 g/m2, RWT 0.64 Global hypokinesis present. Mildly reduced systolic function with a visually estimated EF of 40 - 45%. EF by 2D Whiting biplane is 40%. There is grade 2 diastolic dysfunction. Elevated left ventricular filling pressure.Right VentricleRight ventricle size is normal. Normal systolic function. TAPSE is 1.78 cm. TDI-derived tricuspid annular systolic velocity (TDI S') is 13.9 cm/s.Left AtriumLeft atrium is severely dilated. Left atrium volume index is 63.1 mL/m2.Right AtriumRight atrium is dilated.IVC/SVCIVC diameter is greater than 21 mm and decreases less than 50% during inspiration; therefore the estimated right atrial pressure is elevated (~15 mmHg).Mitral ValveMild transvalvular regurgitation with an eccentrically directed jet, no Pulmonary veins Systolic flow reversal observed, no availabe Vena Contracta to appropriatly estimate MR Jet.Tricuspid ValveNot well visualized. Moderate transvalvular regurgitation with an eccentrically directed jet. Right ventricular systolic pressure is 45-50 mmHg. No systolic flow reversal seen in the hepatic veins. No stenosis.Aortic ValveAortic valve opens well. Trace transvalvular regurgitation. No hemodynamically significant .Pulmonic ValveNot well visualized. Trace transvalvular regurgitation.Ascendin g AortaNormal sized sinus of Valsalva and aortic root.PericardiumSmall pericardial effusion present. No indication of cardiac tamponade.Study DetailsStudy quality was adequate. A complete echocardiogram was performed using 2D, color flow Doppler and spectral Doppler. 2 mL of Definity ultrasound enhancing agent used.Wall Scoring BaselineScore Index: 2.00The left ventricular wall motion is globally hypokinetic. [facility] [id number] 17:26:19* Test Item Value Reference Range Interpretation Comme nts Height (test code = 3953113711) 69 in Weight (test code = 7860593925) 195 lbs Systolic BP (test code = 1520471596) 115 mmHg Diastolic BP (test code = 0929800924) 65 mmHg Heart Rate (test code = 3882187701) 89 bpm BSA (test code = 0710825999) 2.04 m2 LVIDD (test code = 8043996652) 5.00 cm Left Ventricular End Diastolic Volume by Teichholz Method (test code = 6350659) 120.1 mL IVS (test code = 5708127111) 1.21 cm Interventricular Septum Diastolic Thickness by 2D (test code = 5946233) 1.21 cm LVPWD (test code = 2727475591) 1.60 cm PW (test code = 0783706872) 1.60 cm 0.6-1.1 EF(Teich) (test code = 6743125113) 43.00 % LVIDS (test code = 7374993563) 4.00 cm Left Ventricular End Systolic Volume by Teichholz Method (test code = 0808294) 68.4 mL FS (test code = 2433634615) 21 % EF - 2D (test code = 38127828) 43.00 % LVOT diameter (test code = 6084483314) 2.30 cm LVOT area (test code = 7820319996) 4.10 cm2 Ao root diam (test code = 2639469329) 3.30 cm Aortic root (test code = 2356446215) 3.3 cm Ao root annulus (test code = 9221134650) 3.3 cm LA size (test code = 8485371761) 4.0 cm TR Peak Jaclyn (test code = 4032742540) 274.2 cm/s Triscuspid Valve Regurgitation Peak Gradient (test code = 0297691371) 31.3 mmHg MV Prop V (test code = 2703607634) 56.10 cm/s MV Peak E Jaclyn (test code = 0038934831) 118.1 cm/s E wave decelartion time (test code = 1376301015) 0.18 s MV Peak A Jaclyn (test code = 3457729715) 34.7 cm/s E/A ratio (test code = 0014273996) 3.40 ratio MR max PG (test code = 4897598149) 89.80 mm[Hg] MR max jaclyn (test code = 2973309036) 473.80 cm/s Mr max jaclyn (test code = 6122528697) 473.8 m/s MV E/e' septal (test code = 5384713268) 11.0 cm/s TASV (test code = 4491109928) 13.9 cm/s Tapse (test code = 7355645583) 1.78 cm LVOT stroke volume (test code = 5094452459) 69.10 cm3 LVOT peak jaclyn (test code = 6562558805) 87.1 cm/s LVOT mn grad (test code = 8799160995) 1.4 mmHg AV LVOT peak gradient (test code = 0956742233) 3.1 mmHg LVOT peak VTI (test code = 7306909740) 16.7 cm LV V1 mean (test code = 1072177513) 52.20 cm/s Aortic valve mean velocity (test code = 9669538347) 82.6 cm/s Ao peak jaclyn (test code = 3521064395) 114.0 cm/s Ao VTI (test code = 9782080529) 22.4 cm AV area by cont VTI (test code = 0463825516) 3.1 cm2 AV area peak jaclyn (test code = 5260126451) 3.2 cm2 Ao max PG (test code = 5058562024) 5.20 mm[Hg] AV peak gradient (test code = 1057341497) 5.2 mmHg AV valve area (test code = 3686329988) 3.10 cm2 AV mean gradient (test code = 8876096294) 3.0 mmHg LAV(MOD-sp4) (test code = 7879547291) 120.40 mL LA Volume Index (BP) (test code = 2885397804) 63.1 mL/m2 LA volume (BP) (test code = 2477637094) 128.9 mL LAV(MOD-sp2) (test code = 9731377210) 127.60 mL IVC Diam Exp(MM) (test code = 5609304638) 2.34 cm IVC Diam Ins(MM) (test code = 1774596384) 3.20 cm A2C EF (test code = 1921237878) 44.30 % EF(sp2-el) (test code = 1959149023) 44.00 % SV(MOD-sp2) (test code = 6693399371) 68.80 mL LV Systolic Volume (BP) (test code = 3375398818) 97.5 mL A4C EF (test code = 4902022040) 38.60 % EF(MOD-bp) (test code = 1093595846) 39.90 % EF(sp4-el) (test code = 0047327622) 36.40 % LV Diastolic Volume (BP) (test code = 4344727000) 162.2 mL SV(MOD-bp) (test code = 2871634076) 64.80 mL SV(MOD-sp4) (test code = 2908068276) 62.80 mL SV(sp4-el) (test code = 5888171338) 60.80 mL EF (test code = 6557612325) 40 Left Ventricular Stroke Volume by 2-D Biplane-MOD (test code = 0900013) 64.8 mL LV Diastolic Volume Index (BP) (test code = 3504785854) 79.5 mL/m2 LV Systolic Volume Index (BP) (test code = 1824189902) 50.1 mL/m2 Radiology Study observation (narrative) (test code = 14859-1) ARMIDA (test code = ARMIDA) ?Left?Ventricle: Left ventricle size is normal. Moderately increased wall thickness. Moderately increased ventricular mass, LVMI 143 g/m2, RWT 0.64 Global hypokinesis present. Mildly reduced systolic function with a visually estimated EF of 40 - 45%. EF by 2D Whiting biplane is 40%. There is grade 2 diastolic dysfunction. Elevated left ventricular filling pressure. ?Left?Atrium: Left atrium is severely dilated. Left atrium volume index is 63.1 mL/m2. ?Right?Ventricle: Right ventricle size is normal. Normal systolic function. TAPSE is 1.78 cm. TDI-derived tricuspid annular systolic velocity (TDI S') is 13.9 cm/s. ?Aortic?Valve: Aortic valve opens well. Trace transvalvular regurgitation. No hemodynamically significant . ?Tricuspid?Valve: Not well visualized. Moderate transvalvular regurgitation with an eccentrically directed jet. Right ventricular systolic pressure is 45-50 mmHg. ?No systolic flow reversal seen in the hepatic veins. ?Mitral?Valve: Mild transvalvular regurgitation with an eccentrically directed jet, no Pulmonary veins Systolic flow reversal observed, no availabe Vena Contracta to appropriatly estimate MR Jet. ?IVC/SVC: IVC diameter is greater than 21 mm and decreases less than 50% during inspiration; therefore the estimated right atrial pressure is elevated (~15 mmHg). ?Pericardium: Small pericardial effusion present. No indication of cardiac tamponade. Left VentricleLeft ventricle size is normal. Moderately increased wall thickness. Moderately increased ventricular mass, LVMI 143 g/m2, RWT 0.64 Global hypokinesis present. Mildly reduced systolic function with a visually estimated EF of 40 - 45%. EF by 2D Whiting biplane is 40%. There is grade 2 diastolic dysfunction. Elevated left ventricular filling pressure.Right VentricleRight ventricle size is normal. Normal systolic function. TAPSE is 1.78 cm. TDI-derived tricuspid annular systolic velocity (TDI S') is 13.9 cm/s.Left AtriumLeft atrium is severely dilated. Left atrium volume index is 63.1 mL/m2.Right AtriumRight atrium is dilated.IVC/SVCIVC diameter is greater than 21 mm and decreases less than 50% during inspiration; therefore the estimated right atrial pressure is elevated (~15 mmHg).Mitral ValveMild transvalvular regurgitation with an eccentrically directed jet, no Pulmonary veins Systolic flow reversal observed, no availabe Vena Contracta to appropriatly estimate MR Jet.Tricuspid ValveNot well visualized. Moderate transvalvular regurgitation with an eccentrically directed jet. Right ventricular systolic pressure is 45-50 mmHg. No systolic flow reversal seen in the hepatic veins. No stenosis.Aortic ValveAortic valve opens well. Trace transvalvular regurgitation. No hemodynamically significant .Pulmonic ValveNot well visualized. Trace transvalvular regurgitation.Ascendin g AortaNormal sized sinus of Valsalva and aortic root.PericardiumSmall pericardial effusion present. No indication of cardiac tamponade.Study DetailsStudy quality was adequate. A complete echocardiogram was performed using 2D, color flow Doppler and spectral Doppler. 2 mL of Definity ultrasound enhancing agent used.Wall Scoring BaselineScore Index: 2.00The left ventricular wall motion is globally hypokinetic. [facility] [id number] 16:43:51* Test Item Value Reference Range Interpretation Comme nts AFP (test code = 2226862016) 1.3 ng/mL <=7.5 ARMIDA (test code = ARMIDA) Biotin has been reported to cause a negative bias, interpret results relative to patient's use of biotin.The [employer] AFP assay was used. ?Results obtained with different test methods or kits may be different and cannot be used interchangeably. Lab Interpretation (test code = 49393-6) Normal [facility] [id number] 16:43:51* Test Item Value Reference Range Interpretation Comme nts AFP (test code = 4960180151) 1.3 ng/mL <=7.5 ARMIDA (test code = ARMIDA) Biotin has been reported to cause a negative bias, interpret results relative to patient's use of biotin.[employer] AFP assay was used. ?Results obtained with different test methods or kits may be different and cannot be used interchangeably. Lab Interpretation (test code = 80165-1) Normal [facility] [id number] 16:43:51* Test Item Value Reference Range Interpretation Comme nts AFP (test code = 0119481977) 1.3 ng/mL <=7.5 ARMIDA (test code = ARMIDA) Biotin has been reported to cause a negative bias, interpret results relative to patient's use of biotin.[employer] AFP assay was used. ?Results obtained with different test methods or kits may be different and cannot be used interchangeably. Lab Interpretation (test code = 54249-7) Normal [facility] [id number] 16:43:51* Test Item Value Reference Range Interpretation Comme nts AFP (test code = 5361830631) 1.3 ng/mL <=7.5 ARMIDA (test code = ARMIDA) Biotin has been reported to cause a negative bias, interpret results relative to patient's use of biotin.[employer] AFP assay was used. ?Results obtained with different test methods or kits may be different and cannot be used interchangeably. Lab Interpretation (test code = 03232-8) [facility] 30 minutes after transfusion of each [id number] 15:17:38* Test Item Value Reference Range Interpretation Comme nts WBC (test code = 6690-2) 5.13 4.20-10.70 RBC (test code = 789-8) 2.67 4.26-5.52 L HGB (test code = 718-7) 6.4 g/dL 12.2-16.4 L HCT (test code = 4544-3) 20.7 % 38.4-49.3 L MCH (test code = 785-6) 24.0 pg 26.1-32.7 L MCV (test code = 787-2) 77.5 fL 81.7-95.6 L MCHC (test code = 786-4) 30.9 g/dL 31.2-35.0 L PLT (test code = 777-3) 278 150-328 MPV (test code = 33740-8) 9.9 fL 9.8-13.0 RDW-CV (test code = 788-0) 19.3 % 12.1-15.4 H RDW-SD (test code = 36758-1) 54.3 fL 38.5-51.6 H NRBC x10^3 (test code = 3898934143) 0.12 See_Comment [Automated [employer]] The system which generated this result transmitted reference range: 10*3/?L. The reference range was not used to interpret this result as normal/abnormal. NRBC/100 WBC (test code = 6622004670) 2.3 0.0-10.0 IPF % (test code = 2431003512) Lab Interpretation (test code = 94474-2) [facility] 30 minutes after transfusion of each [id number] 15:17:38* Test Item Value Reference Range Interpretation Comme nts WBC (test code = 6690-2) 5.13 4.20-10.70 RBC (test code = 789-8) 2.67 4.26-5.52 L HGB (test code = 718-7) 6.4 g/dL 12.2-16.4 L HCT (test code = 4544-3) 20.7 % 38.4-49.3 L MCH (test code = 785-6) 24.0 pg 26.1-32.7 L MCV (test code = 787-2) 77.5 fL 81.7-95.6 L MCHC (test code = 786-4) 30.9 g/dL 31.2-35.0 L PLT (test code = 777-3) 278 150-328 MPV (test code = 37874-3) 9.9 fL 9.8-13.0 RDW-CV (test code = 788-0) 19.3 % 12.1-15.4 H RDW-SD (test code = 91067-5) 54.3 fL 38.5-51.6 H NRBC x10^3 (test code = 2066696678) 0.12 See_Comment [[employer]ated [employer]] The system which generated this result transmitted reference range: 10*3/?L. The reference range was not used to interpret this result as normal/abnormal. NRBC/100 WBC (test code = 4640669190) 2.3 0.0-10.0 IPF % (test code = 3355036546) Lab Interpretation (test code = 90056-0) [facility]normal [facility] 30 minutes after transfusion of each [id number] 15:17:38* Test Item Value Reference Range Interpretation Comme nts WBC (test code = 6690-2) 5.13 4.20-10.70 RBC (test code = 789-8) 2.67 4.26-5.52 L HGB (test code = 718-7) 6.4 g/dL 12.2-16.4 L HCT (test code = 4544-3) 20.7 % 38.4-49.3 L MCH (test code = 785-6) 24.0 pg 26.1-32.7 L MCV (test code = 787-2) 77.5 fL 81.7-95.6 L MCHC (test code = 786-4) 30.9 g/dL 31.2-35.0 L PLT (test code = 777-3) 278 150-328 MPV (test code = 50273-3) 9.9 fL 9.8-13.0 RDW-CV (test code = 788-0) 19.3 % 12.1-15.4 H RDW-SD (test code = 92059-4) 54.3 fL 38.5-51.6 H NRBC x10^3 (test code = 7479506853) 0.12 See_Comment [Automated [employer] The system which generated this result transmitted reference range: 10*3/?L. The reference range was not used to interpret this result as normal/abnormal. NRBC/100 WBC (test code = 6889316456) 2.3 0.0-10.0 IPF % (test code = 7341724978) Lab Interpretation (test code = 42776-5) [facility]normal [facility] 30 minutes after transfusion of each [id number] 15:17:38* Test Item Value Reference Range Interpretation Comme nts WBC (test code = 6690-2) 5.13 4.20-10.70 RBC (test code = 789-8) 2.67 4.26-5.52 L HGB (test code = 718-7) 6.4 g/dL 12.2-16.4 L HCT (test code = 4544-3) 20.7 % 38.4-49.3 L MCH (test code = 785-6) 24.0 pg 26.1-32.7 L MCV (test code = 787-2) 77.5 fL 81.7-95.6 L MCHC (test code = 786-4) 30.9 g/dL 31.2-35.0 L PLT (test code = 777-3) 278 150-328 MPV (test code = 67892-5) 9.9 fL 9.8-13.0 RDW-CV (test code = 788-0) 19.3 % 12.1-15.4 H RDW-SD (test code = 15471-9) 54.3 fL 38.5-51.6 H NRBC x10^3 (test code = 4628285258) 0.12 See_Comment [Automated [employer] The system which generated this result transmitted reference range: 10*3/?L. The reference range was not used to interpret this result as normal/abnormal. NRBC/100 WBC (test code = 8069395836) 2.3 0.0-10.0 IPF % (test code = 2420204017) Lab Interpretation (test code = 76385-3) Abnormal [facility] Packed RBC (in units), 2 Units 2024-07-27 14:39:52* Test Item Value Reference Range Interpretation Comme nts Cross Match Result (test code = 4409) Compatible ISBT Blood Type Code (test code = 484344) 6200 Unit Blood Type (test code = 4410) A Pos Unit Number (test code = 4411) [id number] Blood Expiration Date & Time (test code = 651437) 895630635228 Status Information (test code = 4412) Issued Product Identification (test code = 4413) Red Blood Cells Product Code (test code = 4414) [id number] Performed at [facility] Laboratory [facility] Blood [address] Free: [phone] No. [id number] [facility] Packed RBC (in units), 2 Units 2024-07-27 14:39:52* Test Item Value Reference Range Interpretation Comme nts Cross Match Result (test code = 4409) Compatible ISBT Blood Type Code (test code = 411296) 6200 Unit Blood Type (test code = 4410) A Pos Unit Number (test code = 4411) [id number] Blood Expiration Date & Time (test code = 587657) 671777381588 Status Information (test code = 4412) Issued Product Identification (test code = 4413) Red Blood Cells Product Code (test code = 4414) [id number] Performed at [facility] Blood [address] Free: [phone] No. [id number] [facility] Packed RBC (in units), 2 Units 2024-07-27 14:39:52* Test Item Value Reference Range Interpretation Comme nts Cross Match Result (test code = 4409) Compatible ISBT Blood Type Code (test code = 314968) 6200 Unit Blood Type (test code = 4410) A Pos Unit Number (test code = 4411) [id number] Blood Expiration Date & Time (test code = 010740) 203139525614 Status Information (test code = 4412) Issued Product Identification (test code = 4413) Red Blood Cells Product Code (test code = 4414) [id number] Performed at [facility] Blood [address] Free: [phone] No. [id number] [facility] P[facility] RBC (in units), 2 Units 2024-07-27 14:39:52* Test Item Value Reference Range Interpretation Comme nts Cross Match Result (test code = 4409) Compatible ISBT Blood Type Code (test code = 241997) 6200 Unit Blood Type (test code = 4410) A Pos Unit Number (test code = 4411) [id number] Blood Expiration Date & Time (test code = 637548) 984741344376 Status Information (test code = 4412) Issued Product Identification (test code = 4413) Red Blood Cells Product Code (test code = 4414) [id number] Performed at [address] Free: [phone] No. [id number] [facility] [id number] 12:27:42EXAM: CT ABDOMEN PELVIS W CONTRAST HISTORY: 73 years-old Male; Provided indication: ABDOMINAL TENDERNESS. TECHNIQUE: Contiguous axial imaging from the level of the lung basesthrough the proximal thighs was performed with intravenous contrast.Coronal and sagittal reconstructions were obtained. COMPAR UANG: None FINDINGS: LOWER THORAX: The lung bases are clear.Mild cardiomegaly. LIVER: The liver is normal in size and contour. Innumerable hypodenselesions are noted throughout the liver; some of these exhibit simple fluidattenuation while others are small to characterize. GALLBLADDER AND BILIARY TREE: The gallbladder appears unremarkable.Cholelithiasis is seen. No intra or extrahepatic biliary du ctal dilation. SPLEEN: Spleen is normal in size. PANCREAS: Fatty atrophy of the pancreas. No ductaldilation or masses. ADRENAL GLANDS: No adrenal masses. KIDNEYS: Bilateral subcentimeter hypodensities too small to further likelyrepresent renal cysts. No hydronephrosis or stones. PELVIS/BLADDER: The bladder is partially collapsed, which limitsevaluation. Normal prostate. GI TRACT: No dilation or bowel wall thickening is seen. Distal colonicdiverticulosis. The appendix is not definitively visualized, however, nosecondary signs of appendicitis are seen. PERITONEUM AND RETROPERITONEUM: No intra-abdominal free air or fluidcollection is visualized. LYMPH NODES: No lymphadenopathy. VESSELS: Mild atherosclerosis is seen. BONES AND SOFT TISSUES: No suspicious lytic or sclerotic bony lesions arepresent.[facility] ABDOMEN PELVIS W [id number] 12:27:42EXAM: CT ABDOMEN PELVIS W CONTRAST HISTORY: 73 years-old Male; Provided indication: ABDOMINAL TENDERNESS. TECHNIQUE: Contiguous axial imaging from the level of the lung basesthrough the proximal thighs was performed with intravenous contrast.Coronal and sagittal reconstructions were obtained. COMPARISON: None FINDINGS: LOWER THORAX: The lung bases are clear.Mild cardiomegaly. LIVER: The liver is normal in size and contour. Innumerable hypodenselesions are noted throughout the liver; some of these exhibit simple fluidattenuation while others are small to characterize. GALLBLADDER AND BILIARY TREE: The gallbladder appears unremarkable.Cholelithiasis is seen. No intra or extrahepatic biliary ductal dilation. SPLEEN: Spleen is normal in size. PANCREAS: Fatty atrophy of the pancreas. No ductaldilation or masses. ADRENAL GLANDS: No adrenal masses. KIDNEYS: Bilateral subcentimeter hypodensities too small to further likelyrepresent renal cysts. No hydronephrosis or stones. PELVIS/BLADDER: The bladder is partially collapsed, which limitsevaluation. Normal prostate. GI TRACT: No dilation or bowel wall thickening is seen. Distal colonicdiverticulosis. The appendix is not definitively visualized, however, nosecondary signs of appendicitis are seen. PERITONEUM AND RETROPERITONEUM: No intra-abdominal free air or fluidcollection is visualized. LYMPH NODES: No lymphadenopathy. VESSELS: Mild atherosclerosis is seen. BONES AND SOFT TISSUES: No suspicious lytic or sclerotic bony lesions arepresent.[facility] ABDOMEN PELVIS W [id number] 12:27:42EXAM: CT ABDOMEN PELVIS W CONTRAST HISTORY: 73 years-old Male; Provided indication: ABDOMINAL TENDERNESS. TECHNIQUE: Contiguous axial imaging from the level of the lung basesthrough the proximal thighs was performed with intravenous contrast.Coronal and sagittal reconstructions were obtained. COMPARISON: None FINDINGS: LOWER THORAX: The lung bases are clear.Mild cardiomegaly. LIVER: The liver is normal in size and contour. Innumerable hypodenselesions are noted throughout the liver; some of these exhibit simple fluidattenuation while others are small to characterize. GALLBLADDER AND BILIARY TREE: The gallbladder appears unremarkable.Cholelithiasis is seen. No intra or extrahepatic biliary ductal dilation. SPLEEN: Spleen is normal in size. PANCREAS: Fatty atrophy of the pancreas. No ductaldilation or masses. ADRENAL GLANDS: No adrenal masses. KIDNEYS: Bilateral subcentimeter hypodensities too small to further likelyrepresent renal cysts. No hydronephrosis or stones. PELVIS/BLADDER: The bladder is partially collapsed, which limitsevaluation. Normal prostate. GI TRACT: No dilation or bowel wall thickening is seen. Distal colonicdiverticulosis. The appendix is not definitively visualized, however, nosecondary signs of appendicitis are seen. PERITONEUM AND RETROPERITONEUM: No intra-abdominal free air or fluidcollection is visualized. LYMPH NODES: No lymphadenopathy. VESSELS: Mild atherosclerosis is seen. BONES AND SOFT TISSUES: No suspicious lytic or sclerotic bony lesions arepresent.[facility] [id number] 12:27:42EXAM: CT ABDOMEN PELVIS W CONTRAST HISTORY: 73 years-old Male; Provided indication: ABDOMINAL TENDERNESS. TECHNIQUE: Contiguous axial imaging from the level of the lung basesthrough the proximal thighs was performed with intravenous contrast.Coronal and sagittal reconstructions were obtained. COMPARISON: None FINDINGS: LOWER THORAX: The lung bases are clear.Mild cardiomegaly. LIVER: The liver is normal in size and contour. Innumerable hypodenselesions are noted throughout the liver; some of these exhibit simple fluidattenuation while others are small to characterize. GALLBLADDER AND BILIARY TREE: The gallbladder appears unremarkable.Cholelithiasis is seen. No intra or extrahepatic biliary ductal dilation. SPLEEN: Spleen is normal in size. PANCREAS: Fatty atrophy of the pancreas. No ductaldilation or masses. ADRENAL GLANDS: No adrenal masses. KIDNEYS: Bilateral subcentimeter hypodensities too small to further likelyrepresent renal cysts. No hydronephrosis or stones. PELVIS/BLADDER: The bladder is partially collapsed, which limitsevaluation. Normal prostate. GI TRACT: No dilation or bowel wall thickening is seen. Distal colonicdiverticulosis. The appendix is not definitively visualized, however, nosecondary signs of appendicitis are seen. PERITONEUM AND RETROPERITONEUM: No intra-abdominal free air or fluidcollection is visualized. LYMPH NODES: No lymphadenopathy. VESSELS: Mild atherosclerosis is seen. BONES AND SOFT TISSUES: No suspicious lytic or sclerotic bony lesions arepresent.[facility] Metabolic Panel (NA, K, CL, CO2, GLUCOSE, BUN, CREATININE, CA)2024-07-27 11:02:29* Test Item Value Reference Range Interpretation Comme nts NA (test code = 5764447798) 141 mmol/L 135-145 K (test code = 7597599894) 4.2 mmol/L 3.5-5.0 CL (test code = 7950591112) 109 mmol/L 98-108 H CO2 TOTAL (test code = 2605627796) 22 mmol/L 23-31 L AGAP (test code = 7834941565) 10 2-16 BUN (test code = 1967864431) 27 mg/dL 7-23 H GLUCOSE (test code = 1946822701) 95 mg/dL 70-110 CREATININE (test code = 2160-0) 1.02 mg/dL 0.60-1.25 CALCIUM (test code = 4723436797) 7.6 mg/dL 8.6-10.6 L eGFR (test code = 50517-9) 78.6 mL/min/1.73m2 CKD-EPI eGFR (2020). Assuming creatinine has been stable day-to-day for at least three months, the eGFR indicates Category G2 (60 - 89 mL/min/1.73 m2) Lab Interpretation (test code = 95291-1) Abnormal [facility] Metabolic Panel (NA, K, CL, CO2, GLUCOSE, BUN, CREATININE, CA)2024-07-27 11:02:29* Test Item Value Reference Range Interpretation Comme nts NA (test code = 6443493601) 141 mmol/L 135-145 K (test code = 1536265102) 4.2 mmol/L 3.5-5.0 CL (test code = 2912472684) 109 mmol/L 98-108 H CO2 TOTAL (test code = 1315190532) 22 mmol/L 23-31 L AGAP (test code = 8548608594) 10 2-16 BUN (test code = 8070246036) 27 mg/dL 7-23 H GLUCOSE (test code = 5285532279) 95 mg/dL 70-110 CREATININE (test code = 2160-0) 1.02 mg/dL 0.60-1.25 CALCIUM (test code = 7177254980) 7.6 mg/dL 8.6-10.6 L eGFR (test code = 52984-7) 78.6 mL/min/1.73m2 CKD-EPI eGFR (2020). Assuming creatinine has been stable day-to-day for at least three months, the eGFR indicates Category G2 (60 - 89 mL/min/1.73 m2) Lab Interpretation (test code = 11471-5) Abnormal [facility] Metabolic Panel (NA, K, CL, CO2, GLUCOSE, BUN, CREATININE, CA)2024-07-27 11:02:29* Test Item Value Reference Range Interpretation Comme nts NA (test code = 0810259299) 141 mmol/L 135-145 K (test code = 3004729430) 4.2 mmol/L 3.5-5.0 CL (test code = 5161548040) 109 mmol/L 98-108 H CO2 TOTAL (test code = 3141332381) 22 mmol/L 23-31 L AGAP (test code = 0163607154) 10 2-16 BUN (test code = 0344366238) 27 mg/dL 7-23 H GLUCOSE (test code = 8447334621) 95 mg/dL 70-110 CREATININE (test code = 2160-0) 1.02 mg/dL 0.60-1.25 CALCIUM (test code = 4830643188) 7.6 mg/dL 8.6-10.6 L eGFR (test code = 29129-4) 78.6 mL/min/1.73m2 CKD-EPI eGFR (2020). Assuming creatinine has been stable day-to-day for at least three months, the eGFR indicates Category G2 (60 - 89 mL/min/1.73 m2) Lab Interpretation (test code = 91487-2) Abnormal [facility] Metabolic Panel (NA, K, CL, CO2, GLUCOSE, BUN, CREATININE, CA)2024-07-27 11:02:29* Test Item Value Reference Range Interpretation Comme nts NA (test code = 7493253794) 141 mmol/L 135-145 K (test code = 0472306420) 4.2 mmol/L 3.5-5.0 CL (test code = 7093522885) 109 mmol/L 98-108 H CO2 TOTAL (test code = 2272058501) 22 mmol/L 23-31 L AGAP (test code = 5729321155) 10 2-16 BUN (test code = 2091197126) 27 mg/dL 7-23 H GLUCOSE (test code = 8139526136) 95 mg/dL 70-110 CREATININE (test code = 2160-0) 1.02 mg/dL 0.60-1.25 CALCIUM (test code = 5879741730) 7.6 mg/dL 8.6-10.6 L eGFR (test code = 40691-0) 78.6 mL/min/1.73m2 CKD-EPI eGFR (2020). Assuming creatinine has been stable day-to-day for at least three months, the eGFR indicates Category G2 (60 - 89 mL/min/1.73 m2) Lab Interpretation (test code = 22164-8) Abnormal [facility] without [id number] 10:51:03* Test Item Value Reference Range Interpretation Comme nts WBC (test code = 6690-2) 5.29 4.20-10.70 RBC (test code = 789-8) 2.25 4.26-5.52 L HGB (test code = 718-7) 5.3 g/dL 12.2-16.4 L HCT (test code = 4544-3) 17.3 % 38.4-49.3 L MCH (test code = 785-6) 23.6 pg 26.1-32.7 L MCV (test code = 787-2) 76.9 fL 81.7-95.6 L MCHC (test code = 786-4) 30.6 g/dL 31.2-35.0 L PLT (test code = 777-3) 295 150-328 MPV (test code = 20482-8) 10.2 fL 9.8-13.0 RDW-CV (test code = 788-0) 20.3 % 12.1-15.4 H RDW-SD (test code = 93298-8) 56.4 fL 38.5-51.6 H NRBC x10^3 (test code = 8560694580) 0.08 See_Comment [[employer]ated [employer]] The system which generated this result transmitted reference range: 10*3/?L. The reference range was not used to interpret this result as normal/abnormal. NRBC/100 WBC (test code = 9039129688) 1.5 0.0-10.0 IPF % (test code = 9529416201) Lab Interpretation (test code = 49579-6) Abnormal [facility] without [id number] 10:51:03* Test Item Value Reference Range Interpretation Comme nts WBC (test code = 6690-2) 5.29 4.20-10.70 RBC (test code = 789-8) 2.25 4.26-5.52 L HGB (test code = 718-7) 5.3 g/dL 12.2-16.4 L HCT (test code = 4544-3) 17.3 % 38.4-49.3 L MCH (test code = 785-6) 23.6 pg 26.1-32.7 L MCV (test code = 787-2) 76.9 fL 81.7-95.6 L MCHC (test code = 786-4) 30.6 g/dL 31.2-35.0 L PLT (test code = 777-3) 295 150-328 MPV (test code = 03008-7) 10.2 fL 9.8-13.0 RDW-CV (test code = 788-0) 20.3 % 12.1-15.4 H RDW-SD (test code = 07907-3) 56.4 fL 38.5-51.6 H NRBC x10^3 (test code = 2699912890) 0.08 See_Comment [[employer]] The system which generated this result transmitted reference range: 10*3/?L. The reference range was not used to interpret this result as normal/abnormal. NRBC/100 WBC (test code = 7632775141) 1.5 0.0-10.0 IPF % (test code = 7499199358) Lab Interpretation (test code = 19969-7) Abnormal [facility] without [id number] 10:51:03* Test Item Value Reference Range Interpretation Comme nts WBC (test code = 6690-2) 5.29 4.20-10.70 RBC (test code = 789-8) 2.25 4.26-5.52 L HGB (test code = 718-7) 5.3 g/dL 12.2-16.4 L HCT (test code = 4544-3) 17.3 % 38.4-49.3 L MCH (test code = 785-6) 23.6 pg 26.1-32.7 L MCV (test code = 787-2) 76.9 fL 81.7-95.6 L MCHC (test code = 786-4) 30.6 g/dL 31.2-35.0 L PLT (test code = 777-3) 295 150-328 MPV (test code = 58022-7) 10.2 fL 9.8-13.0 RDW-CV (test code = 788-0) 20.3 % 12.1-15.4 H RDW-SD (test code = 42587-2) 56.4 fL 38.5-51.6 H NRBC x10^3 (test code = 6415042918) 0.08 See_Comment [Automated [employer] ge] The system which generated this result transmitted reference range: 10*3/?L. The reference range was not used to interpret this result as normal/abnormal. NRBC/100 WBC (test code = 0501127207) 1.5 0.0-10.0 IPF % (test code = 6725708189) Lab Interpretation (test code = 30854-2) Abnormal [facility] without [id number] 10:51:03* Test Item Value Reference Range Interpretation Comme nts WBC (test code = 6690-2) 5.29 4.20-10.70 RBC (test code = 789-8) 2.25 4.26-5.52 L HGB (test code = 718-7) 5.3 g/dL 12.2-16.4 L HCT (test code = 4544-3) 17.3 % 38.4-49.3 L MCH (test code = 785-6) 23.6 pg 26.1-32.7 L MCV (test code = 787-2) 76.9 fL 81.7-95.6 L MCHC (test code = 786-4) 30.6 g/dL 31.2-35.0 L PLT (test code = 777-3) 295 150-328 MPV (test code = 00214-1) 10.2 fL 9.8-13.0 RDW-CV (test code = 788-0) 20.3 % 12.1-15.4 H RDW-SD (test code = 30880-1) 56.4 fL 38.5-51.6 H NRBC x10^3 (test code = 8578906999) 0.08 See_Comment [Automated messa ge] The system which generated this result transmitted reference range: 10*3/?L. The reference range was not used to interpret this result as normal/abnormal. NRBC/100 WBC (test code = 9281075169) 1.5 0.0-10.0 IPF % (test code = 2196058381) Lab Interpretation (test code = 73123-6) [facility]normal [facility] (in units), 2 Units 2024-07-27 07:52:58* Test Item Value Reference Range Interpretation Comme nts Cross Match Result (test code = 4409) Compatible ISBT Blood Type Code (test code = 880039) 6200 Unit Blood Type (test code = 4410) A Pos Unit Number (test code = 4411) [id number] Blood Expiration Date & Time (test code = 953728) 627723202355 Status Information (test code = 4412) Issued Product Identification (test code = 4413) Red Blood Cells Product Code (test code = 4414) [id number] Performed at [facility] B Laboratory Services - [facility] Blood [address] [place] [address]Izvi Free: [phone] No. [id number] [facility] Packed RBC (in units), 2 Units 2024-07-27 07:52:58* Test Item Value Reference Range Interpretation Comme nts Cross Match Result (test code = 4409) Compatible ISBT Blood Type Code (test code = 064214) 6200 Unit Blood Type (test code = 4410) A Pos Unit Number (test code = 4411) [id number] Blood Expiration Date & Time (test code = 318841) 324198013394 Status Information (test code = 4412) Issued Product Identification (test code = 4413) Red Blood Cells Product Code (test code = 4414) [id number] Performed at [facility] Blood [address] [address]Kdpe Free: [phone] No. [id number] [facility] Packed RBC (in units), 2 Units 2024-07-27 07:52:58* Test Item Value Reference Range Interpretation Comme nts Cross Match Result (test code = 4409) Compatible ISBT Blood Type Code (test code = 306967) 6200 Unit Blood Type (test code = 4410) A Pos Unit Number (test code = 4411) [id number] Blood Expiration Date & Time (test code = 570154) 713206611194 Status Information (test code = 4412) Issued Product Identification (test code = 4413) Red Blood Cells Product Code (test code = 4414) [id number] Performed at [facility] Blood [address] [address]Rdsh Free: [phone] No. [id number] [facility] Packed RBC (in units), 2 Units 2024-07-27 07:52:58* Test Item Value Reference Range Interpretation Comme nts Cross Match Result (test code = 4409) Compatible ISBT Blood Type Code (test code = 931284) 6200 Unit Blood Type (test code = 4410) A Pos Unit Number (test code = 4411) [id number] Blood Expiration Date & Time (test code = 647759) 202274755271 Status Information (test code = 4412) Issued Product Identification (test code = 4413) Red Blood Cells Product Code (test code = 4414) [id number] Performed at [facility] Laboratory Services [facility] Blood [address] [address]Rpnm Free: [phone] No. [id number] [facility] + Lactic [id number] 05:32:50* Test Item Value Reference Range Interpretation Comme nts PH (test code = 7606712899) 7.44 7.32-7.42 H PCO2 LASHAWN (test code = 5905613438) 29 41-51 L PO2 LASHAWN (test code = 0542326904) 16 25-40 L HCO3 LASHAWN (test code = 7970926847) 19 24-28 L AC VBE(BEAKER) (test code = 4504470796) -4.7 mEq/L THB LASHAWN (test code = 0251774848) 3.9 g/dL 13.5-18.0 LL %O2HB LASHAWN (test code = 9780847832) 25.1 % 52.0-63.0 L %COHB LASHAWN (test code = 8655283487) 1.8 % 0.0-1.5 H %METHB LASHAWN (test code = 5029967758) 0.4 % 0.4-1.5 VOL%O2 LASHAWN (test code = 7789274542) 1.4 % 6.0-12.0 L NA (test code = 5360844856) 139 mmol/L 135-145 K+ (test code = 0865440500) 3.8 mmol/L 3.5-5.0 AC CA IONZ (test code = 7555959948) 4.40 mg/dL 4.50-5.30 L GLUCOSE (test code = 9835965705) 116 mg/dL 70-110 H LACTIC ACID (test code = 4939232066) 1.87 mmol/L 0.50-2.20 QUES Lab Interpretation (test cod e = 55246-5) [facility]normal [facility] Lactic [id number] 05:32:50* Test Item Value Reference Range Interpretation Comme nts PH (test code = 1128817642) 7.44 7.32-7.42 H PCO2 LASHAWN (test code = 0058949226) 29 41-51 L PO2 LASHAWN (test code = 8737041914) 16 25-40 L HCO3 LASHAWN (test code = 1758251415) 19 24-28 L AC VBE(BEAKER) (test code = 7590159242) -4.7 mEq/L THB LASHAWN (test code = 9766863198) 3.9 g/dL 13.5-18.0 LL %O2HB LASHAWN (test code = 2399380225) 25.1 % 52.0-63.0 L %COHB LASHAWN (test code = 6780926620) 1.8 % 0.0-1.5 H %METHB LASHAWN (test code = 8771577300) 0.4 % 0.4-1.5 VOL%O2 LASHAWN (test code = 2033528634) 1.4 % 6.0-12.0 L NA (test code = 2720734552) 139 mmol/L 135-145 K+ (test code = 7901112132) 3.8 mmol/L 3.5-5.0 AC CA IONZ (test code = 7507994586) 4.40 mg/dL 4.50-5.30 L GLUCOSE (test code = 9182423744) 116 mg/dL 70-110 H LACTIC ACID (test code = 8592027676) 1.87 mmol/L 0.50-2.20 QUES Lab Interpretation (test cod e = 12020-6) [facility]normal [facility] + Lactic [id number] 05:32:50* Test Item Value Reference Range Interpretation Comme nts PH (test code = 4985958045) 7.44 7.32-7.42 H PCO2 LASHAWN (test code = 3643446139) 29 41-51 L PO2 LASHAWN (test code = 1914292928) 16 25-40 L HCO3 LASHAWN (test code = 2547661505) 19 24-28 L AC VBE(BEAKER) (test code = 4442983318) -4.7 mEq/L THB LASHAWN (test code = 1144544763) 3.9 g/dL 13.5-18.0 LL %O2HB LASHAWN (test code = 9150333434) 25.1 % 52.0-63.0 L %COHB LASHAWN (test code = 8555514499) 1.8 % 0.0-1.5 H %METHB LASHAWN (test code = 7999312120) 0.4 % 0.4-1.5 VOL%O2 LASHAWN (test code = 5851248749) 1.4 % 6.0-12.0 L NA (test code = 7657894134) 139 mmol/L 135-145 K+ (test code = 3263238330) 3.8 mmol/L 3.5-5.0 AC CA IONZ (test code = 3376046589) 4.40 mg/dL 4.50-5.30 L GLUCOSE (test code = 0834903218) 116 mg/dL 70-110 H LACTIC ACID (test code = 0238448831) 1.87 mmol/L 0.50-2.20 QUES Lab Interpretation (test cod e = 94523-5) [facility]normal [facility] + Lactic [id number] 05:32:50* Test Item Value Reference Range Interpretation Comme nts PH (test code = 4566359123) 7.44 7.32-7.42 H PCO2 LASHAWN (test code = 4087342156) 29 41-51 L PO2 LASHAWN (test code = 0283402094) 16 25-40 L HCO3 LASHAWN (test code = 6002836204) 19 24-28 L AC VBE(BEAKER) (test code = 2337895190) -4.7 mEq/L THB LASHAWN (test code = 1284197422) 3.9 g/dL 13.5-18.0 LL %O2HB LASHAWN (test code = 4106672426) 25.1 % 52.0-63.0 L %COHB LASHAWN (test code = 6566568203) 1.8 % 0.0-1.5 H %METHB LASHAWN (test code = 4323692842) 0.4 % 0.4-1.5 VOL%O2 LASHAWN (test code = 4609909114) 1.4 % 6.0-12.0 L NA (test code = 6620842925) 139 mmol/L 135-145 K+ (test code = 7498116236) 3.8 mmol/L 3.5-5.0 AC CA IONZ (test code = 7388814364) 4.40 mg/dL 4.50-5.30 L GLUCOSE (test code = 1326357860) 116 mg/dL 70-110 H LACTIC ACID (test code = 8911498168) 1.87 mmol/L 0.50-2.20 QUES Lab Interpretation (test cod e = 45810-5) Abnormal [facility] WITH [id number] 01:25:14* Test Item Value Reference Range Interpretation Comme nts WBC (test code = 6690-2) 4.84 4.20-10.70 RBC (test code = 789-8) 1.51 4.26-5.52 L HGB (test code = 718-7) 2.7 g/dL 12.2-16.4 LL HCT (test code = 4544-3) 10.8 % 38.4-49.3 LL MCV (test code = 787-2) 71.5 fL 81.7-95.6 L MCH (test code = 785-6) 17.9 pg 26.1-32.7 L MCHC (test code = 786-4) 25.0 g/dL 31.2-35.0 L RDW-SD (test code = 30992-1) 51.6 fL 38.5-51.6 RDW-CV (test code = 788-0) 19.8 % 12.1-15.4 H PLT (test code = 777-3) 353 150-328 H MPV (test code = 23492-9) 9.4 fL 9.8-13.0 L IPF % (test code = 5190997053) 2.3 % 1.2-10.7 Platelet count measured by fluorescence method. NRBC/100 WBC (test code = 8888708722) 1.7 0.0-10.0 NRBC x10^3 (test code = 8917255921) 0.08 See_Comment [Automated [employer] ge] The system which generated this result transmitted reference range: 10*3/?L. The reference range was not used to interpret this result as normal/abnormal. GRAN MAT (NEUT) % (test code = 770-8) 81.1 % IMM GRAN % (test code = 7957393220) 1.00 % LYMPH % (test code = 736-9) 10.3 % MONO % (test code = 5905-5) 6.8 % EOS % (test code = 713-8) 0.6 % BASO % (test code = 706-2) 0.2 % GRAN MAT x10^3(ANC) (test code = 0759607958) 3.92 10*3/uL 1.99-6.95 IMM GRAN x10^3 (test code = 7329529276) 0.05 10*3/uL 0.00-0.06 LYMPH x10^3 (test code = 731-0) 0.50 10*3/uL 1.09-3.23 L MONO x10^3 (test code = 742-7) 0.33 10*3/uL 0.36-1.02 L EOS x10^3 (test code = 711-2) 0.03 10*3/uL 0.06-0.53 L BASO x10^3 (test code = 704-7) 0.01-0.09 ELLIPTO/OVAL (test code = 82599-9) 2+ See_Comment A [Automated messa ge] The system which generated this result transmitted reference range: (none). The reference range was not used to interpret this result as normal/abnormal. POLYCHROMASIA (test code = 94301-1) 3+ See_Comment A [Automated messa ge] The system which generated this result transmitted reference range: 2+. The reference range was not used to interpret this result as normal/abnormal. SCHISTOCYTES (test code = 800-3) 2+ A Lab Interpretation (test code = 18833-9) Abnormal [facility] WITH [id number] 01:25:14* Test Item Value Reference Range Interpretation Comme nts WBC (test code = 6690-2) 4.84 4.20-10.70 RBC (test code = 789-8) 1.51 4.26-5.52 L HGB (test code = 718-7) 2.7 g/dL 12.2-16.4 LL HCT (test code = 4544-3) 10.8 % 38.4-49.3 LL MCV (test code = 787-2) 71.5 fL 81.7-95.6 L MCH (test code = 785-6) 17.9 pg 26.1-32.7 L MCHC (test code = 786-4) 25.0 g/dL 31.2-35.0 L RDW-SD (test code = 63275-7) 51.6 fL 38.5-51.6 RDW-CV (test code = 788-0) 19.8 % 12.1-15.4 H PLT (test code = 777-3) 353 150-328 H MPV (test code = 29920-5) 9.4 fL 9.8-13.0 L IPF % (test code = 0799573104) 2.3 % 1.2-10.7 Platelet count measured by fluorescence method. NRBC/100 WBC (test code = 3225540737) 1.7 0.0-10.0 NRBC x10^3 (test code = 1225474539) 0.08 See_Comment [[employer]] The system which generated this result transmitted reference range: 10*3/?L. The reference range was not used to interpret this result as normal/abnormal. GRAN MAT (NEUT) % (test code = 770-8) 81.1 % IMM GRAN % (test code = 0431130382) 1.00 % LYMPH % (test code = 736-9) 10.3 % MONO % (test code = 5905-5) 6.8 % EOS % (test code = 713-8) 0.6 % BASO % (test code = 706-2) 0.2 % GRAN MAT x10^3(ANC) (test code = 1837354728) 3.92 10*3/uL 1.99-6.95 IMM GRAN x10^3 (test code = 2979107931) 0.05 10*3/uL 0.00-0.06 LYMPH x10^3 (test code = 731-0) 0.50 10*3/uL 1.09-3.23 L MONO x10^3 (test code = 742-7) 0.33 10*3/uL 0.36-1.02 L EOS x10^3 (test code = 711-2) 0.03 10*3/uL 0.06-0.53 L BASO x10^3 (test code = 704-7) 0.01-0.09 ELLIPTO/OVAL (test code = 36495-1) 2+ See_Comment A [[employer]] The system which generated this result transmitted reference range: (none). The reference range was not used to interpret this result as normal/abnormal. POLYCHROMASIA (test code = 03757-9) 3+ See_Comment A [[employer] Pounce] The system which generated this result transmitted reference range: 2+. The reference range was not used to interpret this result as normal/abnormal. SCHISTOCYTES (test code = 800-3) 2+ A Lab Interpretation (test code = 26945-6) Abnormal [facility] WITH [id number] 01:25:14* Test Item Value Reference Range Interpretation Comme nts WBC (test code = 6690-2) 4.84 4.20-10.70 RBC (test code = 789-8) 1.51 4.26-5.52 L HGB (test code = 718-7) 2.7 g/dL 12.2-16.4 LL HCT (test code = 4544-3) 10.8 % 38.4-49.3 LL MCV (test code = 787-2) 71.5 fL 81.7-95.6 L MCH (test code = 785-6) 17.9 pg 26.1-32.7 L MCHC (test code = 786-4) 25.0 g/dL 31.2-35.0 L RDW-SD (test code = 06778-5) 51.6 fL 38.5-51.6 RDW-CV (test code = 788-0) 19.8 % 12.1-15.4 H PLT (test code = 777-3) 353 150-328 H MPV (test code = 54932-7) 9.4 fL 9.8-13.0 L IPF % (test code = 2284356384) 2.3 % 1.2-10.7 Platelet count measured by fluorescence method. NRBC/100 WBC (test code = 2553687949) 1.7 0.0-10.0 NRBC x10^3 (test code = 9934012174) 0.08 See_Comment [[employer]] The system which generated this result transmitted reference range: 10*3/?L. The reference range was not used to interpret this result as normal/abnormal. GRAN MAT (NEUT) % (test code = 770-8) 81.1 % IMM GRAN % (test code = 3216917846) 1.00 % LYMPH % (test code = 736-9) 10.3 % MONO % (test code = 5905-5) 6.8 % EOS % (test code = 713-8) 0.6 % BASO % (test code = 706-2) 0.2 % GRAN MAT x10^3(ANC) (test code = 5369900152) 3.92 10*3/uL 1.99-6.95 IMM GRAN x10^3 (test code = 9372494939) 0.05 10*3/uL 0.00-0.06 LYMPH x10^3 (test code = 731-0) 0.50 10*3/uL 1.09-3.23 L MONO x10^3 (test code = 742-7) 0.33 10*3/uL 0.36-1.02 L EOS x10^3 (test code = 711-2) 0.03 10*3/uL 0.06-0.53 L BASO x10^3 (test code = 704-7) 0.01-0.09 ELLIPTO/OVAL (test code = 72551-6) 2+ See_Comment A [Automated messa ge] The system which generated this result transmitted reference range: (none). The reference range was not used to interpret this result as normal/abnormal. POLYCHROMASIA (test code = 24140-7) 3+ See_Comment A [Automated messa ge] The system which generated this result transmitted reference range: 2+. The reference range was not used to interpret this result as normal/abnormal. SCHISTOCYTES (test code = 800-3) 2+ A Lab Interpretation (test code = 29348-6) Abnormal [facility] WITH [id number] 01:25:14* Test Item Value Reference Range Interpretation Comme nts WBC (test code = 6690-2) 4.84 4.20-10.70 RBC (test code = 789-8) 1.51 4.26-5.52 L HGB (test code = 718-7) 2.7 g/dL 12.2-16.4 LL HCT (test code = 4544-3) 10.8 % 38.4-49.3 LL MCV (test code = 787-2) 71.5 fL 81.7-95.6 L MCH (test code = 785-6) 17.9 pg 26.1-32.7 L MCHC (test code = 786-4) 25.0 g/dL 31.2-35.0 L RDW-SD (test code = 97456-6) 51.6 fL 38.5-51.6 RDW-CV (test code = 788-0) 19.8 % 12.1-15.4 H PLT (test code = 777-3) 353 150-328 H MPV (test code = 46841-6) 9.4 fL 9.8-13.0 L IPF % (test code = 9856309264) 2.3 % 1.2-10.7 Platelet count measured by fluorescence method. NRBC/100 WBC (test code = 1046244758) 1.7 0.0-10.0 NRBC x10^3 (test code = 5912892781) 0.08 See_Comment [Automated messa ge] The system which generated this result transmitted reference range: 10*3/?L. The reference range was not used to interpret this result as normal/abnormal. GRAN MAT (NEUT) % (test code = 770-8) 81.1 % IMM GRAN % (test code = 9641308062) 1.00 % LYMPH % (test code = 736-9) 10.3 % MONO % (test code = 5905-5) 6.8 % EOS % (test code = 713-8) 0.6 % BASO % (test code = 706-2) 0.2 % GRAN MAT x10^3(ANC) (test code = 7747361990) 3.92 10*3/uL 1.99-6.95 IMM GRAN x10^3 (test code = 7015402232) 0.05 10*3/uL 0.00-0.06 LYMPH x10^3 (test code = 731-0) 0.50 10*3/uL 1.09-3.23 L MONO x10^3 (test code = 742-7) 0.33 10*3/uL 0.36-1.02 L EOS x10^3 (test code = 711-2) 0.03 10*3/uL 0.06-0.53 L BASO x10^3 (test code = 704-7) 0.01-0.09 ELLIPTO/OVAL (test code = 33872-5) 2+ See_Comment A [Automated messa ge] The system which generated this result transmitted reference range: (none). The reference range was not used to interpret this result as normal/abnormal. POLYCHROMASIA (test code = 12254-7) 3+ See_Comment A [Automated messa ge] The system which generated this result transmitted reference range: 2+. The reference range was not used to interpret this result as normal/abnormal. SCHISTOCYTES (test code = 800-3) 2+ A Lab Interpretation (test code = 87390-4) Abnormal [facility] CHEST 1 [id number] 01:13:30Exam: Chest (1 View), 07/26/2024 7:30 PM. Ordering Physician: COURTNEY CONNORS. History: Short of breath. Technique: One view of the chest. Comparison: None. Findings: There is mild cardiomegaly. Thoracic aorta is tortuous. There is nopneumothorax. There is no consolidation or pleural effusion. Pleural anddiaphragmatic contours are normal. Chronic right posterior fourth [facility]fract[facility] [id number] 01:13:30Exam: Chest (1 View), 07/26/2024 7:30 PM. Ordering Physician: COURTNEY CONNORS. History: Short of breath. Technique: One view of the chest. Comparison: None. Findings: There is mild cardiomegaly. Thoracic aorta is tortuous. There is nopneumothorax. There is no consolidation or pleural effusion. Pleural anddiaphragmatic contours are normal. Chronic right posterior fourth ribfracture [facility] [id number] 01:13:30Exam: Chest (1 View), 07/26/2024 7:30 PM. Ordering Physician: COURTNEY CONNORS. History: Short of breath. Technique: One view of the chest. Comparison: None. Findings: There is mild cardiomegaly. Tho racic aorta is tortuous. There is nopneumothorax. There is no consolidation or pleural effusion. Pleural anddiaphragmatic contours are normal. Chronic right posterior fourth ribfracture is [facility] [id number] 01:13:30Exam: Chest (1 View), 07/26/2024 7:30 PM. Ordering Physician: COURTNEY CONNORS. History: Short of breath. Technique: One view of the chest. Comparison: None. Findings: There is mild cardiomegaly. Thoracic aorta is tortuous. There is nopneumothorax. There is no consolidation or pleural effusion. Pleural anddiaphragmatic contours are normal. Chronic right posterior fourth ribfracture is [facility] (Lab Only)2024-07-27 00:16:00* Test Item Value Reference Range Interpretation Comme nts ABO & RH (test code = 20) A Positive [facility] (Lab Only)2024-07-27 00:16:00* Test Item Value Reference Range Interpretation Comme nts ABO & RH (test code = 20) A Positive [facility] Confirmation (Lab Only)2024-07-27 00:16:00* Test Item Value Reference Range Interpretation Comme nts ABO & RH (test code = 20) A Positive [facility] Confirmation (Lab Only)2024-07-27 00:16:00* Test Item Value Reference Range Interpretation Comme nts ABO & RH (test code = 20) A [facility] - ONCE [id number] 23:36:00 * Test Item Value Reference Range Interpretation Comme nts ABO & RH (test code = 20) A POSITIVE IAT (test code = 1185) Negative [facility] Screen - ONCE [id number] 23:36:00 * Test Item Value Reference Range Interpretation Comme nts ABO & RH (test code = 20) A POSITIVE IAT (test code = 1185) Negative [facility] Screen - ONCE [id number] 23:36:00 * Test Item Value Reference Range Interpretation Comme nts ABO & RH (test code = 20) A POSITIVE IAT (test code = 1185) Negative [facility] [id number] 23:36:00 * Test Item Value Reference Range Interpretation Comme nts ABO & RH (test code = 20) A POSITIVE IAT (test code = 1185) Negative [facility], [id number] 20:42:00 * Test Item Value Reference Range Interpretation Comme nts POCT U SP GRAV (test code = 3255) 1.015 mg/dl 1.005-1.025 POCT PH U (test code = 3254) 7.0 mg/dl 5-8 POCT U LEUK EST (test code = 3263) Negative Negative - Negative POCT U NIT (test code = 3262) Negative Negative - Negati ve POCT U PROT (test code = 3259) Negative Negative - Negative POCT U GLU (test code = 3256) Negative Negative - Negati ve POCT U KETONE (test code = 3258) Negative Negative - Negative POCT U UROBILI (test code = 3260) 0.2 mg/dl 0.2-1 POCT U BILI (test code = 3261) Negative Negative - Negative POCT U BLD (test code = 3257) Negative Negative - Negati ve POCT U COLOR (test code = 3266) Yellow POCT U APPEAR (test code = 3267) Clear [facility] Consult Notes Date/Time Note Provider Source 2024-10-17 19:30:01 Associated Order(s): CONSULT CARDIOLOGY [facility] Cardiology Consult PCP: Marilyn Pleitez Date of Service: 10/17/2024 CHIEF COMPLAINT/reason for consult: Hypotension, atrial fibrillation HISTORY OF PRESENT ILLNESS Solis Saleh is a 74 years old male with past medical history of chronic systolic and diastolic heart failure, PFO, hypertension, chronic atrial fibrillation, history of GI bleeding, and pulmonary hypertension. He came to [facility] as a transfer from local hospital due to hypotension and BALA. He reported episodes of diarrhea. He has been taking multiple cardiac medications as well. He became short of breath and weak. Chest x-ray showed no pulmonary edema. EKG showed rate controlled atrial fibrillation. He was given IV fluids and midodrine. PAST MEDICAL HISTORY Past Medical History: Diagnosis Date Chronic GERD GIB (gastrointestinal bleeding) HTN (hypertension) Paroxysmal atrial fibrillation Past Surgical History: Procedure Laterality Date COLONOSCOPY Lower 07/31/2024 Surgeon: Audi Cruz DO; Location: ENDOSCOPY ([facility]) OR LOCATION COLONOSCOPY N/A 09/27/2024 Surgeon: Meliton Pike MD; Location: ENDOSCOPY ([facility]) OR LOCATION ESOPHAGOGASTRODUODENOSCOPY N/A 07/27/2024 Surgeon: Carola Stanton MD; Location: ENDOSCOPY ([facility]) OR LOCATION PUSH ENDOSCOPY ([facility]) N/A 07/28/2024 Surgeon: Carola Stanton MD; Location: ENDOSCOPY ([facility]) OR LOCATION PUSH ENDOSCOPY ([facility]) N/A 09/27/2024 Surgeon: Meliton Pike MD; Location: ENDOSCOPY ([facility]) OR LOCATION No family history on file. ALLERGIES Allergies Allergen Reactions Pcn [Penicillins] Shortness of Breath and Swelling MEDICATIONS No current facility-administered medications on file prior to encounter. Current Outpatient Medications on File Prior to Encounter Medication Sig Dispense Refill apixaban (ELIQUIS) 5 mg tablet Take 1 tablet by mouth in the morning and 1 tablet in the evening. Indications: Atrial Fibrillation 180 tablet 1 dapagliflozin propanediol 10 mg tablet Take 1 tablet by mouth in the morning. 90 tablet 1 furosemide 40 mg tablet Take 1 tablet by mouth every morning and evening. 180 tablet 1 losartan 50 mg tablet Take 1 tablet by mouth in the morning and 1 tablet in the evening. 180 tablet 1 metoprolol succinate XL 100 mg 24 hr tablet Take 1 tablet by mouth in the morning and 1 tablet in the evening. 180 tablet 1 spironolactone 25 mg tablet Take 1 tablet by mouth every morning. 90 tablet 1 apixaban 5 mg tablet Take 1 tablet by mouth in the morning and 1 tablet in the evening. Do all this for 90 days. Indications: prevention of thromboembolism in paroxysmal atrial fibrillation 60 tablet 2 atorvastatin 40 mg tablet Take 1 tablet by mouth at bedtime for 90 days. 30 tablet 2 SOCIAL HISTORY Social History Socioeconomic History Marital status: Tobacco Use Smoking status: Former Types: Cigarettes Passive exposure: Past Smokeless tobacco: Never Tobacco comments: Non smoker Social Determinants of Health Food Insecurity: No Food Insecurity (10/17/2024) NCSS - Food Insecurity Worried About Running Out of Food in the Last Year: No Ran Out of Food in the Last Year: No Transportation Needs: No Transportation Needs (10/17/2024) NCSS - Transportation Lack of Transportation: No Housing Stability: Not At Risk (10/17/2024) NCSS - Housing/Utilities Has Housing: Yes Worried About Losing Housing: No Unable to Get Utilities: No REVIEW OF SYSTEMS At least 10 systems reviewed, negative except as mentioned in HPI PHYSICAL EXAMINATION Vitals: 10/17/24 1500 10/17/24 1600 10/17/24 1700 10/17/24 1800 BP: 92/55 97/68 106/66 105/65 Pulse: 63 78 64 78 Resp: 15 15 16 19 Temp: 36.9 ?C (98.4 ?F) TempSrc: Temporal Artery SpO2: 95% 96% 95% 93% Weight: Height: Constitutional: alert and oriented x 3 (person, place and date/time); no apparent distress ENT: normocephalic atraumatic, supple, no lymphadenopathy, no bruits, no JVD Lungs: clear to auscultation bilaterally Cardiovascular: S1, S2 normal, irregular; no murmurs, rubs or gallops GI: soft; non-tender; non-distended; normoactive bowel sounds : not examined Musculoskeletal: Extremities: no clubbing, cyanosis, or edema Skin: no rashes Neuro: no focal deficits LABS - reviewed pertinent labs as below: CBC BMP PT/INR WBC (10*3/?L) Date Value 10/10/2024 5.65 NA (mmol/L) Date Value 10/10/2024 136 No results found for: "PT" PLT (10*3/?L) Date Value 10/10/2024 517 (H) K (mmol/L) Date Value 10/10/2024 4.4 INR (no units) Date Value 10/06/2024 1.3 HGB (g/dL) Date Value 10/10/2024 10.1 (L) BUN (mg/dL) Date Value 10/10/2024 18 HCT (%) Date Value 10/10/2024 35.7 (L) CREATININE (mg/dL) Date Value 10/10/2024 1.14 LIPID PROFILE GLUCOSE (mg/dL) Date Value 10/10/2024 83 CHOL (mg/dL) Date Value 09/28/2024 85 (L) TSH LDL CHOL (mg/dL) Date Value 09/28/2024 50 TSH (mIU/L) Date Value 10/17/2024 5.60 (H) CARDIAC ENZYMES HDL (mg/dL) Date Value 09/28/2024 22 (L) No results found for: "CK" TRIG (mg/dL) Date Value 09/28/2024 64 LFTs No results found for: "CKMB" AST(SGOT) (U/L) Date Value 10/05/2024 27 TROPONIN I (ng/mL) Date Value 10/06/2024 0.155 (H) ALTv (U/L) Date Value 10/05/2024 21 No results found for: "BNP" IMAGING - reviewed, pertinent results as below: Chest x-ray-clear EKG: Atrial fibrillation ASSESSMENT/PLAN Principal Problem: Hypotension Active Problems: Anemia, unspecified type Chronic combined systolic and diastolic congestive heart failure Chronic atrial fibrillation BALA (acute kidney injury) PFO (patent foramen ovale) Hypotension and BALA-likely due to diarrhea and cardiac medications including Lasix and heart failure with reduced ejection fraction medications. Continue to hold all the above medications. Cautious IV fluids. Continue midodrine to maintain essential perfusion. We will adjust medications based on blood pressure and renal recovery. Chronic systolic and diastolic heart failure--no volume overload. In fact he is volume depleted. No acute heart failure. Hold diuretics and guideline directed medical therapy for now. We can restart once blood pressure and renal function recovered. Low salt diet. I/O. Daily weight. Keep K > 4 and Mg > 2. Pulmonary hypertension-likely due to heart failure. Chronic atrial fibrillation-the rate is moderate. Continue Eliquis anticoagulation. PFO-outpatient evaluation. No history of stroke. Thank you for allowing us to participate in the care of your patient. Please feel free to contact us for any questions or if we can be of further assistance. Miguelina Brannon MD, FACC, WILFRIDO Histotechnologist Supervisor Division of Cardiovascular Medicine [facility] 2024-10-06 15:57:43 Associated Order(s): CONSULT NEUROLOGY STROKE SERVICE CONSULT DATE OF SERVICE: 10/06/2024 16:40 REASON FOR CONSULT: subacute stroke BP management HISTORY OF PRESENT ILLNESS Solis Saleh is a 73 year old male left handed with the following stroke factors: HTN, stroke (s/p thrombectomy, 09/28/24), TIA, Afib (CHADSVASC 4) on Eliquis (stopped since stroke 09/28), h/o duodenal angioectasias s/p clip placement, h/o colonic angiodysplasias s/p argon plasma coagulation, BPH, unspecified bone cancer (left arm s/p resection and bone transplant), and MDD who was admitted to cardiology team for elevation of trop I. Neurology was consulted for the BP parameter for subacute stroke. Of note, pt was initially admitted due to GI bleeding 2/2 AVM on 09/27. However, during last hospitalization, pt developed an acute R M2 MCA stroke on 09/28/2024. LSN 09/28 1200. His initial weakness symptoms are fluctuated. NIHSS highest score was 9 (L vision loss-chronic, L facial droop, L hemiplegia, slurry speech), most likely cardio-embolic. Contraindicated for tnk, NEC activated, On DSA, prior to MT, found to already have recanalization of R M2 MCA with occlusion of more distal R MCA branches. Stoke was c/b a small hmrg transformation. A1c 5.5 LDL 100. GI bleeding was stopped under endoscopy. Due to high risk of AC, cardiac watchman was planned. He was discharged on 10/03 with improvement of NIHSS 1 (visual extinction), discharged on asa 81, Lipitor 40 and no AC or Plavix. Pt readmitted to cardiology team yesterday due to troponin elevation. Pt started to feel " a little odd", heart flutter on 10/05, so he was brought to ED [place] where found BP 180/92 and trop I is up 0.149. Heparin was started for STEMI. Heparin was stopped due to concerning of groin hematoma, however CTA shows no pseudoaneurysm or dissections so will plan on restart heprin and LHC soon. Antiplatelets: Yes ASA 81 Anticoagulations: Yes Eliquis was stopped, heparin hold this morning Tobacco abuse: No Alcohol abuse: No Drug abuse: No Previous stroke: Yes 09/28/2024 Body mass index is 28.57 kg/m?. STROKE DOCUMENTATION Stroke Activation - Date: (not recorded) Stroke Activation - Time: (not recorded) Physician arrival at bedside - Date: (not recorded) Physician arrival at bedside - Time: (not recorded) CT-Head without contrast read by Neurology: (not recorded) Last seen normal: Last known well - Date: (not recorded) Last known well - Time: (not recorded) Wake up stroke: No NIH STROKE SCALE NIHSS TOTAL: 1 NIHSS Interval: Admission LOC: 0 Alert: Keenly Responsive LOC QUESTIONS: 0 Answers Both Questions Correctly LOC COMMANDS: 0 Performs Both Tasks Correctly BEST GAZE: 0 Normal VISUAL: 1 Partial Hemianopia (R eye L side heminopia, 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) FACIAL PALSY: 0 Normal MOTOR ARM-LEFT: 0 No Drift MOTOR ARM-RIGHT: 0 No Drift MOTOR LEG-LEFT: 0 No Drift MOTOR LEG-RIGHT: 0 No Drift LIMB ATAXIA: 0 Absent SENSORY: 0 Normal BEST LANGUAGE: 0 No Aphasia DYSARTHRIA: 0 Normal EXTINCTION AND INATTENTION (FORMERLY NEGLECT): 0 No Abnormalty Dysphagia Screen: IV Alteplase: Was IV thrombolytic therapy given?: No Reason no IV thrombolytic therapy initiated: Arrival > 4.5 hours from symptom onset If IV Thrombolytic therapy was indicated and given as a standard of care was the patient/family informed of benefits of treatment and risk such as hemorrhage and/or angioedema?: (not recorded) Was there a delay in door to IV thrombolytic over 30 minutes?: (not recorded) Reason (s): (not recorded) ICH/SAH ICH/SAH: No Endovascular Intervention: Was Endovascular Intervention Performed?: No Reason patient is not a candidate for endovascular intervention: NIH less than or equal to 6 PRE- ADMISSION MODIFIED ANGELO SCORE 1 - No significant disability despite symptoms; able to carry out all usual duties and activities PAST MEDICAL HISTORY Past Medical History: Diagnosis Date Chronic GERD GIB (gastrointestinal bleeding) HTN (hypertension) Paroxysmal atrial fibrillation PAST SURGICAL HISTORY Past Surgical History: Procedure Laterality Date COLONOSCOPY Lower 07/31/2024 Surgeon: Audi Cruz DO; Location: ENDOSCOPY ([facility]) OR LOCATION COLONOSCOPY N/A 09/27/2024 Surgeon: Meliton Pike MD; Location: ENDOSCOPY ([facility]) OR LOCATION ESOPHAGOGASTRODUODENOSCOPY N/A 07/27/2024 Surgeon: Carola Stanton MD; Location: ENDOSCOPY ([facility]) OR LOCATION PUSH ENDOSCOPY (SHX) N/A 07/28/2024 Surgeon: Carola Stanton MD; Location: ENDOSCOPY ([facility]) OR LOCATION PUSH ENDOSCOPY (SHX) N/A 09/27/2024 Surgeon: Meliton Pike MD; Location: ENDOSCOPY ([facility]) OR LOCATION FAMILY HISTORY No family history on file. SOCIAL HISTORY Social History Socioeconomic History Marital status: Tobacco Use Smoking status: Never Passive exposure: Never Smokeless tobacco: Never Tobacco comments: Non smoker Social Determinants of Health Food Insecurity: No Food Insecurity (10/06/2024) NCSS - Food Insecurity Worried About Running Out of Food in the Last Year: No Ran Out of Food in the Last Year: No Transportation Needs: No Transportation Needs (10/06/2024) NCSS - Transportation Lack of Transportation: No Housing Stability: Not At Risk (10/06/2024) NCSS - Housing/Utilities Has Housing: Yes Worried About Losing Housing: No Unable to Get Utilities: No Reviewed patient's family, surgical and social hx. HOME MEDICATIONS Medications Prior to Admission Medication Sig Dispense Refill Last Dose [DISCONTINUED] amLODIPine 10 mg tablet Take 1 tablet by mouth in the morning. apixaban 5 mg tablet Take 1 tablet by mouth in the morning and 1 tablet in the evening. Do all this for 90 days. Indications: prevention of thromboembolism in paroxysmal atrial fibrillation 60 tablet 2 aspirin 81 mg chewable tablet Take 1 tablet by mouth in the morning for 90 days. 30 tablet 2 atorvastatin 40 mg tablet Take 1 tablet by mouth at bedtime for 90 days. 30 tablet 2 metoprolol succinate XL 50 mg 24 hr tablet Take 1 tablet by mouth in the morning and 1 tablet in the evening. Do all this for 90 days. 60 tablet 2 losartan 25 mg tablet Take 1 tablet by mouth in the morning. 30 tablet 1 09/28/2024 pantoprazole 40 mg EC tablet Take 1 tablet by mouth in the morning. 30 tablet 2 09/28/2024 HOSPITAL MEDICATIONS Current Facility-Administered Medications Medication Dose Route Frequency Last Rate Last Admin furosemide (LASIX) injection 40 mg 40 mg Slow IV Push Q12H 40 mg at 10/06/24 0956 heparin (1,000 unit/mL, 10 mL vial) for Rebolusing 3,000 Units Slow IV Push FOR REBOLUSING heparin 25,000 Units/250 mL (Premixed Bag) in 0.45 % NS 0-2,400 Units/hr IV Infusion CONTINUOUS iron dextran (INFED) 1,000 mg in NaCl 0.9% (NS) 500 mL IV infusion 1,000 mg IV Infusion ONCE iron dextran (INFED) 25 mg in NaCl 0.9% (NS) 100 mL IV piggyback 25 mg IV Piggyback ONCE 400 mL/hr at 10/06/24 1632 25 mg at 10/06/24 1632 nystatin (MYCOSTATIN) ointment Topical BID Given at 10/06/24 0615 acetaminophen (TYLENOL) tablet 650 mg 650 mg Oral Q6HPRN aspirin chewable tablet 81 mg 81 mg Oral DAILY 81 mg at 10/06/24 0754 atorvastatin (LIPITOR) tablet 40 mg 40 mg Oral QHS 40 mg at 10/06/24 0024 losartan (COZAAR) tablet 25 mg 25 mg Oral DAILY 25 mg at 10/06/24 0754 metoprolol succinate XL (TOPROL XL) tablet 50 mg 50 mg Oral BID 50 mg at 10/06/24 0754 pantoprazole (PROTONIX) EC tablet 40 mg 40 mg Oral DAILY 40 mg at 10/06/24 0754 ALLERGY Allergies Allergen Reactions Pcn [Penicillins] Shortness of Breath and Swelling REVIEW OF SYSTEMS General: (-) fever, (-) chills, (-) weight change, (-) dizziness, (-) fatigue, (-) change in appetite Skin: (-) rash, (-) lesion HEENT: (-) headache, (-) change in hearing, (+) change in vision, (-) nasal discharge, (-) sore throat Neck: (-) pain, (-) difficulty swallowing, (-) mass Heme: (-) bleeding disorder Resp: (-) cough, (-) shortness of breath, (-) dyspnea on exertion Cardio: (-) chest pain, (-) palpitations, (-) syncope GI: (-) abdominal pain, (-) nausea, (-) vomiting, (-) diarrhea, (-) constipation, (-) melena, (-) hematochezia, (-) hematemesis : (-) dysuria, (-) hematuria, (-) increased frequency, (-) difficulty urinating, (-) difficulty initiating Endo: (-) heat intolerance, (-) diabetes, (-) cold intolerance, (-) polyuria, (-) polydipsia, (-) renal insufficiency, (-) thyroid disease Neuro: (-) numbness, (-) tingling, (-) weakness Back: (-) pain, (-) spasms MAYKEL: (-) muscle pain, (-) joint pain, (-) claudication Psych: (-) anxiety, (-) depression, (-) psychiatric disorder PHYSICAL EXAM Vitals: 10/06/24 0752 10/06/24 0810 10/06/24 1124 10/06/24 1625 BP: (!) 147/100 (!) 152/84 (!) 153/81 132/79 BP Location: Left arm Left arm Right arm Patient Position: Sitting Sitting Supine Pulse: 91 95 96 94 Resp: 16 18 18 18 Temp: 36.3 ?C (97.4 ?F) 36.4 ?C (97.6 ?F) 36.4 ?C (97.6 ?F) 36.4 ?C (97.6 ?F) TempSrc: SpO2: 91% 95% 94% 94% Weight: Height: General: Alert and oriented x 4 (time, person, place and situation); no apparent distress. Mental Status: Consciousness, attention, concentration: normal, Stays focused and on task while being questioned. Speech/ Language: intact to comprehension, fluency, repetition and naming. Fund of knowledge: is congruent with level of education. Remote and recent memory: normal, can recall recent and distant memories Cranial Nerves: I. Not tested. II. 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 L eye no pupil reflex, R eye brisk. III. IV., . Extraocular movements intact without nystagmus. V. Normal sensation in V1-3 distributions. VII. No facial droop noted. VIII. Hearing intact. IX., X. Palatal elevation and gag response present symmetrically. XI. Normal Strength of sternocleidomastoid and trapezius muscles bilaterally. XII. Tongue in midline. Motor: Tone: normal Bulk: normal STRENGTH Right Left Deltoid 5 5 Biceps 5 5 Triceps 5 5 Wrist extensors 5 5 Interossei 5 5 Hip flexors 5 5 Knee flexors (hamstring) 5 5 Knee extensors (quadriceps) 5 5 Ankle dorsiflexors 5 5 Ankle plantar flexors 5 5 DTR's: Right Left Biceps 2+ 2+ Triceps 2+ 2+ Brachioradialis 2+ 2+ Patella 2+ 2+ Achilles 1+ 1+ Pathologic reflexes and signs: Greer: absent Babinski: absent Cerebellar: Nystagmus: neg, FTN: nl, HTS:nl, Tremors: neg, Dysdiadochokinesia: neg Sensory: LT: intact, temperature: intact, PP: intact, proprioception: intact, Vibration: intact Gait: normal HEENT: pupils equal, round, reactive to light; extraocular movements intact; oropharynx clear; moist mucous membranes Lungs: clear to auscultation bilaterally Cardio: S1, S2 normal Extremities:no cyanosis,clubbing or edema Neck:supple,no carotid bruit,no JVD Abdomen: soft; non-tender; non-distended; normoactive bowel sounds heard LABS Recent Results (from the past 24 hour(s)) CBC WITH DIFF Collection Time: 10/05/24 4:41 PM Result Value Ref Range WBC 4.90 4.20 - 10.70 10*3/?L RBC 3.60 (L) 4.26 - 5.52 10*6/?L HGB 8.0 (L) 12.2 - 16.4 g/dL HCT 28.7 (L) 38.4 - 49.3 % MCV 79.7 (L) 81.7 - 95.6 fL MCH 22.2 (L) 26.1 - 32.7 pg MCHC 27.9 (L) 31.2 - 35.0 g/dL RDW-SD 63.3 (H) 38.5 - 51.6 fL RDW-CV 21.8 (H) 12.1 - 15.4 % PLT 253 150 - 328 10*3/?L MPV 10.7 9.8 - 13.0 fL NRBC/100 WBC 0.0 0.0 - 10.0 /100 WBCs NRBC x10 3 <0.01 10*3/?L GRAN MAT (NEUT) % 68.9 % IMM GRAN % 0.40 % LYMPH % 18.0 % MONO % 9.0 % EOS % 3.1 % BASO % 0.6 % GRAN MAT x10 3 (ANC) 3.38 1.99 - 6.95 10*3/uL IMM GRAN x10 3 <0.03 0.00 - 0.06 10*3/uL LYMPH x10 3 0.88 (L) 1.09 - 3.23 10*3/uL MONO x10 3 0.44 0.36 - 1.02 10*3/uL EOS x10 3 0.15 0.06 - 0.53 10*3/uL BASO x10 3 0.03 0.01 - 0.09 10*3/uL ELLIPTO/OVAL 2+ (A) (none) POLYCHROMASIA 2+ 2+ SCHISTOCYTES 1+ (A) COMP. METABOLIC PANEL (06821) Collection Time: 10/05/24 4:41 PM Result Value Ref Range NA 139 135 - 145 mmol/L K 4.1 3.5 - 5.0 mmol/L CL 107 98 - 108 mmol/L CO2 TOTAL 25 23 - 31 mmol/L AGAP 7 2 - 16 BUN 16 7 - 23 mg/dL GLUCOSE 88 70 - 110 mg/dL CREATININE 0.85 0.60 - 1.25 mg/dL TOTAL BILI 0.8 0.1 - 1.1 mg/dL CALCIUM 8.5 (L) 8.6 - 10.6 mg/dL T PROTEIN 6.7 6.3 - 8.2 g/dL ALBUMIN 3.8 3.5 - 5.0 g/dL ALK PHOS 67 34 - 122 U/L ALTv 21 5 - 50 U/L AST(SGOT) 27 13 - 40 U/L eGFR 92.9 mL/min/1.73m2 Magnesium Collection Time: 10/05/24 4:41 PM Result Value Ref Range MAGNESIUM 2.0 1.7 - 2.4 mg/dL TROPONIN I Collection Time: 10/05/24 4:41 PM Result Value Ref Range TROPONIN I 0.149 (H) <=0.034 ng/mL N-TERMINAL PRO-BNP Collection Time: 10/05/24 4:41 PM Result Value Ref Range NT-proBNP 4,970 (H) <=125 pg/mL Influenza A B RSV COVID NAAT Collection Time: 10/05/24 4:41 PM Specimen: NASOPHARYNGEAL SWAB Result Value Ref Range Influenza A NAAT Negative Negative Influenza B NAAT Negative Negative RSV by PCR Negative Negative SARS-CoV-2 NAAT Negative Negative Troponin I Collection Time: 10/06/24 12:34 AM Result Value Ref Range TROPONIN I 0.202 (H) <=0.034 ng/mL Prothrombin Time / INR Collection Time: 10/06/24 12:34 AM Result Value Ref Range PROTIME PATIENT 16.1 (H) 10.1 - 12.6 Seconds INR 1.5 aPTT Collection Time: 10/06/24 12:34 AM Result Value Ref Range APTT Patient 31 26 - 36 Seconds CBC Without DIFF Collection Time: 10/06/24 12:34 AM Result Value Ref Range WBC 5.43 4.20 - 10.70 10*3/?L RBC 3.61 (L) 4.26 - 5.52 10*6/?L HGB 7.9 (L) 12.2 - 16.4 g/dL HCT 27.9 (L) 38.4 - 49.3 % MCH 21.9 (L) 26.1 - 32.7 pg MCV 77.3 (L) 81.7 - 95.6 fL MCHC 28.3 (L) 31.2 - 35.0 g/dL PLT 246 150 - 328 10*3/?L MPV 10.2 9.8 - 13.0 fL RDW-CV 21.7 (H) 12.1 - 15.4 % RDW-SD 60.5 (H) 38.5 - 51.6 fL NRBC x10 3 0.02 10*3/?L NRBC/100 WBC 0.4 0.0 - 10.0 /100 WBCs IPF % Troponin I Collection Time: 10/06/24 4:35 AM Result Value Ref Range TROPONIN I 0.233 (H) <=0.034 ng/mL Cbc with Diff Collection Time: 10/06/24 4:35 AM Result Value Ref Range WBC 5.69 4.20 - 10.70 10*3/?L RBC 3.51 (L) 4.26 - 5.52 10*6/?L HGB 7.6 (L) 12.2 - 16.4 g/dL HCT 27.2 (L) 38.4 - 49.3 % MCV 77.5 (L) 81.7 - 95.6 fL MCH 21.7 (L) 26.1 - 32.7 pg MCHC 27.9 (L) 31.2 - 35.0 g/dL RDW-SD 61.0 (H) 38.5 - 51.6 fL RDW-CV 22.1 (H) 12.1 - 15.4 % PLT 243 150 - 328 10*3/?L MPV 10.8 9.8 - 13.0 fL NRBC/100 WBC 0.0 0.0 - 10.0 /100 WBCs NRBC x10 3 <0.01 10*3/?L GRAN MAT (NEUT) % 70.7 % IMM GRAN % 0.50 % LYMPH % 17.4 % MONO % 7.9 % EOS % 2.8 % BASO % 0.7 % GRAN MAT x10 3 (ANC) 4.02 1.99 - 6.95 10*3/uL IMM GRAN x10 3 0.03 0.00 - 0.06 10*3/uL LYMPH x10 3 0.99 (L) 1.09 - 3.23 10*3/uL MONO x10 3 0.45 0.36 - 1.02 10*3/uL EOS x10 3 0.16 0.06 - 0.53 10*3/uL BASO x10 3 0.04 0.01 - 0.09 10*3/uL Basic Metabolic Panel (NA, K, CL, CO2, GLUCOSE, BUN, CREATININE, CA) Collection Time: 10/06/24 4:35 AM Result Value Ref Range NA 138 135 - 145 mmol/L K 3.6 3.5 - 5.0 mmol/L CL 106 98 - 108 mmol/L CO2 TOTAL 24 23 - 31 mmol/L AGAP 8 2 - 16 BUN 15 7 - 23 mg/dL GLUCOSE 87 70 - 110 mg/dL CREATININE 0.77 0.60 - 1.25 mg/dL CALCIUM 7.9 (L) 8.6 - 10.6 mg/dL eGFR 95.7 mL/min/1.73m2 Magnesium Collection Time: 10/06/24 4:35 AM Result Value Ref Range MAGNESIUM 1.7 1.7 - 2.4 mg/dL Cbc without Diff Collection Time: 10/06/24 8:04 AM Result Value Ref Range WBC 5.87 4.20 - 10.70 10*3/?L RBC 3.76 (L) 4.26 - 5.52 10*6/?L HGB 8.5 (L) 12.2 - 16.4 g/dL HCT 30.0 (L) 38.4 - 49.3 % MCH 22.6 (L) 26.1 - 32.7 pg MCV 79.8 (L) 81.7 - 95.6 fL MCHC 28.3 (L) 31.2 - 35.0 g/dL PLT 235 150 - 328 10*3/?L MPV 10.2 9.8 - 13.0 fL RDW-CV 21.8 (H) 12.1 - 15.4 % RDW-SD 63.2 (H) 38.5 - 51.6 fL NRBC x10 3 <0.01 10*3/?L NRBC/100 WBC 0.0 0.0 - 10.0 /100 WBCs IPF % Troponin I Collection Time: 10/06/24 10:02 AM Result Value Ref Range TROPONIN I 0.155 (H) <=0.034 ng/mL Lactic Acid Whole Blood Collection Time: 10/06/24 10:03 AM Result Value Ref Range LACTIC ACID 1.26 0.50 - 2.20 mmol/L Transthoracic echo (TTE) Routine Collection Time: 10/06/24 10:49 AM Result Value Ref Range Height 69 in Weight 193 lbs Systolic BP 152 mmHg Diastolic BP 84 mmHg Heart Rate 95 bpm BSA 2.03 m2 MV Peak A Jaclyn 33.0 cm/s E wave decelartion time 0.16 s MV Peak E Jaclyn 115.8 cm/s E/A ratio 3.50 ratio MV Prop V 44.40 cm/s MV E/e' septal 10.1 cm/s Tapse 2.20 cm TASV 9.6 cm/s TR Peak Jaclyn 295.2 cm/s Triscuspid Valve Regurgitation Peak Gradient 34.8 mmHg LVIDD 5.80 cm Left Ventricular End Diastolic Volume by Teichholz Method 165.2 mL IVS 1.30 cm Interventricular Septum Diastolic Thickness by 2D 1.30 cm LVPWD 1.04 cm PW 1.04 0.6 - 1.1 cm EF(Teich) 36.30 % LVIDS 4.80 cm Left Ventricular End Systolic Volume by Teichholz Method 105.2 mL FS 18 % EF - 2D 36.30 % LAV(MOD-sp4) 70.10 mL LA Volume Index (BP) 35.8 mL/m2 LA volume (BP) 72.9 mL LAV(MOD-sp2) 72.70 mL A4C EF 41.20 % EF(sp4-el) 41.20 % SV(MOD-sp4) 73.10 mL SV(sp4-el) 74.00 mL LV Diastolic Volume (BP) 221.0 mL A2C EF 32.30 % EF(MOD-bp) 38.20 % EF(sp2-el) 32.80 % LV Systolic Volume (BP) 136.6 mL SV(MOD-bp) 84.40 mL SV(MOD-sp2) 86.40 mL EF 38 Left Ventricular Stroke Volume by 2-D Biplane-MOD 84.4 mL LV Diastolic Volume Index (BP) 106.9 mL/m2 LV Systolic Volume Index (BP) 63.0 mL/m2 Urine Drug (Immunoassay) - Comprehensive Drug Screen Collection Time: 10/06/24 2:27 PM Result Value Ref Range AMPHET Negative Negative JOCELYNE U Negative Negative BENZO U Negative Negative Cocaine Metabolite Negative Negative METHADONE Negative Negative OPIATES Negative Negative PCP Negative Negative THC Negative Negative STROKE LABS HGB A1C (%) Date Value 09/28/2024 4.5 LDL CHOL (mg/dL) Date Value 09/28/2024 50 CHOL (mg/dL) Date Value 09/28/2024 85 (L) TSH (mIU/L) Date Value 09/28/2024 1.69 Recent Labs 10/06/24 0435 10/06/24 1002 TROPNI 0.233* 0.155* RADIOLOGY US Lower leg right Result Date: 10/06/2024 No organized fluid collection at the imaged right inguinal region. CT Angiogram abdomen/pelvis Result Date: 10/06/2024 1. No active extravasation or pseudoaneurysm. Small right groin hematoma measuring up to 3.9 cm. 2. Multiple simple hepatic cysts. 3. Cholelithiasis. 4. Multiple small fat-containing ventral hernias, unchanged. Preliminary Report Dictated by Resident: Jagjit Randall I, Hao Patricio MD., have reviewed this study and agree with the above report. XR CHEST 1 VW Result Date: 10/05/2024 Improved aeration of the right lower lung zone with slight improvement in diffuse interstitial opacities and trace pleural effusions suggesting pulmonary edema. Preliminary Report Dictated by Resident: Maryann Lyons I, Deborah Vergara MD., have reviewed this study and agree with the above report. ASSESSMENT AND PLAN Solis Saleh is a 73 year old male left handed with the following stroke factors: HTN, stroke (s/p thrombectomy, 09/28/24), TIA, Afib (CHADSVASC 4) on Eliquis (stopped since stroke 09/28), h/o duodenal angioectasias s/p clip placement, h/o colonic angiodysplasias s/p argon plasma coagulation, BPH, unspecified bone cancer (left arm s/p resection and bone transplant), and MDD who was admitted to cardiology team for elevation of trop I. Neurology was consulted for the BP parameter for subacute stroke. During last hospitalization, pt developed an acute R M2 MCA stroke on 09/28/2024. LSN 09/28 1200. NIHSS highest score was 9 (L vision loss-chronic, L facial droop, L hemiplegia, slurry speech), most likely cardio-embolic. No tnk and no MT. On DSA, prior to MT, found to already have recanalization of R M2 MCA with occlusion of more distal R MCA branches. Discharged on asa 81 and lipitor 40. Neuro exam, no focalization finding of last stroke, no weakness, slurry speech, vision is chronic issue from retinopathy and macular degeneration. Since the stroke was 8 days ago. Pt BP has no limitation from stroke side. Subacute R M2 MCA stroke, most like cardio-embolic - c/w Aspirin 81 daily from tomorrow - c/w Lipitor 40 mg daily - SBP 120-140, normotension from subacute stroke standpoint - Frequent Neurochecks - others per primary team Discussed with Dr. Tony, Neurology Faculty. Neurology will sign off. Stroke pager: [phone] Joleenpaulelijah Husain Neurology Department PGY-2 ER STITCHER OPERATOR Associated attestation - Gabe Tony MD - 10/08/2024 11:27 AM FOLDER STITCHER OPERATOR Vascular Neurology attending attestation note I personally examined the patient on 10/08/24 and agree with 's residents note as written . I actively participated in the decision-making process. Please see the resident's note for additional details. Gabe Tony MD NEUROLOGY [facility] 2024-09-30 08:40:20 Associated Order(s): CONSULT BOAT RIGGER-ADULT Images from the original note were not included. Reason for Consult - Please give recommendations and opinions on family primary decision maker and appropriate options for discharge destination. CARE MANAGEMENT Care Coordinators/Social Workers/CM Specialists/Utilization Review/Patient Placement & Transfer Center 09/30/2024 8:40 AM See previous note by this author. Susanne Stevens RN, BSN, BC-RN Weekend Top Cleaner Wednesday-Wednesday 8A-8P only [facility] Care Management [email or web address] Direct [phone] Weekend CM phone- [phone] [facility] 2024-09-29 15:52:40 Associated Order(s): CONSULT CARDIOLOGY Cardiology Consult Note Date of Service: 09/29/2024 15:52 Time: 3:52 PM History of Present Illness: Solis Saleh is a 73 year old male with PMHx of hypertension, history of TIA, atrial fibrillation [id number] 4, history of duodenal angioectasias status post clip, history of colonic angiodysplasia status post coagulation, BPH, MDD admitted for anemia. Admission complicated by R MCA stroke. S/p recanalization of R M2 MCA. Cardiology was consulted for watchman consideration. Telemetry remains atrial fibrillation. Patient remains without dyspnea, palpitation, pre-syncopal symptoms. He does endorse improvement in weakness. Subjective Past Medical History: Diagnosis Date Chronic GERD GIB (gastrointestinal bleeding) HTN (hypertension) Paroxysmal atrial fibrillation Past Surgical History: Procedure Laterality Date COLONOSCOPY Lower 07/31/2024 Surgeon: Audi Cruz DO; Location: ENDOSCOPY ([facility]) OR LOCATION COLONOSCOPY N/A 09/27/2024 Surgeon: Meliton Pike MD; Location: ENDOSCOPY ([facility]) OR LOCATION ESOPHAGOGASTRODUODENOSCOPY N/A 07/27/2024 Surgeon: Carola Stanton MD; Location: ENDOSCOPY ([facility]) OR LOCATION PUSH ENDOSCOPY (SHX) N/A 07/28/2024 Surgeon: Carola Stanton MD; Location: ENDOSCOPY ([facility]) OR LOCATION PUSH ENDOSCOPY (SHX) N/A 09/27/2024 Surgeon: Meliton Pike MD; Location: ENDOSCOPY ([facility]) OR LOCATION No family history on file. Social History Socioeconomic History Marital status: Tobacco Use Smoking status: Never Passive exposure: Never Smokeless tobacco: Never Tobacco comments: Non smoker Social Determinants of Health Food Insecurity: No Food Insecurity (09/26/2024) NCSS - Food Insecurity Worried About Running Out of Food in the Last Year: No Ran Out of Food in the Last Year: No Transportation Needs: No Transportation Needs (09/26/2024) NCSS - Transportation Lack of Transportation: No Housing Stability: Not At Risk (09/26/2024) NCSS - Housing/Utilities Has Housing: Yes Worried About Losing Housing: No Unable to Get Utilities: No Allergies Allergen Reactions Pcn [Penicillins] Shortness of Breath and Swelling Prior to Admission medications Medication Sig Start Date End Date Taking? Authorizing Provider apixaban 5 mg tablet Take 1 tablet by mouth in the morning and 1 tablet in the evening. 08/01/24 Lewis Felix DO losartan 25 mg tablet Take 1 tablet by mouth in the morning. 08/01/24 Lewis Felix DO metoprolol tartrate 25 mg tablet Take 0.5 tablets by mouth in the morning and 0.5 tablets in the evening. 08/01/24 Lewis Felix DO pantoprazole 40 mg EC tablet Take 1 tablet by mouth in the morning. 08/01/24 Lewis Felix DO Current Facility-Administered Medications: [START ON 09/30/2024] aspirin chewable tablet 81 mg, 81 mg, Oral, DAILY, Donna Juan MD atorvastatin (LIPITOR) tablet 40 mg, 40 mg, Oral, QHS, Donna Juan MD gabapentin (NEURONTIN) capsule 300 mg, 300 mg, Oral, TID, Donna Juan MD, 300 mg at 09/29/24 1400 glucagon HCL injection 1 mg, 1 mg, Intramuscular, PRN, Donna Juan MD Lidocaine (LIDOCARE) 4 % patch 1 Patch, 1 Patch, Topical, ONCE, Ellen العراقي MBBS polyethylene glycol 3350 powder 17 g, 17 g, Oral, QDAILYPRN, Donna Juan MD Saline Bubble Study, 6 mL, Injection, SEE-INSTRUCTIONS, Elias Phillips MD, 6 mL at 09/29/24 1134 [START ON 09/30/2024] sennosides-docusate sodium (SENOKOT-S) 8.6-50 mg per tablet 1 tablet, 1 tablet, Oral, DAILY, Donna Juan MD acetaminophen (TYLENOL) tablet 650 mg, 650 mg, Oral, Q6HPRN, Donna Juan MD, 650 mg at 09/29/24 0754 labetaloL (NORMODYNE) 5 mg/mL injection 10 mg, 10 mg, Slow IV Push, [id number], Donna Juan MD NaCl 0.9% (NS) injection 5 mL, 5 mL, Slow IV Push, PRN - SEE INSTRUCTIONS, Rose Orr DO niCARdipine (CARDENE I.V.) 40 mg in NaCL 200 mL (RTU) infusion, 1-15 mg/hr, IV Infusion, TITRATE, Donna Juan MD pantoprazole (PROTONIX) injection 40 mg, 40 mg, Slow IV Push, Q12H, [facility], 40 mg at 09/29/24 0748 ondansetron (ZOFRAN (PF)) injection 4 mg, 4 mg, Slow IV Push, Q6HPRN, Irwin Arias MD, 4 mg at 09/27/24 0517 Objective Physical Examination: Temp: [36.4 ?C (97.5 ?F)-37.3 ?C (99.1 ?F)] Heart Rate (monitor): [80-115] Pulse: [89-126] Resp: [13-25] BP: (133-171)/(66-106) Arterial Line BP: (160-193)/(64-85) MAP (mmHg): [89-119] MAP: [96 mmHg-121 mmHg] Intake/Output Summary (Last 24 hours) at 09/29/2024 1552 Last data filed at 09/29/2024 1400 Gross per 24 hour Intake 425 ml Output 1335 ml Net -910 ml General: alert and oriented x 4 (person, place, date/time, and situation); no apparent distress Lungs: clear to auscultation bilaterally Cardio: S1, S2 normal; no murmurs, rubs or gallops, irregular Extremities: strength BUE 02/12 Labs/Imaging/Pathology - Reviewed Echocardiography : Findings Left Ventricle Left ventricle is mildly dilated. Dilated by LV volume index calculation. Mildly increased wall thickness. Mildly increased ventricular mass. There is mild concentric hypertrophy. Moderate global hypokinesis present. Mildly reduced systolic function with a visually estimated EF of 40 - 45%. EF by 2D Whiting biplane is 41%. Diastolic dysfunction. Unable to grade due to atrial fibrillation. Right Ventricle Right ventricle size is normal. Normal systolic function. Left Atrium Left atrium is severely dilated. Left atrium volume index is 48.1 mL/m2. Evidence of large intracardiac shunt (significant amount of bubbles seen in the left-sided chambers). Right Atrium Right atrium size is normal. IVC/SVC IVC diameter is greater than 21 mm and decreases less than 50% during inspiration; therefore the estimated right atrial pressure is elevated (~15 mmHg). Mitral Valve Mitral valve structure is normal. Mild transvalvular regurgitation. No stenosis. Tricuspid Valve Tricuspid valve structure is normal. Moderate transvalvular regurgitation. Right ventricular systolic pressure is 40-45 mmHg. No stenosis. Aortic Valve Tricuspid. Normal excursion of the aortic valve leaflets. No transvalvular regurgitation. No hemodynamically significant . Pulmonic Valve Valve structure is normal. No transvalvular regurgitation. No stenosis. Ascending Aorta Normal sized aortic root. Pericardium No pericardial effusion. Cardiac Cath : no prior work up Assessment/Plan: Solis Saleh is a 73 year old male admitted with: R MCA stroke s/p recanalization Severe Anemia Recent UGIB AVMs on colonoscopy, no active bleeding AF CHADVASC 4 - Given patients active atrial fibrillation we would recommend resumption of AC to reduce risk of recurrence when safe to do so per primary team (neurology) and GI teams. Patient remains high risk thus discussion of risk/benefit will need to be held with patient and family for resumption. - Please have patient follow up with EP on discharge for Watchman evaluation followed by +/- closure outpatient Thank you for your consult. Discussed case with Dr. Zbigniew Burnett Mai, DO [employer], PGY-4 ER STITCHER OPERATOR Associated attestation - Hafsa Coy MD - 10/01/2024 6:40 AM FOLDER STITCHER OPERATOR I personally examined the patient on the date of service and agree with Dr. Benavidez's Fellow's note. I actively participated in the decision-making process. Please see the Fellow's note for additional details. CARDIOVASCULAR DISEASE [facility] 2024-09-29 11:56:00 Associated Order(s): CONSULT SPEECH Speech-Language Pathology Clinical Swallow Evaluation 09/29/2024 Solis Saleh : 1950 Age/Sex: 73 year old male Time IN/OUT: 5282-0499 Referring Physician: Vladislav Juan Date of Referral: 09/28/24 Reason for Referral: stroke activation (dysphagia, speech-language/cognitive-linguist ic) Date of Admission/Onset: 09/25/24 SUBJECTIVE: Patient awake/alert, agreeable to evaluation. Patient reported feeling short of breath. RN notified and arrived shortly. OBJECTIVE: is being seen for a clinical swallow evaluation. Per HPI, "Solis Saleh is a 73 year old right handed male with PMH of HTN, h/o TIA, Afib (CHADSVASC 4) on Eliquis, BPH, unspecified bone cancer, and MDD, who was initially admitted to [facility] team due to anemia. To be transferred to the ICU after interval development of acute R MCA stroke s/p NEC activation. Patient last known normal was 09/28 1200. He was minutes later found to have L facial droop and slurred speech. Initial NIHSS 2. BP was 112/89 mmHg. CTH did not reveal any acute abnormalities but evidence of prior strokes. CTA H&N showed R M2 occlusion with distal flow from collaterals. No tnk was given as the patient took eliquis this morning. His sx resolved and repeat NIHSS was 0. After 30 minutes, his exam worsened. His LUE weakness worsened, and developed L jeannie neglect. Repeat NIHSS 9. NEC was activated. On DSA prior to MT, found to have recanalization of R M2 MCA with occlusion of more distal R MCA branches." See chart for further details. Pertinent Imaging: XR Abdomen 2 vw Result Date: 09/29/2024 Surgical clip identified projecting over the right lower abdomen. Joshua Wiley MD., have reviewed this study and agree with the above report. CT Head wo contrast Result Date: 09/29/2024 Evolving right posterior MCA territory acute/subacute infarct. No hemorrhagic conversion. Preliminary Report Dictated by Resident: Javon Pinto I, Eloina Ruiz MD., have reviewed this study and agree with the above report. CT ACUTE STROKE ANGIOGRAM HEAD Result Date: 09/28/2024 High-grade, short segment narrowing of a right M2 branch proximally, probably at a fork involving both a posterior and anterior division branch, likely representing thromboembolic disease. This would account for patient's acute left-sided symptoms. This case was discussed with Dr. Grace at the time of report dictation. Incidentally noted lobular ground glass opacity in the posterior aspect of the right upper lung. 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 Clinical correlation is recommended. CT ACUTE STROKE ANGIOGRAM NECK Result Date: 09/28/2024 High-grade, short segment narrowing of a right M2 branch proximally, probably at a fork involving both a posterior and anterior division branch, likely representing thromboembolic disease. This would account for patient's acute left-sided symptoms. This case was discussed with Dr. Grace at the time of report dictation. Incidentally noted lobular ground glass opacity in the posterior aspect of the right upper lung. 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 Clinical correlation is recommended. CT ACUTE STROKE HEAD WO CONTRAST Result Date: 09/28/2024 No acute intracranial abnormality. Multifocal chronic infarcts as above. Previous WAITER/WAITRESS BAR Services/Swallow History: None documented. Past Medical History: Diagnosis Date Chronic GERD GIB (gastrointestinal bleeding) HTN (hypertension) Paroxysmal atrial fibrillation Past Surgical History: Procedure Laterality Date COLONOSCOPY Lower 07/31/2024 Surgeon: Audi Cruz DO; Location: ENDOSCOPY ([facility]) OR LOCATION COLONOSCOPY N/A 09/27/2024 Surgeon: Meliton Pike MD; Location: ENDOSCOPY ([facility]) OR LOCATION ESOPHAGOGASTRODUODENOSCOPY N/A 07/27/2024 Surgeon: Carola Stanton MD; Location: ENDOSCOPY ([facility]) OR LOCATION PUSH ENDOSCOPY ([facility]) N/A 07/28/2024 Surgeon: Carola Stanton MD; Location: ENDOSCOPY ([facility]) OR LOCATION PUSH ENDOSCOPY ([facility]) N/A 09/27/2024 Surgeon: Meliton Pike MD; Location: ENDOSCOPY ([facility]) OR LOCATION General Behavior: Alert, Calm, and Cooperative Hearing: WFL for speech Respiratory Status: room air Orientation/Cognition: - Patient oriented to: person, place, time, and situation - Response type: verbal - Follows 1-step commands: Yes Current Diet Texture/Means of Nutrition: NPO Oral Motor Exam Dentition and Oral Cavity: natural dentition, many missing teeth, and moist oral mucosa Face within normal limits and symmetrical Jaw within normal limits and symmetrical Lips within normal limits and symmetrical Tongue within normal limits and midline on protrusion Palate within normal limits and symmetrical Vocal Quality clear Speech clear/intelligible CLINICAL SWALLOW EVALUATION Swallows on command: Yes Handles Secretions: Yes Volitional Cough: Did not test Spontaneous Cough: No PO trials were administered by patient. Patient was provided with multiple bites/sips of thin liquid (0), pudding (4), and regular solid (7) consistencies with the following observations: Oral Stage Anterior leakage of bolus not observed Pocketing of bolus not observed Subjectively prolonged oral phase not observed Oral residue not observed Mastication WNL Pharyngeal Stage Subjectively reduced laryngeal elevation not observed Coughing or throat clearing not observed Change in voice quality not observed Multiple swallows subjectively not observed Respiratory sufficiency and coordination WFL - no increased work of breathing and/or oxygen sats and respiratory rate remained stable Report of globus sensation does not report 3 oz water challenge passed Patient/Family/Staff education: Provided verbally. Discussed findings of evaluation, recommendations and WAITER/WAITRESS BAR plan of care. Patient/family verbalized understanding and is in agreement with plan of care. RN and referring provider notified of findings and recommendations. Patient/Family goal: did not state ASSESSMENT/IMPRESSIONS: Solis Saleh presents with: Diagnosis: suspected grossly safe and functional oropharyngeal swallow Etiology of suspected dysphagia/Risk factors for dysphagia: acute/subacute stroke Observations/Complaints: no overt s/sx of aspiration, no signs of discomfort or distress, and functional oral stage Factors raising concern for aspiration or pharyngeal dysphagia: acute stroke Suspected risk for aspiration: low Factors increasing risk for aspiration-related respiratory complication such as pneumonia: none evident Risk for malnutrition/dehydration or not meeting nutritional needs: unknown Additional comments: Patient's receptive and expressive language skills appear grossly intact. No dysarthria, aphasia, or cognitive-communication deficits reported by patient or observed by WAITER/WAITRESS BAR. Patient is able to communicate his wants, needs, and thoughts with ease. *Note: aspiration cannot be ruled out nor confirmed without instrumental assessment/imaging. Prognosis: good for safe po intake due to above findings. RECOMMENDATIONS/GOALS: Diet: Recommend patient initiate a regular (IDDSI level 7)-textured diet with thin liquids (IDDSI level 0) Precautions: - Swallow Precautions: sit fully upright/in chair and remain upright after PO intake - Recommend elevated head of bed and frequent, thorough oral hygiene care due to possible risk for aspiration. - Recommend patient be closely monitored for s/sx of aspiration or signs of a developing respiratory infection or worsening respiratory status (i.e. throat clearing/coughing with po, wet/gurgled voice, fever spikes 30-60 mins after meals, increased chest congestion, leukocytosis, increased O2 requirements, etc.). If observed or suspected, recommend pt be made NPO pending WAITER/WAITRESS BAR re-assessment. Instrumental Swallow Assessment: - Not indicated at this time. Additional Referrals: - None evident at this time. Continued WAITER/WAITRESS BAR services: No further acute WAITER/WAITRESS BAR services indicated at this time, so service is signing off. Please re-consult if indicated. Thank you. Discharge Recommendations: - None evident related to WAITER/WAITRESS BAR at this time. Reanna Casarez MA, [facility]-WAITER/WAITRESS BAR Speech-Language Pathologist Office [phone] Pager: [phone] ER STITCHER OPERATOR Reanna Casarez [facility] 2024-09-29 10:00:00 Associated Order(s): CONSULT ADULT PHYSICAL THERAPY RN cleared PT for session. Patient agreeable to working with physical therapy. Patient in semichair position in bed and Heels offloaded? No: not required as patient is alert and oriented, as well as exhibits sufficient LE strength and ability to move/reposition LEs/heels throughout the day, WAITER/WAITRESS BAR present. Recommend nursing staff utilize minimal assistance via MOLDER MACHINE to safely assist patient with mobility out of the bed or chair. Pt seen in conjunction with occupation therapy ([facility]) due to pt's anticipated limited activity tolerance. Refer to OT for ADL details. PT billing for PT portion only. PHYSICAL THERAPY EVALUATION Consult received, chart reviewed and evaluation complete this date. Patient is referred to PT for evaluation and treatment. Patient is a 73 year old male who presents to hospital for Anemia, unspecified type [D64.9]. Discharge Recommendations: Therapy Needs and Potential: Patient would benefit from continued physical therapy services to address: decline in bed mobility decline in transfers decline in gait and/or balance decline in stair/step negotiation decreased strength decreased endurance Patient demonstrates good potential to improve and meet therapy goals with further physical therapy services. Patient appears motivated to improve their functional mobility and return to their previous level of function. Patient demonstrates ability to tolerate atleast 30-60 minutes of physical therapy with active participation. Challenges to Home Transition: increased risk of falls decreased safety awareness environmental barriers Equipment recommendations: May need rolling walker Current Functional Status and/or Treatment: AM-PAC 6 Clicks (Raw Score 0=Dependent, 24=Independent; Low function Raw Score 0= Dependent, 32=Independent): Raw Score - Basic Mobility : 19 T-Scale Score - Basic Mobility : 42.48 Upon arrival, vital signs as follows while performing assessment with WAITER/WAITRESS BAR: 112-118 HR 155/88 (106) mmhg BP cuff, 156/94 (114) mmhg BP cuff 86%-93% SpO2 on RA while attempting to open crackers. Time given to perform due to complaints of SOB. Cues needed for deep breathing to improve SpO2. RN immediately notified and made aware. Peak HR at 125-130 while in semichair position in bed with WAITER/WAITRESS BAR. Vital signs prior to mobility assessment: 158/103 (119) mmhg BP cuff 103 HR 93% SpO2 on RA 20 RR Bed Mobility: Rolling: Supervision Compensatory strategies provided to complete rolling using bed rails Supine-sit with HOB elevated: Supervision Cues for proper body mechanics during transition supine-sit Instructed patient to push up on the elbow and then to hand to gently lift self up to sitting on EOB Sit to supine: Supervision-Minimal Assistance Provided assistance to control descent of the upper body to complete sit-supine Sitting balance Good Initial cues for upright sitting in midline position Provided tactile cues for triceps recruitment with BUE in sitting to support self Provided activities to improve trunk stability in sitting. Provided minimal assistance to maintain balance Patient was able to tolerate sitting on EOB or from varied seat surface for ~20 minutes while performing deep breathing exercises Provided patient with extra time to complete task Dizziness No Vital signs in sitting: Initially 175/97 (118) mmhg BP cuff, rechecked, then 164/99 (114) mmhg BP cuff Transfers: Sit to stand x 3: Supervision using no device Stand to sit x 3: Supervision using no device Multiple cues needed to achieve task to sit on desired surface (EOB, BSC) Cues to reach back and control descent Bed <> BSC: Minimal Assistance x 2 using no device Patient has poor follow through, needing multiple cues for sequencing and smooth transfer Time given to void. Peak HR at 155-160. RN made aware and immediately informed, monitored pt through post-session. Pt denied any chest pain. Time given to acclimate, HR to 110s prior to return to bed. Static/dynamic standing balance: Good Dizziness No Ambulation: Assisted patient with ambulation as follows: 5 feet side stepping towards BSC and 5 feet side stepping back to EOB using no device and Minimal Assistance x 2 Mild sway noted, however no unsteadiness or LOB Dizziness No Therapeutic exercise: patient educated in Deep breathing, Energy conservation, Fall prevention, General strengthening, Positioning, Relaxation/breathing techniques, and Safety awareness. and instructed patient in the following: ankle pumps, quad sets, glut sets, heel slides, hip abduction/adduction, straight leg raises, long arc quads, seated marching x 10 Patient educated on performing therapeutic exercises in a pain-free ROM. Educated patient with importance and benefits of progressive OOB activities as tolerated to: Increase overall mobility, strength and endurance and progress towards PLOF Decrease chances of pneumonia, deconditioning, BLE DVT's, skin breakdown and pressure sores. Patient verbalizing understanding to all discussed Functional Outcome Measures: (Values within the past 12 hours) Tinetti Gait Score- # / 12 Initiation of gait: No hesitancy Step length: On both sides, swing foot passes stance foot Foot clearance: Both feet completely clear floor Step Symmetry: Step lengths not equal Step continuity: Stopping/dis-continuous steps Path: Straight without AD Trunk: No sway, but flex of knees/ back or spreads arms Walking: Heels apart Tinetti Gait Score: 8 Tinetti Gait Score Interpretation: >= 7 - Low risk for falls After session, patient semireclining in bed and Heels offloaded? No: not required as patient is alert and oriented, as well as exhibits sufficient LE strength and ability to move/reposition LEs/heels throughout the day, Nursing present. Call button provided. RN made aware of pt's current status, functional mobility, and to continue to monitor. Patient left in medical team's care post-session. Vital Signs Post-Session 107 HR 156/112 (124) mmhg BP cuff 93%-94% SpO2 on 2L NC PLAN OF CARE: While in the hospital, PT will follow patient at least 3 times per week,once or twice a day, per patient's tolerance and needs. See below for complete details. Admit Date: 09/25/2024 Hospital Diagnosis:Anemia, unspecified type [D64.9] PT Diagnosis: Difficulty walking, Weakness, Malaise/fatigue, Dyspnea, and Abnormality of gait and balance Weight Bearing Precaution: NA General Precautions: PPE used:Gloves, General, Fall, Lines/Tubes, Head of bed 30?,Duron catheter, IV peripheral, oxygen: Nasal canula on 2L post session Bracing/Cast present or required:N/A PMH: Past Medical History: Diagnosis Date Chronic GERD GIB (gastrointestinal bleeding) HTN (hypertension) Paroxysmal atrial fibrillation PSH: Past Surgical History: Procedure Laterality Date COLONOSCOPY Lower 07/31/2024 Surgeon: Audi Cruz DO; Location: ENDOSCOPY ([facility]) OR LOCATION COLONOSCOPY N/A 09/27/2024 Surgeon: Meliton Pike MD; Location: ENDOSCOPY ([facility]) OR LOCATION ESOPHAGOGASTRODUODENOSCOPY N/A 07/27/2024 Surgeon: Carola Stanton MD; Location: ENDOSCOPY ([facility]) OR LOCATION PUSH ENDOSCOPY ([facility]) N/A 07/28/2024 Surgeon: Carola Stanton MD; Location: ENDOSCOPY ([facility]) OR LOCATION PUSH ENDOSCOPY ([facility]) N/A 09/27/2024 Surgeon: Meliton Pike MD; Location: ENDOSCOPY ([facility]) OR LOCATION PRIOR LIVING SITUATION: in a mobile home and with their daughter, 2 Stairs with bilateral hand rails DME: No device Prior level of Mobility: ambulates with no device Suspected ischemic or hemorraghic stroke:Yes, Pre-Stroke Modified Screven Score: 1 - No significant disability, despite symptoms; able to perform all usual duties and activities Subjective: I don't feel so well Patient/Family Goals: to get stronger Patient/Family verbalizes understanding of condition: Yes PAIN: -Pain Location: R groin -Pain rating before treatment: 9, After treatment: 4 -Pain Management: Pain Meds given and Repositioning Provided COMMUNICATION Primary Language: Palestinian Able to Verbalize needs: Yes Vision:L eye blindness, wears glasses Hearing:good; no issues reported ORIENTATION/COGNITION: Oriented to: person, place, date/time, and situation Awake: Yes Alert: Yes Dizzy: No Follows Commands: Yes 1-Step Yes Multi-Step No Inconsistent: Yes NEUROLOGICAL Light Touch: within functional limits bilateral LE Heel to martinez: WFL Tone: WFL BALANCE: Sitting: Static: Good Dynamic: Good Standing: Static: Good Dynamic: Fair+ RANGE OF MOTION: within functional limits bilateral LE, STRENGTH: 5/5 (Normal), bilateral LE ENDURANCE: Fair+, Room Air initially, then needed 2L NC Post session SKIN INTEGRITY: refer to RN Notes PROBLEM LIST: Decline in bed mobility, Decline in gait, Decline in transfers, Difficulty with stairs, Decreased strength, Decreased endurance, Decreased balance, and Safety awareness deficits ASSESSMENT: Patient is a 73 year old male seen secondary to the above listed diagnosis. Patient would benefit from continued PT to address the above listed deficits to maximize independence and safety with functional mobility. Rehabilitation Potential: good Goals: The following goals are to maximize independence and safety with functional mobility to eventually return to prior living situation and prior functional status. Upon discharge, patient and/or family will demonstrate the followin. Supine-sit: Independent Sit to supine: Independent 2. Sit to stand: Independent using LRAD Stand to sit: Independent using LRAD 3. Independent with ambulation, Feet: 300 using least assistive device. 4. Independent up/down 2 stairs using bilateral hand rails. Treatment Plan: Gait training, Gait training on stairs, Therapeutic exercise, Transfer training, Balance training, Bed mobility training, Equipment needs assessment, Safety education, patient/caregiver education, Neuromuscular Re-Education, and Functional Motor Training PATIENT EDUCATION: Patient provided with preferred teaching of verbal information on role of PT, plan of care. Shows readiness to learn. Verbal instruction teaching provided. Individual verbalizes understanding of teaching provided and needs reinforcement of teaching. Total Time Tx Codes in Minutes: 38 min Total Treatment Time in Minutes: 50 min Koki Benavidez PT, DPT Physical Therapist Pt will be followed by physical therapy, however, this therapist may not be primary therapist. [place] [phone] for questions or concerns. ER STITCHER OPERATOR Koki Benavidez PT [facility] 2024-09-29 10:00:00 Associated Order(s): CONSULT ADULT OCCUPATIONAL THERAPY OT GENERAL EVALUATION Consult received via [employer], EMR reviewed and evaluation completed 09/29/24. Patient referred to occupational therapy for evaluation and treatment per stroke protocol. Patient agreeable to participate in occupational therapy. Patient found semireclining in bed and Heels offloaded? No: not required as patient is alert and oriented, as well as exhibits sufficient LE strength and ability to move/reposition LEs/heels throughout the day, WAITER/WAITRESS BAR present . Pt seen in conjunction with Sravanthi Benavidez PT due to pt's anticipated decreased activity tolerance. Refer to PT for further mobility details. OT billing for OT portion only. Discharge Recommendations: Therapy Needs and Potential: - Patient would benefit from continued skilled occupational therapy services to address: Decline in basic activities of daily living, Decline in instrumental activities of daily living, Decreased endurance, and Caregiver training - Patient demonstrates good potential to improve and meet therapy goals with further skilled occupational therapy services. - Patient appears motivated to improve their BADLS and IADLs and return to their previous level of function. - Patient demonstrates ability to tolerate at least 30-60 minutes of active participation in occupational therapy. - Patient able to follow commands: 1-step Yes, Multi-step Yes, Inconsistencies Yes Challenges to Home Transition: - Requires physical assistance for BADLS - Requires physical assistance for IADLS - Decreased safety awareness/judgement - Increased risk of falls - Environmental barriers- 2 steps to enter home Equipment Recommendations:Bedside commode PLAN OF CARE: At least 2x/week Precautions: Weight bearing status: NA General: Fall, HOB at 30 degrees, O2 per NC , and duron Bracing: N/A Subjective: "I need to use the restroom." Current Occupational Performance and/or Treatment: AM-PAC 6 Clicks (Raw Score 0=Dependent, 24=Independent; Low function Raw Score 0= Dependent, 32=Independent): Raw Score - Daily Activity: 21 T-Scale Score - Daily Activity: 44.27 Feeding: Independent, pt eats eloy cracker and sips water from cup with straw while semireclining in bed Grooming: Independent, cleans face with damp washcloth while semireclining in bed LB Dressing: Supervision, adjusts B socks while long sitting in bed using figure 4 method; verbal cues for strategy; pt with increased fatigue with task, HR rising to 140s with task; verbal cues for pacing self and relaxation/breathing Toilet Transfer: Minimal Assistance, stand-pivot transfer EOB>Bedside chair; pt requires continual cues for body positioning and overall strategy, initially attempts to sit on railing on BSC and requires physical assist to reposition prior to sit; HR observed as 155-160 with task, RN notified and enters room to assess pt Toilet Hygiene: Total Assistance, duron; pt attempts BM while sitting on commode however unable to complete Functional Mobility: Semireclining>Long sitting with independence Pt endorses shortness of breath, cues for pursed lip breathing SpO2 remains 92% and above Supine<>EOB with independence Takes 3-4 R lateral steps to position higher in bed End of session, pt sits EOB with increased fatigue SpO2 89%, RN present and reapplies NC (2 Liters) Patient/caregiver educated on: Adaptive equipment (bedside commode), ADL trainign (LB dressing, Toilet transfer), Deep breathing, Energy conservation (pacing self, rest breaks with activity), Fall prevention, Role of OT, and Safety awareness (monitoring heart rate and ensuring safe level prior to mobilizing, use of call light, staff assist for transfers) Vital Signs Post-Session: 107 HR 156/112 (124) mmhg BP cuff 93%-94% SpO2 on 2L NC Patient left semireclining in bed with call guerrero in reach. Nursing present. Please, see full evaluation below for more detail. OT EVALUATION: 73 year old male Admit date: 09/25/2024 Date of onset: 09/25/24 Admit Diagnosis: Anemia, unspecified type [D64.9] OT Diagnosis: Impaired BADL independence, Impaired IADL independence, Decreased endurance, Impaired self-care mobility, and Impaired cognition PMH: Past Medical History: Diagnosis Date Chronic GERD GIB (gastrointestinal bleeding) HTN (hypertension) Paroxysmal atrial fibrillation PSH: Past Surgical History: Procedure Laterality Date COLONOSCOPY Lower 07/31/2024 Surgeon: Audi Cruz DO; Location: ENDOSCOPY ([facility]) OR LOCATION COLONOSCOPY N/A 09/27/2024 Surgeon: Meliton Pike MD; Location: ENDOSCOPY ([facility]) OR LOCATION ESOPHAGOGASTRODUODENOSCOPY N/A 07/27/2024 Surgeon: Carola Stanton MD; Location: ENDOSCOPY ([facility]) OR LOCATION PUSH ENDOSCOPY ([facility]) N/A 07/28/2024 Surgeon: Carola Stanton MD; Location: ENDOSCOPY ([facility]) OR LOCATION PUSH ENDOSCOPY ([facility]) N/A 09/27/2024 Surgeon: Meliton Pike MD; Location: ENDOSCOPY ([facility]) OR LOCATION PAIN: Pain Location: R groin Pain rating before treatment: 9, After treatment: 4 Pain Management: Nursing Notified and Repositioning Provided OCCUPATIONAL ROLES/HOME ENVIRONMENT: Home environment: Lives with parents, 24/7 supervision/assistance is available, and Single story home with 2 steps to enter. Bathroom access: Yes Bathroom setup: Shower Occupation(s): Retired- enjoys spending time with grandchildren Function prior to admission: Household ambulation and Independent with BADLs; daughter completes IADLs Suspected ischemic or hemorraghic stroke patient: Yes, refer to PT note Equipment prior to admission: Shower chair PERFORMANCE SKILLS/FACTORS: UE Muscle Tone: bilateral WNL UE ROM: bilateral AROM WFL UE Strength: BRITTA UE WFL Hand dominance: Left Dexterity/Coordination: bilateral grossly Intact, pt with some difficulty opening eloy cracker container however able to complete with extended time Endurance - Sitting: Fair+ Standing: Fair - Sitting Balance - Static: Good Dynamic: Good Standing: Balance - Static Fair+ Dynamic: Fair Dizziness: No Skin Integrity: defer full skin assessment to nursing Sensation: bilateral Intact to light touch Oral Motor: WFL Communication: Able to verbalize needs Yes Other: N/A Vision: WFL No Other: 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), reports poor vision in R eye Hearing: good; no issues reported COGNITION: Orientation: person, place, date/time, and situation Follows Commands: 1-step Yes Multi-step Yes Inconsistencies Yes Safety Awareness/Judgment: Fair and Requires frequent cueing PROBLEM LIST: Decreased independence with ADL, Decreased strength/endurance for functional activity, and Impaired safety awareness REHAB POTENTIAL/PROGNOSIS: good PATIENT/FAMILY GOALS: to get better TREATMENT/INTERVENTION PLAN: Functional motor treatment, Patient/Caregiver Education, Equipment recommendations, Daily living activities, and Therapeutic exercises GOAL(S): By discharge, patient will increase independence in daily living skills as follows: 1 Patient will perform 3 in 1 BSC transfer with independence. 2 Patient will don/doff pants or shorts with independence. 3 Patient will complete 1 grooming tasks with independence while standing at the sink. 4 Patient will complete toileting hygiene, including clothing management, with independence. 5 Patient will increase endurance for functional activity as evidenced by ability to sustain 6 minutes of active participation in standing with no adverse event. 6 Patient/caregiver will verbalize/demonstrate understanding/proficiency in the following home programs: Fall prevention PATIENT-FAMILY TEACHING Patient provided with preferred teaching of verbal information on Adaptive equipment (bedside commode), ADL trainign (LB dressing, Toilet transfer), Deep breathing, Energy conservation (pacing self, rest breaks with activity), Fall prevention, Role of OT, and Safety awareness (monitoring heart rate and ensuring safe level prior to mobilizing, use of call light, staff assist for transfers). Shows readiness to learn. Verbal instruction teaching provided. Individual verbalizes understanding of teaching provided. Cece Mullins, OTR, OTD Total Timed Treatment Codes: 20 Min Total Treatment Time: 52 Min Patient Complexity Level High - An occupational therapy evaluation of high complexity was completed using the above tests and measures. The following information was obtained: An occupational profile and medical and therapy history, including review of medical and/or therapy records and extensive additional review of physical, cognitive, or psychosocial history related to current functional performance, Various standardized and non-standardized assessments were used to identify at least 5 or more performance deficits related to physical, cognitive, or psychosocial skills that result in activity limitations and/or participation restrictions, and Clinical decision-making is of high analytic complexity, which includes an analysis of the patient profile, analysis of data from comprehensive assessment(s), and consideration of multiple treatment options. Patient present with comorbidities that affect occupational performance. Significant modification of tasks or assistance (e.g., physical or verbal) with assessment(s) is necessary to enable patient to complete evaluation component. [facility] 2024-09-26 08:32:50 Associated Order(s): CONSULT GASTROENTEROLOGY Department of Gastroenterology & Hepatology Consult Note Requesting Physician: Hyun Hanson DO Service: Gastroenterology Reason for Consultation: Symptomatic acute blood loss anemia without any obvious signs of GIB Date of Service: 09/26/2024 History of Present Illness Solis Saleh is a 73 year old male with a PMH of afib CHADSVASC 4 on Eliquis hypertension, transient ischemic attack (TIA), benign prostatic hyperplasia (BPH), unspecified bone cancer, and major depressive disorder (MDD)who present with cc of symptomatic anemia. 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 Pt is unsure why he sees [facility]. Per chart review Daughter is a thalassemia carrier and mother had history of unspecific bleeding disorder. Pt has not received and IV Iron infusion in the past. At OSH, hgb was 4.8 and he has 2 units rbc ordered. VSS. Patient was transferred for higher level of care. Currently patient reports lightheadedness when he stands, KAT. Denies fevers, chills weight loss, chest pain, shortness of breath, N/V/D, melena, hematochezia, hemoptysis, abdominal pain.Reports anemia symptoms started after taking eliquis. Last dose of eliquis was the morning of the 16th. Denies NSAID usage, being testing for H pylori, ETOH usage,Bimusth usage. Pt takes Iron gummies. Of note patient was recently admitted for UGIB and received 5 units of RBCs. Anticoagulation and antiplatlets were held. An esophagogastroduodenoscopy (EGD) revealed non-bleeding angiodysplasias, and clips were placed for management. A colonoscopy showed multiple angiodysplasias and diverticulosis without an active source of bleeding. Eliquis was resumed on 07/31 after stabilization of the hemoglobin level, and no active bleeding was observed. He followed up with GI OP with no planned procedures upcoming. Patient saw hematology and labs were drawn. His oncologist called him to go to the ED when he saw low hemoglobin. Baseline HGB: 7.5 -8 Previous scopes: EGD 07/27/2024, Colonoscopy 07/31/2024nd Small Bowel Endoscopy 08/04/2024 Patient denies any recent NSAID, DAPT, anticoagulation, or alcohol use. Patient denies fever, chills, chest pain, SOB, nausea, vomiting, hematemesis, abdominal pain, diarrhea, melena, hematochezia. PAST MEDICAL HISTORY Past Medical History: Diagnosis Date Chronic GERD GIB (gastrointestinal bleeding) HTN (hypertension) Paroxysmal atrial fibrillation PAST SURGICAL HISTORY Past Surgical History: Procedure Laterality Date COLONOSCOPY Lower 07/31/2024 Surgeon: Audi Cruz DO; Location: ENDOSCOPY ([facility]) OR LOCATION ESOPHAGOGASTRODUODENOSCOPY N/A 07/27/2024 Surgeon: Carola Stanton MD; Location: ENDOSCOPY ([facility]) OR LOCATION PUSH ENDOSCOPY ([facility]) N/A 07/28/2024 Surgeon: Carola Stanton MD; Location: ENDOSCOPY ([facility]) OR LOCATION FAMILY HISTORY No family history on file. ALLERGIES Allergies Allergen Reactions Pcn [Penicillins] Shortness of Breath and Swelling MEDICATIONS Current Facility-Administered Medications Medication Dose Route Frequency Last Rate Last Admin acetaminophen (TYLENOL) tablet 650 mg 650 mg Oral Q6HPRN acetaminophen-codeine (TYLENOL #3) 300-30 mg tablet 1 tablet 1 tablet Oral Q6HPRN metoprolol tartrate (LOPRESSOR) tablet 12.5 mg 12.5 mg Oral BID ondansetron (ZOFRAN (PF)) injection 4 mg 4 mg Slow IV Push Q6HPRN pantoprazole (PROTONIX) EC tablet 40 mg 40 mg Oral BID sennosides-docusate sodium (SENOKOT-S) 8.6-50 mg per tablet 1 tablet 1 tablet Oral DAILY SOCIAL HISTORY Social History Socioeconomic History Marital status: Spouse name: Not on file Number of children: Not on file Years of education: Not on file Highest education level: Not on file Occupational History Not on file Tobacco Use Smoking status: Never Passive exposure: Never Smokeless tobacco: Never Tobacco comments: Non smoker Substance and Sexual Activity Alcohol use: Not on file Drug use: Not on file Sexual activity: Not on file Other Topics Concern Not on file Social History Narrative Not on file Social Determinants of Health Financial Resource Strain: Not on file Food Insecurity: No Food Insecurity (07/27/2024) NCSS - Food Insecurity Worried About Running Out of Food in the Last Year: No Ran Out of Food in the Last Year: No Transportation Needs: No Transportation Needs (07/27/2024) NCSS - Transportation Lack of Transportation: No Physical Activity: Not on file Stress: Not on file Social Connections: Not on file Housing Stability: Not At Risk (07/27/2024) NCSS - Housing/Utilities Has Housing: Yes Worried About Losing Housing: No Unable to Get Utilities: No ROS: Per HPI PE: BP (!) 146/91 (BP Location: Left arm, Patient Position: Supine) | Pulse 105 | Temp 36.8 ?C (98.2 ?F) (Tympanic) | Resp 20 | Ht 1.753 m (5' 9") | Wt 92.1 kg (203 lb) | SpO2 95% | BMI 29.98 kg/m? General: in no apparent distress, pallor HEENT: no scleral icterus, pale mucosa Lungs: unlabored breathing Cardio: appears well perfused, tachycardic, irregular rhythm Abdomen: soft, non-tender, non-distended Extremities: 2+ LLE edema, no clubbing or cyanosis Skin: no jaundice Neuro: no focal deficits, no asterixis LABORATORY: Reviewed PT 17.1 PT/INR 1.5 aPTT - 32 Hgb 4.8 -> 2 units pRBC-> 6.8 -> 6.1 Hemolysis Labs Retic Count 2.80(elevated) LDH normal Fe Labs Iron 27 Decreased TIBC 335 normal Fe Sat 8% low Ferritin 5 low RADIOLOGY: CT Abd/Pelvis 07/26/2024 - 1. Cholelithiasis with no signs of acute cholecystitis. Distal colonic diverticulosis. 2. Multiple hypodense hepatic parenchymal lesions some of which cannot be definitively characterized. Further evaluation with MR is recommended .3. Multiple fascial defects and small fat-containing hernias in the supraumbilical anterior abdominal wall. Biventricular dilatation. CHART REVIEW: EGD 07/27/2024 - Normal esophagus. - Z-line regular, 42 cm from the incisors. - Esophagogastric landmarks identified. - Gastroesophageal flap valve classified as Hill Grade IV (no fold, wide open lumen, hiatal hernia present). - 2 cm hiatal hernia. - Normal stomach. - Normal duodenal bulb. - A single non-bleeding angioectasia in the duodenum. Clip was placed. - Normal third portion of the duodenum. - No specimens collected Colonoscopy 07/31/2024 - Diverticulosis in the descending colon, in the transverse colon and in the ascending colon. - Six non-bleeding colonic angiodysplastic lesions. - The appendiceal orifice, rectum, sigmoid colon, splenic flexure, transverse colon, hepatic flexure, recto-sigmoid colon, ileocecal valve and terminal ileum are normal. - Non-bleeding internal hemorrhoids. - No specimens collected. - no interventions performed and no blood or active bleeding seen throughout colon Small Bowel Endoscopy 08/04/2024 - Z-line regular, 43 cm from the incisors. - Normal esophagus. - Normal cardia, gastric fundus, gastric body, incisura, antrum and pylorus. No specimens collected. - Normal duodenal bulb. - Duodenal foreign body. - Multiple non-bleeding angiodysplastic lesions in the duodenum. - A few non-bleeding angioectasias in the jejunum ASSESSMENT and PLAN Solis Saleh is a 73 year old male with PMH as listed above, consulted Gastroenterology for symptomatic anemia. Assessment: Acute symptomatic anemia Iron Deficient Anemia Hx of Angioectasia of duodenum s/p clip placement Hx of Angiodysplasia of colon Diverticulosis. Recommendations: - Will post for push enteroscopy and colonoscopy for tomorrow 09/27 - Repeat CBC in the AM and post transfusion - Bowel Prep tonight - 2 large-bore IV's - Trend Hgb q8h or as clinical picture necessitates, transfuse if there is active bleeding or Hb<7. - INR goal of <1.5 - PLT goal >50 - Fibrinogen goal >200 - cw PPI - Avoid NSAIDs, Anticoagulants, Antiplatelets SPLIT bowel prep for colonoscopy. Use order set number "[id number]": 1) Clear liquid diet the day prior to colonoscopy 2) Golytely 1/2 Gallon (2L) the night before the procedure at 6:00pm and 1/2 gallon (2L) on the morning of the procedure at 4:00am 3) NPO except medications once golytely prep started 4) Morning golytely should be finished by 5am (~1 glass every 10mins) 5) Dulcolax 10mg po twice a day the day prior to colonoscopy (one at noon and one at 4pm) 6) If still not clear after complete, may order an additional gallon and instruct patient to drink, as above, until clear. Pt to be instructed on prep and need to inform nurse in AM if not clear after gallon of Golytely is complete. 7) If 1-6 completed and patient still does not have clear liquid stools, call GI fellow to discuss need for rescheduling colonoscopy. Patient was seen and discussed with GI attending , please call with any questions. Tonny Stanton, DO Department of Internal Medicine, PGY-1 ER STITCHER OPERATOR Associated attestation - Meliton Pike MD - 09/27/2024 11:20 AM FOLDER STITCHER OPERATOR I personally examined the patient on 09/26/[address] Stanton's resident/fellow note as written. I actively participated in the decision-making process. Please see the resident/fellow's note for additional details. Meliton Pike MD [facility] Food Adviser Gastroenterology INTERNAL MEDICINE [facility] 2024-07-31 15:16:00 Associated Order(s): CONSULT ADULT OCCUPATIONAL THERAPY Dennys Wiley OTR, MOT was present and participated throughout the session and agree with the documentation as written by the student therapist on the encounter dated 07/31/2024 4:31 PM OT GENERAL EVALUATION Consult received via [employer], EMR reviewed and evaluation completed 07/31/24. Patient referred to occupational therapy for evaluation and treatment secondary to Upper GI bleeding. Patient agreeable to participate in occupational therapy. Discharge Recommendations: Therapy Needs and Potential:Not applicable as no further skilled acute care OT needs at this time. Challenges to Home Transition:- Requires physical assistance for IADLS - Requires supervision or verbal cues for IADLS - Limited caregiver availability - Increased risk of falls - Environmental barriers Equipment Recommendations:Shower chair PLAN OF CARE: Discharge from OT services Precautions: Weight bearing status: NA General: PPE Utilized: Gloves and Fall Bracing: N/A Subjective: Pt lying semi-reclined in bed. Son present sitting on bedside chair. Current Occupational Performance and/or Treatment: AM-PAC 6 Clicks (Raw Score 0=Dependent, 24=Independent; Low function Raw Score 0= Dependent, 32=Independent): Raw Score - Daily Activity: 24 T-Scale Score - Daily Activity: 57.54 Grooming: Independent, Pt demonstrated good BRITTA UE ROM, strength, and coordination to complete grooming tasks. Pt offered to complete oral care at sink. PT declined and requested to complete at a later time. Bathing: NT, Pt educated on utilizing a shower chair to promote fall prevention and energy conservation. UB Dressing: Independent, Pt adjusted his gown while standing. Pt demonstrated good BRITTA UE ROM, strength, and coordination to complete UB dressing. LB Dressing: Independent, Pt demonstrated donning/doffing socks while sitting EOB utilizing figure four method. Toilet Transfer: Independent, Pt descended/ascended from toilet without AD. Functional Mobility: Lying semi-reclined in bed. supine<>sit independent, sit<>stand independent without AD, ambulation <>bathroom without AD. Patient/caregiver educated on: Adaptive equipment , ADL training, Energy conservation (Handout provided), Fall prevention (Handout provided), and Role of OT Patient left standing looking out of window (pt requested to keep standing, saying it "felt nice to stand" with call guerrero in reach. Therapist reminded him to lie/sit down if feeling fatigued or dizzy. Son present. Please, see full evaluation below for more detail. OT EVALUATION: 73 year old male Admit date: 07/26/2024 Date of onset: 07/26/2024 Admit Diagnosis: Upper GI bleed [K92.2] GI bleed [K92.2] OT Diagnosis: Weakness and Decreased endurance PMH: History reviewed. No pertinent past medical history. PSH: Past Surgical History: Procedure Laterality Date ESOPHAGOGASTRODUODENOSCOPY N/A 07/27/2024 Surgeon: Carola Stanton MD; Location: ENDOSCOPY ([facility]) OR LOCATION PUSH ENDOSCOPY ([facility]) N/A 07/28/2024 Surgeon: Carola Stanton MD; Location: ENDOSCOPY ([facility]) OR LOCATION PAIN: Denies pain before and after session. OCCUPATIONAL ROLES/HOME ENVIRONMENT: Home environment: Lives with daughter, 03/05 supervision/assistance is not available, in single story home. 2-3 YUE. Bathroom access: Yes Bathroom setup: Combo Occupation(s): Retired Function prior to admission: Household ambulation, Independent with BADLs, and Independent with IADLs, Pt requires assistance for driving to/from appointments due to impaired vision Suspected ischemic or hemorraghic stroke patient: No Equipment prior to admission: Home O2, Cane PERFORMANCE SKILLS/FACTORS: UE Muscle Tone: bilateral WNL UE ROM: bilateral AROM WFL UE Strength: BRITTA UE 5/5 Hand dominance: left Dexterity/Coordination: bilateral Intact Endurance - Sitting: Good Standing: Fair+ Sitting Balance - Static: Good Dynamic: Good Standing: Balance - Static Good Dynamic: Good Dizziness: No Skin Integrity: defer full skin assessment to nursing Sensation: Patient denies numbness and tingling. 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 and decreased vision in R eye Other: reading glasses Hearing: good; no issues reported COGNITION: Orientation: NT; no concerns at this time Follows Commands: 1-step Yes Multi-step NT Inconsistencies No Safety Awareness/Judgment: Good PROBLEM LIST: Decreased strength/endurance for functional activity REHAB POTENTIAL/PROGNOSIS: good PATIENT/FAMILY GOALS: To return to home TREATMENT/INTERVENTION PLAN: Discharge from OT PATIENT-FAMILY TEACHING Patient and son provided with preferred teaching of verbal information and demonstration on Adaptive equipment , ADL training, Energy conservation (Handout provided), Fall prevention (Handout provided), and Role of OT. Shows readiness to learn. Verbal instruction, Written material, and Demonstration teaching provided. Individual verbalizes understanding of teaching provided. HAIDER Ng Total Timed Treatment Codes: 10 Min Total Treatment Time: 28 Min Patient Complexity Level Moderate - An occupational therapy evaluation of moderate complexity was completed using the above tests and measures. The following information was obtained: An occupational profile and medical and therapy history, including an expanded review of medical and/or therapy records and additional review of physical, cognitive, or psychosocial history related to current functional performance, Various standardized and non-standardized assessments were used to identify at least 3-5 performance deficits related to physical, cognitive, or psychosocial skills that result in activity limitations and/or participation restrictions, and Clinical decision making of moderate analytic complexity, which includes an analysis of the occupational profile, analysis of data from detailed assessment(s), and consideration of several treatment options. Patient may present with comorbidities that affect occupational performance. Minimal to moderate modification of tasks or assistance (e.g., physical or verbal) with assessment(s) is necessary to enable patient to complete evaluation component. [facility] 2024-07-30 11:45:00 Associated Order(s): CONSULT ADULT PHYSICAL THERAPY RN cleared PT for session Patient agreeable to working with physical therapy. Patient met semi reclined in bed. Recommend nursing staff utilize no assistive device to safely assist patient with mobility out of the bed or chair. PHYSICAL THERAPY EVALUATION Consult received, chart reviewed and evaluation complete this date. Patient is referred to PT for evaluation and treatment. Patient is a 73 year old male who presents to hospital for Upper GI bleed [K92.2] GI bleed [K92.2]. Discharge Recommendations: Therapy Needs and Potential: Patient without any skilled PT needs at this time. Challenges to Home Transition: decreased caregiver availability Equipment recommendations: Patient has or access to necessary equipment Current Functional Status and/or Treatment: AM-PAC 6 Clicks (Raw Score 0=Dependent, 24=Independent; Low function Raw Score 0= Dependent, 32=Independent): Raw Score - Basic Mobility : 24 T-Scale Score - Basic Mobility : 57.68 Prior to mobility, pt's HR at 110s. Bed Mobility: Supine-sit: Independent Sit to supine: Independent Sitting balance Excellent Analyzed smooth transitional movements, minimal to no cueing needed for sequencing Dizziness No Transfers: Sit to stand: Independent using no device Stand to sit: Independent using no device Static/dynamic standing balance: Excellent Patient performed pre-gait activities such as standing marches and side stepping right and left. No LOB or unsteadiness noted. Patient denies any chest pain, however reports slight SOB which improved with rest. Time given for rest. Analyzed smooth transitional movements, minimal to no cueing needed for sequencing Dizziness No Ambulation: Assisted patient with ambulation as follows: 300 feet using no device and Independent. Analyzed steady gait, no LOB Patient has good safety awareness and able to visually scan environment and navigate around obstacles At 200 ft, RN notified PT that pt's HR in 140s-150s. PT instructed to sit on nearby chair, time given to acclimate and perform deep breathing exercises prior to returning to room. According to telemetry, pt's HR at 110-112 prior to returning to room. Patient able to return back to room sitting on edge of bed safely. Time given post-ambulation to acclimate and slow HR. HR at 110 post-session. Patient denies any chest pain, however mild SOB which improved with rest. Dizziness No Therapeutic exercise: patient educated in Deep breathing, Energy conservation, Fall prevention, General strengthening, Relaxation/breathing techniques, and Safety awareness. and instructed patient in the following: ankle pumps, quad sets, heel slides, hip abduction/adduction, straight leg raises, long arc quads, seated marching, mini-squats, sit to stands, standing marching, side stepping to pt's tolerance and to monitor for any signs of worsening SOB and chest pain Educated patient with importance and benefits of progressive OOB activities as tolerated to: Increase overall mobility, strength and endurance and progress towards PLOF Decrease chances of pneumonia, deconditioning, BLE DVT's, skin breakdown and pressure sores. Patient verbalizing understanding to all discussed Functional Outcome Measures: (Values within the past 12 hours) Tinetti Gait Score- # / 12 Initiation of gait: No hesitancy Step length: On both sides, swing foot passes stance foot Foot clearance: Both feet completely clear floor Step Symmetry: Step lengths equal Step continuity: Steps appear continuous Path: Straight without AD Trunk: No sway, no flexion, no use of arms, no use of AD Walking: Heels almost touching Tinetti Gait Score: 12 Tinetti Gait Score Interpretation: >= 7 - Low risk for falls After session, patient semi reclined in bed. Call button provided. RN made aware of pt's current status, functional mobility, and to continue to monitor. PLAN OF CARE: PT signs off. See below for complete details. Admit Date: 07/26/2024 Hospital Diagnosis:Upper GI bleed [K92.2] GI bleed [K92.2] PT Diagnosis: Difficulty walking and Dyspnea Weight Bearing Precaution: NA General Precautions: PPE used:Gloves, General, Fall, Lines/Tubes, Cardiac,IV peripheral, telemetry Bracing/Cast present or required:N/A PMH: History reviewed. No pertinent past medical history. PSH: Past Surgical History: Procedure Laterality Date ESOPHAGOGASTRODUODENOSCOPY N/A 07/27/2024 Surgeon: Carola Stanton MD; Location: ENDOSCOPY ([facility]) OR LOCATION PRIOR LIVING SITUATION: in a 1-story house and with their son, 1 threshold step to enter home DME: Rolling Walker Prior level of Mobility: community ambulation, house hold ambulation, ambulates with no device Suspected ischemic or hemorraghic stroke:No Subjective: I am usually up and moving, I am very active Patient/Family Goals: N/A. PT to sign off Patient/Family verbalizes understanding of condition: Yes PAIN: denies pain before and after session COMMUNICATION Primary Language: Palestinian Able to Verbalize needs: Yes Vision:reading glasses and legally blind on L eye Hearing:good; no issues reported ORIENTATION/COGNITION: Oriented to: person, place, date/time, and situation Awake: Yes Alert: Yes Dizzy: No Follows Commands: Yes 1-Step Yes Multi-Step Yes Inconsistent: No NEUROLOGICAL Light Touch: within functional limits bilateral LE BALANCE: Sitting: Static: Excellent Dynamic: Excellent Standing: Static: Excellent Dynamic: Excellent RANGE OF MOTION: within functional limits bilateral LE STRENGTH: 5/5 (Normal), bilateral LE ENDURANCE: Fair+, Room air SKIN INTEGRITY: refer to RN Notes PROBLEM LIST: Decline in gait and Decreased endurance ASSESSMENT: Patient is a 73 year old male seen secondary to the above listed diagnosis. No further inpatient PT needs identified at this time. Rehabilitation Potential: NA as no further therapy needs Goals: The following goals are to maximize independence and safety with functional mobility to eventually return to prior living situation and prior functional status. Defer as no PT needs. Treatment Plan: Evaluation only and Discharge from PT PATIENT EDUCATION: Patient provided with preferred teaching of verbal information on role of PT, plan of care. Shows readiness to learn. Verbal instruction teaching provided. Individual verbalizes understanding of teaching provided. Total Time Tx Codes in Minutes: 23 min Total Treatment Time in Minutes: 38 min Koki Benavidez PT, DPT Physical Therapist Pt will be followed by physical therapy, however, this therapist may not be primary therapist. [place] [phone] for questions or concerns. Koki Benavidez PT [facility] 2024-07-27 08:02:22 Associated Order(s): CONSULT GASTROENTEROLOGY DEPARTMENT OF GASTROENTEROLOGY & HEPATOLOGY CONSULT NOTE Date of Service: 07/27/2024 Date of Admission: 07/26/2024 Requesting Physician: Zac Osborne, Service: MICU Reason for Consultation: GI bleed Chief Complaint: Dyspnea on exertion History of Present Illness Solis Saleh is a 73 year old /White male with past medical history atrial fibrillation (LEIGH ANN?DS?-VAS 4 on Eliquis), HTN, TIA, BPH, and MDD who presents with complaints of worsening dyspnea on exertion. The patient reports that for the past month he has been experiencing worsening shortness of breath especially on exertion. For the past 3 days he has noticed black stools with each bowel movement. Notes bowel movements are not large in quantity but has had about 4 of them, last melenic bowel movement on arrival to [place]. On arrival to [place] the patient was hypotensive, tachycardic. He was noted to have a hemoglobin of 2.7.CT abdomen pelvis revealed numerous hypodense hepatic parenchymal lesions he received a unit of blood and transferred to [facility] for further care. [facility] the patient has received 3 additional units of blood and current hemoglobin at 6.4. Patient is hemodynamically stable and mentating appropriately. The patient reports Eliquis was started about a month ago and its last use was on 07/26 at 9:30 in the morning. Patient is also taking aspirin 81 mg daily. PAST MEDICAL HISTORY History reviewed. No pertinent past medical history. PAST SURGICAL HISTORY History reviewed. No pertinent surgical history. FAMILY HISTORY No family history on file. ALLERGIES Allergies Allergen Reactions Pcn [Penicillins] Shortness of Breath and Swelling MEDICATIONS: Reviewed REVIEW OF SYSTEMS: Per HPI PHYSICAL EXAM: Vitals: 07/27/24 0715 07/27/24 0740 07/27/24 0750 07/27/24 0800 BP: 117/72 118/59 115/65 124/64 Pulse: 97 79 89 96 Resp: Temp: 37.2 ?C (98.9 ?F) 37 ?C (98.6 ?F) TempSrc: Tympanic SpO2: 94% 97% 94% 97% Weight: Height: Physical Exam Exam conducted with a coin machine servicer repairer present. Constitutional: General: He is not in acute distress. Abdominal: General: There is no distension. Palpations: Abdomen is soft. Tenderness: There is no abdominal tenderness. There is no guarding. Genitourinary: Rectum: Normal. Guaiac result negative. No tenderness, anal fissure or external hemorrhoid. Musculoskeletal: Right lower leg: Edema present. Left lower leg: Edema present. Skin: General: Skin is warm and dry. Coloration: Skin is pale. Neurological: Mental Status: He is alert and oriented to person, place, and time. [facility]: Recent Labs 07/27/2421 PTPAT 17.4* PTINR 1.6 APTTPAT 28 Recent Labs 07/26/24 19107/27/24 0022 07/27/24 0543 WBC 4.84 5.22 5.29 HGB 2.7* 3.7* 5.3* HCT 10.8* 13.0* 17.3* PLT 353* 324 295 Recent Labs 07/26/24174507/27/24 0022 07/27/24 0543 NA 138 140 141 K 3.8 3.8 4.2 CL 108 108 109* TCO2 19* 21* 22* BUN 29* 28* 27* CREAT 1.05 1.06 1.02 GLU 125* 116* 95 CA 7.9* 8.0* 7.6* Recent Labs 07/26/24174507/27/24 0022 AST 17 24 ALT 15 15 ALKPHOS 65 64 BILIT 0.5 1.2* Recent Labs 07/27/24 0028 ACNA 139 ACK 3.8 ACCAIONZ 4.40* RADIOLOGY: CT ABDOMEN PELVIS W CONTRAST Result Date: 07/26/2024 LOWER THORAX: The lung bases are clear.Mild cardiomegaly. LIVER: The liver is normal in size and contour. Innumerable hypodense lesions are noted throughout the liver; some of these exhibit simple fluid attenuation while others are small to characterize. GALLBLADDER AND BILIARY TREE: The gallbladder appears unremarkable. Cholelithiasis is seen. No intra or extrahepatic biliary ductal dilation. SPLEEN: Spleen is normal in size. PANCREAS: Fatty atrophy of the pancreas. No ductal dilation or masses. ADRENAL GLANDS: No adrenal masses. KIDNEYS: Bilateral subcentimeter hypodensities too small to further likely represent renal cysts. No hydronephrosis or stones. PELVIS/BLADDER: The bladder is partially collapsed, which limits evaluation. Normal prostate. GI TRACT: No dilation or bowel wall thickening is seen. Distal colonic diverticulosis. The appendix is not definitively visualized, however, no secondary signs of appendicitis are seen. PERITONEUM AND RETROPERITONEUM: No intra-abdominal free air or fluid collection is visualized. LYMPH NODES: No lymphadenopathy. VESSELS: Mild atherosclerosis is seen. BONES AND SOFT TISSUES: No suspicious lytic or sclerotic bony lesions are present. IMPRESSION 1. Cholelithiasis with no signs of acute cholecystitis. Distal colonic diverticulosis. 2. Multiple hypodense hepatic parenchymal lesions some of which cannot be definitively characterized. Further evaluation with MR is recommended. 3. Multiple fascial defects and small fat-containing hernias in the supraumbilical anterior abdominal wall. Biventricular dilatation. CHART REVIEW: Esophagogastroduodenoscopy (EGD) Result Date: None Colonoscopy: Only 1 colonoscopy at age 42, noted to have 2 polyps. Has not had a follow-up colonoscopy. ASSESSMENT and PLAN Solis Saleh is a 73 year old male with PMH as listed above, GI consulted for: Melena Acute blood loss anemia Diverticulosis Innumerable hepatic lesions Atrial fibrillation on Eliquis History of TIA Patient reports recently starting Eliquis about a month ago. He has noted worsening dyspnea on exertion for the past month and melenic bowel movements for the past 3 days. Hemoglobin noted to be 2.7 and after 4 units of blood now 6.4. [facility] with brown stool, but black dried stool seen around anus. Differentials include peptic ulcer versus gastritis versus AVMs. Given the patient is currently hemodynamically stable we will plan for an EGD once the patient has been medically optimized. We recommend to transfuse and maintain a hemoglobin of greater than 7. Echocardiogram has been ordered, thus we will follow-up those results. Aspirin and Eliquis last use 07/26 at 9:30 AM. 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 Carola Stanton Chava Mayorga M.D. Department of Gastroenterology and Hepatology, PGY-4 Associated attestation - Carola Stanton MD - 07/27/2024 5:13 PM CDT I have personally seen and examined the patient with Dr. Mayorga on 07/27/24. I agree with assessment and plan. I actively participated in the evaluation and decision making. Hgb > 7 after 5 units pRBC. No overt bleeding since yesterday. Last Eliquis dose > 24 hrs ago. Plan EGD today. CAROLA STANTON MD BOBJ DEVELOPER, DIVISION OF GASTROENTEROLOGY AND HEPATOLOGY [facility]. [facility] - Health History and Physical Notes Date/Time Note Provider Source 2024-10-17 04:58:46 MEDICINE MEGADC ADMIT H&P Date of Service: 10/17/2024 CHIEF COMPLAINT: Subjective History of Present Illness 73 year old male with pmh of atrial fibrillation (on Eliquis), HTN, transient ischemic attack (TIA), benign prostatic hyperplasia (BPH), unspecified bone cancer, large PFO, CHF, R MCA CVA, diverticulosis, major depressive disorder (MDD), AVM who presented in an OSH for dyspnea on exertion, increasing weakness. Patient was recently admitted and subsequently discharged on 10/10/2024 after presenting with shortness of breath. See below. After discharge, he notes increased weakness, dyspnea on exertion, and fatigue. In the OSH, was found to have acute renal failure and hypotensive requring bolus of fluid. Was transferred for further management. Recent Admission 10/05/2024 - 10/10/2024 Presented with dyspnea. Treated with acute CHF, NSTEMI likely due to type 2 MO. Started IV diuresis. 09/25/2024 - 10/03/2024 Presented with symptomatic anemia, received blood transfusion, EGD/Colonoscopy showed multiple non-bleeding angiectasias, had R MCA Stroke PAST MEDICAL HISTORY Past Medical History: Diagnosis Date Chronic GERD GIB (gastrointestinal bleeding) HTN (hypertension) Paroxysmal atrial fibrillation Past Surgical History: Procedure Laterality Date COLONOSCOPY Lower 07/31/2024 Surgeon: Audi Cruz DO; Location: ENDOSCOPY ([facility]) OR LOCATION COLONOSCOPY N/A 09/27/2024 Surgeon: Meliton Pike MD; Location: ENDOSCOPY ([facility]) OR LOCATION ESOPHAGOGASTRODUODENOSCOPY N/A 07/27/2024 Surgeon: Carola Stanton MD; Location: ENDOSCOPY ([facility]) OR LOCATION PUSH ENDOSCOPY ([facility]) N/A 07/28/2024 Surgeon: Carola Stanton MD; Location: ENDOSCOPY ([facility]) OR LOCATION PUSH ENDOSCOPY ([facility]) N/A 09/27/2024 Surgeon: Meliton Pike MD; Location: ENDOSCOPY ([facility]) OR LOCATION Past Family History Noncontributory ALLERGIES Allergies Allergen Reactions Pcn [Penicillins] Shortness of Breath and Swelling MEDICATIONS No current facility-administered medications on file prior to encounter. Current Outpatient Medications on File Prior to Encounter Medication Sig Dispense Refill apixaban (ELIQUIS) 5 mg tablet Take 1 tablet by mouth in the morning and 1 tablet in the evening. Indications: Atrial Fibrillation 180 tablet 1 dapagliflozin propanediol 10 mg tablet Take 1 tablet by mouth in the morning. 90 tablet 1 furosemide 40 mg tablet Take 1 tablet by mouth every morning and evening. 180 tablet 1 losartan 50 mg tablet Take 1 tablet by mouth in the morning and 1 tablet in the evening. 180 tablet 1 metoprolol succinate XL 100 mg 24 hr tablet Take 1 tablet by mouth in the morning and 1 tablet in the evening. 180 tablet 1 spironolactone 25 mg tablet Take 1 tablet by mouth every morning. 90 tablet 1 apixaban 5 mg tablet Take 1 tablet by mouth in the morning and 1 tablet in the evening. Do all this for 90 days. Indications: prevention of thromboembolism in paroxysmal atrial fibrillation 60 tablet 2 atorvastatin 40 mg tablet Take 1 tablet by mouth at bedtime for 90 days. 30 tablet 2 I attest that the foregoing medication list in the medical record is true, accurate and complete to the best of my knowledge. SOCIAL HISTORY Social History Socioeconomic History Marital status: Tobacco Use Smoking status: Former Types: Cigarettes Passive exposure: Past Smokeless tobacco: Never Tobacco comments: Non smoker Social Determinants of Health Food Insecurity: No Food Insecurity (10/06/2024) NCSS - Food Insecurity Worried About Running Out of Food in the Last Year: No Ran Out of Food in the Last Year: No Transportation Needs: No Transportation Needs (10/06/2024) NCSS - Transportation Lack of Transportation: No Housing Stability: Not At Risk (10/06/2024) NCSS - Housing/Utilities Has Housing: Yes Worried About Losing Housing: No Unable to Get Utilities: No REVIEW OF SYSTEMS Review of Systems Constitutional: Positive for fatigue. Negative for activity change, appetite change, chills, diaphoresis, fever and unexpected weight change. HENT: Negative. Eyes: Negative. Respiratory: Positive for shortness of breath. Negative for apnea, cough, choking, chest tightness, wheezing and stridor. Breasts: Negative. Cardiovascular: Negative. Gastrointestinal: Positive for diarrhea, nausea and vomiting. Negative for abdominal distention, abdominal pain, anal bleeding, blood in stool, constipation and rectal pain. Genitourinary: Negative. Musculoskeletal: Negative. Skin: Negative. Neurological: Positive for weakness. Negative for dizziness, tremors, seizures, syncope, facial asymmetry, speech difficulty, light-headedness, numbness and headaches. Psychiatric/Behavioral: Negative. Endocrine: Endocrine negative Objective PHYSICAL EXAMINATION Vitals: 10/17/24 0429 BP: 91/63 Pulse: 89 Resp: 17 Temp: 36.5 ?C (97.7 ?F) TempSrc: Temporal Artery SpO2: 96% Weight: 166 lb 6.4 oz (75.5 kg) Height: 5' 9" (1.753 m) Physical Exam Vitals and nursing note reviewed. Constitutional: General: He is not in acute distress. Appearance: Normal appearance. He is ill-appearing and toxic-appearing. He is not diaphoretic. HENT: Head: Normocephalic and atraumatic. Right Ear: External ear normal. Left Ear: External ear normal. Nose: Nose normal. No congestion. Mouth/Throat: Mouth: Mucous membranes are moist. Pharynx: No oropharyngeal exudate or posterior oropharyngeal erythema. Eyes: General: No scleral icterus. Right eye: No discharge. Left eye: No discharge. Extraocular Movements: Extraocular movements intact. Conjunctiva/sclera: Conjunctivae normal. Pupils: Pupils are equal, round, and reactive to light. Cardiovascular: Rate and Rhythm: Normal rate and regular rhythm. Heart sounds: No murmur heard. No friction rub. No gallop. Pulmonary: Effort: Pulmonary effort is normal. Breath sounds: Normal breath sounds. Abdominal: General: Abdomen is flat. Bowel sounds are normal. There is no distension. Palpations: Abdomen is soft. Tenderness: There is no guarding. Musculoskeletal: General: Normal range of motion. Cervical back: Normal range of motion and neck supple. Neurological: Mental Status: He is alert. LABS/IMAGING - reviewed CXR: no acute disease. Assessment & Plan Solis Saleh is a 74 year old male with PMH as listed above, admitted to the hospital with: Hypotension/dehydration: appears to be correct by fluid hydration -- Will continue with fluid hydration -- Will use midodrine for now -- Will hold off any antihypertensive agent 2. Acute renal failure: -- Urinalysis is pending -- Will continue with fluid hydration -- Holding offending agents 3. Atrial fibrillation: uncertain, but it may be new-onset. Will treat as such. -- Will continue Eliquis as prescribed 4. Chronic combined systolic and diastolic CHF: appears to be more hypovolemic Prophylaxis: DVT- On Eliquis Code Status: Full Code Estimated LOS: This inpatient admission will likely require greater than or equal to 2 Midnights. Management is not feasible as an outpatient and there is concern for adverse outcomes if not managed in an inpatient setting. Advance care planning discussed for 19 mins with patient at bedside. Surrogate decision maker: Margret Albrecht (child) - [facility] 2024-10-05 19:49:05 MCARED Admit H&P PCP: Marilyn Pleitez Date of Service: 10/05/2024 CHIEF COMPLAINT: "feeling off" and trop elevation HISTORY OF PRESENT ILLNESS Solis Saleh is a 73 year old male with a PMHx of afib CHADSVASC 4 on Eliquis hypertension, transient ischemic attack (TIA), benign prostatic hyperplasia (BPH), unspecified bone cancer, and major depressive disorder (MDD) who presents from [place] due to troponin elevation. Pt states this afternoon he felt "a little odd." His daughter checked his blood pressure and was 180/92. He call his rip sawyer who recommended ED visit. When he went to [facility] he said he was told one of his cardiac markers were elevated. During his time there, he said he might have felt his heart flutter, but unsure. He is compliant on medications and last eliquis dose was this AM. Denies fever, chills, N/V, chest pain, abdominal pain, constipation, diarrhea, dysuria, hematochezia, and melena. Pt states at baseline he has SOB which has been due to low hemoglobin. He is able to lie flat without pillows, but sleeps with two pillows. His SOB hasn't worsened since discharge. He endorses occasional KAT which he states also associated more with lowe hemoglobin since since discharge he has been fine. Of not he mentions he has had intermittent swelling which his daughter noticed a month ago. He has vision issues so can't tell himself. Per chart review, pt discharged a couple days ago for GIB s/p cauterization of angiectasias and had a stroke s/p recanalization. Recommended EP for watchman procedure and possible closure of PFO. In the ED pt afebrile, BP 156/78, HR 97. Troponin 0.149, NT-proBNP 4970. EKG showed AFIB. CXR showed pulmonary edema. Past medical history: Past Medical History: Diagnosis Date Chronic GERD GIB (gastrointestinal bleeding) HTN (hypertension) Paroxysmal atrial fibrillation Prior to Admission medications Medication Sig Start Date End Date Taking? Authorizing Provider apixaban 5 mg tablet Take 1 tablet by mouth in the morning and 1 tablet in the evening. Do all this for 90 days. Indications: prevention of thromboembolism in paroxysmal atrial fibrillation 10/05/24 01/03/25 Irwin Arias MD aspirin 81 mg chewable tablet Take 1 tablet by mouth in the morning for 90 days. 10/04/24 01/02/25 Irwin Arias MD atorvastatin 40 mg tablet Take 1 tablet by mouth at bedtime for 90 days. 10/03/24 01/01/25 Irwin Arias MD metoprolol succinate XL 50 mg 24 hr tablet Take 1 tablet by mouth in the morning and 1 tablet in the evening. Do all this for 90 days. 10/03/24 01/01/25 Irwin Arias MD losartan 25 mg tablet Take 1 tablet by mouth in the morning. 08/01/24 Lewis Felix DO pantoprazole 40 mg EC tablet Take 1 tablet by mouth in the morning. 08/01/24 Lewis Felix DO Allergies Allergen Reactions Pcn [Penicillins] Shortness of Breath and Swelling Past surgical history: Past Surgical History: Procedure Laterality Date COLONOSCOPY Lower 07/31/2024 Surgeon: Audi Cruz DO; Location: [facility]OSCOPY ([facility]) OR LOCATION COLONOSCOPY N/A 09/27/2024 Surgeon: Meliton Pike MD; Location: ENDOSCOPY ([facility]) OR LOCATION ESOPHAGOGASTRODUODENOSCOPY N/A 07/27/2024 Surgeon: Carola Stanton MD; Location: ENDOSCOPY ([facility]) OR LOCATION PUSH ENDOSCOPY ([facility]) N/A 07/28/2024 Surgeon: Carola Stanton MD; Location: ENDOSCOPY ([facility]) OR LOCATION PUSH ENDOSCOPY ([facility]) N/A 09/27/2024 Surgeon: Meliton Pike MD; Location: ENDOSCOPY ([facility]) OR LOCATION Allergies: Allergies Allergen Reactions Pcn [Penicillins] Shortness of Breath and Swelling Social history: EtOH use: Stopped drinking when he got told he has GI issues Tobacco use: quit 10-15 years ago, couple cigars a day for 4-5 years Recreational Drug use: Denies Family history: The patient family history is not on file. REVIEW OF SYSTEMS As per HPI VITALS: Temp: [37.1 ?C (98.8 ?F)] Heart Rate (monitor): [90-95] Pulse: [91-108] Resp: [17-23] BP: (142-156)/(78-95) MAP (mmHg): [101-107] No intake or output data in the 24 hours ending 10/05/241948 Body mass index is 29.24 kg/m?. PHYSICAL EXAMINATION General: well developed, well nourished Lungs: clear to auscultation bilaterally Cardio: Irregular Rhythm and tachycardia Abdomen: soft; non-tender; non-distended; normoactive bowel sounds Extremities: 1+ pitting edema, Right groin hematoma swollen and tender and hard LABS - reviewed. IMAGING - reviewed. Hospital Encounter on 10/05/24 XR CHEST 1 VW Narrative EXAM: XR CHEST 1 VW HISTORY: 73 years-old Male with cough . TECHNIQUE: Single frontal view of the chest. COMPARISON: Chest radiograph from October 01, 2024 FINDINGS: Lines, tubes and devices: Right lower lung zone pulmonary vascular stent. Lungs and pleura: The lungs are adequately expanded. Slight improvement in interstitial prominence. Slight improvement in aeration of the right lower lung zone. Trace pleural effusions also appear improved with probable minimal residual. Heart/Mediastinum: The cardiac silhouette appears normal accounting for technique and degree of inspiration. Bones and soft tissues: No acute fracture, aggressive osseous lesion, or dislocation. No soft tissue abnormality. Impression Improved aeration of the right lower lung zone with slight improvement in diffuse interstitial opacities and trace pleural effusions suggesting pulmonary edema. Preliminary Report Dictated by Resident: Deborah Niño MD., have reviewed this study and agree with the above report. EKG: CHART REVIEW: pertinent information as below: HOSPITAL COURSE 10/05: Solis Saleh is a 73 year old male with a PMH of afib CHADSVASC 4 on Eliquis hypertension, transient ischemic attack (TIA), benign prostatic hyperplasia (BPH), unspecified bone cancer, and major depressive disorder (MDD) who was admitted to the hospital on 09/26/24 with acute anemia (hgb = 4.8 at OSH). Patient was transfused with 2u pRBCs on 09/26/24. EGD and colonoscopy on 09/27/24 showed multiple non-bleeding angiectasias throughout the bowels but no active bleeding and angiectasias were successfully treated with argon plasma coagulation. Patient was noted to have slurred speech and LUE weakness on 09/28/24. Code stroke was called and head and neck CTA was positive for thromboembolic disease. CTA H&N showed R M2 occlusion with distal flow from collaterals. No tnk was given as the patient took eliquis that morning. His sx resolved and repeat NIHSS was 0. After 30 minutes, his exam worsened. His LUE weakness worsened and he developed L jeannie neglect. Repeat NIHSS 9. NEC was activated. On DSA on 09/28, prior to MT, pt found to already have recanalization of R M2 MCA with occlusion of more distal R MCA branches. Likely etiology, cardio-embolic. A1c 4.5 and LDL 100. Cardiology consulted on 09/29 and recommended follow up with EP on discharge for Watchman evaluation followed by +/- closure outpatient. MRI-B on 09/30 showed large territory infarct of R MCA with hemorrhagic transformation, parenchymal type. Given the h/o stroke with hemorrhagic transformation, AC not resumed during hospital stay. Patient was transferred to [place] team on 10/01/24. Patient's metoprolol tartrate was up titrated to 50mg BID for better rate control. Patient was deemed medically stable for discharge on 10/03/24. ASSESSMENT/PLAN Solis Saleh is a 73 year old male with PMH as listed above, admitted to the hospital with: AoC HFrEF (40-45% per TTE 09/29/24) Troponin elevation likely 2/2 Type 2 MO Large PFO per TTE 09/29/24 Afib (CHADSVASC 4) on Eliquis (last dose 09/28 AM), rate controlled HTN Patient presents with elevated trop possibly secondary to hypertensive urgency as he has no cardiac chest pain symptoms. SOB could be related to long issue of anemia, however with bilateral swelling and possible KAT could raise concern for underlying heart failure with ongoing exacerbation. Pt AFIB not rhythym and rate controlled currently and will try to rate control as he recently had stroke. Will diuresis and proceed with cath. - Admit to Red Team - Telemetry, O2 per protocol - Keep K >4, Mg>2 - EKG QAM and PRN chest pain - Trend troponin x3 - Heparin drip - hold eliquis - Aspirin 81 mg daily - Lipitor 40 mg QHS - PPCLD past midnight for LHC/RHC tentatively tomorrow - Consider EP consult for watchman - Lasix 40 mg IV once - Consider starting diuretics after cath Hx of Acute R MCA stroke with hemorrhagic transformation Hx of GIB Microcytic Anemia Hx of angioectasias of duodenum s/p clip placement Hx of colonic angiodysplasias Diverticulosis Pt currently has no signs of bleeding. Continue to monitor while on heparin. Pain Controlled: Tylenol Prophylaxis: DVT- heparin Stress Ulcer: pantoprazole Code Status: addressed: Full Code Maximo Menon M.D. Dept of Internal Medicine PGY 2, [place] Team END OF H&P CURRENT MEDICATIONS: Scheduled meds: IV meds: PRN meds: ER STITCHER OPERATOR Associated attestation - Kashif Stanton MD - 10/07/2024 11:40 AM FOLDER STITCHER OPERATOR I Kashif Stanton MD personally examined the patient and agree with 's note, assessment and plan as written. Please note corrections in my addendum. I actively participated in the decision-making process. I spent a total time of 90 minutes. The non-overlapping time spent for patient care includes: pre-Charting, obtaining and/or reviewing separately obtained history (Care Everywhere and our own records), performing a full medically appropriate examination and/or evaluation, counseling and educating patient/family/caregiver, ordering not only medications but tests and/or procedures, independently interpreting prior/current results and communicating them to the patient and/or relative, ordering referrals and/or communicating with other health home day care provider (not separately reported), documenting clinical information in the electronic or other health record, and care coordination (not separately reported). 73 y o M transferred [facility] for weakness and troponin elevation. Acute new onset systolic heart failure NYHA Class IV Stage C Type I vs 2 NSTEMI Afib currently resumed AC GI bleeding 2/2 AVM on 09/27 h/o duodenal angioectasias s/p clip placement h/o colonic angiodysplasias s/p argon plasma coagulation unspecified bone cancer (left arm s/p resection and bone transplant), and MD Acute thromboembolic CVA : R M2 MCA stroke on 09/28/2024 ? thrombectomy ??? DSA suggested recanalization Continue IV diuresis Switch to heparin Would hold off coronary angiogram due to recent stroke. Can RHC if needed. Complete CVA work up. Given thrombo-embolic stroke as per EMR, would do bubble study, LE venous duplex as well. Neurology for BP goal Kashif Stanton MD Food Adviser Advanced Heart Failure, Pulmonary hypertension and Transplant Cardiology Division of Cardiology Department of Internal Medicine DOS: 10/06/2024 [facility] 2024-09-28 14:40:51 NCCU STROKE H&P DATE OF SERVICE: 09/28/2024 17:17 Chief complaint: L-sided weakness HISTORY OF PRESENT ILLNESS Solis Saleh is a 73 year old right handed male with PMH of HTN, h/o TIA, Afib (CHADSVASC 4) on Eliquis, BPH, unspecified bone cancer, and MDD, who was initially admitted to [facility] team due to anemia. To be transferred to the ICU after interval development of acute R MCA stroke s/p NEC activation. Patient last known normal was 09/28 1200. He was minutes later found to have L facial droop and slurred speech. Initial NIHSS 2. BP was 112/89 mmHg. CTH did not reveal any acute abnormalities but evidence of prior strokes. CTA H&N showed R M2 occlusion with distal flow from collaterals. No tnk was given as the patient took eliquis this morning. His sx resolved and repeat NIHSS was 0. After 30 minutes, his exam worsened. His LUE weakness worsened, and developed L jeannie neglect. Repeat NIHSS 9. NEC was activated. On DSA prior to MT, found to have recanalization of R M2 MCA with occlusion of more distal R MCA branches. Of note, patient recently off AC due to GIB/anemia and planned endoscopic evaluation (performed on 09/27). AC resumed on this 09/28 AM. Antiplatelets: No Anticoagulations: Yes, Eliquis 5 mg BID Tobacco abuse: Alcohol abuse: No Drug abuse: No Previous stroke: No Body mass index is 29.98 kg/m?. STROKE DOCUMENTATION Stroke Activation - Date: 09/28/24 Stroke Activation - Time: 1146 Physician arrival at bedside - Date: 09/28/24 Physician arrival at bedside - Time: 1151 CT-Head without contrast read by Neurology: 1201 Last seen normal: Last known well - Date: 09/28/24 Last known well - Time: 1100 Wake up stroke: No NIH STROKE SCALE NIHSS TOTAL: 5 NIHSS Interval: Other LOC: 0 Alert: Keenly Responsive LOC QUESTIONS: 0 Answers Both Questions Correctly LOC COMMANDS: 0 Performs Both Tasks Correctly BEST GAZE: 0 Normal VISUAL: 2 Complete Hemianopia FACIAL PALSY: 1 Minor Paralysis MOTOR ARM-LEFT: 0 No Drift MOTOR ARM-RIGHT: 0 No Drift MOTOR LEG-LEFT: 0 No Drift MOTOR LEG-RIGHT: 0 No Drift LIMB ATAXIA: 0 Absent SENSORY: 1 [id number] Sensory Loss BEST LANGUAGE: 0 No Aphasia DYSARTHRIA: 0 Normal EXTINCTION AND INATTENTION (FORMERLY NEGLECT): 1 Visual, Tactile, Auditory, Spatial or Personal Inattention Dysphagia Screen: Dysphagia Screen Step 1 (Exclusion Criteria): Pass (none of the above) Dysphagia Screen Step 2 (Management of secretions): Pass (none of the above) Dysphagia Screen Step 3 (3-ounce water swallow challenge): Pass (none of the above) IV Thrombolytic Therapy: Was IV thrombolytic given?: no Reason why IV thrombolytic was not given: T-PA not given due to Currently on direct thrombin inhibitors or direct factor Xa inhibitors with elevated sensitive laboratory tests (e.g., aPTT, INR, platelet count, ECT, TT, or appropriate factor Xa activity assays) If IV thrombolytic was indicated and given as a standard of care was the patient/family informed of benefits of treatment and risk such as hemorrhage and/or angioedema?: N/A If IV Tenecteplase was indicated and given as standard of care, was the patient/family informed of the nature of patient s diagnosis, medically indicated, evidence-based treatment options including the immediate use of intravenous thrombolytic Tenecteplase (TNK) for the non-FDA approved indication of Acute Ischemic Stroke (AIS) treatment? N/A Patient/family was advised of the risks of this treatment, the likelihood of achieving the patient s goals, and had the opportunity to address any questions. The [place] [employer]/[place] [employer] AIS guidelines recognize TNK as a non-inferior alternative to the FDA-approved use of alteplase for AIS treatment with similar risks/benefits/alternatives: N/A Was there a delay in door to IV thrombolytic over 30 minutes?: N/A ICH/SAH ICH/SAH: No Endovascular Intervention: Was Endovascular Intervention Performed?: Yes PRE- ADMISSION MODIFIED ANGELO SCORE 1 - No significant disability despite symptoms; able to carry out all usual duties and activities PAST MEDICAL HISTORY Past Medical History: Diagnosis Date Chronic GERD GIB (gastrointestinal bleeding) HTN (hypertension) Paroxysmal atrial fibrillation PAST SURGICAL HISTORY Past Surgical History: Procedure Laterality Date COLONOSCOPY Lower 07/31/2024 Surgeon: Audi Curz DO; Location: ENDOSCOPY ([facility]) OR LOCATION COLONOSCOPY N/A 09/27/2024 Surgeon: Meliton Pike MD; Location: ENDOSCOPY ([facility]) OR LOCATION ESOPHAGOGASTRODUODENOSCOPY N/A 07/27/2024 Surgeon: Carola Stanton MD; Location: ENDOSCOPY ([facility]) OR LOCATION PUSH ENDOSCOPY ([facility]) N/A 07/28/2024 Surgeon: Carola Stanton MD; Location: ENDOSCOPY ([facility]) OR LOCATION PUSH ENDOSCOPY ([facility]) N/A 09/27/2024 Surgeon: Meliton Pike MD; Location: ENDOSCOPY ([facility]) OR LOCATION FAMILY HISTORY No family history on file. SOCIAL HISTORY Social History Socioeconomic History Marital status: Tobacco Use Smoking status: Never Passive exposure: Never Smokeless tobacco: Never Tobacco comments: Non smoker Social Determinants of Health Food Insecurity: No Food Insecurity (09/26/2024) NCSS - Food Insecurity Worried About Running Out of Food in the Last Year: No Ran Out of Food in the Last Year: No Transportation Needs: No Transportation Needs (09/26/2024) NCSS - Transportation Lack of Transportation: No Housing Stability: Not At Risk (09/26/2024) NCSS - Housing/Utilities Has Housing: Yes Worried About Losing Housing: No Unable to Get Utilities: No Reviewed patient's family, surgical and social hx. HOME MEDICATIONS Medications Prior to Admission Medication Sig Dispense Refill Last Dose apixaban 5 mg tablet Take 1 tablet by mouth in the morning and 1 tablet in the evening. 09/28/2024 losartan 25 mg tablet Take 1 tablet by mouth in the morning. 30 tablet 1 09/28/2024 metoprolol tartrate 25 mg tablet Take 0.5 tablets by mouth in the morning and 0.5 tablets in the evening. 30 tablet 2 Past Week pantoprazole 40 mg EC tablet Take 1 tablet by mouth in the morning. 30 tablet 2 09/28/2024 HOSPITAL MEDICATIONS Current Facility-Administered Medications Medication Dose Route Frequency Last Rate Last Admin acetaminophen (TYLENOL) tablet 650 mg 650 mg Oral Q6HPRN atorvastatin (LIPITOR) tablet 40 mg 40 mg Oral QHS enoxaparin (LOVENOX) injection 40 mg 40 mg Subcutaneous DAILY labetaloL (NORMODYNE) 5 mg/mL injection 10 mg 10 mg Slow IV Push [id number] NaCl 0.9% (NS) 1000 mL + KCL 20 mEq IV Infusion CONTINUOUS NaCl 0.9% (NS) injection 5 mL 5 mL Slow IV Push PRN - SEE INSTRUCTIONS NaCl 0.9% (NS) IV infusion 1,000 mL 1,000 mL IV Infusion CONTINUOUS Stopped at 09/28/24 1530 niCARdipine (CARDENE I.V.) 40 mg in NaCL 200 mL (RTU) infusion 1-15 mg/hr IV Infusion TITRATE pantoprazole (PROTONIX) EC tablet 40 mg 40 mg Oral DAILY 40 mg at 09/28/24 0838 ondansetron (ZOFRAN (PF)) injection 4 mg 4 mg Slow IV Push Q6HPRN 4 mg at 09/27/24 0517 peg-electrolyte soln (GOLYTELY) 236-22.74-6.74 -5.86 gram solution 4,000 mL 4,000 mL Oral PRN - SEE INSTRUCTIONS 2,000 mL at 09/27/24 0400 acetaminophen (TYLENOL) tablet 650 mg 650 mg Oral Q6HPRN 650 mg at 09/28/24 1655 sennosides-docusate sodium (SENOKOT-S) 8.6-50 mg per tablet 1 tablet 1 tablet Oral DAILY 1 tablet at 09/28/24 0839 ALLERGY Allergies Allergen Reactions Pcn [Penicillins] Shortness of Breath and Swelling REVIEW OF SYSTEMS General: (-) fever, (-) chills, (-) weight change, (-) dizziness, (-) fatigue, (-) change in appetite Skin: (-) rash, (-) lesion HEENT: (-) headache, (-) change in hearing, (-) change in vision, (-) nasal discharge, (-) sore throat Neck: (-) pain, (-) difficulty swallowing, (-) mass Heme: (-) bleeding disorder Resp: (-) cough, (-) shortness of breath, (-) dyspnea on exertion Cardio: (-) chest pain, (-) palpitations, (-) syncope GI: (-) abdominal pain, (-) nausea, (-) vomiting, (-) diarrhea, (-) constipation, (-) melena, (-) hematochezia, (-) hematemesis : (-) dysuria, (-) hematuria, (-) increased frequency, (-) difficulty urinating, (-) difficulty initiating Endo: (-) heat intolerance, (-) diabetes, (-) cold intolerance, (-) polyuria, (-) polydipsia, (-) renal insufficiency, (-) thyroid disease Neuro: (-) numbness, (-) tingling, (-) weakness Back: (-) pain, (-) spasms MAYKLE: (-) muscle pain, (-) joint pain, (-) claudication Psych: (-) anxiety, (-) depression, (-) psychiatric disorder PHYSICAL EXAM Vitals: 09/28/24 1145 09/28/24 1424 09/28/24 1600 09/28/24 1700 BP: (!) 142/76 139/66 BP Location: Patient Position: Pulse: 105 105 110 104 Resp: 18 20 21 Temp: 36.8 ?C (98.2 ?F) TempSrc: Tympanic SpO2: 96% 98% 95% Weight: Height: Body mass index is 29.98 kg/m?. General: Alert and oriented x 4 (time, person, place and situation); no apparent distress. Mental Status: Consciousness, attention, concentration: normal, Stays focused and on task while being questioned. Speech/ Language: intact to comprehension, fluency, repetition and naming. Fund of knowledge: is congruent with level of education. Cranial Nerves: I. Not tested. II. PERRL. 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 On R eye, complete nasal hemianopsia. III. IV., . Extraocular movements intact without nystagmus. V. Normal sensation in V1-3 distributions. VII. No facial droop noted. VIII. Hearing intact. IX., X. Palatal elevation present symmetrically. XI. Normal strength of sternocleidomastoid and trapezius muscles bilaterally. XII. Tongue in midline. Motor: Tone: normal Bulk: normal Tremors: neg STRENGTH Right Left Deltoid 5 5 Elbow flexors 5 5 Elbow extensors 5 5 Wrist extensors 5 5 Interossei 5 5 Hip flexors 5 5 Knee flexors (hamstring) 5 5 Knee extensors (quadriceps) 5 5 Ankle dorsiflexors 5 5 Ankle plantar flexors 5 5 DTR's: Right Left Biceps 2+ 2+ Triceps 2+ 2+ Brachioradialis 2+ 2+ Patella 2+ 2+ Achilles 2+ 2+ Pathologic reflexes and signs: Greer: absent Babinski: equivocal on the R Cerebellar: Nystagmus: neg, FTN: nl Sensory: LT: decreased but present on L hemibody; tactile neglect on L hemibody Gait:deferred HEENT: oropharynx clear; moist mucous membranes Neck: supple Abdomen: soft; non-tender; non-distended Extremities: no cyanosis, clubbing or edema LABS Recent Results (from the past 24 hour(s)) Magnesium Collection Time: 09/28/24 6:45 AM Result Value Ref Range MAGNESIUM 2.0 1.7 - 2.4 mg/dL Cbc with Diff Collection Time: 09/28/24 6:45 AM Result Value Ref Range WBC 5.32 4.20 - 10.70 10*3/?L RBC 3.14 (L) 4.26 - 5.52 10*6/?L HGB 7.0 (L) 12.2 - 16.4 g/dL HCT 24.7 (L) 38.4 - 49.3 % MCV 78.7 (L) 81.7 - 95.6 fL MCH 22.3 (L) 26.1 - 32.7 pg MCHC 28.3 (L) 31.2 - 35.0 g/dL RDW-SD 61.7 (H) 38.5 - 51.6 fL RDW-CV 22.1 (H) 12.1 - 15.4 % PLT 230 150 - 328 10*3/?L MPV 10.4 9.8 - 13.0 fL NRBC/100 WBC 0.4 0.0 - 10.0 /100 WBCs NRBC x10 3 0.02 10*3/?L GRAN MAT (NEUT) % 68.8 % IMM GRAN % 0.20 % LYMPH % 18.4 % MONO % 8.8 % EOS % 3.4 % BASO % 0.4 % GRAN MAT x10 3 (ANC) 3.66 1.99 - 6.95 10*3/uL IMM GRAN x10 3 <0.03 0.00 - 0.06 10*3/uL LYMPH x10 3 0.98 (L) 1.09 - 3.23 10*3/uL MONO x10 3 0.47 0.36 - 1.02 10*3/uL EOS x10 3 0.18 0.06 - 0.53 10*3/uL BASO x10 3 <0.03 0.01 - 0.09 10*3/uL Basic Metabolic Panel (NA, K, CL, CO2, GLUCOSE, BUN, CREATININE, CA) Collection Time: 09/28/24 6:45 AM Result Value Ref Range NA 137 135 - 145 mmol/L K 4.0 3.5 - 5.0 mmol/L CL 107 98 - 108 mmol/L CO2 TOTAL 23 23 - 31 mmol/L AGAP 7 2 - 16 BUN 13 7 - 23 mg/dL GLUCOSE 90 70 - 110 mg/dL CREATININE 0.94 0.60 - 1.25 mg/dL CALCIUM 8.1 (L) 8.6 - 10.6 mg/dL eGFR 86.7 mL/min/1.73m2 POCT GLUCOSE (AUTOMATED) Collection Time: 09/28/24 11:47 AM Result Value Ref Range POCT GLU 156 (H) 70 - 110 mg/dL AC Panel 21 + Lactic Acid Collection Time: 09/28/24 11:50 AM Result Value Ref Range PH 7.41 7.32 - 7.42 PCO2 LASHAWN 37 (L) 41 - 51 mmHg PO2 LASHAWN 40 25 - 40 mmHg HCO3 LASHAWN 23 (L) 24 - 28 mEq/L AC VBE(BEAKER) -1.2 mEq/L THB LASHAWN 8.5 (L) 13.5 - 18.0 g/dL %O2HB LASHAWN 70.8 (H) 52.0 - 63.0 % %COHB LASHAWN 0.6 0.0 - 1.5 % %METHB LASHAWN 0.2 (L) 0.4 - 1.5 % VOL%O2 LASHAWN 8.5 6.0 - 12.0 % NA 139 135 - 145 mmol/L K+ 4.1 3.5 - 5.0 mmol/L AC CA IONZ 4.50 4.50 - 5.30 mg/dL GLUCOSE 125 (H) 70 - 110 mg/dL LACTIC ACID 1.70 0.50 - 2.20 mmol/L Prothrombin Time / INR Collection Time: 09/28/24 11:51 AM Result Value Ref Range PROTIME PATIENT 16.5 (H) 10.1 - 12.6 Seconds INR 1.5 aPTT Collection Time: 09/28/24 11:51 AM Result Value Ref Range APTT Patient 32 26 - 36 Seconds Profile / Hemogram Collection Time: 09/28/24 11:51 AM Result Value Ref Range WBC 6.11 4.20 - 10.70 10*3/?L RBC 3.36 (L) 4.26 - 5.52 10*6/?L HGB 7.5 (L) 12.2 - 16.4 g/dL HCT 26.4 (L) 38.4 - 49.3 % MCH 22.3 (L) 26.1 - 32.7 pg MCV 78.6 (L) 81.7 - 95.6 fL MCHC 28.4 (L) 31.2 - 35.0 g/dL PLT 230 150 - 328 10*3/?L MPV 10.2 9.8 - 13.0 fL RDW-CV 22.0 (H) 12.1 - 15.4 % RDW-SD 62.1 (H) 38.5 - 51.6 fL NRBC x10 3 <0.01 10*3/?L NRBC/100 WBC 0.0 0.0 - 10.0 /100 WBCs IPF % Troponin I Collection Time: 09/28/24 11:51 AM Result Value Ref Range TROPONIN I 0.010 <=0.034 ng/mL Basic Metabolic Panel (NA, K, CL, CO2, Glucose, BUN, Creatinine, CA) Collection Time: 09/28/24 11:51 AM Result Value Ref Range NA 139 135 - 145 mmol/L K 4.1 3.5 - 5.0 mmol/L CL 108 98 - 108 mmol/L CO2 TOTAL 25 23 - 31 mmol/L AGAP 6 2 - 16 BUN 13 7 - 23 mg/dL GLUCOSE 121 (H) 70 - 110 mg/dL CREATININE 0.86 0.60 - 1.25 mg/dL CALCIUM 8.3 (L) 8.6 - 10.6 mg/dL eGFR 92.6 mL/min/1.73m2 POCT ACT Low Range Collection Time: 09/28/24 2:22 PM Result Value Ref Range ACTLR 152 89 - 169 Seconds POCT ACT Low Range Collection Time: 09/28/24 3:04 PM Result Value Ref Range ACTLR 169 89 - 169 Seconds STROKE LABS HGB A1C (%) Date Value 01/01/2023 5.5 LDL CHOL (mg/dL) Date Value 01/01/2023 100 CHOL (mg/dL) Date Value 01/01/2023 158 TSH (mIU/L) Date Value 01/01/2023 3.81 Recent Labs 07/26/24 1746 09/28/24 [address] ACUTE STROKE ANGIOGRAM HEAD Result Date: 09/28/2024 High-grade, short segment narrowing of a right M2 branch proximally, probably at a fork involving both a posterior and anterior division branch, likely representing thromboembolic disease. This would account for patient's acute left-sided symptoms. This case was discussed with Dr. Grace at the time of report dictation. Incidentally noted lobular ground glass opacity in the posterior aspect of the right upper lung. 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 Clinical correlation is recommended. CT ACUTE STROKE ANGIOGRAM NECK Result Date: 09/28/2024 High-grade, short segment narrowing of a right M2 branch proximally, probably at a fork involving both a posterior and anterior division branch, likely representing thromboembolic disease. This would account for patient's acute left-sided symptoms. This case was discussed with Dr. Grace at the time of report dictation. Incidentally noted lobular ground glass opacity in the posterior aspect of the right upper lung. 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 Clinical correlation is recommended. CT ACUTE STROKE HEAD WO CONTRAST Result Date: 09/28/2024 No acute intracranial abnormality. Multifocal chronic infarcts as above. ASSESSMENT AND PLAN Solis Saleh is a 73 year old right handed male with PMH of HTN, h/o TIA, Afib (CHADSVASC 4) on Eliquis, BPH, unspecified bone cancer, and MDD, who was initially admitted to [facility] team due to anemia. To be transferred to the ICU after interval development of acute R MCA stroke s/p NEC activation. LSN 09/28 1200. He was minutes later found to have L facial droop and slurred speech. Initial NIHSS 2. CTH showing no acute findings but evidence of previous strokes on multiple territories. CTA H&N showed R M2 occlusion with distal flow from collaterals. No tnk was given as the patient took eliquis this morning. His sx resolved and repeat NIHSS was 0. After 30 minutes, his exam worsened. His LUE weakness worsened, and developed L jeannie neglect. Repeat NIHSS 9. NEC was activated. On DSA, prior to MT, found to already have recanalization of R M2 MCA with occlusion of more distal R MCA branches. Of note, patient recently off AC due to GIB/anemia and planned endoscopic evaluation (performed on 09/27). AC resumed on this 09/28 AM. 1. Neuro Acute R MCA stroke Stroke etiology: Cardio-embolic - Admission to [facility] - Neurochecks Q1H - Telemetry - SBP goal < 180 - holding antithrombotics pending MRI-B - Check CBC, BMP, PT/INR, PTT, troponins x 2, EKG, A1C, Lipid panel, TSH - TTE w/ bubble study - MRI brain without contrast - Avoid hyperthermia, pain and constipation - Start Lipitor 40mg - Fall precautions - Consult PT/OT/ Speech pathology/Primary swallowing screen - Cloth Bleaching Range Operator Chief on stroke education, smoking cessation, healthy diet, physical activity, weight loss 2. Cardiac HTN | HLD Afib (CHADSVASC 4) on Eliquis (last dose 09/28 AM) - SBP goal as above - F/u TTE - holding Eliquis 3. Pulmonary No acute concerns CXR pending - O2pp 4. GI Recent GIB c/b severe anemia s/p endoscopy with no active sites - Dysphagia screen: passed, diet ordered 5. No acute concerns - Duron cath to remain due to pt on complete bedrest - Daily BMP - Monitor I/Os 6. ID No acute concerns Monitor temp, WBC 7. Endo No acute concerns - POCT for BG and sliding scale insulin - Check A1C, TSH 8. Heme Moderate anemia (Hgb 7.5) - CBC qDaily - holding antithrombotics at this point - GI Prophylaxis: pantoprazole - DVT Prophylaxis: scd - Code status: Full Discussed with Dr. Young, Neurology Faculty Donna Morrell MD PGY-[address] [facility] ER STITCHER OPERATOR Associated attestation - Campos Young MD - 09/29/2024 6:07 PM FOLDER STITCHER OPERATOR I discussed on phone this patient- named- Mr Solis Saleh on 09/28/[address] Morrell's resident admission note. I actively participated in the decision-making process. Please see the resident's note for additional details. Campos Young MD Neurocritical Care Unit Attending [facility] 2024-09-27 13:35:07 Endoscopy H & P Age: [age] year old Sex: male ASA Class: III Indication: anemia Family history of Colon Cancer/Polyps: no Blood thinners: 12/16 am eliquis Previous Endoscopy: EGD 07/27/2024 - Normal esophagus. - Z-line regular, 42 cm from the incisors. - Esophagogastric landmarks identified. - Gastroesophageal flap valve classified as Hill Grade IV (no fold, wide open lumen, hiatal hernia present). - 2 cm hiatal hernia. - Normal stomach. - Normal duodenal bulb. - A single non-bleeding angioectasia in the duodenum. Clip was placed. - Normal third portion of the duodenum. - No specimens collected Colonoscopy 07/31/2024 - Diverticulosis in the descending colon, in the transverse colon and in the ascending colon. - Six non-bleeding colonic angiodysplastic lesions. - The appendiceal orifice, rectum, sigmoid colon, splenic flexure, transverse colon, hepatic flexure, recto-sigmoid colon, ileocecal valve and terminal ileum are normal. - Non-bleeding internal hemorrhoids. - No specimens collected. - no interventions performed and no blood or active bleeding seen throughout colon Small Bowel Endoscopy 08/04/2024 - Z-line regular, 43 cm from the incisors. - Normal esophagus. - Normal cardia, gastric fundus, gastric body, incisura, antrum and pylorus. No specimens collected. - Normal duodenal bulb. - Duodenal foreign body. - Multiple non-bleeding angiodysplastic lesions in the duodenum. - A few non-bleeding angioectasias in the jejunum Subjective/Interval history: Past Medical History: Diagnosis Date Chronic GERD GIB (gastrointestinal bleeding) HTN (hypertension) Paroxysmal atrial fibrillation Current Facility-Administered Medications Medication Dose Route Frequency Last Rate Last Admin [START ON 09/28/2024] losartan (COZAAR) tablet 25 mg 25 mg Oral DAILY ondansetron (ZOFRAN (PF)) injection 4 mg 4 mg Slow IV Push Q6HPRN 4 mg at 09/27/24 0517 peg-electrolyte soln (GOLYTELY) 236-22.74-6.74 -5.86 gram solution 4,000 mL 4,000 mL Oral PRN - SEE INSTRUCTIONS 4,000 mL at 09/26/24 1734 acetaminophen (TYLENOL) tablet 650 mg 650 mg Oral Q6HPRN acetaminophen-codeine (TYLENOL #3) 300-30 mg tablet 1 tablet 1 tablet Oral Q6HPRN metoprolol tartrate (LOPRESSOR) tablet 12.5 mg 12.5 mg Oral BID 12.5 mg at 09/27/24 0829 pantoprazole (PROTONIX) EC tablet 40 mg 40 mg Oral BID 40 mg at 09/27/24 0829 sennosides-docusate sodium (SENOKOT-S) 8.6-50 mg per tablet 1 tablet 1 tablet Oral DAILY 1 tablet at 09/27/24 0829 Allergies Allergen Reactions Pcn [Penicillins] Shortness of Breath and Swelling Social History Socioeconomic History Marital status: Tobacco Use Smoking status: Never Passive exposure: Never Smokeless tobacco: Never Tobacco comments: Non smoker Social Determinants of Health Food Insecurity: No Food Insecurity (09/26/2024) NCSS - Food Insecurity Worried About Running Out of Food in the Last Year: No Ran Out of Food in the Last Year: No Transportation Needs: No Transportation Needs (09/26/2024) NCSS - Transportation Lack of Transportation: No Housing Stability: Not At Risk (09/26/2024) NCSS - Housing/Utilities Has Housing: Yes Worried About Losing Housing: No Unable to Get Utilities: No Mental Status: alert, oriented x3 Chest: clear to auscultation Cardiovascular: regular rate and rythmn Abdomen: bowel sounds present Tenderness: NO Impression and Plan: Proceed with push enteroscopy and colonoscopy. Education provided to the patient and family about the procedure. Benefits, risks, alternatives, and likelihood of achieving patient's goals of care discussed. Risks discussed including but not limited to aspiration, infection, bleeding, perforation, missed polyps/lesions, failure to obtain a diagnosis, failure to complete the procedure, cardiovascular complications such as MO, stroke, arrhythmia, and . Informed consent obtained. Temitope Charles MD Gastroenterology Fellow. PGY5 ER STITCHER OPERATOR Associated attestation - Meliton Pike MD - 09/27/2024 1:57 PM FOLDER STITCHER OPERATOR I personally examined the patient on 09/27/[address] Charles's resident/fellow note as written. I actively participated in the decision-making process. Please see the resident/fellow's note for additional details. Meliton Pike MD [facility] Food Adviser Gastroenterology GASTROENTEROLOGY [facility] 2024-09-25 17:40:32 [place] Team Admit H&P Date of Service: 09/25/2024 CHIEF COMPLAINT: Anemia HISTORY OF PRESENT ILLNESS Solis Saleh is a 73 year old male with a PMH of afib CHADSVASC 4 on Eliquis hypertension, transient ischemic attack (TIA), benign prostatic hyperplasia (BPH), unspecified bone cancer, and major depressive disorder (MDD) who presents with anemia. Of note patient was recently admitted for UGIB and received 5 units of RBCs. Anticoagulation and antiplatlets were held. An esophagogastroduodenoscopy (EGD) revealed non-bleeding angiodysplasias, and clips were placed for management. A colonoscopy showed multiple angiodysplasias and diverticulosis without an active source of bleeding. Eliquis was resumed on 07/31 after stabilization of the hemoglobin level, and no active bleeding was observed. He followed up with GI OP with no planned procedures upcoming. Patient saw hematology and labs were drawn. His oncologist called him to go to the ED when he saw low hemoglobin. At OSH, hgb was 4.8 and he has 2 units rbc ordered. VSS. Patient was transferred for higher level of care. Currently patient reports lightheadedness when he stands, KAT. Denies fever, chills, CP, GIB symptoms, uri symptoms. Reports anemia symptoms started after taking eliquis. Past medical history: Past Medical History: Diagnosis Date Chronic GERD GIB (gastrointestinal bleeding) HTN (hypertension) Paroxysmal atrial fibrillation Prior to Admission medications Medication Sig Start Date End Date Taking? Authorizing Provider apixaban 5 mg tablet Take 1 tablet by mouth in the morning and 1 tablet in the evening. 08/01/24 Lewis Felix DO losartan 25 mg tablet Take 1 tablet by mouth in the morning. 08/01/24 Lewis Felix DO metoprolol tartrate 25 mg tablet Take 0.5 tablets by mouth in the morning and 0.5 tablets in the evening. 08/01/24 Lewis Felix DO pantoprazole 40 mg EC tablet Take 1 tablet by mouth in the morning. 08/01/24 Lewis Felix DO Allergies Allergen Reactions Pcn [Penicillins] Shortness of Breath and Swelling Past surgical history: Past Surgical History: Procedure Laterality Date COLONOSCOPY Lower 07/31/2024 Surgeon: Audi Cruz DO; Location: ENDOSCOPY ([facility]) OR LOCATION ESOPHAGOGASTRODUODENOSCOPY N/A 07/27/2024 Surgeon: Carola Stanton MD; Location: ENDOSCOPY ([facility]) OR LOCATION PUSH ENDOSCOPY ([facility]) N/A 07/28/2024 Surgeon: Carola Stanton MD; Location: ENDOSCOPY ([facility]) OR LOCATION Allergies: Allergies Allergen Reactions Pcn [Penicillins] Shortness of Breath and Swelling Social history: Social History Socioeconomic History Marital status: Spouse name: Not on file Number of children: Not on file Years of education: Not on file Highest education level: Not on file Occupational History Not on file Tobacco Use Smoking status: Never Passive exposure: Never Smokeless tobacco: Never Tobacco comments: Non smoker Substance and Sexual Activity Alcohol use: Not on file Drug use: Not on file Sexual activity: Not on file Other Topics Concern Not on file Social History Narrative Not on file Social Determinants of Health Financial Resource Strain: Not on file Food Insecurity: No Food Insecurity (07/27/2024) NCSS - Food Insecurity Worried About Running Out of Food in the Last Year: No Ran Out of Food in the Last Year: No Transportation Needs: No Transportation Needs (07/27/2024) NCSS - Transportation Lack of Transportation: No Physical Activity: Not on file Stress: Not on file Social Connections: Not on file Housing Stability: Not At Risk (07/27/2024) NCSS - Housing/Utilities Has Housing: Yes Worried About Losing Housing: No Unable to Get Utilities: No Family history: No family history on file. REVIEW OF SYSTEMS Per HPI PHYSICAL EXAMINATION Temp: [36.4 ?C (97.5 ?F)-37.1 ?C (98.8 ?F)] Heart Rate (monitor): [84-102] Pulse: [91-105] Resp: [15-22] BP: (115-160)/(62-94) MAP (mmHg): [81-113] Body mass index is 29.98 kg/m?. General: AO& x3; NAD Eyes: PERRLA ENT: normal external inspection, pale mucosa and conjunctiva Neck: supple, trachea midline Lungs: CTAB with no wheezes, rales, or rhonchi Cardio: RRR with no rubs, murmurs, or gallops Abdomen: soft, non-tender, non-distended with normoactive BS Extremities: no lower extremity edema; no sacral edema; no rashes Skin: intact, warm, dry LABS: CBC WBC (10*3/?L) Date Value 09/25/2024 4.85 RBC (10*6/?L) Date Value 09/25/2024 2.51 (L) PLT (10*3/?L) Date Value 09/25/2024 255 HGB (g/dL) Date Value 09/25/2024 4.8 (LL) HCT (%) Date Value 09/25/2024 19.1 (L) There are no current results on file for these tests and/or test for 1 year. There are no current results on file for these tests and/or test for 1 year. BMP NA (mmol/L) Date Value 09/25/2024 139 K (mmol/L) Date Value 09/25/2024 3.8 CALCIUM (mg/dL) Date Value 09/25/2024 8.6 CL (mmol/L) Date Value 09/25/2024 108 BUN (mg/dL) Date Value 09/25/2024 18 CREATININE (mg/dL) Date Value 09/25/2024 0.82 GLUCOSE (mg/dL) Date Value 09/25/2024 98 CO2 TOTAL (mmol/L) Date Value 09/25/2024 23 Hepatic Function Panel ALBUMIN (g/dL) Date Value 07/27/2024 3.4 (L) T PROTEIN (g/dL) Date Value 07/27/2024 5.9 (L) TOTAL BILI (mg/dL) Date Value 07/27/2024 1.2 (H) ALTv (U/L) Date Value 07/27/2024 15 AST(SGOT) (U/L) Date Value 07/27/2024 24 ALK PHOS (U/L) Date Value 07/27/2024 64 Coagulation Panel: Recent Labs 07/27/24 0022 07/30/24 1336 09/25/24 1316 PTINR 1.6 1.2 1.5 PTPAT 17.4* 13.5* 17.1* APTTPAT 28 -- 32 ABG:There are no current results on file for these tests and/or test for 1 year. DM & HLD Panel:There are no current results on file for these tests and/or test for 1 year. Additional Imaging: No final results containing an impression from the past 48 hours were found. CHART REVIEW Recent Admission Discharge Summary: reviewed ASSESSMENT/PLAN: Solis Saleh is a 73 year old male admitted to the hospital with: Acute symptomatic anemia Hx of Angioectasia of duodenum s/p clip placement Hx of Angiodysplasia of colon Diverticulosis Innumerable hepatic lesions Atrial fibrillation (LEIGH ANN?DS?-VAS 4 on Eliquis) HTN Hx of CVA Patient with symptomatic anemia without GIB. Currenlty s/p 2rbc units. Hgb ordered, will transfuse if needed. If GIB present, consult GI. Anemia work up ordered. HASBLED score 4. Patient is at risk for major bleeding events. Discussed risk and benefits of continuing Eliquis. Patient agreed to hold eliquis at this time. Held antihypertensive, DOAC Anemia work up GIB protocol -2 large bore IV lines. -Monitor Hgb q6h, transfuse if there is active bleeding or Hb<7. -Check INR and correct to 1.5 or below. -Give plts if less than 50. -Check fibrinogen and give cryo if less than 200 If hgb stable tomorrow, may consider discharge Pain: [facility] Bowel Regimen: senna DVT Prophylaxis: held Code status: full Daylin Gilmore MD Department of Internal Medicine 09/25/2024 22:06 ER STITCHER OPERATOR Associated attestation - Hyun Hanson DO - 09/26/2024 2:54 AM FOLDER STITCHER OPERATOR I personally examined the patient on the date of service and agree with Dr. Gilmore's resident note as written. I actively participated in the decision-making process. Please see the resident's note for additional details. -Pt would benefit from risk vs benefit discussion with regards to continuing Eliquis in the setting of recurrent anemia requiring multiple blood transfusions and hospitalizations. Pt is amenable to having this discussion Hyun Hanson DO Food Adviser | Department of Internal Medicine [facility] 2024-07-28 09:39:21 Endoscopy H & P Age: [age] year old Sex: male ASA Class: III Indication: Push enteroscpoy - melena, EGD 07/27/24 without significant lesion to explain anemia Blood thinners: Eliquis, last dose 07/26/24 am Previous Endoscopy: EGD: 07/27/24, D2 AVM w/o active bleed s/p clipping Subjective/Interval history: 73/M PMH atrial fibrillation (LEIGH ANN?DS?-VAS 4 on Eliquis), HTN, TIA, BPH, and MDD who came in with melena for a few days and anemia Hb 2.7. s/p 5u PRBC with Hb this am 7.9. EGD 07/27/24 with a duodenal AVM but insufficient to explain degree of melena/anemia. History reviewed. No pertinent past medical history. Current Facility-Administered Medications Medication Dose Route Frequency Last Rate Last Admin pantoprazole (PROTONIX) injection 40 mg 40 mg Slow IV Push Q12H 40 mg at 07/28/24 0826 Allergies Allergen Reactions Pcn [Penicillins] Shortness of Breath and Swelling Social History Socioeconomic History Marital status: Social Determinants of Health Food Insecurity: No Food Insecurity (07/27/2024) NCSS - Food Insecurity Worried About Running Out of Food in the Last Year: No Ran Out of Food in the Last Year: No Transportation Needs: No Transportation Needs (07/27/2024) NCSS - Transportation Lack of Transportation: No Housing Stability: Not At Risk (07/27/2024) NCSS - Housing/Utilities Has Housing: Yes Worried About Losing Housing: No Unable to Get Utilities: No Mental Status: alert, oriented x3 Chest: clear to auscultation Cardiovascular: regular rate and rythmn Abdomen: bowel sounds present Tenderness: NO Impression and Plan: 73/M PMH atrial fibrillation (LEIGH ANN?DS?-VAS 4 on Eliquis), HTN, TIA, BPH, and MDD who came in with melena for a few days and anemia Hb 2.7. s/p 5u PRBC with Hb this am 7.9. EGD 07/27/24 with a duodenal AVM but insufficient to explain degree of melena/anemia. - Proceed with push enteroscopy today Education provided to the patient and family about the procedure. Benefits, risks, alternatives, and likelihood of achieving patient's goals of care discussed. Risks discussed including but not limited to aspiration, infection, bleeding, perforation, missed polyps/lesions, failure to obtain a diagnosis, failure to complete the procedure, cardiovascular complications such as MO, stroke, arrhythmia, and . Informed consent obtained. Tevin Garzon MD PGY4, Gastroenterology and Hepatology Associated attestation - Carola Stanton MD - 07/28/2024 1:30 PM CDT I have personally seen and examined the patient with Dr. Garzon. I agree with assessment and plan. I actively participated in the evaluation and decision making. CAROLA GOMEZ, BOBJ DEVELOPER, DIVISION OF GASTROENTEROLOGY AND HEPATOLOGY. [facility]. GASTROENTEROLOGY [facility] 2024-07-27 17:13:54 Endoscopy H & P Age: [age] year old Sex: male ASA Class: III Indication: Melena, acute post hemorrhagic anemia History reviewed. No pertinent past medical history. Family history of Colon Cancer/Polyps: no Current Facility-Administered Medications Medication Dose Route Frequency Last Rate Last Admin pantoprazole (PROTONIX) injection 40 mg 40 mg Slow IV Push Q12H 40 mg at 07/27/24 0738 Allergies Allergen Reactions Pcn [Penicillins] Shortness of Breath and Swelling Social History Socioeconomic History Marital status: Social Determinants of Health Food Insecurity: No Food Insecurity (07/27/2024) NCSS - Food Insecurity Worried About Running Out of Food in the Last Year: No Ran Out of Food in the Last Year: No Transportation Needs: No Transportation Needs (07/27/2024) NCSS - Transportation Lack of Transportation: No Housing Stability: Not At Risk (07/27/2024) NCSS - Housing/Utilities Has Housing: Yes Worried About Losing Housing: No Unable to Get Utilities: No Mental Status: alert, oriented x3 Chest: clear to auscultation Cardiovascular: regular rate and rythmn Abdomen: bowel sounds present Spleen Tip: non-palpable Hepatomegaly: no Mass: not present Tenderness: no Impression and Plan: Melena Acute post hemorrhagic anemia - Proceed with EGD * I have explained the procedural risks of sedation, anesthesia related complications, bleeding, perforation, infection, damage to structures around GI tract, missing a lesion and , benefits of procedure and alternatives were also discussed with patient and he has agreed to proceed with the procedure. Carola Gomez MD, Food Adviser, Division of Gastroenterology and Hepatology. [facility]. IM-GASTROENTEROLOGY STAFF [facility] 2024-07-26 21:19:12 Medicine Intensive Care History and Physical Date of Service: 07/26/2024 21:19 ICU day: 1 Intubation Day: N/A CHIEF COMPLAINT: Dyspnea History of Present Illness Solis Saleh is a 73 year old male with hx of atrial fibrillation (LEIGH ANN?DS?-VAS 4 on Eliquis), HTN, TIA, BPH, unspecified bone cancer and MDD transferred from [facility] for GI bleed. Per patient he has noticed gradually worsening dyspnea over the past week, worse with exertion. Due to his dyspnea that pt presented to the [facility] ED. There he was found to have a hgb of 2.7. Upon further questioning the patient states that hes noticed melena for the past several days. Patient is unsure of when the episodes started but states they began "around a week ago". The patient has on average 2 melanotic bowel movements per day. The pt has not had any hematemesis. Pt denies any NSAID use other than [address] [facility]: Vitals: 88/46, HR 94, RR 16, 98% O2 on 2L, 98.8F Labs: Hgb 2.7, Hct 10.8, PLT 353, CO2 19, BUN 29, glucose 125, Troponin negative, Ddimer negative. Imaging: CTAP Innumerable hypodense hepatic parenchymal lesions some of which cannot be definitively characterized. Further evaluation with multiphasic liver protocol MR is recommended PAST MEDICAL HISTORY History reviewed. No pertinent past medical history. PAST SURGICAL HISTORY History reviewed. No pertinent surgical history. FAMILY HISTORY No family history on file. SOCIAL HISTORY Social History Socioeconomic History Marital status: ALLERGIES Allergies Allergen Reactions Pcn [Penicillins] Shortness of Breath and Swelling REVIEW OF SYSTEMS (-)=Negative,(+)=Positive General: (+) fatigue Skin: (+) Pallor HEENT: negative Neck: negative Heme: negative Resp: (+) shortness of breath Cardio: negative GI: (+) hematochezia : negative Endo: negative Neuro: negative Back: negative MAYKEL: negative Psych: negative PHYSICAL EXAMINATION Vitals: 07/26/24202407/26/24202907/26/24204407/26/242099 BP: 112/59 104/54 108/86 106/62 Pulse: 96 103 101 99 Resp: 14 18 17 18 Temp: 36.7 ?C (98.1 ?F) 37.1 ?C (98.8 ?F) TempSrc: Oral Oral SpO2: 94% 96% 94% 96% Weight: Height: Constitutional: alert and oriented x 4 (person, place, date/time, and situation); no apparent distress HEENT: normocephalic atraumatic Neck: supple, no lymphadenopathy, no bruits, no JVD Resp: clear to auscultation bilaterally Cardio: Irregularly irregular rhythm GI: Mild LUQ TTP : not examined Rectal: not examined MSK: no clubbing, cyanosis, or edema Integ: Pallor Neuro: no focal deficits Labs (pertinent only)/Imaging: XR CHEST 1 VW Result Date: 07/26/2024 Impression: No consolidation or pleural effusion. No pneumothorax. RL: [id number] End of Report Assessment/Plan: Solis Saleh is a 73 year old male admitted with symptomatic anemia secondary to UBIG Neuro Hx of TIA - hold 81 mg ASA Resp No active concerns Cardiovascular Atrial fibrillation (LEIGH ANN?DS?-VAS 4 on Eliquis) HTN Pt with hx of atrial fibrillation on Eliquis, last dose on the morning of 07/26. Given patients blood loss anemia will hold eliquis. Patient also on metoprolol for rate control, will hold for now however if patient develops rvr will have to restart. - Hold eliquis - hold Losartan/amlodipine/metoprolol - If patient RVRs will consider restarting metoprolol FEN/GI UGIB Symptomatic anemia Innumerable hepatic lesions Pt presenting to [facility] with one week of melena and worsening dyspnea on exertion found to have hgb of 2.7. Given that patient is hemodynamically stable his GI bleed is likely acute on chronic and worsened by his recent initiation of Eliquis. Unclear etiology for patients innumerable hepatic lesions however patient does not appear to have cirrhosis at this time given normal Fib-4 score. Pt given 1 units of pRBC and protonix 80 mg bolus prior to arrival. Will give another 2 units here and monitor response. - Consulted GI - Will give 3U pRBC and monitor response - maintain 2 large bore IV's - Protonix 40 mg BID - Maintain active type and screen - Maintain hgb > 7 - Repeat CBC q6h - Holding anti-hypertensive's and Eliquis - NPO ID No active concerns Renal No active concerns Endo No active concerns OtherDVT prophylaxis: contraindicated Lines/Catheters: Insertion date: 07/26/24, Location: R arm Insertion date: 07/26/24, Location: L arm Dispo: MICU Prognosis: Guarded Code Status: Full João Barfield, 07/26/2024 9:19 PM Associated attestation - Zac Osborne MD - 07/27/2024 4:39 PM CDT Attending History Supplement:I personally examined the patient on 07/27/[address] Barfield's resident note as written. I actively participated in the decision-making process. Please see the resident's note for additional details. Solis Saleh is a 73 year old male admitted with syncope, anemia (2.7) and upper GI bleed. Provided iv fluid resuscitation and PRBC transfusion. Initiated PPI infusion and d/c antihypertensives & anticoagulants. Consulted GI regarding timing of EGD. Updated family to plan of care. [facility] Procedure Notes Date/Time Note Provider Source 2024-09-28 15:26:20 VASCULAR AND INTERVENTIONAL RADIOLOGY PROCEDURE NOTE Pre-procedure diagnosis: Acute thromboembolic CVA Post-procedure diagnosis: same Procedure: Diagnostic cerebral angiography Findings: Recanalization of the right M2 MCA. Distal right MCA branch occlusion Patent Right Vert and Left ICA/Vert without flow limiting stenosis Complications: none Condition: stable Estimated blood loss: minimal Full dictated note to follow in PACS. Giancarlo Nuñez MD, PGY 5 Interventional Radiology - Integrated ER STITCHER OPERATOR Associated attestation - Leonardo Fountain MD - 09/29/2024 3:28 PM FOLDER STITCHER OPERATOR . INTERVENTIONAL CARDIOLOGY [facility] 2024-07-28 15:01:09 Brief procedure report -esophagus normal -stomach normal - D1 normal. D2 with old clip and angiodysplasia seen adjacent s/p APC with successful coagulation -D3 and D4 with multiple small non bleeding angiodysplasia seen. 2 medium sized non bleeding angiodysplasia seen, no intervention due to unstable scope position Recommendations -can start clears today. Advance diet if stable clinical course -hold A/c today. If no further bleeding tomorrow, can resume A/C -IV Iron repletion -check CBC today Tevin Garzon MD PGY 5 Gastroenterology and Hepatology [facility] Notes Date/Time Note Provider Source 2025-02-08 02:27:54 Pt given printed and verbal discharge instructions regarding Hypertension Pt verbalized understanding of instructions, pt awake alert oriented, resp reg unlabored, skin w/d, color appropriate for race, moves all ext well,pt encouraged to follow up with pcp and nephrology Advised to seek medical attention for new/prolonged/worsening of symptoms No adverse reaction to meds given in ER noted upon discharge PIV d'cd, dressing to site, catheter in tact. Awake, alert oriented, resp reg unlabored, skin w/d, pt leaving amb with steady gait, in no apparent distress, with family member Mauricio Knutson RN [facility] 2025-02-08 00:37:08 CC: HTN all-day. Patient seen his senior software developer and took an extra losartan at 3PM. Patient also took his evening medication at 8:45 PM. Denies symptoms of HTN. Valeria Majano RN [facility] 2024-10-20 15:45:47 TRANSITIONAL CARE MANAGEMENT ASSESSMENT 10/20/2024 Solis Saleh [id number] Solis Saleh is a 74 year old /White male was admitted on 10/17/24 to [facility] ICU. He was discharged on 10/19/24 with discharge disposition of HR- Routine Discharge. Admitting Physician: Norma Dotson Discharge Diagnosis: Hypotension No linked episodes TCM [id number] outreach documentation: Discharge Assessment Chart Assessed: 10/20/24 TCM Outreach Completed: 10/20/24 (Calls attempted x 2. Voicemail messages left with no response.) Joya RUFF, RN, [facility] Crew Leader Gluing Transitions of Care [facility] [phone] ER STITCHER OPERATOR Joya Casas RN [facility] 2024-10-19 12:33:34 Problem: Pain Goal: Control of pain at or below patient's documented comfort goal 10/19/2024 1233 by Stella Rivera RN Outcome: Resolved 10/19/2024 1233 by Stella Rivera RN Outcome: Adequate for discharge 10/19/2024 0845 by Stella Rivera RN Outcome: Progressing as expected Goal: Reduction in pain sensation 10/19/2024 1233 by Stella Rivera RN Outcome: Resolved 10/19/2024 1233 by Stella Rivera RN Outcome: Adequate for discharge 10/19/2024 0845 by Stella Rivera RN Outcome: Progressing as expected Problem: Discharge Planning Goal: Adequate for discharge 10/19/2024 1233 by Stella Rivera RN Outcome: Resolved 10/19/2024 1233 by Stella Rivera RN Outcome: Adequate for discharge 10/19/2024 0845 by Stella Rivera RN Outcome: Progressing as expected Goal: Effective communication 10/19/2024 1233 by Stella Rivera RN Outcome: Resolved 10/19/2024 1233 by Stella Rivera RN Outcome: Adequate for discharge 10/19/2024 0845 by Stella Rivera RN Outcome: Progressing as expected Problem: Fluid Volume - Imbalanced Goal: Absence of signs and symptoms of imbalanced fluid volume 10/19/2024 1233 by Stella Rivera RN Outcome: Resolved 10/19/2024 1233 by Stella Rivera RN Outcome: Adequate for discharge 10/19/2024 0845 by Stella Rivera RN Outcome: Progressing as expected Problem: Nutrition Deficit Goal: Adequate nutritional intake 10/19/2024 1233 by Stella Rivera RN Outcome: Resolved 10/19/2024 1233 by Stella Rivera RN Outcome: Adequate for discharge 10/19/2024 0845 by Stella Rivera RN Outcome: Progressing as expected Problem: Skin integrity Impaired (Risk or Actual) Goal: Wound healing 10/19/2024 1233 by Stella Rivera RN Outcome: Resolved 10/19/2024 1233 by Stella Rivera RN Outcome: Adequate for discharge 10/19/2024 0845 by Stella Rivera RN Outcome: Progressing as expected Goal: Prevention of new skin breakdown 10/19/2024 1233 by Stella Rivera RN Outcome: Resolved 10/19/2024 1233 by Stella Rivera RN Outcome: Adequate for discharge 10/19/2024 0845 by Stella Rivera RN Outcome: Progressing as expected Problem: Falls, Risk of Goal: Absence of falls 10/19/2024 1233 by Stella Rivera RN Outcome: Resolved 10/19/2024 1233 by Stella Rivera RN Outcome: Adequate for discharge 10/19/2024 0845 by Stella Rivera RN Outcome: Progressing as expected Problem: Venous Thromboembolism, (actual or risk of) Goal: Absence of venous thromboembolism (Risk) 10/19/2024 1233 by Stella Rivera RN Outcome: Resolved 10/19/2024 1233 by Stella Rivera RN Outcome: Adequate for discharge 10/19/2024 0845 by Stella Rivera RN Outcome: Progressing as expected Goal: Prevent further complications associated with VTE diagnosis (Actual) 10/19/2024 1233 by Stella Rivera RN Outcome: Resolved 10/19/2024 1233 by Stella Rivera RN Outcome: Adequate for discharge 10/19/2024 0845 by Stella Rivera RN Outcome: Progressing as expected Problem: Cardiac Output - Decreased Goal: Cardiac output within specified parameters 10/19/2024 1233 by Stella Rivera RN Outcome: Resolved 10/19/2024 1233 by Stella Rivera RN Outcome: Adequate for discharge 10/19/2024 0845 by Stella Rivera RN Outcome: Progressing as expected Goal: Absence of signs and symptoms of decreased cardiac output 10/19/2024 1233 by Stella Rivera RN Outcome: Resolved 10/19/2024 1233 by Stella Rivera RN Outcome: Adequate for discharge 10/19/2024 0845 by Stella Rivera RN Outcome: Progressing as expected ER STITCHER OPERATOR Stella Rivera RN [facility] 2024-10-19 12:33:15 Problem: Pain Goal: Control of pain at or below patient's documented comfort goal 10/19/2024 1233 by Stella Rivera RN Outcome: Adequate for discharge 10/19/2024 0845 by Stella Rivera RN Outcome: Progressing as expected Goal: Reduction in pain sensation 10/19/2024 1233 by Stella Rivera RN Outcome: Adequate for discharge 10/19/2024 0845 by Stella Rivera RN Outcome: Progressing as expected Problem: Discharge Planning Goal: Adequate for discharge 10/19/2024 1233 by Stella Rivera RN Outcome: Adequate for discharge 10/19/2024 0845 by Stella Rivera RN Outcome: Progressing as expected Goal: Effective communication 10/19/2024 1233 by Stella Rivera RN Outcome: Adequate for discharge 10/19/2024 0845 by Stella Rivera RN Outcome: Progressing as expected Problem: Fluid Volume - Imbalanced Goal: Absence of signs and symptoms of imbalanced fluid volume 10/19/2024 1233 by Stella Rivera RN Outcome: Adequate for discharge 10/19/2024 0845 by Stella Rivera RN Outcome: Progressing as expected Problem: Nutrition Deficit Goal: Adequate nutritional intake 10/19/2024 1233 by Stella Rivera RN Outcome: Adequate for discharge 10/19/2024 0845 by Stella Rivera RN Outcome: Progressing as expected Problem: Skin integrity Impaired (Risk or Actual) Goal: Wound healing 10/19/2024 1233 by Stella Rivera RN Outcome: Adequate for discharge 10/19/2024 0845 by Stella Rivera RN Outcome: Progressing as expected Goal: Prevention of new skin breakdown 10/19/2024 1233 by Stella Rivera RN Outcome: Adequate for discharge 10/19/2024 0845 by Stella Rivera RN Outcome: Progressing as expected Problem: Falls, Risk of Goal: Absence of falls 10/19/2024 1233 by Stella Rivera RN Outcome: Adequate for discharge 10/19/2024 0845 by Stella Rivera RN Outcome: Progressing as expected Problem: Venous Thromboembolism, (actual or risk of) Goal: Absence of venous thromboembolism (Risk) 10/19/2024 1233 by Stella Rivera RN Outcome: Adequate for discharge 10/19/2024 0845 by Stella Rivera RN Outcome: Progressing as expected Goal: Prevent further complications associated with VTE diagnosis (Actual) 10/19/2024 1233 by Stella Rivera RN Outcome: Adequate for discharge 10/19/2024 0845 by Stella Rivera RN Outcome: Progressing as expected Problem: Cardiac Output - Decreased Goal: Cardiac output within specified parameters 10/19/2024 1233 by Stella Rivera RN Outcome: Adequate for discharge 10/19/2024 0845 by Stella Rivera RN Outcome: Progressing as expected Goal: Absence of signs and symptoms of decreased cardiac output 10/19/2024 1233 by Stella Rivera RN Outcome: Adequate for discharge 10/19/2024 0845 by Stella Rivera RN Outcome: Progressing as expected [facility] 2024-10-19 08:45:13 Problem: Pain Goal: Control of pain at or below patient's documented comfort goal Outcome: Progressing as expected Goal: Reduction in pain sensation Outcome: Progressing as expected Problem: Discharge Planning Goal: Adequate for discharge Outcome: Progressing as expected Goal: Effective communication Outcome: Progressing as expected Problem: Fluid Volume - Imbalanced Goal: Absence of signs and symptoms of imbalanced fluid volume Outcome: Progressing as expected Problem: Nutrition Deficit Goal: Adequate nutritional intake Outcome: Progressing as expected Problem: Skin integrity Impaired (Risk or Actual) Goal: Wound healing Outcome: Progressing as expected Goal: Prevention of new skin breakdown Outcome: Progressing as expected Problem: Falls, Risk of Goal: Absence of falls Outcome: Progressing as expected Problem: Venous Thromboembolism, (actual or risk of) Goal: Absence of venous thromboembolism (Risk) Outcome: Progressing as expected Goal: Prevent further complications associated with VTE diagnosis (Actual) Outcome: Progressing as expected Problem: Cardiac Output - Decreased Goal: Cardiac output within specified parameters Outcome: Progressing as expected Goal: Absence of signs and symptoms of decreased cardiac output Outcome: Progressing as expected [facility] 2024-10-19 02:22:29 Problem: Pain Goal: Control of pain at or below patient's documented comfort goal Outcome: Progressing as expected Goal: Reduction in pain sensation Outcome: Progressing as expected Problem: Discharge Planning Goal: Adequate for discharge Outcome: Progressing as expected Goal: Effective communication Outcome: Progressing as expected Problem: Fluid Volume - Imbalanced Goal: Absence of signs and symptoms of imbalanced fluid volume Outcome: Progressing as expected Problem: Nutrition Deficit Goal: Adequate nutritional intake Outcome: Progressing as expected Problem: Skin integrity Impaired (Risk or Actual) Goal: Wound healing Outcome: Progressing as expected Goal: Prevention of new skin breakdown Outcome: Progressing as expected Problem: Falls, Risk of Goal: Absence of falls Outcome: Progressing as expected Problem: Venous Thromboembolism, (actual or risk of) Goal: Absence of venous thromboembolism (Risk) Outcome: Progressing as expected Goal: Prevent further complications associated with VTE diagnosis (Actual) Outcome: Progressing as expected Problem: Cardiac Output - Decreased Goal: Cardiac output within specified parameters Outcome: Progressing as expected Goal: Absence of signs and symptoms of decreased cardiac output Outcome: Progressing as expected ER STITCHER OPERATOR Crissy Mccoy RN [facility] 2024-10-18 20:21:53 Images from the original note were not included. Pharmacy Recommendations for Patient Admission: Consider restarting the following medications: (once clinically appropriate) Dapagliflozin 10 mg PO QAM Atorvastatin 40 mg PO QHS Some of the following home mediations regimens may require adjustment: Losartan 50 mg PO BID Furosemide 40 mg PO BID Spironolactone 25 mg PO QAM Metoprolol succinate 100mg XL PO BID The [employer] medication list has been updated and reflected in the chart below. Please use the [employer] Med List for ordering home doses during admission. Patient Adherence: Sporadically Non-Adherent to some medications. Source(s) used in interview: Patient, Outpatient Pharmacy, and Medical Records Interview limitations: None Medications Added Medications Removed Medications Modified None None None Allergies as of 10/17/2024 - Reviewed 10/06/2024 Allergen Reaction Noted Pcn [penicillins] Shortness of Breath and Swelling 02/03/2023 Pharmacy Updated [employer] Med List Medication Sig apixaban (ELIQUIS) 5 mg tablet Take 1 tablet by mouth in the morning and 1 tablet in the evening. Indications: Atrial Fibrillation dapagliflozin propanediol 10 mg tablet Take 1 tablet by mouth in the morning. furosemide 40 mg tablet Take 1 tablet by mouth every morning and evening. losartan 50 mg tablet Take 1 tablet by mouth in the morning and 1 tablet in the evening. metoprolol succinate XL 100 mg 24 hr tablet Take 1 tablet by mouth in the morning and 1 tablet in the evening. spironolactone 25 mg tablet Take 1 tablet by mouth every morning. atorvastatin 40 mg tablet Take 1 tablet by mouth at bedtime for 90 days. Outpatient Pharmacy Contact Information: [id number] - [place], [place] - [address] [facility] [address] [facility] [id number] [id number] - [place], [place] - [address] [facility] [address] [facility] [phone] [facility] [place] - [address] AT [facility] & [address]once [address] [facility] [address] [facility] - [address] [place], [place] [address] [facility] [address] Thank you for the opportunity to participate in the care of this patient. Mary Lou Ac RPH 8:21 PM, 10/18/[address] [facility] Department of Pharmacy - [facility] Phone: ADC: [phone] Ac [facility] 2024-10-18 08:00:00 Problem: Pain Goal: Control of pain at or below patient's documented comfort goal Outcome: Progressing as expected Goal: Reduction in pain sensation Outcome: Progressing as expected Problem: Discharge Planning Goal: Adequate for discharge Outcome: Progressing as expected Goal: Effective communication Outcome: Progressing as expected Problem: Fluid Volume - Imbalanced Goal: Absence of signs and symptoms of imbalanced fluid volume Outcome: Progressing as expected Problem: Nutrition Deficit Goal: Adequate nutritional intake Outcome: Progressing as expected Problem: Skin integrity Impaired (Risk or Actual) Goal: Wound healing Outcome: Progressing as expected Goal: Prevention of new skin breakdown Outcome: Progressing as expected Problem: Falls, Risk of Goal: Absence of falls Outcome: Progressing as expected Problem: Venous Thromboembolism, (actual or risk of) Goal: Absence of venous thromboembolism (Risk) Outcome: Progressing as expected Goal: Prevent further complications associated with VTE diagnosis (Actual) Outcome: Progressing as expected Problem: Cardiac Output - Decreased Goal: Cardiac output within specified parameters Outcome: Progressing as expected Goal: Absence of signs and symptoms of decreased cardiac output Outcome: Progressing as expected Peña RN [facility] 2024-10-17 23:59:04 Problem: Pain Goal: Control of pain at or below patient's documented comfort goal 10/17/20242357 by Jacinto Blackwell RN Outcome: Progressing as expected 10/17/20242355 by Jacinto Blackwell RN Outcome: Progressing as expected Goal: Reduction in pain sensation 10/17/20242357 by Jacinto Blackwell RN Outcome: Progressing as expected 10/17/20242355 by Jacinto Blackwell RN Outcome: Progressing as expected Problem: Discharge Planning Goal: Adequate for discharge 10/17/20242357 by Jacinto Blackwell RN Outcome: Progressing as expected 10/17/20242355 by Jacinto Blackwell RN Outcome: Progressing as expected Goal: Effective communication 10/17/20242357 by Jacinto Blackwell RN Outcome: Progressing as expected 10/17/20242355 by Jacinto Blackwell RN Outcome: Progressing as expected Problem: Fluid Volume - Imbalanced Goal: Absence of signs and symptoms of imbalanced fluid volume 10/17/20242357 by Jacinto Blackwell RN Outcome: Progressing as expected 10/17/20242355 by Jacinto Blackwell RN Outcome: Progressing as expected Problem: Nutrition Deficit Goal: Adequate nutritional intake 10/17/20242357 by Jacinto Blackwell RN Outcome: Progressing as expected 10/17/20242355 by Jacinto Blackwell RN Outcome: Progressing as expected Problem: Skin integrity Impaired (Risk or Actual) Goal: Wound healing 10/17/20242357 by Jacinto Blackwell RN Outcome: Progressing as expected 10/17/20242355 by Jacinto Blackwell RN Outcome: Progressing as expected Goal: Prevention of new skin breakdown 10/17/20242357 by Jacinto Blackwell RN Outcome: Progressing as expected 10/17/20242355 by Jacinto Blackwell RN Outcome: Progressing as expected Problem: Falls, Risk of Goal: Absence of falls 10/17/20242357 by Jacinto Blackwell RN Outcome: Progressing as expected 10/17/2024 2356 by Jacinto Blackwell RN Outcome: Progressing as expected Problem: Venous Thromboembolism, (actual or risk of) Goal: Absence of venous thromboembolism (Risk) Outcome: Progressing as expected Goal: Prevent further complications associated with VTE diagnosis (Actual) Outcome: Progressing as expected ER STITCHER OPERATOR Jacinto Blackwell RN [facility] 2024-10-17 23:57:06 Problem: Pain Goal: Control of pain at or below patient's documented comfort goal Outcome: Progressing as expected Goal: Reduction in pain sensation Outcome: Progressing as expected Problem: Discharge Planning Goal: Adequate for discharge Outcome: Progressing as expected Goal: Effective communication Outcome: Progressing as expected Problem: Fluid Volume - Imbalanced Goal: Absence of signs and symptoms of imbalanced fluid volume Outcome: Progressing as expected Problem: Nutrition Deficit Goal: Adequate nutritional intake Outcome: Progressing as expected Problem: Skin integrity Impaired (Risk or Actual) Goal: Wound healing Outcome: Progressing as expected Goal: Prevention of new skin breakdown Outcome: Progressing as expected Problem: Falls, Risk of Goal: Absence of falls Outcome: Progressing as expected [facility] 2024-10-17 15:50:31 Problem: Pain Goal: Control of pain at or below patient's documented comfort goal Outcome: Progressing as expected Goal: Reduction in pain sensation Outcome: Progressing as expected Problem: Discharge Planning Goal: Adequate for discharge Outcome: Progressing as expected Goal: Effective communication Outcome: Progressing as expected Problem: Fluid Volume - Imbalanced Goal: Absence of signs and symptoms of imbalanced fluid volume Outcome: Progressing as expected Problem: Nutrition Deficit Goal: Adequate nutritional intake Outcome: Progressing as expected Problem: Skin integrity Impaired (Risk or Actual) Goal: Wound healing Outcome: Progressing as expected Goal: Prevention of new skin breakdown Outcome: Progressing as expected Problem: Falls, Risk of Goal: Absence of falls Outcome: Progressing as expected Batres RN [facility] 2024-10-17 06:20:51 Problem: Pain Goal: Control of pain at or below patient's documented comfort goal Outcome: Progressing as expected Goal: Reduction in pain sensation Outcome: Progressing as expected Problem: Discharge Planning Goal: Adequate for discharge Outcome: Progressing as expected Goal: Effective communication Outcome: Progressing as expected Problem: Fluid Volume - Imbalanced Goal: Absence of signs and symptoms of imbalanced fluid volume Outcome: Progressing as expected Problem: Nutrition Deficit Goal: Adequate nutritional intake Outcome: Progressing as expected Problem: Skin integrity Impaired (Risk or Actual) Goal: Wound healing Outcome: Progressing as expected Goal: Prevention of new skin breakdown Outcome: Progressing as expected Problem: Falls, Risk of Goal: Absence of falls Outcome: Progressing as expected ER STITCHER OPERATOR [facility] 2024-10-12 15:11:26 TRANSITIONAL CARE MANAGEMENT ASSESSMENT 10/12/2024 Solis Saleh [id number] Solis Saleh is a 73 year old /White male was admitted on 10/05/[address] He was discharged on 10/10/24 with discharge disposition of HR- Routine Discharge. Admitting Physician: Kashif Stanton Discharge Diagnosis: AoC HFrEF (35-40% per TTE 10/06/24, NICM vs ICM, NYHA Class IV/C) No linked episodes TCM [id number] outreach documentation: Discharge Assessment Chart Assessed: 10/12/24 TCM Outreach Completed: 10/12/24 Do you have a few minutes to speak with me about how you are doing at home?: Yes Discharge Instructions Do you understand your at-home instructions?: Yes Medications Have you filled your prescriptions and do you have them in your home? : Yes Do you know how to take your medications?: Yes Supplies Did you receive applicable home medical supplies/equipment?: N/A Follow Up Appointment Has a follow up appointment been scheduled?: No May I assist with scheduling this appointment?: Patient has outside PCP (CM was able to schedule HF fu) Do you have any questions about your follow up appointments?: No Are you able to get to your appointment? Who will be taking you?: Yes Home Health Assistance Has the home health nurse contacted you since you've been home?: N/A Survey - Recognition Is there anything you would like to share about your recent hospitalization, or anyone you would like to recognize?: No Do you have any suggestions for improvement?: No Do you have any other questions or concerns at this time?: No Future Appointments: Future Appointments Provider Department Dept Phone 10/17/2024 9:00 AM [place], Heart Failure Nurse Practition[facility] [phone] Associated Diagnoses Acute congestive heart failure, unspecified heart failure type [I50.9] - Primary Account Info Account # Financial Class Enc/CSN # SOLIS SALEH [[id number]] Managed Medicare [[id number]] [id number] Order Questions Question Answer Comment Patient's Preferred Location: [place] When (Patients with risk for unplanned readmission score over 16 or those noted as Hospital Dependent should follow up within 7 days with PCP or primary DX specialist): 3-5 Days Note: Follow-Up Date or Schedule Discharge Disposition: HOME, (AHR) Risk of Unplanned Readmission:( Score greater than 16 indicates high risk) 19.7 Other Scheduling Considerations: Subspecialty Heart Failure Crabtree RN [facility] 2024-10-12 11:28:49 Care Transition CM made f/u call to pt post-discharge. No response and call went to voicemail. CM left a discreet message with purpose of call and CM's call back information. [facility] 2024-10-10 14:40:09 Images from the original note were not included. CARE MANAGEMENT Care Coordinators/Social Workers/CM Specialists/Utilization Review/Patient Placement & Transfer Center 10/10/2024 2:40 PM Care Management Discharge Disposition Note (DCDN) 5-2-1 Interventions: Disease specific education, Teach back, Follow-up phone calls, Follow-up appointments, Clear discharge plan 5-2-1 Providers: Physician, Crew Leader Gluing/Psychology Assistant 5-2-1 Patient Capacity Improvements: Avoidance of adverse events/readmission Discussed with patient/patient s family involved in decision making: Patient or family caregiver understands, and agrees with discharge plan Patient's family or support contact: Margret Albrecht (dtr) [phone] Discharge Plan for ongoing care and services: Home/Caregiver Home Discharge Location: Home/Caregiver address: [address] [facility] [address] Other Living arrangements: [address] [facility] [address] Transportation: Private Vehicle Discharge Medications Will the patient be able to obtain his medications? Does the patient have transportation to to obtain the prescription medications? Yes Expected discharge date: 10/10/24 Time: 1500 Name of RN informed of discharge: Puma LAMAR Additional Information: n/a CM/SW Name & Contact number: Linnette June RN The following information has been provided to the facility noted above: reason for the patient discharge or transfer; patient s physical and psychosocial status; summary of care, treatment, services provided to patient; and the patient progress toward goals. June RN [facility] 2024-10-10 03:21:53 Problem: Falls, Risk of Goal: Absence of falls Outcome: Progressing as expected Problem: Discharge Planning Goal: Adequate for discharge Outcome: Progressing as expected Goal: Adequate to move to next level of care Outcome: Progressing as expected Problem: Activity Intolerance Goal: Improved activity tolerance Outcome: Progressing as expected Problem: Cardiac Output - Decreased Goal: Absence of signs and symptoms of decreased cardiac output Outcome: Progressing as expected Problem: Fluid Volume Excess Goal: Absence of fluid overload signs and symptoms Outcome: Progressing as expected Problem: Pain Goal: Control of pain at or below patient's documented comfort goal Outcome: Progressing as expected Goal: Reduction in pain sensation Outcome: Progressing as expected Guzman RN [facility] 2024-10-09 16:47:44 Problem: Falls, Risk of Goal: Absence of falls Outcome: Progressing as expected Problem: Discharge Planning Goal: Adequate for discharge Outcome: Progressing as expected Goal: Adequate to move to next level of care Outcome: Progressing as expected Problem: Activity Intolerance Goal: Improved activity tolerance Outcome: Progressing as expected Problem: Cardiac Output - Decreased Goal: Absence of signs and symptoms of decreased cardiac output Outcome: Progressing as expected Problem: Fluid Volume Excess Goal: Absence of fluid overload signs and symptoms Outcome: Progressing as expected Problem: Pain Goal: Control of pain at or below patient's documented comfort goal Outcome: Progressing as expected Goal: Reduction in pain sensation Outcome: Progressing as expected ER STITCHER OPERATOR Puma Gay RN [facility] 2024-10-08 21:21:53 Problem: Falls, Risk of Goal: Absence of falls Outcome: Progressing as expected Problem: Discharge Planning Goal: Adequate for discharge Outcome: Progressing as expected Goal: Adequate to move to next level of care Outcome: Progressing as expected Problem: Activity Intolerance Goal: Improved activity tolerance Outcome: Progressing as expected Problem: Cardiac Output - Decreased Goal: Absence of signs and symptoms of decreased cardiac output Outcome: Progressing as expected Problem: Fluid Volume Excess Goal: Absence of fluid overload signs and symptoms Outcome: Progressing as expected Problem: Pain Goal: Control of pain at or below patient's documented comfort goal Outcome: Progressing as expected Goal: Reduction in pain sensation Outcome: Progressing as expected Bellamy RN [facility] 2024-10-08 14:10:16 Problem: Falls, Risk of Goal: Absence of falls Outcome: Progressing as expected Problem: Discharge Planning Goal: Adequate for discharge Outcome: Progressing as expected Goal: Adequate to move to next level of care Outcome: Progressing as expected Problem: Activity Intolerance Goal: Improved activity tolerance Outcome: Progressing as expected Problem: Cardiac Output - Decreased Goal: Absence of signs and symptoms of decreased cardiac output Outcome: Progressing as expected Problem: Fluid Volume Excess Goal: Absence of fluid overload signs and symptoms Outcome: Progressing as expected Problem: Pain Goal: Control of pain at or below patient's documented comfort goal Outcome: Progressing as expected Goal: Reduction in pain sensation Outcome: Progressing as expected Cobb RN [facility] 2024-10-08 03:28:37 Problem: Falls, Risk of Goal: Absence of falls Outcome: Progressing as expected Problem: Discharge Planning Goal: Adequate for discharge Outcome: Progressing as expected Goal: Adequate to move to next level of care Outcome: Progressing as expected Problem: Activity Intolerance Goal: Improved activity tolerance Outcome: Progressing as expected Problem: Cardiac Output - Decreased Goal: Absence of signs and symptoms of decreased cardiac output Outcome: Progressing as expected Problem: Fluid Volume Excess Goal: Absence of fluid overload signs and symptoms Outcome: Progressing as expected Problem: Pain Goal: Control of pain at or below patient's documented comfort goal Outcome: Progressing as expected Goal: Reduction in pain sensation Outcome: Progressing as expected Melendez RN [facility] 2024-10-07 17:21:42 Problem: Falls, Risk of Goal: Absence of falls Outcome: Progressing as expected Problem: Discharge Planning Goal: Adequate for discharge Outcome: Progressing as expected Goal: Adequate to move to next level of care Outcome: Progressing as expected Problem: Activity Intolerance Goal: Improved activity tolerance Outcome: Progressing as expected Problem: Cardiac Output - Decreased Goal: Absence of signs and symptoms of decreased cardiac output Outcome: Progressing as expected Problem: Fluid Volume Excess Goal: Absence of fluid overload signs and symptoms Outcome: Progressing as expected Problem: Pain Goal: Control of pain at or below patient's documented comfort goal Outcome: Progressing as expected Goal: Reduction in pain sensation Outcome: Progressing as expected Hightower RN [facility] 2024-10-07 03:43:39 Problem: Falls, Risk of Goal: Absence of falls Outcome: Progressing as expected Problem: Discharge Planning Goal: Adequate for discharge Outcome: Progressing as expected Goal: Adequate to move to next level of care Outcome: Progressing as expected Problem: Activity Intolerance Goal: Improved activity tolerance Outcome: Progressing as expected Problem: Cardiac Output - Decreased Goal: Absence of signs and symptoms of decreased cardiac output Outcome: Progressing as expected Problem: Fluid Volume Excess Goal: Absence of fluid overload signs and symptoms Outcome: Progressing as expected Problem: Pain Goal: Control of pain at or below patient's documented comfort goal Outcome: Progressing as expected Goal: Reduction in pain sensation Outcome: Progressing as expected [facility] 2024-10-06 09:39:01 Problem: Falls, Risk of Goal: Absence of falls Outcome: Progressing as expected Problem: Discharge Planning Goal: Adequate for discharge Outcome: Progressing as expected Goal: Adequate to move to next level of care Outcome: Progressing as expected Problem: Activity Intolerance Goal: Improved activity tolerance Outcome: Progressing as expected Problem: Cardiac Output - Decreased Goal: Absence of signs and symptoms of decreased cardiac output Outcome: Progressing as expected Problem: Fluid Volume Excess Goal: Absence of fluid overload signs and symptoms Outcome: Progressing as expected Problem: Pain Goal: Control of pain at or below patient's documented comfort goal Outcome: Progressing as expected Goal: Reduction in pain sensation Outcome: Progressing as expected [facility] Lisset Stanford RN [facility] 2024-10-06 04:12:54 Problem: Falls, Risk of Goal: Absence of falls Outcome: Progressing as expected Problem: Discharge Planning Goal: Adequate for discharge Outcome: Progressing as expected Goal: Adequate to move to next level of care Outcome: Progressing as expected Problem: Activity Intolerance Goal: Improved activity tolerance Outcome: Progressing as expected Problem: Cardiac Output - Decreased Goal: Absence of signs and symptoms of decreased cardiac output Outcome: Progressing as expected Problem: Fluid Volume Excess Goal: Absence of fluid overload signs and symptoms Outcome: Progressing as expected Problem: Pain Goal: Control of pain at or below patient's documented comfort goal Outcome: Progressing as expected Goal: Reduction in pain sensation Outcome: Progressing as expected [facility] 2024-10-05 21:05:59 Patient transferred to [place] for diagnosis of weakness, elevated troponin and acute congestive heart failure. Patient agrees to admission, discussed plan of care with patient and family. Patient is awake, A&Ox4, RR even and unlabored on RA. Color appropriate for race. PIV intact x1. No adverse reaction to medications administered while in ED. Belongings with patient to unit. ER STITCHER OPERATOR Gissel Wheat RN [facility] 2024-10-05 20:53:16 [facility] ambulance arrived to transfer patient to [place]. [facility] 2024-10-05 19:19:05 Nurse Report Report given to Alejandrina LAMAR. Chief complaint, assessment findings, infusion verify and orders reviewed. Gissel Wheat RN [facility] 2024-10-05 19:13:57 [facility]ulance ETA is 1 hour and 30 minutes. ER STITCHER OPERATOR Arlene Ray [facility] 2024-10-05 16:06:23 Pt to ED CO worsening SOB today. States he was hospitalized recently with a stroke. Denies sick contacts. ER STITCHER OPERATOR Bridgett Chan RN [facility] 2024-10-05 15:41:00 Associated Order(s): EKG-12 Lead ROUTINE ONCE Pre-Procedure Diagnose(s): Weakness Post-Procedure Diagnose(s): Weakness [facility] Emergency Department Note Patient Name: Solis Saleh Date of : 1950 73 year old male Treatment Room: Room/bed info not found Primary Care Physician: Marilyn Pleitez Patient Escorted by: Family [5] Mode of Arrival: Personal means [1] EMS Treatment Prior to ED Arrival: DIRECTOR SAFETY COUNCIL treatment: Medication (comment) [employer]NCIL treatment comments: daily medications Travel and Exposure Screening: Symptoms Does patient have any of these symptoms?: (not recorded) Exposure Screening Has patient had contact with someone with a communicable disease in the last month?: (not recorded) Diseases exposed to:: (not recorded) Is Patient ?: (not recorded) Exposure Date: (not recorded) Chief Complaint: Chief Complaint Patient presents with Shortness of Breath History of Present Illness: The patient presents from home with his daughter for evaluation for generalized weakness as well as shortness of breath and not feeling well that started today. He was recently admitted and discharged home on 1224 for GI bleed. He did have a stroke during that stay but has no residual deficits. He denies any nausea or vomiting. No black or tarry colored stool. No abdominal pain. He has been eating and drinking well. No cough, congestion or fevers. No sick contacts. No chest pain or pressure. He has a history of high blood pressure, atrial fibrillation as well as a GI bleed in the past. He does not smoke. Here for evaluation. Past Medical History/Immunizations: Past Medical History: Diagnosis Date Chronic GERD GIB (gastrointestinal bleeding) HTN (hypertension) Paroxysmal atrial fibrillation Tetanus received in last 5 years: No Childhood immunizations: Up-to-date Allergies: Allergies Allergen Reactions Pcn [Penicillins] Shortness of Breath and Swelling Past Social History: Tobacco Use Never smoked or used smokeless tobacco. Passive Exposure: Never Comments: Non smoker Past Surgical History: Past Surgical History: Procedure Laterality Date COLONOSCOPY Lower 07/31/2024 Surgeon: Audi Cruz DO; Location: ENDOSCOPY ([facility]) OR LOCATION COLONOSCOPY N/A 09/27/2024 Surgeon: Meliton Pike MD; Location: ENDOSCOPY ([facility]) OR LOCATION ESOPHAGOGASTRODUODENOSCOPY N/A 07/27/2024 Surgeon: Carola Stanton MD; Location: ENDOSCOPY ([facility]) OR LOCATION PUSH ENDOSCOPY ([facility]) N/A 07/28/2024 Surgeon: Carola Stanton MD; Location: ENDOSCOPY ([facility]) OR LOCATION PUSH ENDOSCOPY ([facility]) N/A 09/27/2024 Surgeon: Meliton Pike MD; Location: ENDOSCOPY ([facility]) OR LOCATION Review of Systems: Review of Systems Constitutional: Negative for chills. Respiratory: Negative for cough. Cardiovascular: Negative for chest pain. Gastrointestinal: Negative for abdominal pain, nausea and vomiting. Genitourinary: Negative for dysuria. Musculoskeletal: Negative for neck pain. Skin: Negative for wound. Neurological: Positive for weakness. Negative for dizziness. Psychiatric/Behavioral: Negative for agitation. Endocrine: Negative for goiter. Physical Exam: ED Triage Vitals [10/05/24 1608] Weight 89.8 kg (198 lb) Actual or estimated Estimated by patient/family report Height 1.753 m (5' 9") BP (!) 153/95 Pulse 108 Resp 17 Temp 37.1 ?C (98.8 ?F) Temp source Oral SpO2 95 % Measured on Room air Physical Exam Vitals and nursing note reviewed. Constitutional: Appearance: Normal appearance. He is obese. HENT: Head: Normocephalic and atraumatic. Mouth/Throat: Mouth: Mucous membranes are dry. Eyes: Comments: Conjunctiva are pink bilaterally Cardiovascular: Rate and Rhythm: Normal rate and regular rhythm. Pulses: Normal pulses. Pulmonary: Effort: Pulmonary effort is normal. No respiratory distress. Breath sounds: No stridor. No wheezing or rhonchi. Abdominal: General: There is no distension. Palpations: Abdomen is soft. There is no mass. Tenderness: There is no abdominal tenderness. There is no guarding or rebound. Hernia: No hernia is present. Musculoskeletal: General: Normal range of motion. Cervical back: Normal range of motion and neck supple. Skin: General: Skin is warm and dry. Neurological: General: No focal deficit present. Mental Status: He is alert and oriented to person, place, and time. Radiology: XR CHEST 1 VW Final Result EXAM: XR CHEST 1 VW HISTORY: 73 years-old Male with cough . TECHNIQUE: Single frontal view of the chest. COMPARISON: Chest radiograph from October 01, 2024 FINDINGS: Lines, tubes and devices: Right lower lung zone pulmonary vascular stent. Lungs and pleura: The lungs are adequately expanded. Slight improvement in interstitial prominence. Slight improvement in aeration of the right lower lung zone. Trace pleural effusions also appear improved with probable minimal residual. Heart/Mediastinum: The cardiac silhouette appears normal accounting for technique and degree of inspiration. Bones and soft tissues: No acute fracture, aggressive osseous lesion, or dislocation. No soft tissue abnormality. IMPRESSION Improved aeration of the right lower lung zone with slight improvement in diffuse interstitial opacities and trace pleural effusions suggesting pulmonary edema. Preliminary Report Dictated by Resident: Maryann Lyons I, Deborah Vergara MD., have reviewed this study and agree with the above report. Lab Results: Lab Results CBC WITH DIFF - Abnormal Result Value Ref Range WBC 4.90 4.20 - 10.70 10*3/?L RBC 3.60 (*) 4.26 - 5.52 10*6/?L HGB 8.0 (*) 12.2 - 16.4 g/dL HCT 28.7 (*) 38.4 - 49.3 % MCV 79.7 (*) 81.7 - 95.6 fL MCH 22.2 (*) 26.1 - 32.7 pg MCHC 27.9 (*) 31.2 - 35.0 g/dL RDW-SD 63.3 (*) 38.5 - 51.6 fL RDW-CV 21.8 (*) 12.1 - 15.4 % PLT 253 150 - 328 10*3/?L MPV 10.7 9.8 - 13.0 fL NRBC/100 WBC 0.0 0.0 - 10.0 /100 WBCs NRBC x10 3 <0.01 10*3/?L GRAN MAT (NEUT) % 68.9 % IMM GRAN % 0.40 % LYMPH % 18.0 % MONO % 9.0 % EOS % 3.1 % BASO % 0.6 % GRAN MAT x10 3 (ANC) 3.38 1.99 - 6.95 10*3/uL IMM GRAN x10 3 <0.03 0.00 - 0.06 10*3/uL LYMPH x10 3 0.88 (*) 1.09 - 3.23 10*3/uL MONO x10 3 0.44 0.36 - 1.02 10*3/uL EOS x10 3 0.15 0.06 - 0.53 10*3/uL BASO x10 3 0.03 0.01 - 0.09 10*3/uL ELLIPTO/OVAL 2+ (*) (none) POLYCHROMASIA 2+ 2+ SCHISTOCYTES 1+ (*) COMP. METABOLIC PANEL (45564) - Abnormal NA 139 135 - 145 mmol/L K 4.1 3.5 - 5.0 mmol/L CL 107 98 - 108 mmol/L CO2 TOTAL 25 23 - 31 mmol/L AGAP 7 2 - 16 BUN 16 7 - 23 mg/dL GLUCOSE 88 70 - 110 mg/dL CREATININE 0.85 0.60 - 1.25 mg/dL TOTAL BILI 0.8 0.1 - 1.1 mg/dL CALCIUM 8.5 (*) 8.6 - 10.6 mg/dL T PROTEIN 6.7 6.3 - 8.2 g/dL ALBUMIN 3.8 3.5 - 5.0 g/dL ALK PHOS 67 34 - 122 U/L ALTv 21 5 - 50 U/L AST(SGOT) 27 13 - 40 U/L eGFR 92.9 mL/min/1.73m2 TROPONIN I - Abnormal TROPONIN I 0.149 (*) <=0.034 ng/mL N-TERMINAL PRO-BNP - Abnormal NT-proBNP 4,970 (*) <=125 pg/mL MAGNESIUM - Normal MAGNESIUM 2.0 1.7 - 2.4 mg/dL INFLUENZA A/B RSV COVID NAAT - Normal Influenza A NAAT Negative Negative Influenza B NAAT Negative Negative RSV by PCR Negative Negative SARS-CoV-2 NAAT Negative Negative URINALYSIS EKG: If EKG completed, see Procedure Note. Orders and Treatments: Orders Placed This Encounter Procedures XR CHEST 1 VW CBC WITH DIFF COMP. METABOLIC PANEL (87029) Magnesium TROPONIN I N-TERMINAL PRO-BNP URINALYSIS Influenza A B RSV COVID NAAT Lab Only COVID Interpretation Orders Placed This Encounter Medications furosemide (LASIX) injection 40 mg First Provider Eval: ED Events Date/Time Event User Comments 10/05/24 1605 Medical Screening Begins SVITLANA BAEZ DO -- 10/05/24 1605 First Provider Evaluation SVITLANA BAEZ DO -- ED COURSE Diagnosis/Impression as of 10/05/24 1902 Weakness Elevated troponin Acute congestive heart failure, unspecified heart failure type Procedures: EKG-12 Lead ROUTINE ONCE Date/Time: 10/05/2024 7:01 PM Performed by: Svitlana Baez DO Authorized by: Svitlana Baez DO ECG interpreted by ED Physician in the absence of a rip sawyer: yes Interpretation: Interpretation: abnormal Rate: ECG rate: 97 ECG rate assessment: normal Rhythm: Rhythm: atrial fibrillation Ectopy: Ectopy: none QRS: QRS axis: Normal QRS intervals: Normal QRS conduction: normal ST segments: ST segments: Normal T waves: T waves: normal Q waves: Abnormal Q-waves: not present MDM: Medical Decision Making The patient presents from home with his daughter for evaluation for generalized weakness as well as shortness of breath and not feeling well that started today. He was recently admitted and discharged home on 1223 for GI bleed. He did have a stroke during that stay but has no residual deficits. He denies any nausea or vomiting. No black or tarry colored stool. No abdominal pain. He has been eating and drinking well. No cough, congestion or fevers. No sick contacts. No chest pain or pressure. He has a history of high blood pressure, atrial fibrillation as well as a GI bleed in the past. He does not smoke. Vital signs are stable in ER. His heart is regular rhythm. His lungs are clear bilaterally. His abdomen is soft and nontender. He does have dry mucous membranes on examination but pink conjunctiva. His hemoglobin at time of discharge on October 03 was 7.4. Will check laboratory studies today and compare his hemoglobin to that from 2 days ago. Will also obtain a chest x-ray and check a urinalysis. Final disposition pending. 1849 -the patient is doing well here. He denies any chest pain or pressure. His laboratory studies show his hemoglobin has slightly improved from discharge and is now 8.0. His troponin is elevated 0.149 and his BNP is elevated at 4970. His chest x-ray does show some pulmonary edema. He was given IV Lasix here in the ER. He does require admission for continued management. Spoke with Dr. Brannon with the cardiology team here in [place] and due to his recent admission for a GI bleed the recommendation is that the patient be admitted to the [facility]. Spoke with Dr. Rowan with the cardiology team in [place] and the patient was accepted for admission for continued management. He is pending transportation. Problems Addressed: Acute congestive heart failure, unspecified heart failure type: acute illness or injury Elevated troponin: acute illness or injury Weakness: acute illness or injury Amount and/or Complexity of Data Reviewed Labs: ordered. Decision-making details documented in ED Course. Radiology: ordered and independent interpretation performed. Decision-making details documented in ED Course. ECG/medicine tests: ordered and independent interpretation performed. Decision-making details documented in ED Course. Risk Prescription drug management. Decision regarding hospitalization. Flowsheet Documentation: Scoring Tools: No data recorded Disposition/Condition: ED Disposition ED Disposition Transfer [facility] to IP[facility]Obs Condition -- Comment -- Discharge Medications: Patient's Medications START taking these medications No medications on file CONTINUE taking these medications which have NOT CHANGED APIXABAN 5 MG TABLET Take 1 tablet by mouth in the morning and 1 tablet in the evening. Do all this for 90 days. Indications: prevention of thromboembolism in paroxysmal atrial fibrillation ASPIRIN 81 MG CHEWABLE TABLET Take 1 tablet by mouth in the morning for 90 days. ATORVASTATIN 40 MG TABLET Take 1 tablet by mouth at bedtime for 90 days. LOSARTAN 25 MG TABLET Take 1 tablet by mouth in the morning. METOPROLOL SUCCINATE XL 50 MG 24 HR TABLET Take 1 tablet by mouth in the morning and 1 tablet in the evening. Do all this for 90 days. PANTOPRAZOLE 40 MG EC TABLET Take 1 tablet by mouth in the morning. START taking Modified Medications as Prescribed No medications on file STOP taking these medications No medications on file Follow-up: Electronically signed by: Svitlana Baez DO 10/05/241901 ER STITCHER OPERATOR [facility] 2024-10-05 14:29:00 Regarding: BP 189/92 Pulse 103 ----- Message from Patient Independent Marketing Consultant sent at 10/05/2024 2:29 PM FOLDER STITCHER OPERATOR ----- Solis Saleh is a 73 year old male daughter calling states the pt's BP and pulse is high. Pt recently in the hospital and was cared for by Dr. Grace ER STITCHER OPERATOR Guerita Solis RN [facility] [employer] 2024-10-05 14:29:00 Adult Triage Assessment Last Clinic Visit: 09/25/24, ED-Hospital Admission, Acute right MCA stroke, Anemia Primary Symptom: elevated blood pressure Onset / Duration: around 2:15 pm today Location / Description: Cardiovascular Pain / Severity: denies Associated Symptoms: Per daughter, "he's just sleepy and wants to take a nap." Fever / Method: denies Hydration: eating and drinking as usual. Last void " about an hour and half ago" Denies any urinary symptoms Treatment so far: Per daughter, took Losartan 25 mg tab and Metoprolol 50 mg XL tab around 8:45 am- 9:00 am today Effect on ADL's: some LMP: n/a Pre-existing condition / Immunocompromised: Past Medical History: Diagnosis Date Chronic GERD GIB (gastrointestinal bleeding) HTN (hypertension) Paroxysmal atrial fibrillation Follow up call made to pt's daughter. States pt was d/c from hospital on 10/03/24. Reports she took pt's blood pressure about 15-20 mins ago and was 189/92, pulse 103. Per daughter, "he had complained of feeling a little off" and currently has pt on 3L of oxygen. Daughter reports pt has had some short term memory loss since being d/c from hospital. Per daughter, pt is not experiencing severe difficulty breathing but "is having some difficulty" states "he gets short of breath really easy." Assessment and triage completed, per protocol. Pt's daughter given care advice to take pt to ER for evaluation and treatment. Also gave 911 warnings. Pt's daughter verbalizes all understanding and agrees to follow plan of care. Per daughter, will take pt to ER at [facility] in [place]. Denies any further questions or concerns and understands that nurses are available 03/05. ELZBIETA Ziegler, private duty aide Center Nurse Triage Reason for Disposition [1] Systolic BP >= 160 OR Diastolic >= 100 AND [2] cardiac (e.g., breathing difficulty, chest pain) or neurologic symptoms (e.g., new-onset blurred or double vision, unsteady gait) Protocols used: Blood Pressure - [id number] [employer] 2024-10-03 06:42:55 Problem: Pain Goal: Control of pain at or below patient's documented comfort goal Outcome: Progressing as expected Goal: Reduction in pain sensation Outcome: Progressing as expected Problem: Infection Risk Goal: Absence of infection Outcome: Progressing as expected Problem: Skin integrity Impaired (Risk or Actual) Goal: Prevention of new skin breakdown Outcome: Progressing as expected Problem: Falls, Risk of Goal: Absence of falls Outcome: Progressing as expected Problem: Discharge Planning Goal: Adequate for discharge Outcome: Progressing as expected Goal: Effective communication Outcome: Progressing as expected Problem: Bleeding, Risk of Goal: Absence of impaired coagulation signs and symptoms Outcome: Progressing as expected Goal: Absence of active bleeding Outcome: Progressing as expected Problem: Respiratory Function - Impaired Goal: Able to cough effectively Outcome: Progressing as expected Goal: Adequate oxygenation Outcome: Progressing as expected Goal: Adequate work of breathing Outcome: Progressing as expected Goal: Patent airway Outcome: Progressing as expected [facility] January Fatuma Cochran RN [facility] 2024-10-01 23:47:33 Problem: Pain Goal: Control of pain at or below patient's documented comfort goal Outcome: Progressing as expected Goal: Reduction in pain sensation Outcome: Progressing as expected Problem: Infection Risk Goal: Absence of infection Outcome: Progressing as expected Problem: Skin integrity Impaired (Risk or Actual) Goal: Prevention of new skin breakdown Outcome: Progressing as expected Problem: Falls, Risk of Goal: Absence of falls Outcome: Progressing as expected Problem: Discharge Planning Goal: Adequate for discharge Outcome: Progressing as expected Goal: Effective communication Outcome: Progressing as expected Problem: Bleeding, Risk of Goal: Absence of impaired coagulation signs and symptoms Outcome: Progressing as expected Goal: Absence of active bleeding Outcome: Progressing as expected Problem: Respiratory Function - Impaired Goal: Able to cough effectively Outcome: Progressing as expected Goal: Adequate oxygenation Outcome: Progressing as expected Goal: Adequate work of breathing Outcome: Progressing as expected Goal: Patent airway Outcome: Progressing as expected [facility] 2024-09-30 17:08:16 Problem: Pain Goal: Control of pain at or below patient's documented comfort goal Outcome: Progressing as expected Goal: Reduction in pain sensation Outcome: Progressing as expected Problem: Infection Risk Goal: Absence of infection Outcome: Progressing as expected Problem: Skin integrity Impaired (Risk or Actual) Goal: Prevention of new skin breakdown Outcome: Progressing as expected Problem: Falls, Risk of Goal: Absence of falls Outcome: Progressing as expected Problem: Discharge Planning Goal: Adequate for discharge Outcome: Progressing as expected Goal: Effective communication Outcome: Progressing as expected Problem: Bleeding, Risk of Goal: Absence of impaired coagulation signs and symptoms Outcome: Progressing as expected Goal: Absence of active bleeding Outcome: Progressing as expected Problem: Respiratory Function - Impaired Goal: Able to cough effectively Outcome: Progressing as expected Goal: Adequate oxygenation Outcome: Progressing as expected Goal: Adequate work of breathing Outcome: Progressing as expected Goal: Patent airway Outcome: Progressing as expected ER STITCHER OPERATOR Andi Gardner RN [facility] 2024-09-30 01:58:32 Problem: Infection Risk Goal: Absence of infection Outcome: Progressing as expected Problem: Skin integrity Impaired (Risk or Actual) Goal: Prevention of new skin breakdown Outcome: Progressing as expected Problem: Falls, Risk of Goal: Absence of falls Outcome: Progressing as expected Problem: Bleeding, Risk of Goal: Absence of impaired coagulation signs and symptoms Outcome: Progressing as expected Problem: Respiratory Function - Impaired Goal: Adequate oxygenation Outcome: Progressing as expected Problem: Respiratory Function - Impaired Goal: Adequate work of breathing Outcome: Progressing as expected ER STITCHER OPERATOR Alvarado Knox RN [facility] 2024-09-29 15:16:24 Problem: Pain Goal: Control of pain at or below patient's documented comfort goal Outcome: Progressing as expected Goal: Reduction in pain sensation Outcome: Progressing as expected Problem: Infection Risk Goal: Absence of infection Outcome: Progressing as expected Problem: Skin integrity Impaired (Risk or Actual) Goal: Prevention of new skin breakdown Outcome: Progressing as expected Problem: Falls, Risk of Goal: Absence of falls Outcome: Progressing as expected Problem: Discharge Planning Goal: Adequate for discharge Outcome: Progressing as expected Goal: Effective communication Outcome: Progressing as expected Problem: Bleeding, Risk of Goal: Absence of impaired coagulation signs and symptoms Outcome: Progressing as expected Goal: Absence of active bleeding Outcome: Progressing as expected Problem: Respiratory Function - Impaired Goal: Able to cough effectively Outcome: Progressing as expected Goal: Adequate oxygenation Outcome: Progressing as expected Goal: Adequate work of breathing Outcome: Progressing as expected Goal: Patent airway Outcome: Progressing as expected ER STITCHER OPERATOR Shasta Davison RN [facility] 2024-09-29 08:36:39 LVM for pt to inform him we need to schedule him for an appt in GI clinic per Dr Red. *If pt returns call please schedule 8-12weeks out as New Visit in GI clinic. Pt has not been seen in clinic before but needs follow up per Dr Jesús Red email. [facility] 2024-09-29 05:04:23 Problem: Pain Goal: Control of pain at or below patient's documented comfort goal Outcome: Progressing as expected Goal: Reduction in pain sensation Outcome: Progressing as expected Problem: Infection Risk Goal: Absence of infection Outcome: Progressing as expected Problem: Skin integrity Impaired (Risk or Actual) Goal: Prevention of new skin breakdown Outcome: Progressing as expected Problem: Falls, Risk of Goal: Absence of falls Outcome: Progressing as expected Problem: Discharge Planning Goal: Adequate for discharge Outcome: Progressing as expected Goal: Effective communication Outcome: Progressing as expected Problem: Bleeding, Risk of Goal: Absence of impaired coagulation signs and symptoms Outcome: Progressing as expected Goal: Absence of active bleeding Outcome: Progressing as expected Problem: Respiratory Function - Impaired Goal: Able to cough effectively Outcome: Progressing as expected Goal: Adequate oxygenation Outcome: Progressing as expected Goal: Adequate work of breathing Outcome: Progressing as expected Goal: Patent airway Outcome: Progressing as expected Garcia RN [facility] 2024-09-28 18:03:02 Stroke Activation - Date: 09/28/24 Stroke Activation - Time: 1146 Location of Patient: Room: 1114 Unit: 11A Physician arrival at bedside - Date: 09/28/24 Physician arrival at bedside - Time: 1151 Name of Responding NCCU RN: Giancarlo Name of Primary RN: Marisol Name of Responding Provider (Neurology): [place] CT Arrival Time: 1158 CT-Head without contrast read by Neurology: 1201 ALTEPLASE IV BOLUS FOR STROKE PROTOCOL has not been administered. TENECTEPLASE 50 MG IV SOLR FOR ACUTE ISCHEMIC STROKE has not been administered. Disposition of Patient: Interventional Radiology Relevant/Brief History of Events and Presentation of Symptoms: Once arriving to the room, this RN connected pt to vitals machine. VSS. Floor nurses collected blood and checked blood sugar which was 156. Pt had slightly slurred speech upon assessment. PERRLA at 4mm, 5/5 strength in upper and lower extremities. Sensation intact, no facial droop, Aox4. No issues during transport to and from CT. After CT exam, per MD, we were to return back to 1114. Once pt was back in room, I disconnected him from vials machine and proceeded to start and IV on him since his other one had come out during pt movement. After IV was placed, pt sat up and was hunched over, appearing to fall asleep leaning to his left. I asked the pt if he was feeling alright and he said "Yes". At 1238 I asked him to smile and there was a left facial droop. I asked pt to lift his left arm and he no longer could move his left arm. At 1239 I called out for someone to page another code stroke due to his immediate signs and symptoms that weren't present before. At 1240 the stroke was paged. Assessment at this time was: severe slurred speech, left facial droop, Aox4, PERRLA 4mm, no sensation in left arm and leg, pt could not squeeze his left hand or lift his left arm. Pt was able to move left leg, 4/5 strength in left leg. Pt had sensation intact in right arm and leg, and 5/5 strength. No pronator drift in right arm but positive pronator drift in left arm. Able to follow commands on right side and repeat phrases. Left sided vision neglect, unable to track to the left. Pt was reconnected to vitals machine: BP- 160/70 (96), HR- 106, O2-94, RR-23. At 1309 patient's left pupil became sluggish. Right NPI: 4.2 Left NPI: 1.6 Right size: 4.32 Left size: 3.86 Right CV: 1.95 Left CV: 0.62 NEC activation called at 1341. Pt was rolling down to IR at 1343, VSS. Arrived at IR 1350. Handoff given to IR nurse. No complications during transport to IR ER STITCHER OPERATOR Giancarlo Rowan RN [facility] 2024-09-28 15:16:26 1350TIME Received PT via bed from room 1114. TNK given in ER or Floor- NO Ventriculostomy present-NO Ventriculostomy clamped (Upon arrival or Time you clamped it) Refer to Ventric Order Set [address] Ramos at bedside. 1350 TIME PT under ANES care, NVS, and VS no longer being documented by nursing in flow-sheet, ANES to be responsible for documentation of VS. [address] Fountain & Dr. Nuñez at bedside and Time Out done and CONSENT PRESENT. 1419 TIME Puncture Time/Access Achieved and Site (R/L Femoral Artery OR R/L Radial Artery) N/A First pass/deployment of Device (What retrieval device was used?) N/A Type of mechanical device in use (Which suction pump device was used?) - 1500 TIME Reperfusion/Recanalization per MD 1510 TIME Procedure completed. Refer to Dr. Fountain notes for full report. Is there more than ONE Access Site -NO 1510 TIME Closure Device Deployed and hemostasis Achieved (see implant section for ref/lot/exp) Patient able to Ambulate at 2110 1545 TIME Report given to BRIANDA Escamilla in Neuro 8A ICU along with Right Groin/Radial site with pulse checks ordered and to be checked by receiving nurse. 1545 TIME Transported to 8A bed 802, B/P 142/76 Final TICI Score 0 1 2a 2b 3 Lancaster RN [facility] 2024-09-28 09:18:42 Problem: Pain Goal: Control of pain at or below patient's documented comfort goal Outcome: Progressing as expected Goal: Reduction in pain sensation Outcome: Progressing as expected Problem: Infection Risk Goal: Absence of infection Outcome: Progressing as expected Problem: Skin integrity Impaired (Risk or Actual) Goal: Prevention of new skin breakdown Outcome: Progressing as expected Problem: Falls, Risk of Goal: Absence of falls Outcome: Progressing as expected Problem: Discharge Planning Goal: Adequate for discharge Outcome: Progressing as expected Goal: Effective communication Outcome: Progressing as expected Problem: Bleeding, Risk of Goal: Absence of impaired coagulation signs and symptoms Outcome: Progressing as expected Goal: Absence of active bleeding Outcome: Progressing as expected Problem: Respiratory Function - Impaired Goal: Able to cough effectively Outcome: Progressing as expected Goal: Adequate oxygenation Outcome: Progressing as expected Goal: Adequate work of breathing Outcome: Progressing as expected Goal: Patent airway Outcome: Progressing as expected Garza RN [facility] 2024-09-27 19:40:00 Problem: Pain Goal: Control of pain at or below patient's documented comfort goal Outcome: Progressing as expected Goal: Reduction in pain sensation Outcome: Progressing as expected Problem: Infection Risk Goal: Absence of infection Outcome: Progressing as expected Problem: Skin integrity Impaired (Risk or Actual) Goal: Prevention of new skin breakdown Outcome: Progressing as expected Problem: Falls, Risk of Goal: Absence of falls Outcome: Progressing as expected Problem: Discharge Planning Goal: Adequate for discharge Outcome: Progressing as expected Goal: Effective communication Outcome: Progressing as expected Problem: Bleeding, Risk of Goal: Absence of impaired coagulation signs and symptoms Outcome: Progressing as expected Goal: Absence of active bleeding Outcome: Progressing as expected Problem: Respiratory Function - Impaired Goal: Able to cough effectively Outcome: Progressing as expected Goal: Adequate oxygenation Outcome: Progressing as expected Goal: Adequate work of breathing Outcome: Progressing as expected Goal: Patent airway Outcome: Progressing as expected ER STITCHER OPERATOR Callie Grimm RN [facility] 2024-09-27 12:12:43 Problem: Pain Goal: Control of pain at or below patient's documented comfort goal Outcome: Progressing as expected Goal: Reduction in pain sensation Outcome: Progressing as expected Problem: Infection Risk Goal: Absence of infection Outcome: Progressing as expected Problem: Skin integrity Impaired (Risk or Actual) Goal: Prevention of new skin breakdown Outcome: Progressing as expected Problem: Falls, Risk of Goal: Absence of falls Outcome: Progressing as expected Problem: Discharge Planning Goal: Adequate for discharge Outcome: Progressing as expected Goal: Effective communication Outcome: Progressing as expected Problem: Bleeding, Risk of Goal: Absence of impaired coagulation signs and symptoms Outcome: Progressing as expected Goal: Absence of active bleeding Outcome: Progressing as expected Problem: Respiratory Function - Impaired Goal: Able to cough effectively Outcome: Progressing as expected Goal: Adequate oxygenation Outcome: Progressing as expected Goal: Adequate work of breathing Outcome: Progressing as expected Goal: Patent airway Outcome: Progressing as expected [facility] Dinorah Hand RN [facility] 2024-09-27 00:07:26 Problem: Pain Goal: Control of pain at or below patient's documented comfort goal Outcome: Progressing as expected Goal: Reduction in pain sensation Outcome: Progressing as expected Problem: Infection Risk Goal: Absence of infection Outcome: Progressing as expected Problem: Skin integrity Impaired (Risk or Actual) Goal: Prevention of new skin breakdown Outcome: Progressing as expected Problem: Falls, Risk of Goal: Absence of falls Outcome: Progressing as expected Problem: Discharge Planning Goal: Adequate for discharge Outcome: Progressing as expected Goal: Effective communication Outcome: Progressing as expected Problem: Bleeding, Risk of Goal: Absence of impaired coagulation signs and symptoms Outcome: Progressing as expected Goal: Absence of active bleeding Outcome: Progressing as expected Problem: Respiratory Function - Impaired Goal: Able to cough effectively Outcome: Progressing as expected Goal: Adequate oxygenation Outcome: Progressing as expected Goal: Adequate work of breathing Outcome: Progressing as expected Goal: Patent airway Outcome: Progressing as expected [facility] 2024-09-26 16:14:04 Problem: Pain Goal: Control of pain at or below patient's documented comfort goal Outcome: Progressing as expected Goal: Reduction in pain sensation Outcome: Progressing as expected Problem: Infection Risk Goal: Absence of infection Outcome: Progressing as expected Problem: Skin integrity Impaired (Risk or Actual) Goal: Prevention of new skin breakdown Outcome: Progressing as expected Problem: Falls, Risk of Goal: Absence of falls Outcome: Progressing as expected Problem: Discharge Planning Goal: Adequate for discharge Outcome: Progressing as expected Goal: Effective communication Outcome: Progressing as expected Problem: Bleeding, Risk of Goal: Absence of impaired coagulation signs and symptoms Outcome: Progressing as expected Goal: Absence of active bleeding Outcome: Progressing as expected Problem: Respiratory Function - Impaired Goal: Able to cough effectively Outcome: Progressing as expected Goal: Adequate oxygenation Outcome: Progressing as expected Goal: Adequate work of breathing Outcome: Progressing as expected Goal: Patent airway Outcome: Progressing as expected [facility] 2024-09-26 01:25:19 A patient w/ normal wob. Garzon RT [facility] 2024-09-26 01:02:59 Problem: Pain Goal: Control of pain at or below patient's documented comfort goal Outcome: Progressing as expected Goal: Reduction in pain sensation Outcome: Progressing as expected Problem: Infection Risk Goal: Absence of infection Outcome: Progressing as expected Problem: Skin integrity Impaired (Risk or Actual) Goal: Prevention of new skin breakdown Outcome: Progressing as expected Problem: Falls, Risk of Goal: Absence of falls Outcome: Progressing as expected Problem: Discharge Planning Goal: Adequate for discharge Outcome: Progressing as expected Goal: Effective communication Outcome: Progressing as expected Problem: Bleeding, Risk of Goal: Absence of impaired coagulation signs and symptoms Outcome: Progressing as expected Goal: Absence of active bleeding Outcome: Progressing as expected [facility] 2024-09-25 18:35:03 Summary: Admit Patient admitted to [address] [place] [address] for diagnosis of Anemia Patient agrees to admission, discussed plan of care with patient and family. Patient is awake, alert, oriented, resp reg unlabored, color appropriate for race, PIV intact, transferred with blood infusing. No adverse reaction to medications administered while in ED Belongings with patient to unit Report to BRIANDA Hernandes and [facility] ER STITCHER OPERATOR Criss Ely RN [facility] 2024-09-25 16:30:13 Summary: Patient given a urinal Patient given a urinal to use. [facility] 2024-09-25 14:21:21 Summary: Consent signed Consent signed and witnessed by this nurse [facility] 2024-09-25 14:17:27 Summary: Dr Baez at the bedside Dr. Baez at the bedside consenting patient for blood transfusion [facility] 2024-09-25 12:55:07 Patient just came from getting blood drawn this morning and they told him his hemoglobin was 5.0 and told to go to ER for blood transfusion. Has had transfusions before. Gets lightheaded when standing up or walking. ER STITCHER OPERATOR Tristen Bruce RN [facility] 2024-09-25 12:49:00 [facility] Emergency Department Note Patient Name: Solis Saleh Date of : 1950 73 year old male Treatment Room: [facility] Primary Care Physician: Marilyn Pleitez Patient Escorted by: Family [5] Mode of Arrival: Personal means [1] EMS Treatment Prior to ED Arrival: [employer] treatment: None Travel and Exposure Screening: Symptoms Does patient have any of these symptoms?: (not recorded) Exposure Screening Has patient had contact with someone with a communicable disease in the last month?: (not recorded) Diseases exposed to:: (not recorded) Is Patient ?: (not recorded) Exposure Date: (not recorded) Chief Complaint: Chief Complaint Patient presents with Anemia History of Present Illness: The patient presents from home for evaluation after receiving a call from his clinic regarding a low hemoglobin of 5.0 on routine labs checked today. The patient reports he does feel fatigued when he walks long distances but otherwise denies complaints. No black or tarry colored stool. He does take Eliquis for history of atrial fibrillation. He was admitted for GI bleed in July of this year during which she was given several units of blood. He reports he follows up with a GI doctor in [place]. No chest pain or pressure. No shortness of breath. Here for evaluation. Past Medical History/Immunizations: History reviewed. No pertinent past medical history. Tetanus received in last 5 years: Unknown Allergies: Allergies Allergen Reactions Pcn [Penicillins] Shortness of Breath and Swelling Past Social History: Substance & Sexual Activity No substance use or sexual activity history on file. Past Surgical History: Past Surgical History: Procedure Laterality Date COLONOSCOPY Lower 07/31/2024 Surgeon: Audi Cruz DO; Location: ENDOSCOPY ([facility]) OR LOCATION ESOPHAGOGASTRODUODENOSCOPY N/A 07/27/2024 Surgeon: Carola Stanton MD; Location: ENDOSCOPY ([facility]) OR LOCATION PUSH ENDOSCOPY ([facility]) N/A 07/28/2024 Surgeon: Carola Stanton MD; Location: ENDOSCOPY ([facility]) OR LOCATION Review of Systems: Review of Systems Constitutional: Negative for chills and fever. Respiratory: Negative for cough. Cardiovascular: Negative for chest pain. Gastrointestinal: Negative for abdominal pain, blood in stool and vomiting. Genitourinary: Negative for dysuria. Musculoskeletal: Negative for arthralgias, neck pain and neck stiffness. Skin: Negative for wound. Neurological: Negative for dizziness. Psychiatric/Behavioral: Negative for agitation. Endocrine: Negative for goiter. Physical Exam: ED Triage Vitals Weight 09/25/24 1257 92.1 kg (203 lb) Actual or estimated -- Height 09/25/24 1257 1.753 m (5' 9") BP 09/25/24 1256 (!) 158/94 Pulse 09/25/24 1256 105 Resp 09/25/24 1256 20 Temp 12/16/24 1436 36.5 ?C (97.7 ?F) Temp source 09/25/24 1436 Oral SpO2 09/25/24 1256 98 % Measured on -- Physical Exam Vitals and nursing note reviewed. Constitutional: Appearance: Normal appearance. He is obese. HENT: Head: Normocephalic and atraumatic. Eyes: Comments: Conjunctiva are pale bilaterally Cardiovascular: Rate and Rhythm: Normal rate. Pulses: Normal pulses. Pulmonary: Effort: Pulmonary effort is normal. No respiratory distress. Breath sounds: No stridor. No wheezing or rhonchi. Abdominal: General: There is no distension. Palpations: Abdomen is soft. There is no mass. Tenderness: There is no abdominal tenderness. There is no guarding or rebound. Hernia: No hernia is present. Musculoskeletal: General: Normal range of motion. Cervical back: Normal range of motion and neck supple. No tenderness. Skin: General: Skin is warm and dry. Neurological: General: No focal deficit present. Mental Status: He is alert and oriented to person, place, and time. Radiology: No orders to display Lab Results: Lab Results CBC WITH DIFF - Abnormal Result Value Ref Range WBC 4.85 4.20 - 10.70 10*3/?L RBC 2.51 (*) 4.26 - 5.52 10*6/?L HGB 4.8 (*) 12.2 - 16.4 g/dL HCT 19.1 (*) 38.4 - 49.3 % MCV 76.1 (*) 81.7 - 95.6 fL MCH 19.1 (*) 26.1 - 32.7 pg MCHC 25.1 (*) 31.2 - 35.0 g/dL RDW-SD 57.4 (*) 38.5 - 51.6 fL RDW-CV 20.8 (*) 12.1 - 15.4 % PLT 255 150 - 328 10*3/?L MPV 9.6 (*) 9.8 - 13.0 fL NRBC/100 WBC 0.4 0.0 - 10.0 /100 WBCs NRBC x10 3 0.02 10*3/?L GRAN MAT (NEUT) % 65.4 % IMM GRAN % 0.20 % LYMPH % 20.0 % MONO % 10.5 % EOS % 3.3 % BASO % 0.6 % GRAN MAT x10 3 (ANC) 3.17 1.99 - 6.95 10*3/uL IMM GRAN x10 3 <0.03 0.00 - 0.06 10*3/uL LYMPH x10 3 0.97 (*) 1.09 - 3.23 10*3/uL MONO x10 3 0.51 0.36 - 1.02 10*3/uL EOS x10 3 0.16 0.06 - 0.53 10*3/uL BASO x10 3 0.03 0.01 - 0.09 10*3/uL ACANTHOCYTES 1+ 1+ BASO STIPPLING Present (*) ELLIPTO/OVAL 2+ (*) (none) POLYCHROMASIA 2+ 2+ GIANT PLATELETS Present (*) (none) PROTHROMBIN TIME / INR - Abnormal PROTIME PATIENT 17.1 (*) 10.1 - 12.6 Seconds INR 1.5 ACTIVATED PARTIAL THRMPLAS VICTORINO - Normal APTT Patient 32 26 - 36 Seconds BASIC METABOLIC PANEL (NA, K, CL, CO2, GLUCOSE, BUN, CREATININE, CA) NA 139 135 - 145 mmol/L K 3.8 3.5 - 5.0 mmol/L CL 108 98 - 108 mmol/L CO2 TOTAL 23 23 - 31 mmol/L AGAP 8 2 - 16 BUN 18 7 - 23 mg/dL GLUCOSE 98 70 - 110 mg/dL CREATININE 0.82 0.60 - 1.25 mg/dL CALCIUM 8.6 8.6 - 10.6 mg/dL eGFR 93.9 mL/min/1.73m2 TYPE AND SCREEN ABO & RH A POSITIVE IAT Negative PREPARE PACKED RBC Cross Match Result Compatible ISBT Blood Type Code 6200 Unit Blood Type A Pos Unit Number [id number] Blood Expiration Date & Time Status Information Issued Product Identification Red Blood Cells Product Code [id number] Cross Match Result Compatible ISBT Blood Type Code 6200 Unit Blood Type A Pos Unit Number [id number] Blood Expiration Date & Time Status Information Issued Product Identification Red Blood Cells Product Code [id number] EKG: If EKG completed, see Procedure Note. Orders and Treatments: Orders Placed This Encounter Procedures CBC WITH DIFF BASIC METABOLIC PANEL (NA, K, CL, CO2, GLUCOSE, BUN, CREATININE, CA) Type and Screen - ONCE Routine PROTHROMBIN TIME / INR ACTIVATED PARTIAL THRMPLAS VICTORINO Transfusion Reaction Investigation Urinalysis (Spun) Orders Placed This Encounter Medications pantoprazole (PROTONIX) injection 40 mg First Provider Eval: ED Events Date/Time Event User Comments 09/25/24 125 Medical Screening Begins SASHA SVITLANA -- 09/25/24 125 First Provider Evaluation SASHA SVITLANA -- ED COURSE Diagnosis/Impression as of 09/25/241732 Anemia, unspecified type Procedures: Procedures MDM: Medical Decision Making The patient presents from home for evaluation after receiving a call from his clinic regarding a low hemoglobin of 5.0 on routine labs checked today. The patient reports he does feel fatigued when he walks long distances but otherwise denies complaints. No black or tarry colored stool. He does take Eliquis for history of atrial fibrillation. He was admitted for GI bleed in July of this year during which she was given several units of blood. He reports he follows up with a GI doctor in [place]. No chest pain or pressure. No shortness of breath. Vital signs are stable in the ER. He does have pale conjunctiva bilaterally. His abdomen is soft and nontender. Will check laboratory studies today to determine what his hemoglobin is. If his hemoglobin is below 7.0 the patient will be consulted for blood perfusion. Final disposition pending. 1420 -the patient is doing well here in the ER. His laboratory studies show his hemoglobin is 4.8. Will consent the patient for blood transfusion. When reviewing his colonoscopy and endoscopy reports from July of this year he had numerous areas of bleeding that needed to be cauterized. The patient will benefit from admission for evaluation by GI and the possibility of a repeat colonoscopy. He does prefer [facility] in [place]. The transfer center has been notified. 1730 -the patient is doing well here in the ER. He has completed his first unit of packed red blood cells and his second unit is starting. He was denied at [facility] in [place] due to capacity and need for higher level of care. Spoke with Dr. Hanson with the internal medicine service in [place] and the patient was accepted for admission for continued management. He is pending transportation. Problems Addressed: Anemia, unspecified type: acute illness or injury Amount and/or Complexity of Data Reviewed Labs: ordered. Decision-making details documented in ED Course. Risk Prescription drug management. Decision regarding hospitalization. Flowsheet Documentation: Scoring Tools: No data recorded Disposition/Condition: ED Disposition ED Disposition Transfer [facility] to IP/Obs Condition -- Comment -- Discharge Medications: Patient's Medications START taking these medications No medications on file CONTINUE taking these medications which have NOT CHANGED APIXABAN 5 MG TABLET Take 1 tablet by mouth in the morning and 1 tablet in the evening. LOSARTAN 25 MG TABLET Take 1 tablet by mouth in the morning. METOPROLOL TARTRATE 25 MG TABLET Take 0.5 tablets by mouth in the morning and 0.5 tablets in the evening. PANTOPRAZOLE 40 MG EC TABLET Take 1 tablet by mouth in the morning. START taking Modified Medications as Prescribed No medications on file STOP taking these medications No medications on file Follow-up: Electronically signed by: Svitlana Baez DO 09/25/24 1733 [facility] EMERGENCY PHYSICIAN STAFF [facility] 2024-08-01 16:33:15 Problem: Falls, Risk of Goal: Absence of falls Outcome: Adequate for discharge Problem: Bleeding, Risk of Goal: Absence of impaired coagulation signs and symptoms Outcome: Adequate for discharge Goal: Absence of active bleeding Outcome: Adequate for discharge Problem: Discharge Planning Goal: Adequate for discharge Outcome: Adequate for discharge Goal: Effective communication Outcome: Adequate for discharge Problem: Pain Goal: Control of pain at or below patient's documented comfort goal Outcome: Adequate for discharge Goal: Reduction in pain sensation Outcome: Adequate for discharge [facility] 2024-08-01 16:31:44 Pt in stable condition and discharge instructions provided to both patient and son at bedside and verbalize understanding. Pt discharged to private residence via private vehicle in stable condition I Gandara RN [facility] 2024-07-31 21:45:57 Problem: Falls, Risk of Goal: Absence of falls Outcome: Progressing as expected Problem: Bleeding, Risk of Goal: Absence of impaired coagulation signs and symptoms Outcome: Progressing as expected Goal: Absence of active bleeding Outcome: Progressing as expected Problem: Discharge Planning Goal: Adequate for discharge Outcome: Progressing as expected Goal: Effective communication Outcome: Progressing as expected Problem: Pain Goal: Control of pain at or below patient's documented comfort goal Outcome: Progressing as expected Goal: Reduction in pain sensation Outcome: Progressing as expected Dolly Coelho RN [facility] 2024-07-31 17:48:47 Problem: Falls, Risk of Goal: Absence of falls 07/31/20241747 by Mary Isidro RN Outcome: Progressing as expected 07/31/2024 0748 by Mary Isidro RN Outcome: Progressing as expected Problem: Bleeding, Risk of Goal: Absence of impaired coagulation signs and symptoms 07/31/20241747 by Mary Isidro RN Outcome: Progressing as expected 07/31/2024 0748 by Mary Isidro RN Outcome: Progressing as expected Goal: Absence of active bleeding 07/31/20241747 by Mary Isidro RN Outcome: Progressing as expected 07/31/2024 0748 by Mary Isidro RN Outcome: Progressing as expected Problem: Discharge Planning Goal: Adequate for discharge 07/31/20241747 by Mary Isidro RN Outcome: Progressing as expected 07/31/2024 0748 by Mary Isidro RN Outcome: Progressing as expected Goal: Effective communication 07/31/20241747 by Mary Isidro RN Outcome: Progressing as expected 07/31/2024 0748 by Mary Isidro RN Outcome: Progressing as expected Mary Isidro RN [facility] 2024-07-31 07:48:43 Problem: Falls, Risk of Goal: Absence of falls Outcome: Progressing as expected Problem: Bleeding, Risk of Goal: Absence of impaired coagulation signs and symptoms Outcome: Progressing as expected Goal: Absence of active bleeding Outcome: Progressing as expected Problem: Discharge Planning Goal: Adequate for discharge Outcome: Progressing as expected Goal: Effective communication Outcome: Progressing as expected [facility] 2024-07-31 06:31:16 Report rec'd from Jessica LAMAR. Pt is AAOX4, RA, NPO, no ISO, pt completing last of bowel prep, encouraged pt to finish by 0730. Any Johnson RN [facility] 2024-07-30 23:43:58 Room well lit, no signs of active bleeding Jessica Scott RN [facility] 2024-07-30 11:09:04 Problem: Falls, Risk of Goal: Absence of falls Outcome: Progressing as expected Problem: Bleeding, Risk of Goal: Absence of impaired coagulation signs and symptoms Outcome: Progressing as expected Goal: Absence of active bleeding Outcome: Progressing as expected Problem: Discharge Planning Goal: Adequate for discharge Outcome: Progressing as expected Goal: Effective communication Outcome: Progressing as expected Jodi Rios RN [facility] 2024-07-30 00:30:35 Night lights on, has non slip socks, bed alarm on [facility] 2024-07-29 19:23:33 Problem: Falls, Risk of Goal: Absence of falls Outcome: Progressing as expected Problem: Bleeding, Risk of Goal: Absence of impaired coagulation signs and symptoms Outcome: Progressing as expected Goal: Absence of active bleeding Outcome: Progressing as expected Problem: Discharge Planning Goal: Adequate for discharge Outcome: Progressing as expected Goal: Effective communication Outcome: Progressing as expected Elizabeth Craig RN [facility] 2024-07-29 11:39:13 Laying BP: 131/78 MAP 95 Sitting BP: 141/75 MAP 95 Standing BP: 146/67 MAP 88 Mary Lou Dunn RN [facility] 2024-07-29 05:35:26 Problem: Falls, Risk of Goal: Absence of falls Outcome: Progressing as expected Problem: Bleeding, Risk of Goal: Absence of impaired coagulation signs and symptoms Outcome: Progressing as expected Goal: Absence of active bleeding Outcome: Progressing as expected Problem: Discharge Planning Goal: Adequate for discharge Outcome: Progressing as expected Goal: Effective communication Outcome: Progressing as expected Mario Ferreira RN [facility] 2024-07-28 16:25:38 Problem: Falls, Risk of Goal: Absence of falls 07/28/2024 1625 by Mary Lou Dunn RN Outcome: Progressing as expected 07/28/2024 1625 by Mary Lou Dunn RN Outcome: Progressing as expected 07/28/2024 1530 by Mary Lou Dunn RN Outcome: Progressing as expected Problem: Bleeding, Risk of Goal: Absence of impaired coagulation signs and symptoms 07/28/2024 1625 by Mary Lou Dunn RN Outcome: Progressing as expected 07/28/2024 1625 by Mary Lou Dunn RN Outcome: Progressing as expected 07/28/2024 1530 by Mary Lou Dunn RN Outcome: Progressing as expected Goal: Absence of active bleeding 07/28/2024 1625 by Mary Lou Dunn RN Outcome: Progressing as expected 07/28/2024 1625 by Mary Lou Dunn RN Outcome: Progressing as expected 07/28/2024 1530 by Mary Lou Dunn RN Outcome: Progressing as expected Problem: Discharge Planning Goal: Adequate for discharge 07/28/2024 1625 by Mary Lou Dunn RN Outcome: Progressing as expected 07/28/2024 1625 by Mary Lou Dunn RN Outcome: Progressing as expected 07/28/2024 1530 by Mary Lou Dunn RN Outcome: Progressing as expected Goal: Effective communication 07/28/2024 1625 by Mary Lou Dunn RN Outcome: Progressing as expected 07/28/2024 1625 by Mary Lou Dunn RN Outcome: Progressing as expected 07/28/2024 1530 by Mary Lou Dunn RN Outcome: Progressing as expected T [facility] 2024-07-28 15:27:48 Patient's orthostatic blood pressure: Laying BP: 142/88 MAP 104 Sitting BP: 142/74 MAP 73 Standing BP: 139/87 MAP 100 [facility] 2024-07-28 12:50:21 Pt to PACU holding accompanied by HOME CARE GIVER and transport. Pt on 3L N/C and continuous vital monitoring. Care taken over by this RN. T Kya Pabon RN [facility] 2024-07-28 10:07:14 Images from the original note were not included. Alternate Route Pharmacy Protocol Intervention Discussed with primary team and it was agreed upon to change IV pantoprazole 40 mg bid to enteral pantoprazole 40 mg daily Pharmacy will continue to follow the patient's clinical progress as necessary. Thank you for the opportunity to participate in the care of this patient. [place] [facility], PharmD, MSHA, BCPS [facility] Department of Pharmacy [facility] Pager: [phone] [place] [facility] 2024-07-28 08:11:39 Spoke with BRIANDA Najera. Pt NPO since midnight. Bowel Prep was not ordered. GI MD and Fellow notified. [facility] 2024-07-28 05:18:07 Problem: Falls, Risk of Goal: Absence of falls Outcome: Progressing as expected Problem: Bleeding, Risk of Goal: Absence of impaired coagulation signs and symptoms Outcome: Progressing as expected Goal: Absence of active bleeding Outcome: Progressing as expected Problem: Discharge Planning Goal: Adequate for discharge Outcome: Progressing as expected Goal: Effective communication Outcome: Progressing as expected João Laureano RN [facility] 2024-07-27 08:16:44 Problem: Falls, Risk of Goal: Absence of falls Outcome: Progressing as expected Problem: Bleeding, Risk of Goal: Absence of impaired coagulation signs and symptoms Outcome: Progressing as expected Goal: Absence of active bleeding Outcome: Progressing as expected Problem: Discharge Planning Goal: Adequate for discharge Outcome: Progressing as expected Goal: Effective communication Outcome: Progressing as expected Dea Mariee RN [facility] 2024-07-27 03:58:13 Problem: Falls, Risk of Goal: Absence of falls Outcome: Progressing as expected Problem: Bleeding, Risk of Goal: Absence of impaired coagulation signs and symptoms Outcome: Progressing as expected Goal: Absence of active bleeding Outcome: Progressing as expected Problem: Discharge Planning Goal: Adequate for discharge Outcome: Progressing as expected Goal: Effective communication Outcome: Progressing as expected Hyun Barroso RN [facility] 2024-07-26 23:00:00 Nurse Report Report given to Hyun LAMAR at [facility]. Chief complaint, assessment findings, infusion verify and orders reviewed. Plan of care discussed at bedside with patient and both nurses. Patient/family members verbalized understanding. GERALD OAKLEY RN ITTT Gerald Oakley RN [facility] 2024-07-26 22:40:00 Patient en route via [facility] to [facility] for further evaluation and treatment. Patient is being transported with unit of PRBC infusing. Patient alert and responsive upon departure from ER. T [facility] 2024-07-26 22:30:00 Report given to [facility] crew. T [facility] 2024-07-26 22:00:00 Patient afebrile, PRBC infusing without complications. Patient states he feels better. Color remains pale. Afebrile, HR 87. T [facility] 2024-07-26 21:37:12 Spoke with [facility] ETA 45 min Elisa CABA [facility] 2024-07-26 20:25:00 Unit PRBC # [id number] initiated as ordered, infusing via pump into 18 G IV cath left A/C. [facility] 2024-07-26 17:56:51 Patient states he has had two black Bms-one today and one yesterday. Denied diarrhea or vomiting. Denies abdominal pain. [facility] 2024-07-26 17:32:26 CC: patient presents to the ER with complaints of low blood pressure, shortness of breath, and rectal bleeding that began a couple days ago. Awake, alert, oriented, resp reg unlabored, skin cool and dry, color pale, moves all ext without difficulty, using wheelchair. Appears in no distress. T Karyna Fonseca RN [facility] 2024-07-26 17:15:00 Associated Order(s): EKG-12 Lead ROUTINE ONCE Pre-Procedure Diagnose(s): Shortness of breath Post-Procedure Diagnose(s): Shortness of breath [facility] Emergency Department Note Patient Name: Solis Saleh Date of : 1950 73 year old male Treatment Room: Room/bed info not found Primary Care Physician: Marilyn Pleitez Patient Escorted by: Family [5] Mode of Arrival: Personal means [1] EMS Treatment Prior to ED Arrival: [employer] treatment: None Travel and Exposure Screening: Symptoms Does patient have any of these symptoms?: (not recorded) Exposure Screening Has patient had contact with someone with a communicable disease in the last month?: (not recorded) Diseases exposed to:: (not recorded) Is Patient ?: (not recorded) Exposure Date: (not recorded) Chief Complaint: Chief Complaint Patient presents with HYPOTENSION History of Present Illness: Solis Saleh is a 73 year old male who present to the ED with shortness of breath and dark stool for few days, low blood pressure today. History of A-fib on Eliquis and recently Metoprolol was increased from 25 mg to 50 mg. He was found sitting in the ED triage area. He appears acutely ill, but not toxic and does not seem to be in any apparent distress at this time. Patient denies any chest, abdomen, back or neck pains, SOB, dizziness, headache, focal weakness, fever, chills, cough, sore throat, dysphagia, dysuria, hematuria, hemoptysis, nausea, vomiting or diarrhea. History provided by: Patient motor vehicle parts interpreter used: No Past Medical History/Immunizations: History reviewed. No pertinent past medical history. Tetanus received in last 5 years: Unknown Allergies: Allergies Allergen Reactions Pcn [Penicillins] Shortness of Breath and Swelling Past Social History: Substance & Sexual Activity No substance use or sexual activity history on file. Past Surgical History: History reviewed. No pertinent surgical history. Review of Systems: Review of Systems Constitutional: Negative. HENT: Negative. Eyes: Negative. Respiratory: Positive for shortness of breath. Negative for apnea, cough, choking, chest tightness, wheezing and stridor. Cardiovascular: Negative. Gastrointestinal: Positive for blood in stool (Dark stool). Negative for abdominal distention, abdominal pain, anal bleeding, constipation, diarrhea, nausea, rectal pain and vomiting. Genitourinary: Negative. Musculoskeletal: Negative. Skin: Positive for pallor. Negative for color change, rash and wound. Neurological: Negative. Hematological: Negative for adenopathy. Bruises/bleeds easily. Physical Exam: ED Triage Vitals [07/26/24 1735] Weight 99.8 kg (220 lb) Actual or estimated Estimated by patient/family report Height 1.702 m (5' 7") BP 108/58 Pulse 94 Resp 16 Temp 37.1 ?C (98.8 ?F) Temp source Oral SpO2 (!) 74 % Measured on On oxygen Physical Exam Vitals and nursing note reviewed. Exam conducted with a coin machine servicer repairer present. Constitutional: General: He is not in acute distress. Appearance: Normal appearance. He is normal weight. He is ill-appearing (Acutely). He is not toxic-appearing or diaphoretic. HENT: Head: Normocephalic. Right Ear: External ear normal. Left Ear: External ear normal. Nose: Nose normal. Mouth/Throat: Mouth: Mucous membranes are moist. Eyes: General: No scleral icterus. Right eye: No discharge. Left eye: No discharge. Conjunctiva/sclera: Conjunctivae normal. Cardiovascular: Rate and Rhythm: Normal rate. Pulses: Normal pulses. Heart sounds: Normal heart sounds. No murmur heard. No friction rub. No gallop. Pulmonary: Effort: Pulmonary effort is normal. No respiratory distress. Breath sounds: Normal breath sounds. No stridor. No wheezing, rhonchi or rales. Chest: Chest wall: No tenderness. Abdominal: General: Bowel sounds are normal. There is no distension. Palpations: Abdomen is soft. There is no mass. Tenderness: There is abdominal tenderness (Mild generalized). There is no right CVA tenderness, left CVA tenderness, guarding or rebound. Hernia: No hernia is present. Genitourinary: Rectum: Normal. Guaiac result positive. No mass, tenderness or external hemorrhoid. Musculoskeletal: General: No swelling, tenderness, deformity or signs of injury. Normal range of motion. Right lower leg: No edema. Left lower leg: No edema. Skin: General: Skin is warm and dry. Capillary Refill: Capillary refill takes less than 2 seconds. Coloration: Skin is pale. Skin is not jaundiced. Findings: No bruising, erythema, lesion or rash. Neurological: General: No focal deficit present. Mental Status: He is alert and oriented to person, place, and time. Radiology: XR CHEST 1 VW Final Result Exam: Chest (1 View), 07/26/2024 7:30 PM. Ordering Physician: COURTNEY CONNORS. History: Short of breath. Technique: One view of the chest. Comparison: None. Findings: There is mild cardiomegaly. Thoracic aorta is tortuous. There is no pneumothorax. There is no consolidation or pleural effusion. Pleural and diaphragmatic contours are normal. Chronic right posterior fourth rib fracture is noted. IMPRESSION Impression: No consolidation or pleural effusion. No pneumothorax. RL: [id number] End of Report Lab Results: Lab Results CBC WITH DIFF - Abnormal Result Value Ref Range WBC 4.84 4.20 - 10.70 10*3/?L RBC 1.51 (*) 4.26 - 5.52 10*6/?L HGB 2.7 (*) 12.2 - 16.4 g/dL HCT 10.8 (*) 38.4 - 49.3 % MCV 71.5 (*) 81.7 - 95.6 fL MCH 17.9 (*) 26.1 - 32.7 pg MCHC 25.0 (*) 31.2 - 35.0 g/dL RDW-SD 51.6 38.5 - 51.6 fL RDW-CV 19.8 (*) 12.1 - 15.4 % PLT 353 (*) 150 - 328 10*3/?L MPV 9.4 (*) 9.8 - 13.0 fL IPF % 2.3 1.2 - 10.7 % NRBC/100 WBC 1.7 0.0 - 10.0 /100 WBCs NRBC x10 3 0.08 10*3/?L GRAN MAT (NEUT) % 81.1 % IMM GRAN % 1.00 % LYMPH % 10.3 % MONO % 6.8 % EOS % 0.6 % BASO % 0.2 % GRAN MAT x10 3 (ANC) 3.92 1.99 - 6.95 10*3/uL IMM GRAN x10 3 0.05 0.00 - 0.06 10*3/uL LYMPH x10 3 0.50 (*) 1.09 - 3.23 10*3/uL MONO x10 3 0.33 (*) 0.36 - 1.02 10*3/uL EOS x10 3 0.03 (*) 0.06 - 0.53 10*3/uL BASO x10 3 <0.03 0.01 - 0.09 10*3/uL ELLIPTO/OVAL 2+ (*) (none) POLYCHROMASIA 3+ (*) 2+ SCHISTOCYTES 2+ (*) COMP. METABOLIC PANEL (81892) - Abnormal NA 138 135 - 145 mmol/L K 3.8 3.5 - 5.0 mmol/L CL 108 98 - 108 mmol/L CO2 TOTAL 19 (*) 23 - 31 mmol/L AGAP 11 2 - 16 BUN 29 (*) 7 - 23 mg/dL GLUCOSE 125 (*) 70 - 110 mg/dL CREATININE 1.05 0.60 - 1.25 mg/dL TOTAL BILI 0.5 0.1 - 1.1 mg/dL CALCIUM 7.9 (*) 8.6 - 10.6 mg/dL T PROTEIN 6.4 6.3 - 8.2 g/dL ALBUMIN 3.8 3.5 - 5.0 g/dL ALK PHOS 65 34 - 122 U/L ALTv 15 5 - 50 U/L AST(SGOT) 17 13 - 40 U/L eGFR 75.9 mL/min/1.73m2 N-TERMINAL PRO-BNP - Abnormal NT-proBNP 775 <=125 pg/mL INFLUENZA A/B RSV COVID NAAT - Normal Influenza A NAAT Negative Negative Influenza B NAAT Negative Negative RSV by PCR Negative Negative SARS-CoV-2 NAAT Negative Negative TROPONIN I - Normal TROPONIN I 0.014 <=0.034 ng/mL D-DIMER - Normal D-DIMER <0.21 <0.50 ?g/mL (FEU) TYPE AND SCREEN ABO & RH A POSITIVE IAT Negative ABORH CONFIRMATION (LAB ONLY) ABO & RH A Positive URINALYSIS PREPARE PACKED RBC Cross Match Result Compatible ISBT Blood Type Code 6200 Unit Blood Type A Pos Unit Number [id number] Blood Expiration Date & Time Status Information Ready Product Identification Red Blood Cells Product Code [id number] Cross Match Result Compatible ISBT Blood Type Code 6200 Unit Blood Type A Pos Unit Number [id number] Blood Expiration Date & Time [id number] Status Information Ready Product Identification Red Blood Cells Product Code [id number] Cross Match Result Compatible ISBT Blood Type Code 6200 Unit Blood Type A Pos Unit Number [id number] Blood Expiration Date & Time Status Information Issued Product Identification Red Blood Cells Product Code [id number] PREPARE PACKED RBC EKG: If EKG completed, see Procedure Note. Orders and Treatments: Orders Placed This Encounter Procedures XR CHEST [address] ABDOMEN PELVIS W CONTRAST CBC WITH DIFF COMP. METABOLIC PANEL (54329) Influenza A B RSV COVID NAAT TROPONIN I N-TERMINAL PRO-BNP D-DIMER Type and Screen - ONCE STAT ABORH Confirmation (Lab Only) URINALYSIS Lab Only COVID Interpretation Transfusion Reaction Investigation Urinalysis (Spun) Nasal Cannula Orders Placed This Encounter Medications iopamidol (ISOVUE 370-500 mL) injection 89 mL DISCONTD: pantoprazole (PROTONIX) 80 mg in NaCl 0.9% (NS) 20 mL syringe pantoprazole (PROTONIX) 80 mg in NaCl 0.9% (NS) 500 mL infusion pantoprazole (PROTONIX) injection 80 mg First Provider Eval: ED Events Date/Time Event User Comments 07/26/241714 Medical Screening Begins COURTNEY CONNORS NP -- 07/26/241714 First Provider Evaluation COURTNEY CONNORS NP -- AdmissionCare Guideline: Gastrointestinal Bleeding (Upper) - INPT, Inpatient Based on the indications selected for the patient, the bed status of Inpatient was determined to be MET The following indications were selected as present at the time of evaluation of the patient: - Clinical Indications for Admission to Inpatient Care - Admission is indicated for 1 or more of the following: - Not patient baseline (eg, healthy adult with low SBP) or intentional therapeutic goal (eg, low SBP as treatment goal in heart failure) - Ongoing active bleeding (eg, decreasing hematocrit) - Presence of significant clinical finding, as indicated by 1 or more of the following: - Dyspnea AdmissionCare documentation entered by: Courtney Connors [facility] [employer], 28th edition, Copyright ? 2023 [facility] [place] [employer] All Rights Reserved. [id number]:35:50-05:00 ED COURSE Labs, ECG, CT abdomen and pelvis, chest x-ray, Protonix, Blood transfusion ED Course as of 07/26/242055Jul 26, 20242054 IMPRESSION Cholelithiasis. Innumerable hypodense hepatic parenchymal lesions some of which cannot be definitively characterized. Further evaluation with multiphasic liver protocol MR is recommended. Cardiomegaly. [JA] 2054 Impression: No consolidation or pleural effusion. No pneumothorax. [JA] 1925 HCT(!!): 10.8 [JA] 1925 HGB(!!): 2.7 [JA] ED Course User Index [JA] Courtney Connors NP Diagnosis/Impression as of 07/26/242055 Shortness of breath Generalized abdominal tenderness without rebound tenderness Anemia, unspecified type Melena Upper GI bleed Procedures: EKG-12 Lead ROUTINE ONCE Date/Time: 07/26/2024 5:41 PM Performed by: Courtney Connors NP Authorized by: Courtney Connors NP ECG interpreted by ED Physician in the absence of a rip sawyer: yes Previous ECG: Previous ECG: Unavailable Interpretation: Interpretation: abnormal Rate: ECG rate: 87 ECG rate assessment: normal Rhythm: Rhythm: atrial fibrillation Ectopy: Ectopy: PVCs PVCs: Multifocal QRS: QRS axis: Normal QRS intervals: Normal QRS conduction: normal ST segments: ST segments: Normal T waves: T waves: normal Q waves: Abnormal Q-waves: not present MDM: Solis Saleh is a 73 year old male who present to the ED with shortness of breath and dark stool for few days, low blood pressure today. History of A-fib on Eliquis and recently Metoprolol was increased from 25 mg to 50 mg. DDX: ANEMIA ORTHOSTATIC HYPOTENSION ACS CARDIAC ARRHYTHMIAS DEHYDRATION PULMONARY EDEMA CHF EXACERBATION COPD PLEURAL EFFUSION PNEUMOTHORAX PE BRONCHITIS PNEUMONIA VIRAL SYNDROME LUNG MALIGNANCY INTRAABDOMINAL ABNORMALITY GI BLEED Medical Decision Making Solis Saleh is a 73 year old male who present to the ED with shortness of breath and dark stool for few days, low blood pressure today. History of A-fib on Eliquis and recently Metoprolol was increased from 25 mg to 50 mg. Problems Addressed: Anemia, unspecified type: acute illness or injury Generalized abdominal tenderness without rebound tenderness: acute illness or injury Melena: acute illness or injury Shortness of breath: acute illness or injury Upper GI bleed: acute illness or injury Amount and/or Complexity of Data Reviewed Labs: ordered. Decision-making details documented in ED Course. Radiology: ordered. Decision-making details documented in ED Course. ECG/medicine tests: ordered. Decision-making details documented in ED Course. Risk Prescription drug management. Decision regarding hospitalization. Risk Details: Patient with SOB, anemia, melena and positive guaiac. There is a possibility of worsening symptoms or negative outcomes for patient without further care and evaluation beyond ED. Patient is going to benefit from hospital stay, plan discussed with patient and he verbalized understanding and agrees. Flowsheet Documentation: Scoring Tools: No data recorded Disposition/Condition: ED Disposition ED Disposition Admit - ICU Condition Stable Comment -- Discharge Medications: Patient's Medications START taking these medications No medications on file CONTINUE taking these medications which have NOT CHANGED AMLODIPINE 10 MG TABLET Take 1 tablet by mouth in the morning. LOSARTAN 100 MG TABLET Take 1 tablet by mouth in the morning. TADALAFIL (CIALIS) 20 MG TABLET Take 1 tablet by mouth as needed for Erectile dysfunction (2 hrs prior to sexual activity, 2-3 times/ week). START taking Modified Medications as Prescribed No medications on file STOP taking these medications No medications on file Follow-up: Electronically signed by: Courtney Connors NP 07/27/24 0036 Associated attestation - Kraig Infante MD - 07/27/2024 4:04 PM CDT The patient's history, exam findings, diagnostics, and a summary of any interventions or procedures was reviewed in detail with the ED YULI. I confirm the diagnosis as documented by the YULI and I agree with the care plan articulated in the disposition section with regards to our discussion of the patient s case. Kraig Infante MD FAC, [facility]. [facility] 2024-07-26 17:15:00 AdmissionCare Guideline: Gastrointestinal Bleeding (Upper) - INPT, Inpatient Based on the indications selected for the patient, the bed status of Inpatient was determined to be MET The following indications were selected as present at the time of evaluation of the patient: - Clinical Indications for Admission to Inpatient Care - Admission is indicated for 1 or more of the following: - Not patient baseline (eg, healthy adult with low SBP) or intentional therapeutic goal (eg, low SBP as treatment goal in heart failure) - Ongoing active bleeding (eg, decreasing hematocrit) - Presence of significant clinical finding, as indicated by 1 or more of the following: - Dyspnea AdmissionCare documentation entered by: Courtney Connors [facility] [employer], 28th edition, Copyright ? 2023 [facility] [employer] [facility] All Rights Reserved. [id number] [facility]
[2025-02-15 10:27] LABS: Absolute Eosinophils 0.1 K/uL (0-0.5); Absolute Lymphocytes (CBC) 0.6 K/uL (0.7-4.9); Absolute Monocytes 0.2 K/uL (0.1-1.3); Absolute Neutrophil 7.1 K/uL (1.8-8.0); Basophils % 0.5 % (0-1.3); Eosinophils % 1.1 % (0-4.4); Hematocrit 37.4 % (39.6-49.0); Hemoglobin 11.8 g/dL (13.6-17.9); Lymphocytes % 6.9 % (15.3-44.8); MCH 25.5 pg (27.0-35.0); MCHC 31.7 g/dL (32.0-36.0); MCV 80.6 fL (80-100); MPV 8.5 fL (7.6-11.3); Neutrophils % 88.5 % (41.7-73.7); Nucleated Red Blood Cells % 0.1 % (0-0); Platelets 219 thou/uL (152-406); RBC Red Blood Cell Count 4.64 M/uL (4.33-5.43)
[2025-02-15 10:37] LABS: PT Prothrombin Time 13.7 SECONDS (10-13.0); Protime INR 1.21
[2025-02-15 10:54] LABS: ALT/SGPT 31 U/L (16-61); Albumin 3.3 g/dL (3.4-5.0); Alkaline Phosphatase 77 U/L (45-117); Anion Gap 8.1 mEq/L (5.0-15.0); BUN Blood Urea Nitrogen 19 mg/dL (7-18); Bicarbonate 27 mEq/L (21-32); Bilirubin Total 0.4 mg/dL (0.2-1.0); Globulin 3.2 g/dL (2.3-3.5); Glomerular Filtration Rate 91 ml/min (=/>90); Glucose Level 98 mg/dL (74-106); NT PRO-BNP 1283 pg/mL (<125); Protein, Total 6.5 g/dL (6.4-8.2); Sodium Level 141 mEq/L (136-145); Troponin High Sensitivity 15.4 pg/mL (<58.9)
[2025-02-15 10:59] LABS: AST/SGOT 16 U/L (15-37); Bilirubin Direct < 0.2 mg/dL (0-0.2); Bilirubin Indirect, Calculated 0.2 mg/dL (0.2-0.8); Magnesium 1.8 mg/dL (1.6-2.4); Potassium 4.1 mEq/L (3.5-5.1)
--- NOTE | 2025-02-15 11:19 | EDPHYS ---
Physician Documentation [facility] Name: Solis Argueta Age: 74 yrs Sex: Male : 1950 Arrival Date: 02/15/2025 Time: 09:57 Bed 6 Private MD: ED Physician Brett Hinkle HPI: 02/15 10:15 This 74 yrs old Male presents to ER via EMS with complaints of Allergic Reaction. sp3 10:15 74-year-old male with history of atrial fibrillation, prior leukemia in remission, CVA sp3 that presents from hematology office after a syncopal episode after receiving test dose of IV iron dextran. On scene he received Solu-Cortef 100 mg IV, Ativan 1 mg IV, small amount of IV fluid, and Tylenol 650 mg p.o. by local clinic team. EMS continued IV fluids to the ED. Patient syncopal episode was short-lived and after recovery complained of some mild low back pain. That low back pain is now completely resolved as well while the route to the ED. Patient currently has no complaints whatsoever. No hives or other signs or symptoms of allergy noted. Dr. Parrish hematology did call me to discuss the case. He is being sent here more for precautionary basis and initially to evaluate the low back pain which has now subsequently resolved.. Historical: - Allergies: 10:10 PENICILLINS; bp - PMHx: 10:10 Atrial Fib; bone cancer- in remission; CVA; bp - Immunization history:: Adult Immunizations up to date. - Infectious Disease History:: Denies. - Social history:: Smoking status: Patient denies any tobacco usage or history of. ROS: 10:21 Constitutional: Negative for fever, chills, and weight loss, Eyes: Negative for injury, sp3 pain, redness, and discharge, ENT: Negative for injury, pain, and discharge, Neck: Negative for injury, pain, and swelling, Cardiovascular: Negative for chest pain, palpitations, and edema, Respiratory: Negative for shortness of breath, cough, wheezing, and pleuritic chest pain, Abdomen/GI: Negative for abdominal pain, nausea, vomiting, diarrhea, and constipation, Back: Negative for injury and pain, MS/Extremity: Negative for injury and deformity, Skin: Negative for injury, rash, and discoloration, Neuro: Negative for headache, weakness, numbness, tingling, and seizure, Psych: Negative for depression, anxiety, suicide ideation, homicidal ideation, and hallucinations, Allergy/Immunology: Negative for hives, rash, and allergies, Endocrine: Negative for neck swelling, polydipsia, polyuria, polyphagia, and marked weight changes, 10:21 All other systems are negative, Exam: 10:22 Constitutional: This is a well developed, well nourished patient who is awake, alert, sp3 and in no acute distress. Head/Face: Normocephalic, atraumatic. Eyes: Pupils equal round and reactive to light, extra-ocular motions intact. Lids and lashes normal. Conjunctiva and sclera are non-icteric and not injected. Cornea within normal limits. Periorbital areas with no swelling, redness, or edema. ENT: Nares patent. No nasal discharge, no septal abnormalities noted. External auditory canals are clear. Oropharynx with no redness, swelling, or masses, exudates, or evidence of obstruction, uvula midline. Mucous membranes moist. Neck: Trachea midline, no thyromegaly or masses palpated, and no cervical lymphadenopathy. Supple, full range of motion without nuchal rigidity, or vertebral point tenderness. No Meningismus. Chest/axilla: Normal chest wall appearance and motion. Nontender with no deformity. No lesions are appreciated. Cardiovascular: Regular rate and rhythm with a normal S1 and S2. No gallops, murmurs, or rubs. Normal PMI, no JVD. No pulse deficits. Respiratory: Lungs have equal breath sounds bilaterally, clear to auscultation and percussion. No rales, rhonchi or wheezes noted. No increased work of breathing, no retractions or nasal flaring. Abdomen/GI: Soft, non-tender, with normal bowel sounds. No distension or tympany. No guarding or rebound. No evidence of tenderness throughout. Back: No spinal tenderness. No costovertebral tenderness. Full range of motion. Skin: Warm, dry with normal turgor. Normal color with no rashes, no lesions, and no evidence of cellulitis. MS/ Extremity: Pulses equal, no cyanosis. Neurovascular intact. Full, normal range of motion. Neuro: Awake and alert, GCS 15, oriented to person, place, time, and situation. Cranial nerves II-XII grossly intact. Motor strength 5/5 in all extremities. Sensory grossly intact. Cerebellar exam normal. Normal gait. Psych: Awake, alert, with orientation to person, place and time. Behavior, mood, and affect are within normal limits. 11:13 ECG was reviewed by the Attending Physician. EKG demonstrates normal sinus rhythm at 72 sp3 bpm with sinus arrhythmia, leftward axis, poor R wave progression nonspecific diffuse ST/T changes with occasional PAC and no signs of ischemia at this time. Vital Signs: 10:08 BP 184 / 96; Pulse 76; Resp 16; Temp 98; Pulse Ox 96% on R/A; bp 11:44 BP 149 / 64; Pulse 72; Resp 16; Pulse Ox 97% ; bp MDM: 10:06 Medical Screening Exam initiated sp3 10:22 Data reviewed: vital signs, nurses notes, lab test result(s), EKG. ED course: sp3 74-year-old male status post syncopal episode after receiving test dose of IV iron dextran now with full recovery. Patient's only complaint in addition to the syncope was low back pain which has resolved. Differential diagnosis includes allergic reaction, medication side effect, cardiac arrhythmia, other incidental cardiac event, electrolyte abnormality, among others. I am at highly suspicious of sepsis, shock, acute coronary syndrome, PE, or any other critical concerning process at this time. Patient's vital signs are normal other than mild elevated blood pressure of 184/96, and he has no symptoms or complaints at this time. If cardiac workup negative, we will safely discharge patient home.. 11:17 ED course: Full workup negative in the ED. Will safely discharge him back to [facility] hematology. . 02/15 10:06 Order name: Basic Metabolic Panel; Complete Time: 11:14 3 02/15 10:06 Order name: CBC with Diff 3 02/15 10:06 Order name: LFT's; Complete Time: 11:14 3 02/15 10:06 Order name: Magnesium; Complete Time: 11:14 3 02/15 10:06 Order name: NT PRO-BNP; Complete Time: 11:14 3 02/15 10:06 Order name: PT-INR; Complete Time: 11:14 3 02/15 10:06 Order name: Troponin HS; Complete Time: 11:14 [facility] 02/15 10:47 Order name: CBC Smear Scan EDMS 02/15 10:06 Order name: Cardiac monitoring; Complete Time: 10:13 sp3 02/15 10:06 Order name: EKG - Nurse/Tech; Complete Time: 10:34 sp3 02/15 10:06 Order name: IV Saline Lock; Complete Time: 10: sp3 02/15 10:06 Order name: Labs collected and sent; Complete Time: 10:34 sp3 02/15 10:06 Order name: O2 Per Protocol; Complete Time: 10: sp3 02/15 10:06 Order name: O2 Sat Monitoring; Complete Time: 10:13 sp3 Administered Medications: No medications were administered Disposition Summary: 02/15/25 11:19 Discharge Ordered Notes: Location: Home sp3 Condition: Stable sp3 Diagnosis - Syncope, possible medication side effect sp3 Followup: sp3 - With: Private Physician - When: Upon discharge from the Emergency Department - Reason: Continuance of care Discharge Instructions: - Discharge Summary Sheet sp3 - Syncope sp3 Forms: - Medication Reconciliation Form sp3 - Antibiotic Education sp3 - Prescription Opioid Use sp3 - Patient Portal Instructions sp3 - Leadership Thank You Letter sp3 Signatures: Dispatcher [employer] Rogelio Salinas RN RN bp Patel, Setul, MD MD sp3
--- NOTE | 2025-02-15 11:19 | ER ---
Nurse's Notes [facility] Name: Solis Argueta Age: 74 yrs Sex: Male : 1950 Arrival Date: 02/15/2025 Time: 09:57 Bed 6 Private MD: Diagnosis: Syncope, possible medication side effect Presentation: 02/15 10:08 Chief complaint: EMS states: [facility] TO [facility]. Coronavirus bp screen: At this time, the client does not indicate any symptoms associated with coronavirus-19. Ebola Screen: No symptoms or risks identified at this time. Onset: The symptoms/episode began/occurred acutely. Anaphylaxis evaluation, decreased level of conciousness. Initial Sepsis Screen: Does the patient meet any 2 criteria? No. Patient's initial sepsis screen is negative. Does the patient have a suspected source of infection? No. Patient's initial sepsis screen is negative. Risk Assessment: Do you want to hurt yourself or someone else? Patient reports no desire to harm self or others. Onset of symptoms is unknown. Care prior to arrival: Medication(s) given: Normal saline infusion, 500 mL, ATIVAN, SOLU-MEDROL, SOLU-CORTEF IV initiated. 20 GA, in the left antecubital area, Glucose check: 92. 10:08 Method Of Arrival: EMS: [facility] bp 10:08 Acuity: PEPITO 2 bp Triage Assessment: 10:10 General: Appears in no apparent distress. Behavior is calm, cooperative, appropriate bp for age, drowsy. Pain: Denies pain. EENT: No deficits noted. Neuro: Level of Consciousness is awake, alert, obeys commands, Oriented to Appropriate for age. Cardiovascular: Rhythm is atrial fibrillation. Respiratory: No deficits noted. GI: No signs and/or symptoms were reported involving the gastrointestinal system. : No signs and/or symptoms were reported regarding the genitourinary system. Derm: No deficits noted. Musculoskeletal: No deficits noted. Historical: - Allergies: 10:10 PENICILLINS; bp - PMHx: 10:10 Atrial Fib; bone cancer- in remission; CVA; bp - Immunization history:: Adult Immunizations up to date. - Infectious Disease History:: Denies. - Social history:: Smoking status: Patient denies any tobacco usage or history of. Screenin:[address] [facility] ED Fall Risk Assessment (Adult) History of falling in the last 3 months, bp including since admission No falls in past 3 months (0 pts) Confusion or Disorientation No (0 pts) Intoxicated or Sedated No (0 pts) Impaired Gait No (0 pts) Mobility Assist Device Used No (0 pt) Altered Elimination No (0 pt) Score/Fall Risk Level 0 - 2 = Low Risk Oriented to surroundings. Abuse screen: Denies threats or abuse. Denies injuries from another. Nutritional screening: No deficits noted. Tuberculosis screening: No symptoms or risk factors identified. Assessment: 10:11 General: Appears in no apparent distress. comfortable, Behavior is calm, cooperative, bp appropriate for age, drowsy. Respiratory: Airway is patent Respiratory effort is even, unlabored. Vital Signs: 10:08 BP 184 / 96; Pulse 76; Resp 16; Temp 98; Pulse Ox 96% on R/A; bp 11:44 BP 149 / 64; Pulse 72; Resp 16; Pulse Ox 97% ; bp ED Course: 10:02 Patient arrived in ED. ll1 10:03 Rogelio Stephens, RN is Primary Nurse. bp 10:06 Brett Hinkle MD is Attending Physician. sp3 10:10 Triage completed. bp 10:10 Arm band placed on. bp 10:12 Patient has correct armband on for positive identification. bp 10:12 Maintain EMS IV. Dressing intact. Good blood return noted. Site clean \T\ dry. Gauge \T\ bp site: 20 LAC. 11:44 No provider procedures requiring assistance completed. IV discontinued, intact, bp bleeding controlled, No redness/swelling at site. Pressure dressing applied. Administered Medications: No medications were administered Medication: 11:45 VIS not applicable for this client. bp Outcome: 11:19 Discharge ordered by . sp3 11:44 Discharged to home ambulatory, with family, bp 11:44 Condition: stable 11:44 Discharge instructions given to patient, Instructed on discharge instructions, follow up and referral plans. Demonstrated understanding of instructions, follow-up care, 11:45 Patient left the ED. bp Signatures: Rogelio Stephens, Ana Villarreal RN, RN RN ll1 Bertt Hinkle MD MD sp3
[2025-02-15 11:59] VITALS: TEMP 98
[2025-02-15 12:00] VITALS: BP 149/64; O2SAT 97
[2025-02-15 13:25] LABS: Anisocytosis 1+; Blood Morphology Comment NOTED (NOT SEEN); Platelet Estimate ADEQ; White Blood Cell Scan OK (OK)
--- NOTE | 2025-02-19 12:12 | EKG ---
Test Date: 2025-02-15 Test Time: 10:38:28 [employer]: LAURA MEASUREMENT RESULTS: Intervals: Rate: 72 NE: QRSD: 100 QT: 414 QTc: 453 Holliday: P: NE: QRS: -23 T: 14 INTERPRETIVE STATEMENTS: Atrial fibrillation with PVCs Incomplete right bundle branch block Possible Anterior infarct, age undetermined Abnormal ECG Compared to ECG 06/09/2021 18:38:14 Incomplete right bundle-branch block now present Sinus rhythm no longer present Atrial premature complex(es) no longer present Myocardial infarct finding still present Electronically Signed On 02-19-25 12:10:08 CDT by Robert Marcus
== END 2025-02-15 11:45 | disposition home or self-care (01) ==
LOC: ER 09:57
DX: R55 Syncope and collapse (principal); I48.91 Unspecified atrial fibrillation; Z85.830 Personal history of malignant neoplasm of bone; Z86.73 Personal history of transient ischemic attack (TIA), and cerebral infarction without residual deficits
CPT/HCPCS: 36415; 80048; 80076; 83735; 83880; 84484; 85025; 85610; 93005; 99283